=== PATIENT | male | born 1950 | race Caucasian/White ===

== ENCOUNTER 2020-06-07 13:13 | Outpatient (REF) | payer MEDICARE, MEDICAID, SELFPAY ==
[2020-06-07 14:00] LABS: MANUAL DIFF FLAG NO
[2020-06-07 14:03] LABS: Basophils Percent Auto 0.6 % (0-2); Eosinophils Absolute Auto 0.3 X10*3/uL (0.0-0.4); Hematocrit 39.7 % (42-52); Hemoglobin 12.9 g/dl (14.0-18.0); Imm Gran Abs Auto 0.03 X10*3/uL (0.00-0.03); Imm Gran Pct Auto 0.4 % (0.0-0.4); Lymphocytes Absolute Auto 2.2 X10*3/uL (1.2-4.9); Lymphocytes Percent Auto 31.5 % (20-40); Mean Corpuscular HGB Conc 32.5 g/dl (31.0-36.0); Mean Corpuscular Hemoglobin 29.3 pg (27.0-33.0); Monocytes Absolute Auto 0.7 X10*3/uL (0.1-1.2); Monocytes Percent Auto 9.5 % (2-11); Neutrophils Absolute Auto 3.8 X10*3/uL (2.0-8.3); Platelet Count 221 X10*3/uL (160-400); Red Blood Count 4.41 X10*6/uL (4.60-5.80); Red Cell Distribution Width 13.7 % (11.0-16.0); White Blood Count 7.1 X10*3/uL (4.8-10.8)
== END 2020-06-07 13:14 | disposition home or self-care (01) ==
LOC: HO.HMGCLR 13:13
PROVIDERS: PCP Internal Medicine; Visit Provider Psychiatry & Neurology Psychiatry
DX: Z79.899 Other long term (current) drug therapy (principal)
CPT/HCPCS: 36415; 85025

== ENCOUNTER 2020-07-05 13:25 | Outpatient (REF) | payer MEDICARE, MEDICAID, SELFPAY ==
[2020-07-05 16:30] LABS: MANUAL DIFF FLAG NO
[2020-07-05 16:39] LABS: Basophils Percent Auto 0.4 % (0-2); Eosinophils Absolute Auto 0.3 X10*3/uL (0.0-0.4); Hematocrit 42.8 % (42-52); Imm Gran Abs Auto 0.03 X10*3/uL (0.00-0.03); Imm Gran Pct Auto 0.4 % (0.0-0.4); Lymphocytes Absolute Auto 2.3 X10*3/uL (1.2-4.9); Lymphocytes Percent Auto 33.1 % (20-40); Mean Corpuscular HGB Conc 30.4 g/dl (31.0-36.0); Mean Corpuscular Hemoglobin 28.3 pg (27.0-33.0); Monocytes Absolute Auto 0.6 X10*3/uL (0.1-1.2); Monocytes Percent Auto 8.9 % (2-11); Neutrophils Absolute Auto 3.6 X10*3/uL (2.0-8.3); Neutrophils Percent Auto 52.2 % (45-73); Platelet Count 272 X10*3/uL (160-400); Red Cell Distribution Width 13.5 % (11.0-16.0); White Blood Count 6.8 X10*3/uL (4.8-10.8)
== END 2020-07-05 13:26 | disposition home or self-care (01) ==
LOC: HO.HMGCLR 13:25
PROVIDERS: PCP Internal Medicine; Visit Provider Psychiatry & Neurology Psychiatry
DX: Z79.899 Other long term (current) drug therapy (principal)
CPT/HCPCS: 36415; 85025

== ENCOUNTER → 2020-07-08 10:14 | Outpatient (BNVA) | payer MEDICARE, MEDICAID, SELFPAY | PROVIDERS: PCP Internal Medicine; Referring Provider Internal Medicine; Visit Provider Nurse Practitioner | DX: K58.0 Irritable bowel syndrome with diarrhea (principal); Z79.899 Other long term (current) drug therapy | CPT/HCPCS: 99212 ==

== ENCOUNTER 2020-07-09 09:58 | Outpatient (REF) | payer MEDICARE, MEDICAID, SELFPAY | END 2020-07-09 09:59 | disposition home or self-care (01) | LOC: HO.LAB 09:58 | PROVIDERS: Visit Provider Internal Medicine | DX: Z20.828 Contact with and (suspected) exposure to other viral communicable diseases (principal) | CPT/HCPCS: C9803; U0003 ==

== ENCOUNTER 2020-08-03 13:32 | Outpatient (REF) | payer MEDICARE, MEDICAID, SELFPAY ==
[2020-08-03 16:39] LABS: MANUAL DIFF FLAG NO
[2020-08-03 16:49] LABS: Basophils Percent Auto 0.2 % (0-2); Eosinophils Absolute Auto 0.3 X10*3/uL (0.0-0.4); Eosinophils Percent Auto 3.6 % (0-4); Hematocrit 40.5 % (42-52); Hemoglobin 12.8 g/dl (14.0-18.0); Imm Gran Abs Auto 0.04 X10*3/uL (0.00-0.03); Imm Gran Pct Auto 0.5 % (0.0-0.4); Lymphocytes Absolute Auto 2.5 X10*3/uL (1.2-4.9); Lymphocytes Percent Auto 30.1 % (20-40); Mean Corpuscular HGB Conc 31.6 g/dl (31.0-36.0); Mean Corpuscular Hemoglobin 28.6 pg (27.0-33.0); Mean Corpuscular Volume 90.6 fL (80-98); Mean Platelet Volume 12.8 fL (9.4-12.4); Monocytes Absolute Auto 0.7 X10*3/uL (0.1-1.2); Monocytes Percent Auto 8.7 % (2-11); Neutrophils Absolute Auto 4.7 X10*3/uL (2.0-8.3); Neutrophils Percent Auto 56.9 % (45-73); Platelet Count 222 X10*3/uL (160-400); Red Blood Count 4.47 X10*6/uL (4.60-5.80); Red Cell Distribution Width 13.7 % (11.0-16.0); White Blood Count 8.3 X10*3/uL (4.8-10.8)
== END 2020-08-03 13:33 | disposition home or self-care (01) ==
LOC: HO.HMGCLDS 13:32
PROVIDERS: PCP Internal Medicine; Visit Provider Psychiatry & Neurology Psychiatry
DX: Z79.899 Other long term (current) drug therapy (principal)
CPT/HCPCS: 36415; 85025

== ENCOUNTER 2020-08-11 09:52 | Outpatient (REF) | payer MEDICARE, MEDICAID, SELFPAY ==
[2020-08-11 11:17] LABS: MANUAL DIFF FLAG NO
[2020-08-11 11:24] LABS: Basophils Percent Auto 0.5 % (0-2); Eosinophils Absolute Auto 0.3 X10*3/uL (0.0-0.4); Eosinophils Percent Auto 3.8 % (0-4); Hematocrit 41.7 % (42-52); Hemoglobin 12.7 g/dl (14.0-18.0); Imm Gran Abs Auto 0.05 X10*3/uL (0.00-0.03); Imm Gran Pct Auto 0.6 % (0.0-0.4); Lymphocytes Absolute Auto 2.5 X10*3/uL (1.2-4.9); Mean Corpuscular HGB Conc 30.5 g/dl (31.0-36.0); Mean Corpuscular Volume 92.1 fL (80-98); Mean Platelet Volume 11.3 fL (9.4-12.4); Monocytes Absolute Auto 0.7 X10*3/uL (0.1-1.2); Monocytes Percent Auto 9.1 % (2-11); Neutrophils Absolute Auto 4.4 X10*3/uL (2.0-8.3); Platelet Count 287 X10*3/uL (160-400); Red Blood Count 4.53 X10*6/uL (4.60-5.80); Red Cell Distribution Width 13.9 % (11.0-16.0); White Blood Count 7.9 X10*3/uL (4.8-10.8)
[2020-08-11 11:37] LABS: Estimated Average Glucose 131 mg/dL; Hemoglobin A1C 148.9042 umol/L; Hemoglobin A1c % 6.2 %
[2020-08-11 12:05] LABS: Alanine Aminotransferase 25 U/L (0-40); Albumin Level 4.5 g/dL (3.5-5.0); Alkaline Phosphatase 143 U/L (39-117); Anion Gap 15 (12-20); Aspartate Amino Transferase 23 U/L (5-37); Bilirubin Total 0.2 mg/dL (0.0-1.0); Blood Urea Nitrogen 25 mg/dL (9-16); Calcium 8.9 mg/dL (8.4-10.2); Carbon Dioxide 25 mmol/L (22-29); Chloride 105 mmol/L (96-108); Cholesterol 143 mg/dL; Estimated Glomerular Filt Rate > 60; Glucose Fasting 129 mg/dL (60-99); HDL Cholesterol 42 mg/dL; LDL Cholesterol Calculated 79 mg/dl; Sodium 140 mmol/L (135-145); Total Protein 7.2 g/dL (6.5-8.0); Triglycerides 112 mg/dL
[2020-08-11 12:07] LABS: Vitamin D 25-OH Total 39.1 ng/mL (>30)
[2020-08-11 13:16] LABS: Folate 10.2 ng/mL (> or = 4.0); Vitamin B12 316 pg/mL (200-900)
== END 2020-08-11 09:53 | disposition home or self-care (01) ==
LOC: HO.HMGCLDS 09:52
PROVIDERS: PCP Internal Medicine; Visit Provider Internal Medicine
DX: E78.5 Hyperlipidemia, unspecified (principal); E11.9 Type 2 diabetes mellitus without complications; I10 Essential (primary) hypertension; G30.9 Alzheimer's disease, unspecified; K58.0 Irritable bowel syndrome with diarrhea; F17.200 Nicotine dependence, unspecified, uncomplicated; E55.9 Vitamin D deficiency, unspecified; E66.3 Overweight
CPT/HCPCS: 36415; 80053; 80061; 82306; 82607; 82746; 83036; 84443; 85025

== ENCOUNTER 2020-09-07 12:42 | Outpatient (REF) | payer MEDICARE, MEDICAID, SELFPAY ==
[2020-09-07 14:03] LABS: Basophils Percent Auto 0.4 % (0-2); Eosinophils Absolute Auto 0.2 X10*3/uL (0.0-0.4); Eosinophils Percent Auto 3.2 % (0-4); Hematocrit 44.5 % (42-52); Hemoglobin 13.4 g/dl (14.0-18.0); Imm Gran Abs Auto 0.03 X10*3/uL (0.00-0.03); Imm Gran Pct Auto 0.4 % (0.0-0.4); Lymphocytes Absolute Auto 2.7 X10*3/uL (1.2-4.9); Lymphocytes Percent Auto 37.2 % (20-40); MANUAL DIFF FLAG NO; Mean Corpuscular HGB Conc 30.1 g/dl (31.0-36.0); Mean Corpuscular Hemoglobin 28.2 pg (27.0-33.0); Mean Corpuscular Volume 93.5 fL (80-98); Mean Platelet Volume 11.8 fL (9.4-12.4); Monocytes Absolute Auto 0.7 X10*3/uL (0.1-1.2); Monocytes Percent Auto 9.3 % (2-11); Neutrophils Absolute Auto 3.6 X10*3/uL (2.0-8.3); Neutrophils Percent Auto 49.5 % (45-73); Platelet Count 200 X10*3/uL (160-400); Red Blood Count 4.76 X10*6/uL (4.60-5.80); Red Cell Distribution Width 13.9 % (11.0-16.0); White Blood Count 7.2 X10*3/uL (4.8-10.8)
== END 2020-09-07 12:43 | disposition home or self-care (01) ==
LOC: HO.HMGCLDS 12:42
PROVIDERS: PCP Internal Medicine; Visit Provider Psychiatry & Neurology Psychiatry
DX: Z79.899 Other long term (current) drug therapy (principal)
CPT/HCPCS: 36415; 85025

== ENCOUNTER 2020-10-06 11:55 | Outpatient (REF) | payer MEDICARE, MEDICAID, SELFPAY ==
[2020-10-06 13:56] LABS: MANUAL DIFF FLAG NO
[2020-10-06 14:13] LABS: Basophils Percent Auto 0.2 % (0-2); Eosinophils Absolute Auto 0.2 X10*3/uL (0.0-0.4); Hematocrit 43.1 % (42-52); Imm Gran Abs Auto 0.02 X10*3/uL (0.00-0.03); Imm Gran Pct Auto 0.2 % (0.0-0.4); Lymphocytes Absolute Auto 2.6 X10*3/uL (1.2-4.9); Lymphocytes Percent Auto 32.8 % (20-40); Mean Corpuscular HGB Conc 30.2 g/dl (31.0-36.0); Mean Corpuscular Hemoglobin 28.3 pg (27.0-33.0); Mean Corpuscular Volume 93.9 fL (80-98); Mean Platelet Volume 12.6 fL (9.4-12.4); Monocytes Absolute Auto 0.9 X10*3/uL (0.1-1.2); Monocytes Percent Auto 10.6 % (2-11); Neutrophils Absolute Auto 4.3 X10*3/uL (2.0-8.3); Neutrophils Percent Auto 53.2 % (45-73); Platelet Count 218 X10*3/uL (160-400); Red Blood Count 4.59 X10*6/uL (4.60-5.80); Red Cell Distribution Width 14.2 % (11.0-16.0); White Blood Count 8.1 X10*3/uL (4.8-10.8)
== END 2020-10-06 11:56 | disposition home or self-care (01) ==
LOC: HO.HMGCLDS 11:55
PROVIDERS: PCP Internal Medicine; Visit Provider Psychiatry & Neurology Psychiatry
DX: Z79.899 Other long term (current) drug therapy (principal)
CPT/HCPCS: 36415; 85025

== ENCOUNTER 2020-11-02 12:56 | Outpatient (REF) | payer MEDICARE, MEDICAID, SELFPAY ==
[2020-11-02 13:55] LABS: MANUAL DIFF FLAG NO
[2020-11-02 13:58] LABS: Glucose Urine UA NEG (NEG); Leukocyte Esterase Urine NEG (NEG); Nitrite Urine NEG (NEG); Specific Gravity - Urine 1.015 (1.005-1.025); Urine Blood NEG (NEG); Urine Ketones NEG (NEG); Urine Protein 1+ MG/DL (NEG-TRACE)
[2020-11-02 13:59] LABS: Appearance Urine CLEAR; Color Urine YELLOW
[2020-11-02 14:00] LABS: Basophils Percent Auto 0.4 % (0-2); Eosinophils Absolute Auto 0.2 X10*3/uL (0.0-0.4); Eosinophils Percent Auto 2.7 % (0-4); Hematocrit 42.9 % (42-52); Hemoglobin 13.1 g/dl (14.0-18.0); Imm Gran Abs Auto 0.02 X10*3/uL (0.00-0.03); Imm Gran Pct Auto 0.3 % (0.0-0.4); Lymphocytes Absolute Auto 2.3 X10*3/uL (1.2-4.9); Lymphocytes Percent Auto 31.9 % (20-40); Mean Corpuscular HGB Conc 30.5 g/dl (31.0-36.0); Mean Corpuscular Hemoglobin 28.1 pg (27.0-33.0); Mean Corpuscular Volume 92.1 fL (80-98); Mean Platelet Volume 11.9 fL (9.4-12.4); Monocytes Absolute Auto 0.7 X10*3/uL (0.1-1.2); Monocytes Percent Auto 9.4 % (2-11); Neutrophils Percent Auto 55.3 % (45-73); Platelet Count 217 X10*3/uL (160-400); Red Blood Count 4.66 X10*6/uL (4.60-5.80); Red Cell Distribution Width 14.2 % (11.0-16.0); White Blood Count 7.1 X10*3/uL (4.8-10.8)
[2020-11-02 14:10] LABS: RBC Urine 0 /HPF (0); Squamous Epithelial Cell Urine TRACE /LPF
[2020-11-02 14:31] LABS: Alanine Aminotransferase 42 U/L (0-40); Albumin Level 4.7 g/dL (3.5-5.0); Alkaline Phosphatase 108 U/L (39-117); Anion Gap 15 (12-20); Aspartate Amino Transferase 35 U/L (5-37); Bilirubin Total 0.5 mg/dL (0.0-1.0); Blood Urea Nitrogen 24 mg/dL (9-16); Calcium 9.2 mg/dL (8.4-10.2); Carbon Dioxide 22 mmol/L (22-29); Chloride 107 mmol/L (96-108); Cholesterol 180 mg/dL; Estimated Glomerular Filt Rate > 60; Glucose Fasting 99 mg/dL (60-99); HDL Cholesterol 47 mg/dL; LDL Cholesterol Calculated 102 mg/dl; Potassium 5.1 mmol/L (3.3-5.1); Sodium 139 mmol/L (135-145); Total Protein 7.5 g/dL (6.5-8.0); Triglycerides 155 mg/dL
[2020-11-02 14:52] LABS: TSH reflex Free T4 2.01 uIU/mL (0.32-4.0); Vitamin D 25-OH Total 33.8 ng/mL (>30)
[2020-11-02 14:58] LABS: Creatinine Urine 56.95 mg/dL; Microalbum/Creatinine Ratio Ur 440.7 ug/mg cr
[2020-11-02 15:13] LABS: Folate 13.8 ng/mL (> or = 4.0); Vitamin B12 356 pg/mL (200-900)
== END 2020-11-02 12:57 | disposition home or self-care (01) ==
LOC: HO.HMGCLDS 12:56
PROVIDERS: PCP Internal Medicine; Visit Provider Psychiatry & Neurology Psychiatry
DX: E55.9 Vitamin D deficiency, unspecified (principal); I10 Essential (primary) hypertension; F17.200 Nicotine dependence, unspecified, uncomplicated; E66.3 Overweight; K58.0 Irritable bowel syndrome with diarrhea; G30.9 Alzheimer's disease, unspecified; F02.80 Dementia in other diseases classified elsewhere, unspecified severity, without behavioral disturbance, psychotic disturbance, mood disturbance, and anxiety; E78.00 Pure hypercholesterolemia, unspecified; E11.9 Type 2 diabetes mellitus without complications; Z79.899 Other long term (current) drug therapy
CPT/HCPCS: 36415; 80053; 80061; 81001; 82043; 82306; 82607; 82746; 84443; 85025

== ENCOUNTER 2020-11-08 09:09 | Outpatient (REF) | payer MEDICARE, MEDICAID, SELFPAY | END 2020-11-08 09:10 | disposition home or self-care (01) | LOC: HO.HMGCLDS 09:09 | PROVIDERS: PCP Internal Medicine; Visit Provider Internal Medicine | DX: Z13.89 Encounter for screening for other disorder (principal) ==

== ENCOUNTER 2020-12-06 12:30 | Outpatient (REF) | payer MEDICARE, MEDICAID, SELFPAY ==
[2020-12-06 13:55] LABS: MANUAL DIFF FLAG NO
[2020-12-06 14:02] LABS: Basophils Percent Auto 0.4 % (0-2); Eosinophils Absolute Auto 0.3 X10*3/uL (0.0-0.4); Eosinophils Percent Auto 3.6 % (0-4); Hematocrit 42.8 % (42-52); Hemoglobin 12.9 g/dl (14.0-18.0); Imm Gran Abs Auto 0.04 X10*3/uL (0.00-0.03); Imm Gran Pct Auto 0.5 % (0.0-0.4); Lymphocytes Absolute Auto 2.4 X10*3/uL (1.2-4.9); Lymphocytes Percent Auto 29.9 % (20-40); Mean Corpuscular HGB Conc 30.1 g/dl (31.0-36.0); Mean Corpuscular Hemoglobin 27.7 pg (27.0-33.0); Mean Platelet Volume 11.7 fL (9.4-12.4); Monocytes Absolute Auto 0.8 X10*3/uL (0.1-1.2); Monocytes Percent Auto 10.2 % (2-11); Neut%MD 55.4 %; Neutrophils Absolute Auto 4.5 X10*3/uL (2.0-8.3); Neutrophils Percent Auto 55.4 % (45-73); Platelet Count 243 X10*3/uL (160-400); Red Blood Count 4.65 X10*6/uL (4.60-5.80); WBCANC 8.1 X10*3/uL; White Blood Count 8.1 X10*3/uL (4.8-10.8)
== END 2020-12-06 12:31 | disposition home or self-care (01) ==
LOC: HO.HMGCLR 12:30
PROVIDERS: PCP Internal Medicine; Visit Provider Psychiatry & Neurology Psychiatry
DX: Z79.899 Other long term (current) drug therapy (principal)
CPT/HCPCS: 36415; 85025; 85048

== ENCOUNTER 2021-01-04 13:16 | Outpatient (REF) | payer MEDICARE, MEDICAID, SELFPAY ==
[2021-01-04 14:14] LABS: MANUAL DIFF FLAG NO
[2021-01-04 14:24] LABS: Basophils Percent Auto 0.4 % (0-2); Eosinophils Absolute Auto 0.5 X10*3/uL (0.0-0.4); Eosinophils Percent Auto 6.3 % (0-4); Hematocrit 43.6 % (42-52); Hemoglobin 13.3 g/dl (14.0-18.0); Imm Gran Abs Auto 0.03 X10*3/uL (0.00-0.03); Imm Gran Pct Auto 0.4 % (0.0-0.4); Lymphocytes Absolute Auto 2.1 X10*3/uL (1.2-4.9); Lymphocytes Percent Auto 28.8 % (20-40); Mean Corpuscular HGB Conc 30.5 g/dl (31.0-36.0); Mean Corpuscular Hemoglobin 28.2 pg (27.0-33.0); Mean Corpuscular Volume 92.4 fL (80-98); Mean Platelet Volume 11.8 fL (9.4-12.4); Monocytes Absolute Auto 0.7 X10*3/uL (0.1-1.2); Monocytes Percent Auto 10.1 % (2-11); Neutrophils Absolute Auto 3.9 X10*3/uL (2.0-8.3); Platelet Count 236 X10*3/uL (160-400); Red Blood Count 4.72 X10*6/uL (4.60-5.80); Red Cell Distribution Width 13.7 % (11.0-16.0); White Blood Count 7.2 X10*3/uL (4.8-10.8)
[2021-01-04 14:32] LABS: Alanine Aminotransferase 34 U/L (0-40); Albumin Level 4.5 g/dL (3.5-5.0); Alkaline Phosphatase 114 U/L (39-117); Anion Gap 15 (12-20); Aspartate Amino Transferase 36 U/L (5-37); Bilirubin Total 0.4 mg/dL (0.0-1.0); Blood Urea Nitrogen 26 mg/dL (9-16); Calcium 9.3 mg/dL (8.4-10.2); Carbon Dioxide 26 mmol/L (22-29); Chloride 106 mmol/L (96-108); Cholesterol 155 mg/dL; Estimated Glomerular Filt Rate > 60; Glucose Fasting 93 mg/dL (60-99); HDL Cholesterol 39 mg/dL; LDL Cholesterol Calculated 89 mg/dl; Sodium 142 mmol/L (135-145); Total Protein 7.3 g/dL (6.5-8.0); Triglycerides 135 mg/dL
[2021-01-04 14:44] LABS: Estimated Average Glucose 131 mg/dL; Hemoglobin A1c % 6.2 %
[2021-01-04 14:54] LABS: TSH reflex Free T4 1.42 uIU/mL (0.32-4.0); Vitamin D 25-OH Total 33.3 ng/mL (>30)
[2021-01-04 15:05] LABS: Folate 12.2 ng/mL (> or = 4.0); Vitamin B12 382 pg/mL (200-900)
[2021-01-04 16:29] LABS: Glucose Urine UA NEG (NEG); Leukocyte Esterase Urine NEG (NEG); Nitrite Urine NEG (NEG); Specific Gravity - Urine 1.025 (1.005-1.025); Urine Blood NEG (NEG); Urine Ketones NEG (NEG); Urine Protein 1+ MG/DL (NEG-TRACE)
[2021-01-04 16:30] LABS: Appearance Urine CLEAR; Color Urine YELLOW
[2021-01-04 16:54] LABS: RBC Urine 0 /HPF (0); Squamous Epithelial Cell Urine 1+ /LPF; WBC Urine 0 /HPF (0-4)
== END 2021-01-04 13:17 | disposition home or self-care (01) ==
LOC: HO.HMGCLR 13:16
PROVIDERS: PCP Internal Medicine; Visit Provider Psychiatry & Neurology Psychiatry
DX: E11.9 Type 2 diabetes mellitus without complications (principal); G30.9 Alzheimer's disease, unspecified; F02.80 Dementia in other diseases classified elsewhere, unspecified severity, without behavioral disturbance, psychotic disturbance, mood disturbance, and anxiety; E55.9 Vitamin D deficiency, unspecified; E66.3 Overweight; E78.00 Pure hypercholesterolemia, unspecified; K58.0 Irritable bowel syndrome with diarrhea; F17.200 Nicotine dependence, unspecified, uncomplicated; Z79.899 Other long term (current) drug therapy
CPT/HCPCS: 36415; 80053; 80061; 81001; 82306; 82607; 82746; 83036; 84443; 85025

== ENCOUNTER → 2021-01-10 10:13 | Outpatient (BNVA) | payer MEDICARE, MEDICAID, SELFPAY | PROVIDERS: PCP Internal Medicine; Visit Provider Nurse Practitioner | DX: K58.0 Irritable bowel syndrome with diarrhea (principal); G30.9 Alzheimer's disease, unspecified; F02.80 Dementia in other diseases classified elsewhere, unspecified severity, without behavioral disturbance, psychotic disturbance, mood disturbance, and anxiety | CPT/HCPCS: Q3014 ==

== ENCOUNTER 2021-02-01 12:45 | Outpatient (REF) | payer MEDICARE, MEDICAID, SELFPAY ==
[2021-02-01 14:10] LABS: MANUAL DIFF FLAG NO
[2021-02-01 14:15] LABS: Basophils Percent Auto 0.4 % (0-2); Eosinophils Absolute Auto 0.7 X10*3/uL (0.0-0.4); Eosinophils Percent Auto 8.1 % (0-4); Hematocrit 40.6 % (42-52); Hemoglobin 12.3 g/dl (14.0-18.0); Imm Gran Abs Auto 0.05 X10*3/uL (0.00-0.03); Imm Gran Pct Auto 0.6 % (0.0-0.4); Lymphocytes Absolute Auto 2.3 X10*3/uL (1.2-4.9); Lymphocytes Percent Auto 27.1 % (20-40); Mean Corpuscular HGB Conc 30.3 g/dl (31.0-36.0); Mean Corpuscular Hemoglobin 28.2 pg (27.0-33.0); Mean Corpuscular Volume 93.1 fL (80-98); Mean Platelet Volume 11.5 fL (9.4-12.4); Monocytes Absolute Auto 0.7 X10*3/uL (0.1-1.2); Monocytes Percent Auto 8.7 % (2-11); Neutrophils Absolute Auto 4.6 X10*3/uL (2.0-8.3); Neutrophils Percent Auto 55.1 % (45-73); Platelet Count 263 X10*3/uL (160-400); Red Blood Count 4.36 X10*6/uL (4.60-5.80); Red Cell Distribution Width 13.8 % (11.0-16.0); White Blood Count 8.4 X10*3/uL (4.8-10.8)
== END 2021-02-01 12:46 | disposition home or self-care (01) ==
LOC: HO.HMGCLDS 12:45
PROVIDERS: PCP Internal Medicine; Visit Provider Psychiatry & Neurology Psychiatry
DX: Z79.899 Other long term (current) drug therapy (principal)
CPT/HCPCS: 36415; 85025

== ENCOUNTER 2021-03-08 12:36 | Outpatient (REF) | payer MEDICARE, MEDICAID, SELFPAY ==
[2021-03-08 14:00] LABS: MANUAL DIFF FLAG NO
[2021-03-08 14:22] LABS: Basophils Percent Auto 0.3 % (0-2); Eosinophils Absolute Auto 0.4 X10*3/uL (0.0-0.4); Eosinophils Percent Auto 3.7 % (0-4); Hematocrit 45.5 % (42-52); Hemoglobin 13.8 g/dl (14.0-18.0); Imm Gran Abs Auto 0.05 X10*3/uL (0.00-0.03); Imm Gran Pct Auto 0.5 % (0.0-0.4); Lymphocytes Absolute Auto 2.1 X10*3/uL (1.2-4.9); Lymphocytes Percent Auto 20.9 % (20-40); Mean Corpuscular HGB Conc 30.3 g/dl (31.0-36.0); Mean Corpuscular Hemoglobin 27.8 pg (27.0-33.0); Mean Corpuscular Volume 91.5 fL (80-98); Mean Platelet Volume 12.1 fL (9.4-12.4); Monocytes Absolute Auto 0.8 X10*3/uL (0.1-1.2); Monocytes Percent Auto 8.5 % (2-11); Neutrophils Absolute Auto 6.5 X10*3/uL (2.0-8.3); Neutrophils Percent Auto 66.1 % (45-73); Platelet Count 241 X10*3/uL (160-400); Red Blood Count 4.97 X10*6/uL (4.60-5.80); Red Cell Distribution Width 14.2 % (11.0-16.0); White Blood Count 9.8 X10*3/uL (4.8-10.8)
== END 2021-03-08 12:37 | disposition home or self-care (01) ==
LOC: HO.HMGCLDS 12:36
PROVIDERS: Visit Provider Psychiatry & Neurology Psychiatry
DX: Z79.899 Other long term (current) drug therapy (principal)
CPT/HCPCS: 36415; 85025

== ENCOUNTER 2021-03-09 11:17 | Outpatient (REF) | payer MEDICARE, MEDICAID, SELFPAY ==
--- NOTE | 2021-03-09 13:38 | MHC.AU.HFU ---
Hearing Instrument Follow-Up- Binaural Date of Visit: 03/09/21 Follow-Up Summary: Patient accompanied by cupola worker Jacqui, and was scheduled for audiologic R/V today. Not able to test due to occluding cerumen in both ears and Diabetic. Jacqui will schedule appointment with Dr. Johansen for removal and when appointment is known, she will reschedule the hearing test and impressions at this office for right after cerumen removal. [facility] is unable to find Patricio's hearing aids. He rarely wears them, but reports he really does hear better with the aids. He says they are too difficult to keep in ears, especially with his glasses and facemask. Jacqui says the Dementia makes everything more difficult. Recommendations: Recommendations (Other): Discussed Pocket Talker or possible custom hearing aids. Patient is very interested in binaural Phonak Virto M 61-210 ITE in Black. Will need to obtain Prior Authorization for new aids due to Dementia after hearing test and clearance received from Dr. Johansen Diagnosis Code(s): Primary Diagnosis: H90.3 Bilateral Sensorineural Hearing Loss Services Performed: [facility] Non-Quantity Charges: HANC: NonBillable Event Signature: Provider: Shania Triana, CCC-A
== END 2021-03-09 11:18 | disposition home or self-care (01) ==
LOC: HO.SH 11:17
PROVIDERS: Visit Provider Internal Medicine
DX: Z13.89 Encounter for screening for other disorder (principal)

== ENCOUNTER 2021-04-06 14:59 | Outpatient (REF) | payer MEDICARE, MEDICAID, SELFPAY ==
[2021-04-06 16:19] LABS: MANUAL DIFF FLAG NO
[2021-04-06 16:23] LABS: Basophils Percent Auto 0.5 % (0-2); Eosinophils Absolute Auto 0.4 X10*3/uL (0.0-0.4); Eosinophils Percent Auto 5.7 % (0-4); Hematocrit 47.1 % (42-52); Hemoglobin 14.3 g/dl (14.0-18.0); Imm Gran Abs Auto 0.03 X10*3/uL (0.00-0.03); Imm Gran Pct Auto 0.5 % (0.0-0.4); Lymphocytes Absolute Auto 2.2 X10*3/uL (1.2-4.9); Lymphocytes Percent Auto 33.7 % (20-40); Mean Corpuscular HGB Conc 30.4 g/dl (31.0-36.0); Mean Corpuscular Hemoglobin 27.9 pg (27.0-33.0); Mean Platelet Volume 11.8 fL (9.4-12.4); Monocytes Absolute Auto 0.7 X10*3/uL (0.1-1.2); Monocytes Percent Auto 10.7 % (2-11); Neutrophils Absolute Auto 3.2 X10*3/uL (2.0-8.3); Neutrophils Percent Auto 48.9 % (45-73); Platelet Count 265 X10*3/uL (160-400); Red Blood Count 5.12 X10*6/uL (4.60-5.80); Red Cell Distribution Width 14.6 % (11.0-16.0); White Blood Count 6.6 X10*3/uL (4.8-10.8)
== END 2021-04-06 15:00 | disposition home or self-care (01) ==
LOC: HO.HMGCLR 14:59
PROVIDERS: PCP Internal Medicine; Visit Provider Psychiatry & Neurology Psychiatry
DX: Z79.899 Other long term (current) drug therapy (principal)
CPT/HCPCS: 36415; 85025

== ENCOUNTER 2021-04-11 08:57 | Outpatient (REF) | payer MEDICARE, MEDICAID, SELFPAY ==
--- NOTE | ~2021-04-11 | XR_ITS ---
EXAMINATION: XR CHEST CLINICAL INFORMATION: Hypoxemia COMPARISON: None TECHNIQUE: 2 views of the chest were obtained. FINDINGS: The lungs are well-expanded with linear atelectatic changes or scarring in the lingula and left lower lobe. The heart size and pulmonary vascularity is normal. There is moderate spondylosis dorsal spine. No lytic process seen.. XR/XR chest 2V IMPRESSION: Left lower lobe and lingular bandlike atelectasis. Rest of the lungs are clear. There is moderate spondylosis dorsal spine.
[2021-04-11 11:30] LABS: Imm Gran Abs Auto 0.04 X10*3/uL (0.00-0.03); Imm Gran Pct Auto 0.6 % (0.0-0.4); MANUAL DIFF FLAG SCAN; Mean Platelet Volume 13.2 fL (9.4-12.4); Neutrophils Absolute Auto 3.8 X10*3/uL (2.0-8.3); PLT CLUMP 1; Red Cell Distribution Width 14.6 % (11.0-16.0); SCAN SMEAR FLAG 1
[2021-04-11 11:33] LABS: Basophils Percent Auto 0.4 % (0-2); Eosinophils Absolute Auto 0.3 X10*3/uL (0.0-0.4); Eosinophils Percent Auto 4.9 % (0-4); Estimated Average Glucose 148 mg/dL; Hematocrit 47.8 % (42-52); Hemoglobin 14.3 g/dl (14.0-18.0); Hemoglobin A1c % 6.8 %; Lymphocytes Percent Auto 29.1 % (20-40); Mean Corpuscular HGB Conc 29.9 g/dl (31.0-36.0); Mean Corpuscular Hemoglobin 27.9 pg (27.0-33.0); Mean Corpuscular Volume 93.4 fL (80-98); Monocytes Absolute Auto 0.7 X10*3/uL (0.1-1.2); Monocytes Percent Auto 9.6 % (2-11); Neutrophils Percent Auto 55.4 % (45-73); Red Blood Count 5.12 X10*6/uL (4.60-5.80); White Blood Count 6.8 X10*3/uL (4.8-10.8)
[2021-04-11 11:35] LABS: PLT ABN DIST 1
[2021-04-11 11:58] LABS: TSH reflex Free T4 1.92 uIU/mL (0.32-4.0); Vitamin D 25-OH Total 30.4 ng/mL (>30)
[2021-04-11 12:00] LABS: Platelet Count 194 X10*3/uL (160-400)
[2021-04-11 12:01] LABS: SLIDE REVIEW VERIFIED
[2021-04-11 12:09] LABS: Alanine Aminotransferase 31 U/L (0-40); Albumin Level 4.4 g/dL (3.5-5.0); Alkaline Phosphatase 121 U/L (39-117); Anion Gap 15 (12-20); Aspartate Amino Transferase 23 U/L (5-37); Bilirubin Total < 0.2 mg/dL (0.0-1.0); Blood Urea Nitrogen 25 mg/dL (9-16); Calcium 9.5 mg/dL (8.4-10.2); Carbon Dioxide 25 mmol/L (22-29); Chloride 106 mmol/L (96-108); Cholesterol 165 mg/dL; Estimated Glomerular Filt Rate > 60; Glucose Fasting 185 mg/dL (60-99); HDL Cholesterol 43 mg/dL; LDL Cholesterol Calculated 93 mg/dl; Potassium 4.9 mmol/L (3.3-5.1); Sodium 141 mmol/L (135-145); Total Protein 7.2 g/dL (6.5-8.0); Triglycerides 145 mg/dL
[2021-04-11 12:54] LABS: Folate 10.6 ng/mL (> or = 4.0); Vitamin B12 325 pg/mL (200-900)
== END 2021-04-11 08:58 | disposition home or self-care (01) ==
LOC: HO.HMGCLDS 08:57
PROVIDERS: PCP Internal Medicine; Visit Provider Internal Medicine
DX: R09.02 Hypoxemia (principal); E11.9 Type 2 diabetes mellitus without complications; F02.80 Dementia in other diseases classified elsewhere, unspecified severity, without behavioral disturbance, psychotic disturbance, mood disturbance, and anxiety; G30.9 Alzheimer's disease, unspecified; E55.9 Vitamin D deficiency, unspecified; E78.00 Pure hypercholesterolemia, unspecified; E66.3 Overweight; I10 Essential (primary) hypertension; F17.200 Nicotine dependence, unspecified, uncomplicated; K58.0 Irritable bowel syndrome with diarrhea
CPT/HCPCS: 36415; 71046; 80053; 80061; 82306; 82607; 82746; 83036; 84443; 85025

== ENCOUNTER 2021-04-12 10:31 | Outpatient (REF) | payer MEDICARE, MEDICAID, SELFPAY ==
--- NOTE | 2021-04-12 12:25 | MHC.AU.AHA ---
Adult Audiological Evaluation Date of Visit: 04/12/21 Communications Field Technician Used: Not Applicable Reason for Appointment: Patricio is accompanied by textile pin worker Jacqui who reports Patricio was seen by Dr. Johansen last week for bilateral cerumen removal. Patricio lost the ujwqlg-vro-dty hearing aids received in August 2019 for the second time. He reports he tended to take the hearing aids out of his ears because of discomfort behind his ears caused by the aids. Due to the Dementia, he would forget where he placed the aids and then he and the staff could not find them. Patricio notes he wants to wear hearing aids because he does hear better when using them and he believes the in-the-ear style hearing aid may be more comfortable. Previous Hearing Test Results: 07/01/2019 [facility] Normal hearing thresholds 250-1000 Hz sloping to a severe high frequency sensorineural hearing loss bilaterally with 92% speech understanding for the right ear at 55 dB HL and 88% for the left ear at 50 dB HL. Ear History: History of Ear Wax Buildup: Both Ears Medical History: Developmental Disorder/Delay,Diabetes, High Blood Pressure, High Cholesterol, Dementia Medication List: Clozaril, Effexor XR, Klonopin, Vitamin D, Zocor, Lisinopril, Aspirin, Gemfibrozil, Metformin, Namenda, Aricept Hearing Instrument History- Right Ear: Retoucher Photoengraving: Phonak Model: Bolero B 50-M BTE REPORTED LOST 03/09/2021 L&D already used 09/08/2019 Serial Number: [id number] Dispensed By: [facility] Date of Fittin08/11/2019 Hearing Instrument History- Left Ear: Retoucher Photoengraving: Phonak Model: Bolero B 50-M BTE REPORTED LOST 03/09/2021 L&D already used 09/08/2019 Serial Number: [id number] Dispensed By: [facility] Date of Fittin08/11/2019 Otoscopy: Right Ear: Unremarkable Left Ear: Unremarkable Tympanometry: Tympanometry performed due to: To assess integrity of the middle ear system Right Ear: Normal Middle Ear System (Type A) Left Ear: Normal Middle Ear System (Type A) Hearing Evaluation: Transducer(s) Used: Insert Earphones Bone Conduction Method: Conventional Audiometry Stimuli Used: Pure Tones Right Ear: Description of Hearing: Normal hearing thresholds 250-1000 Hz, dropping to a severe high frequency sensorineural hearing loss Left Ear: Description of Hearing: Normal hearing thresholds 250-1000 Hz, dropping to a severe high frequency sensorineural hearing loss Speech Recognition Threshold (SRT): Method Used: Monitored Live Voice Stimuli Used: Spondee Words Right Ear: 20 dB HL Left Ear: 20 dB HL Word Discrimination: Method: Recorded Lists Word Lists Used: NU-6 Right Ear: 88% at 60 dB HL Left Ear: 88% at 60 dB HL Comparison: Compared to the most recent evaluation: Thresholds have decreased bilaterally by 5-10 dB. Speech discrimination ability is stable Interpretation of Results: With the bilateral severe high frequency sensorineural hearing loss Patricio is able to identify when someone is speaking, but have difficulty understanding speech, particularly when people speak from a distance of greater than 6 feet or background noise is present. Given Patricio lives in a Senior Living and needs to hear instruction frequently, new binaural in-the-ear hearing aids are recommended to facilitate communication and improve Patricio's ability to wear the hearing aids all day. Recommendations: Trial with new amplification is recommended. Medical clearance from a physician is required before fitting. Hearing Aid Fitting will be scheduled when all materials arrive. Will fax Prior Authorization request for [facility] hearing aids [facility] when medical clearance is received. Audiological re-evaluation in one year. Will send a reminder card Diagnosis: Primary Diagnosis: H90.3 Bilateral Sensorineural Hearing Loss Services Performed: Comprehensive Audiological Evaluation (CPT 02042) Tympanometry (CPT 09082) Signature: Provider: EDWARD TavaresA
--- NOTE | 2021-04-12 12:53 | MHC.AU.MED ---
Medical Clearance for Hearing Instrumentation Date: 04/12/21 Patient Name: Patricio Ochoa Date of : 1950 Primary Care Provider: Referring Provider: Alex Salazar MD We have seen your patient on 04/12/21 and have determined that they are a candidate for amplification (See accompanying report). Specifically, they would benefit from: Hearing aid use in both ears There is a statute that addresses Medical Evaluation Requirements prior to fitting a patient with a hearing aid. According to [place] statute 265 CMR:6.03(1), (a) General. Except as provided in 265 CMR 6.03(1)(b), a ground crew lines person shall not sell a hearing aid unless the prospective user has presented to the ground crew lines person a written statement signed by a licensed physician that states that the patient's hearing loss has been medically evaluated and the patient may be considered a candidate for a hearing aid. The medical evaluation must have taken place within the preceding six months. Please note: Due to the [place] Statute referenced above, we cannot accept a signature other than that of a licensed physician. PURCHASING EXPEDITOR and PA signatures cannot be accepted. I am in agreement with the above recommendation. There is no medical contraindication for hearing instrumentation. Physician Signature Date Physician Name (Printed)
--- NOTE | 2021-04-12 13:42 | MHC.AU.HAS ---
Hearing Aid Evaluation Date of Visit: 04/12/21 Historical Information: Description of Hearing: Normal hearing thresholds 250-1000 Hz dropping to severe sensorineural hearing loss bilaterally Current personal amplification information, if applicable: New Cox 50-M BTE. Aids lost and loss and damaged used Summary: Patient frequently took the lzvqpp-ajt-pio aids out due to discomfort behind the ears and then lost the aids. Due to degree of high frequency hearing loss and living in a Half-Way, new one piece he-aop-wkery aids are recommended to facilitate communication and comfort of aids. Hearing Aid Prescription: Based on the individual?s shared listening needs, communication environments, dexterity, desire for connectivity, and personal preferences, the following prescription for amplification has been made: Right ear: Youth Minister: Phonak Model: Virto M 70-312 Battery Size: 312 Color: Black Left ear: Youth Minister: Phonak Model: Virto M 70-312 Battery Size: 312 Color: Black Plan of Care: Patient wishes to purchase hearing aids as prescribed Action Taken/Action Needed: Earmold Impressions Taken, Prior authorization to be requested, Medical Clearance to be requested from PCP/ENT, Hearing Instrument Fitting to be scheduled when materials arrive Primary Diagnosis: H90.3 Bilateral Sensorineural Hearing Loss Signature: Provider: Rosalina Jauregui, RICHIE-A
== END 2021-04-12 10:32 | disposition home or self-care (01) ==
LOC: HO.SH 10:31
PROVIDERS: Visit Provider Internal Medicine
DX: H90.3 Sensorineural hearing loss, bilateral (principal)
CPT/HCPCS: 92557; 92567; 92591; V5275

== ENCOUNTER 2021-04-12 11:36 | Outpatient (REF) | payer MEDICARE, MEDICAID, SELFPAY ==
[2021-04-12 13:49] LABS: Glucose Urine UA NEG (NEG); Leukocyte Esterase Urine NEG (NEG); Nitrite Urine NEG (NEG); Specific Gravity - Urine 1.025 (1.005-1.025); UACC Culture Trigger NO; Urine Blood NEG (NEG); Urine Ketones NEG (NEG); Urine Protein 1+ MG/DL (NEG-TRACE)
[2021-04-12 13:50] LABS: Appearance Urine CLEAR; Color Urine YELLOW
[2021-04-12 14:06] LABS: RBC Urine 0-2 /HPF (0); WBC Urine 0-2 /HPF (0-4)
[2021-04-12 14:37] LABS: Creatinine Urine 55.67 mg/dL; Microalbum/Creatinine Ratio Ur 393.3 ug/mg cr
== END 2021-04-12 11:37 | disposition home or self-care (01) ==
LOC: HO.HMGCLDS 11:36
PROVIDERS: PCP Internal Medicine; Visit Provider Internal Medicine
DX: E11.9 Type 2 diabetes mellitus without complications (principal)
CPT/HCPCS: 81001; 82043; 92557; 92567; 92591; V5275

== ENCOUNTER 2021-04-13 13:00 | Outpatient (RCR) | payer MEDICARE, MEDICAID, SELFPAY ==
--- NOTE | 2021-03-14 12:54 | MHC.PT.EP ---
[facility] [place] Office [place] Office [place] Office [address] Annetta Al [address] [phone] F: [phone] F: [phone] F: [phone] F: [phone] Physical Therapy Plan of Care Date of Evaluation: Date of Surgery: Diagnosis: WEAKNESS; GAIT INSTABILITY Assessment: 71 YO MALE REF TO PT FOR GENERAL WEAKNESS, UNSTEADY GAIT- HE RESIDES IN A LONGTERM AND HIS DAY PROGRAM WAS CANC DUE TO THE PANDEMIC- HE BECAME VERY SEDENTARY- STAFF NOTES Pt IS STIFFER, HAS UNSTEADINESS ON THE STAIRS AND BENEFITS FROM USE OF A W/WALKER W INCR AMB FOR APPTS OR PROLONGED STANDING. Pt HAS DECR POSTURAL AWARENESS, DECR GROSS STRENGTH IN JILLIAN LEs, FLEXIBILITY DEFICITS IN JILLIAN LEs -ESPEC ANKLES,AND TRUNK, AND DEFICITS WITH DYNAMIC BALANCE. HE WOULD BENEFIT FROM PT TO ADDRESS THE ABOVE AND DEV A HEP. Frequency and Duration: The patient will be seen 2x WK x 5 WKS Short Term Goals: Pt DEMON IMPROVED FLEXIB IN JILLIAN LEs AND TRUNK- 50% FUNCTIONAL SQUAT IN 3 WKS Pt DEMON IMPROVED TECHN W STAIR MGMT, SIT <-> STAND TRANSFERS, BED MOB IN 3 WKS [facility] Goals: Pt MOD INDEP W HEP W STAFF ASSIST IN 5 WKS Pt DEMON IMPROVED LEFT BY 10 POINTS (38/80 AT EVAL) AND IMPROVED TUG TEST IN 5 WKS Treatment Plan: Modalities to reduce pain, spasms and effusion. Manual therapy to restore motion and function. Therapeutic exercise to improve strength and flexibility. Neuromuscular re-education for posture and balance. Therapeutic activities to return to functional activities of daily living. Electronically signed by: Beti JeanPT Please sign and return to therapist. Thank you for your referral.
--- NOTE | 2021-05-06 08:04 | MHC.PT.DC ---
[facility] [place] Office [place] Office [place] Office [address] Annetta Al [address] [phone] F: [phone] F: [phone] F: [phone] F: [phone] Physical Therapy Discharge Report Diagnosis: WEAKNESS; GAIT INSTABILITY Date of Surgery: Date of Evaluation: 03/14/21 Date of Discharge: 05/06/21 Treatments to Date: 10 Cancellations to Date: 0 No Shows to Date: 0 Discharge Status: Achieved Goals Improved Function Independent with HEP Discharge Summary: Pt needs demonstration with v/c to perform exs. Has HEP and full support from aide at home to continue on own. DC to HEP Electronically signed by: Bianca Rand PT Please sign and return to therapist. Thank you for your referral.
== END 2021-05-06 08:04 | disposition home or self-care (01) ==
LOC: HO.PTCHIC 13:00
PROVIDERS: PCP Internal Medicine; Visit Provider Internal Medicine
DX: R53.1 Weakness (principal); R26.81 Unsteadiness on feet
CPT/HCPCS: 97110; 97112; 97116; 97162

== ENCOUNTER 2021-04-19 11:01 | Outpatient (REF) | payer MEDICARE, MEDICAID, SELFPAY ==
--- NOTE | 2021-04-19 17:16 | PFT_ITS ---
INDICATION: Hypoxemia. SPIROMETRY: The FEV1 to FVC 100% with an FEV1 of 0.77 L which is 25% predicted, an FVC of 0.77 L which 18% predicted. Again, bronchodilators were not used. LUNG VOLUMES: Total lung capacity 87% predicted with residual volume of 183% predicted. Expiratory reserve volume of 19% predicted secondary to an elevated BMI. DIFFUSION CAPACITY: This could not be tested. The patient cannot get a good feel and therefore could not get adequate numbers that were acceptable for the ATS standards. COMPARISON: PFTs in 2014. INTERPRETATION: There is no obstructive ventilatory defect. Bronchodilators were not used. The patient does have significant air trapping noted and significant decrease in the expiratory reserve volume likely secondary to an elevated BMI. However, these numbers appear to be limited as the patient could not tolerate the procedure well. The patient did have PFTs back in 2013 and comparing to those numbers, there is a significant decrease in the FVC, significant decrease in the FEV1, and also unchanged total lung capacity. Therefore, I will proceed with caution, interpreting these PFTs as the numbers and data may indeed be limited. Clinical correlation warranted. MD RTESA Landry/AARON / [phone]
== END 2021-04-19 11:02 | disposition home or self-care (01) ==
LOC: HO.RESP 11:01
PROVIDERS: PCP Internal Medicine; Visit Provider Internal Medicine
DX: Z13.89 Encounter for screening for other disorder (principal)

== ENCOUNTER → 2021-04-20 11:20 | Outpatient (BNVA) | payer MEDICARE, MEDICAID, SELFPAY | PROVIDERS: PCP Internal Medicine; Visit Provider Internal Medicine | DX: R09.02 Hypoxemia (principal); J44.9 Chronic obstructive pulmonary disease, unspecified; F17.200 Nicotine dependence, unspecified, uncomplicated | CPT/HCPCS: 99202; J1100 ==

== ENCOUNTER 2021-05-10 13:10 | Outpatient (REF) | payer MEDICARE, MEDICAID, SELFPAY ==
[2021-05-10 14:00] LABS: MANUAL DIFF FLAG NO
[2021-05-10 14:02] LABS: Appearance Urine HAZY; Color Urine YELLOW; Glucose Urine UA NEG (NEG); Leukocyte Esterase Urine NEG (NEG); Nitrite Urine NEG (NEG); Specific Gravity - Urine >= 1.030 (1.005-1.025); UACC Culture Trigger NO; Urine Blood NEG (NEG); Urine Ketones NEG (NEG); Urine Protein 2+ MG/DL (NEG-TRACE)
[2021-05-10 14:06] LABS: Basophils Percent Auto 0.4 % (0-2); Eosinophils Absolute Auto 0.3 X10*3/uL (0.0-0.4); Eosinophils Percent Auto 4.5 % (0-4); Hemoglobin 13.3 g/dl (14.0-18.0); Imm Gran Abs Auto 0.04 X10*3/uL (0.00-0.03); Imm Gran Pct Auto 0.5 % (0.0-0.4); Lymphocytes Absolute Auto 2.1 X10*3/uL (1.2-4.9); Lymphocytes Percent Auto 27.8 % (20-40); Mean Corpuscular HGB Conc 30.2 g/dl (31.0-36.0); Mean Corpuscular Hemoglobin 27.7 pg (27.0-33.0); Mean Corpuscular Volume 91.5 fL (80-98); Mean Platelet Volume 11.7 fL (9.4-12.4); Monocytes Absolute Auto 0.8 X10*3/uL (0.1-1.2); Neutrophils Absolute Auto 4.1 X10*3/uL (2.0-8.3); Neutrophils Percent Auto 55.8 % (45-73); Platelet Count 242 X10*3/uL (160-400); Red Blood Count 4.81 X10*6/uL (4.60-5.80); Red Cell Distribution Width 14.1 % (11.0-16.0); White Blood Count 7.4 X10*3/uL (4.8-10.8)
[2021-05-10 14:09] LABS: Mucus Urine 1+ /LPF; RBC Urine 0-2 /HPF (0); Squamous Epithelial Cell Urine 1+ /LPF; WBC Urine 0 /HPF (0-4)
[2021-05-10 14:40] LABS: Prostate Specific Antigen 1.05 ng/mL (<0.05-4.0)
[2021-05-15 13:22] LABS: Clozapine (Clozaril) 426 mcg/L; Norclozapine 159 mcg/L (25-400)
== END 2021-05-10 13:11 | disposition home or self-care (01) ==
LOC: HO.HMGCLR 13:10
PROVIDERS: Nurse Practitioner Family; PCP Internal Medicine; Visit Provider Psychiatry & Neurology Psychiatry
DX: Z12.5 Encounter for screening for malignant neoplasm of prostate (principal); Z79.899 Other long term (current) drug therapy
CPT/HCPCS: 36415; 80159; 81001; 81003; 84153; 85025

== ENCOUNTER 2021-05-18 14:26 | Outpatient (REF) | payer MEDICARE, MEDICAID, SELFPAY ==
[2021-05-18 15:52] LABS: COVID-19 Test Negative (Negative)
== END 2021-05-18 14:27 | disposition home or self-care (01) ==
LOC: HO.LAB 14:26
PROVIDERS: PCP Internal Medicine; Visit Provider Internal Medicine
DX: Z20.822 Contact with and (suspected) exposure to COVID-19 (principal)
CPT/HCPCS: 36415; 87635; C9803; U0003; U0005

== ENCOUNTER 2021-05-24 12:44 | Outpatient (REF) | payer MEDICARE, MEDICAID, SELFPAY | END 2021-05-24 12:45 | disposition home or self-care (01) | LOC: HO.LAB 12:44 | PROVIDERS: PCP Internal Medicine; Visit Provider Internal Medicine | DX: Z20.822 Contact with and (suspected) exposure to COVID-19 (principal) | CPT/HCPCS: C9803; U0003; U0005 ==

== ENCOUNTER 2021-06-07 08:08 | Emergency (ER) | payer MEDICARE, MEDICAID, SELFPAY ==
--- NOTE | ~2021-06-07 | XR_ITS ---
EXAMINATION: XR CHEST CLINICAL INFORMATION: SOB. COMPARISON: Chest 04/11/2021 TECHNIQUE: Frontal view of the chest was obtained. FINDINGS: The lungs are well-expanded with patchy opacities in lingula and both lung bases likely atelectasis. Heart size and pulmonary vascularity is normal. There is mild spondylosis dorsal spine. No lytic process seen. XR/XR chest 1V IMPRESSION: Patchy opacities in the lingula and bilateral lower lobes likely atelectasis. No large consolidation or pleural effusion seen.
--- NOTE | ~2021-06-07 | CT_ITS ---
EXAMINATION: CT CHEST WITHOUT CONTRAST CLINICAL INFORMATION: Shortness of breath. Rule out pneumonia. COMPARISON: Chest x-ray performed earlier today. TECHNIQUE: Multidetector volumetric CT imaging of the chest was done. Axial MIP volume rendering provided. Sagittal and coronal reformatted images were obtained. This CT examination was performed using dose optimization techniques as appropriate, variously including the following: *Automated exposure control *Adjustment of mA and/or kV according to patient size (this includes techniques or standardized protocols for targeted exams where dose is matched to indication/reason for exam; i.e. extremities or head) *Use of iterative reconstruction technique DLP: 350 mGy-cm FINDINGS: DIE CUTTER APPRENTICE: Well-inflated lungs. LUNGS: The lungs are well-expanded with scattered patchy consolidations in both lung bases with bandlike atelectasis in both lower lobes. Similar linear stranding is seen in the lingula, right middle lobe and dependent groundglass attenuation in both upper lobes likely atelectasis. MEDIASTINUM: The thyroid lobes are symmetrical and normal. Central trachea and the bronchi are widely patent. No abnormal size mediastinal mass or hilar lymphadenopathy. There are coronary artery calcifications present. There is no pericardial effusion seen. PLEURA: There is no pleural effusion. No pleural mass or thickening. AXILLA: No lymphadenopathy. UPPER ABDOMEN: There is diffuse attenuation of liver from hepatic steatosis. No focal lesion seen. The gallbladder has been surgically removed. Visualized pancreas, adrenal glands and the spleen is unremarkable. OSSEOUS STRUCTURES: No lytic or sclerotic process seen. CT/CT chest wo con IMPRESSION: Focal small consolidation/atelectasis in both lower lobe dependent lung bases. Bandlike atelectatic changes in both lower lobes, lingula and groundglass attenuation changes in the dependent segments of both upper lobes.
--- NOTE | 2021-06-07 08:18 | ECG_ITS ---
Test Reason : DIFFICULTY BREATHING Blood Pressure : / mmHG Vent. Rate : 096 BPM Atrial Rate : 096 BPM P-R Int : 200 ms QRS Dur : 118 ms QT Int : 380 ms P-R-T Axes : 041 -68 088 degrees QTc Int : 480 ms Normal sinus rhythm Left anterior fascicular block Septal infarct , age undetermined Abnormal ECG When compared with ECG of 06-JAN-2014 21:36, Septal infarct is now Present Referred By: Katy Silva Electronically Signed By:DEBO ROSE
--- NOTE | 2021-06-07 08:19 | ED.GENADULT ---
HPI - General Adult General Chief complaint: Dyspnea Stated complaint: DIFF BREATHING 85% HOME 2LPM,WEAK Time Seen by Provider: 06/07/21 08:18 Source: patient and EMS Mode of arrival: EMS Limitations: no limitations History of Present Illness HPI narrative: Patient is coming from a alf complaining of shortness of breath. Patient is known to be a COPD patient, is chronically on 2 L of O2. According to his caretakers, patient's oxygen saturation was in the low 80s on his usual 2 L. Patient states that occasionally he feels short of breath, denies chest pain. At this time he is breathing much better. Per EMS, the patient was started on a non-rebreather, oxygen saturation improved to the high 90s. He was not giving a nebulization treatment. Related Data Home Medications Medication Instructions Recorded Confirmed clonazepam 0.5 mg tablet 0.5 mg PO BID PRN 08/18/20 04/08/21 memantine 10 mg tablet 10 mg PO BID 08/18/20 04/08/21 venlafaxine 150 mg 150 mg PO DAILY 08/18/20 04/08/21 capsule,extended release 24 hr betamethasone dipropionate 0.05 % TOPICAL 01/10/21 04/08/21 topical ointment clozapine 100 mg tablet 300 mg PO BEDTIME 01/10/21 04/08/21 ketoconazole 2 % shampoo 1 appl TOPICAL 2XW 01/10/21 04/08/21 Previous Rx's Medication Instructions Recorded aspirin 81 mg tablet,delayed 81 mg PO DAILY 90 Days #90 tab 11/16/20 release donepezil 10 mg tablet 10 mg PO BEDTIME 90 Days #90 tab 11/16/20 cholecalciferol (vitamin D3) 25 25 mcg PO DAILY #90 tab 12/26/20 mcg (1,000 unit) tablet methylcellulose (laxative) 500 mg 1,000 mg PO BID #120 tab 01/10/21 tablet (Citrucel) sucralfate 1 gram tablet 1 g PO DAILY 30 Days #30 tab 01/10/21 gemfibrozil 600 mg tablet 600 mg PO BID #60 tab 04/05/21 4-PRONGED CANE #1 ea 04/08/21 lisinopril 2.5 mg tablet 2.5 mg PO QAM 90 Days #90 tab 04/08/21 nicotine (polacrilex) 4 mg buccal 4 mg BUCCAL Q2H 30 Days #300 ea 04/08/21 mini lozenge fluticasone furoate 200 1 inh INHALATION DAILY 30 Days #60 04/25/21 mcg-vilanterol 25 mcg/dose ea inhalation powder (Breo Ellipta) metformin 500 mg tablet 500 mg PO BID #60 tab 04/29/21 simvastatin 40 mg tablet 40 mg PO BEDTIME #30 tab 05/05/21 azithromycin 250 mg tablet 250 mg PO DAILY 4 Days #4 tab 06/07/21 Allergies Allergy/AdvReac Type Severity Reaction Status Date / Time No Known Allergies Allergy Verified 04/20/21 11:33 [No Known Allergies*] Review of Systems Review of Systems: Constitutional : No Weight loss, No Fever, No Chills, No Night Sweats, No Fatigue, No Malaise ENT/Mouth : No Hearing loss, No Ear Pain, No Nasal Congestion, No Sinus Pain, No Hoarseness, No sore throat, No Rhinorrhea, No Swallowing Difficulty Eyes: No Eye Pain, No Swelling, No Redness, No Foreign Body, No Discharge, No Vision Changes Cardiovascular : No Chest Pain, acute on chronic Dyspnea on Exertion, No Orthopnea, No Edema, No Palpitations Respiratory : No Cough, No Sputum, No Wheezing, No Smoke Exposure Gastrointestinal : No Nausea, No Vomiting, No Diarrhea, No Constipation, No abdominal Pain, No Hematochezia, No Melena Genitourinary : no irregular bleeding, No Dysuria, No Urinary Frequency, No Hematuria, No Urinary Incontinence, No Urgency, No Flank Pain, No Urinary Flow Changes, No Hesitancy Musculoskeletal : No joint pain, No Myalgias, No Joint Swelling Skin : No Skin Lesions, No rash Neuro : No Weakness, No Numbness, No Paresthesias, No Loss of Consciousness, No Dizziness, No Headache Psych : No Anxiety/Panic, No Depression, No SI/HI/AH/VH, No Social Issues, Heme/Lymph: No Bruising, No Bleeding,No Lymphadenopathy Endocrine : No Polyuria, No Polydipsia, No Temperature Intolerance [facility] Past Medical History Medical History (Updated 06/07/21 @ 15:03 by Katy Silva MD) Alzheimer's dementia without behavioral disturbance Anxiety COPD (chronic obstructive pulmonary disease) Depression Gait instability Hearing impairment Hypoxia Overweight (BMI 25.0-29.9) Pure hypercholesterolemia Schizophrenia Seborrheic dermatitis of scalp Smoker Type 2 diabetes mellitus without complication Vitamin D deficiency Weakness Surgical History H/O colonoscopy History of appendectomy Family History Family History Father Cancer Mother No problems noted. Brother Substance abuse Other Alcohol abuse Social History Social History Housing: Other Housing Other:: [facility] Alcohol intake: never Patient Tobacco Use Status: Current everyday Tobacco user Cigarettes Per Day: 10 Advance Directives: No Advance Directives Information Provided: No service: No Current occupational status: disabled Physical Exam Vital Signs: Vital Signs: Last Vital Signs Temp 97.9 F 06/07/21 11:57 Pulse 88 06/07/21 11:57 Resp 25 H 06/07/21 11:57 BP 141/69 H 06/07/21 11:57 Pulse Ox 92 06/07/21 11:57 Oxygen Flow Rate 2 06/07/21 08:26 Body Mass Index 29.2 Const: Other: Appearance: Alert. Oriented X3. No acute distress. Eyes: Pupils equal, round and reactive to light. ENT: Pharynx normal. Neck: Normal inspection. Neck supple. No lymph nodes noted. No crepitus CVS: Normal heart rate and rhythm. Pulses normal. Normal S1 and S2 Respiratory: No respiratory distress. Breath sounds normal. No Wheezing. No rales Abdomen: Soft and nontender. No rigidity. No distention. Skin: Skin warm and dry. Normal skin color. Normal skin turgor. Extremities: No lower extremity edema. No lower extremity edema. No Lacerations. No Rash Neuro: Oriented X 3. No motor deficit. No sensory deficit. Moving all extermities. No slurred speech. Course Course Course Narrative: Patient's white blood cell count within normal limits, lactic acid normal. Sepsis is not suspected. Patient will be treated empirically for pneumonia. Patient has home oxygen at 3 L. Here in the hospital patient is a 3 L saturating 92%. Chest x-ray and CT scan shows possible atelectasis, low suspicion for pneumonia. Given the patient's medical history, will go ahead and treat empirically. Medical Decision Making Lab Data Result diagrams: 06/07/21 08:42 06/07/21 08:42 Labs: Lab Results 06/07/21 06/07/21 06/07/21 Range/Units 08:42 08:42 08:42 WBC 10.5 (4.8-10.8) X10*3/uL RBC 4.58 L (4.60-5.80) X10*6/uL Hgb 12.7 L (14.0-18.0) g/dl Hct 41.4 L (42-52) % MCV 90.4 (80-98) fL MCH 27.7 (27.0-33.0) pg MCHC 30.7 L (31.0-36.0) g/dl RDW 14.6 (11.0-16.0) % Plt Count 239 (160-400) X10*3/uL MPV 11.6 (9.4-12.4) fL Immature Gran % (Auto) 0.2 (0.0-0.4) % Neut % (Auto) 79.7 H (45-73) % Lymph % (Auto) 11.9 L (20-40) % [place] % (Auto) 6.2 (2-11) % Eos % (Auto) 1.8 (0-4) % Baso % (Auto) 0.2 (0-2) % Lymph # (Auto) 1.3 (1.2-4.9) X10*3/uL [place] # (Auto) 0.7 (0.1-1.2) X10*3/uL Eos # (Auto) 0.2 (0.0-0.4) X10*3/uL Baso # (Auto) 0.0 (0.0-0.2) X10*3/uL Abs Immat Gran (auto) 0.02 (0.00-0.03) X10*3/uL Absolute Neuts (auto) 8.4 H (2.0-8.3) X10*3/uL Absolute Nucleated RBC 0.000 (0.0-0.012) X10*3/uL Nucleated RBC % (auto) 0.0 (0.0-0.2) /100WBC Sodium 145 (135-145) mmol/L Potassium 4.4 (3.3-5.1) mmol/L Chloride 105 (96-108) mmol/L Carbon Dioxide 30 H (22-29) mmol/L Anion Gap 14 (12-20) BUN 25 H (9-16) mg/dL Creatinine 0.98 (0.5-1.4) mg/dL Estim Creat Clear Calc 82.6 Estimated GFR > 60 Random Glucose 161 H (60-115) mg/dL Lactic Acid 1.0 (0.5-2.0) mmol/L Calcium 9.7 (8.4-10.2) mg/dL Total Bilirubin 0.4 (0.0-1.0) mg/dL Direct Bilirubin 0.2 (0.0-0.5) mg/dL AST 31 (5-37) U/L ALT 43 H (0-40) U/L Alkaline Phosphatase 121 H (39-117) U/L Troponin I High Sens (<3.5-35.0) ng/L B-Natriuretic Peptide (<100) pg/mL Total Protein 7.2 (6.5-8.0) g/dL Albumin 4.5 (3.5-5.0) g/dL COVID-19 ([place]) (Negative) COVID-19 Clin Com 06/07/21 06/07/21 06/07/21 Range/Units 08:42 08:42 12:04 WBC (4.8-10.8) X10*3/uL RBC (4.60-5.80) X10*6/uL Hgb (14.0-18.0) g/dl Hct (42-52) % MCV (80-98) fL MCH (27.0-33.0) pg MCHC (31.0-36.0) g/dl RDW (11.0-16.0) % Plt Count (160-400) X10*3/uL MPV (9.4-12.4) fL Immature Gran % (Auto) (0.0-0.4) % Neut % (Auto) (45-73) % Lymph % (Auto) (20-40) % [place] % (Auto) (2-11) % Eos % (Auto) (0-4) % Baso % (Auto) (0-2) % Lymph # (Auto) (1.2-4.9) X10*3/uL [place] # (Auto) (0.1-1.2) X10*3/uL Eos # (Auto) (0.0-0.4) X10*3/uL Baso # (Auto) (0.0-0.2) X10*3/uL Abs Immat Gran (auto) (0.00-0.03) X10*3/uL Absolute Neuts (auto) (2.0-8.3) X10*3/uL Absolute Nucleated RBC (0.0-0.012) X10*3/uL Nucleated RBC % (auto) (0.0-0.2) /100WBC Sodium (135-145) mmol/L Potassium (3.3-5.1) mmol/L Chloride (96-108) mmol/L Carbon Dioxide (22-29) mmol/L Anion Gap (12-20) BUN (9-16) mg/dL Creatinine (0.5-1.4) mg/dL Estim Creat Clear Calc Estimated GFR Random Glucose (60-115) mg/dL Lactic Acid (0.5-2.0) mmol/L Calcium (8.4-10.2) mg/dL Total Bilirubin (0.0-1.0) mg/dL Direct Bilirubin (0.0-0.5) mg/dL AST (5-37) U/L ALT (0-40) U/L Alkaline Phosphatase (39-117) U/L Troponin I High Sens 8.0 7.2 (<3.5-35.0) ng/L B-Natriuretic Peptide 76 (<100) pg/mL Total Protein (6.5-8.0) g/dL Albumin (3.5-5.0) g/dL COVID-19 ([place]) Negative (Negative) COVID-19 Clin Com See Note Imaging Data CT scan - chest: Radiologist's impression: DLP: 350 mGy-cm FINDINGS: DIRECTOR OF RESIDENTIAL SERVICES: Well-inflated lungs. LUNGS: The lungs are well-expanded with scattered patchy consolidations in both lung bases with bandlike atelectasis in both lower lobes. Similar linear stranding is seen in the lingula, right middle lobe and dependent groundglass attenuation in both upper lobes likely atelectasis. MEDIASTINUM: The thyroid lobes are symmetrical and normal. Central trachea and the bronchi are widely patent. No abnormal size mediastinal mass or hilar lymphadenopathy. There are coronary artery calcifications present. There is no pericardial effusion seen.? PLEURA: There is no pleural effusion. No pleural mass or thickening.? AXILLA: No lymphadenopathy.? UPPER ABDOMEN: There is diffuse attenuation of liver from hepatic steatosis. No focal lesion seen. The gallbladder has been surgically removed. Visualized pancreas, adrenal glands and the spleen is unremarkable.? OSSEOUS STRUCTURES: No lytic or sclerotic process seen.? CT/CT chest wo con IMPRESSION: Focal small consolidation/atelectasis in both lower lobe dependent lung bases. ? Bandlike atelectatic changes in both lower lobes, lingula and groundglass attenuation changes in the dependent segments of both upper lobes.? ? ECG Data Attestation: I personally reviewed and interpreted this ECG as follows: (Normal sinus rhythm, heart rate 96, left anterior fascicular block, QTC 480, no significant changes from EKG of 2013. ) Discharge Plan Discharge Clinical Impression: COPD (chronic obstructive pulmonary disease) Patient Disposition: Xfer Other Transfer Details: [facility] Instructions: Chronic Bronchitis (ED) Prescriptions: New azithromycin 250 mg tablet 250 mg PO DAILY 4 Days Qty: 4 RF: 0 No Action cholecalciferol (vitamin D3) 25 mcg (1,000 unit) tablet 25 mcg PO DAILY Qty: 90 RF: 1 gemfibrozil 600 mg tablet 600 mg PO BID Qty: 60 RF: 3 metformin 500 mg tablet 500 mg PO BID Qty: 60 RF: 2 simvastatin 40 mg tablet 40 mg PO BEDTIME Qty: 30 RF: 0 clonazepam 0.5 mg tablet 0.5 mg PO BID PRNRF: 0 memantine 10 mg tablet 10 mg PO BID RF: 0 venlafaxine 150 mg capsule,extended release 24hr 150 mg PO DAILY RF: 0 (DME) 4-PRONGED CANE See Rx Instructions .Route .MEDSUPPLY Qty: 1 RF: 0 nicotine (polacrilex) 4 mg mini lozenge 4 mg buccal Q2H 30 Days Qty: 300 RF: 3 lisinopril 2.5 mg tablet 2.5 mg PO QAM 90 Days Qty: 90 RF: 1 aspirin 81 mg tablet,delayed release (DR/EC) 81 mg PO DAILY 90 Days Qty: 90 RF: 3 donepezil 10 mg tablet 10 mg PO BEDTIME 90 Days Qty: 90 RF: 3 ketoconazole 2 % shampoo 1 appl topical 2XW RF: 0 clozapine 100 mg tablet 300 mg PO BEDTIME RF: 0 betamethasone dipropionate 0.05 % ointment topical RF: 0 Citrucel 500 mg tablet 1,000 mg PO BID Qty: 120 RF: 6 sucralfate 1 gram tablet 1 g PO DAILY 30 Days Qty: 30 RF: 6 Breo Ellipta 200-25 mcg/dose blister with device 1 inh inhalation DAILY 30 Days Qty: 60 RF: 3
[2021-06-07 08:26] VITALS: BP 141/77; PULSE 103; RESP 20; TEMP 37.1; O2SAT 96; BMI 29.2
--- NOTE | 2021-06-07 08:37 | PC.NURSE ---
pt alert and oriented, pt on continuous O2 2L N/C at home, he states this morning he woke up with sob and weakness, per ems pt satting 58% on his 2L N/C therefore he was put on a non-rebreather. which brought his O2 sat to 95-96%. Pt placed on 2L n/c in ed and sating 96-97%. He denies sob/dizziness/chest pain. No difficulty breathing/respiratory distress noted. An iv is established and labs drawn. Pt resting quietly, no apparent distress. Will continue to monitor.
[2021-06-07 08:53] LABS: MANUAL DIFF FLAG NO
[2021-06-07 08:55] LABS: Basophils Percent Auto 0.2 % (0-2); Eosinophils Absolute Auto 0.2 X10*3/uL (0.0-0.4); Eosinophils Percent Auto 1.8 % (0-4); Hematocrit 41.4 % (42-52); Hemoglobin 12.7 g/dl (14.0-18.0); Imm Gran Abs Auto 0.02 X10*3/uL (0.00-0.03); Imm Gran Pct Auto 0.2 % (0.0-0.4); Lymphocytes Absolute Auto 1.3 X10*3/uL (1.2-4.9); Lymphocytes Percent Auto 11.9 % (20-40); Mean Corpuscular HGB Conc 30.7 g/dl (31.0-36.0); Mean Corpuscular Hemoglobin 27.7 pg (27.0-33.0); Mean Corpuscular Volume 90.4 fL (80-98); Mean Platelet Volume 11.6 fL (9.4-12.4); Monocytes Absolute Auto 0.7 X10*3/uL (0.1-1.2); Monocytes Percent Auto 6.2 % (2-11); Neutrophils Absolute Auto 8.4 X10*3/uL (2.0-8.3); Neutrophils Percent Auto 79.7 % (45-73); Platelet Count 239 X10*3/uL (160-400); Red Blood Count 4.58 X10*6/uL (4.60-5.80); Red Cell Distribution Width 14.6 % (11.0-16.0); White Blood Count 10.5 X10*3/uL (4.8-10.8)
[2021-06-07 09:12] LABS: COVID-19 Test Negative (Negative); IDNOW Serial# 9DD0AD1C
[2021-06-07 09:14] LABS: Alanine Aminotransferase 43 U/L (0-40); Albumin Level 4.5 g/dL (3.5-5.0); Alkaline Phosphatase 121 U/L (39-117); Anion Gap 14 (12-20); Aspartate Amino Transferase 31 U/L (5-37); Bilirubin Direct 0.2 mg/dL (0.0-0.5); Bilirubin Total 0.4 mg/dL (0.0-1.0); Blood Urea Nitrogen 25 mg/dL (9-16); Calcium 9.7 mg/dL (8.4-10.2); Carbon Dioxide 30 mmol/L (22-29); Chloride 105 mmol/L (96-108); Creatinine Clr Calc Pharmacy 82.6; Estimated Glomerular Filt Rate > 60; Glucose Random 161 mg/dL (60-115); Potassium 4.4 mmol/L (3.3-5.1); Sodium 145 mmol/L (135-145); Total Protein 7.2 g/dL (6.5-8.0)
[2021-06-07 09:16] LABS: B Type Natriuretic Peptide 76 pg/mL (<100)
--- NOTE | 2021-06-07 10:16 | PC.NURSE ---
SHAKER SCREEN OPERATOR UPDATED ON STATUS. PLEASE CALL WITH ANY CONCERNS/QUESTIONS- [phone]
[2021-06-07 11:57] VITALS: BP 141/69; PULSE 88; RESP 25; TEMP 36.6; O2SAT 92
[2021-06-07 12:28] LABS: Troponin-I High Sensitivity 7.2 ng/L (<3.5-35.0)
[2021-06-07] MEDS: Azithromycin 500 MG TABLET PO (15:34)
[2021-06-07 16:36] VITALS: BP 120/66; PULSE 93; RESP 18; TEMP 36.6; O2SAT 92
== END 2021-06-07 17:35 | disposition home or self-care (01) ==
PROVIDERS: Emergency Provider Emergency Medicine; PCP Internal Medicine
DX: R06.02 Shortness of breath (principal); J44.9 Chronic obstructive pulmonary disease, unspecified; F17.210 Nicotine dependence, cigarettes, uncomplicated; Z20.822 Contact with and (suspected) exposure to COVID-19; Z99.81 Dependence on supplemental oxygen; Z71.6 Tobacco abuse counseling; Z79.899 Other long term (current) drug therapy
CPT/HCPCS: 36415; 71045; 71250; 80048; 80076; 83605; 83880; 84484; 85025; 87040; 87147; 87205; 87635; 93005; 99284

== ENCOUNTER 2021-06-09 14:54 | Outpatient (REF) | payer MEDICARE, MEDICAID, SELFPAY ==
[2021-06-09 16:18] LABS: MANUAL DIFF FLAG NO
[2021-06-09 16:23] LABS: Basophils Percent Auto 0.4 % (0-2); Eosinophils Absolute Auto 0.3 X10*3/uL (0.0-0.4); Eosinophils Percent Auto 4.1 % (0-4); Hematocrit 40.3 % (42-52); Hemoglobin 12.1 g/dl (14.0-18.0); Imm Gran Abs Auto 0.07 X10*3/uL (0.00-0.03); Lymphocytes Absolute Auto 2.1 X10*3/uL (1.2-4.9); Lymphocytes Percent Auto 29.9 % (20-40); Mean Corpuscular Hemoglobin 27.8 pg (27.0-33.0); Mean Corpuscular Volume 92.4 fL (80-98); Mean Platelet Volume 11.8 fL (9.4-12.4); Monocytes Absolute Auto 0.8 X10*3/uL (0.1-1.2); Monocytes Percent Auto 11.2 % (2-11); Neutrophils Absolute Auto 3.7 X10*3/uL (2.0-8.3); Neutrophils Percent Auto 53.4 % (45-73); Platelet Count 249 X10*3/uL (160-400); Red Blood Count 4.36 X10*6/uL (4.60-5.80); Red Cell Distribution Width 14.6 % (11.0-16.0)
== END 2021-06-09 14:55 | disposition home or self-care (01) ==
LOC: HO.HMGCLDS 14:54
PROVIDERS: PCP Internal Medicine; Visit Provider Psychiatry & Neurology Psychiatry
DX: Z79.899 Other long term (current) drug therapy (principal)
CPT/HCPCS: 36415; 85025

== ENCOUNTER → 2021-06-21 11:19 | Outpatient (BNVA) | payer MEDICARE, MEDICAID, SELFPAY | PROVIDERS: PCP Internal Medicine; Visit Provider Internal Medicine | DX: J44.9 Chronic obstructive pulmonary disease, unspecified (principal); R09.02 Hypoxemia; F17.200 Nicotine dependence, unspecified, uncomplicated | CPT/HCPCS: 99212 ==

== ENCOUNTER 2021-06-22 14:39 | Outpatient (REF) | payer MEDICARE, MEDICAID, SELFPAY | END 2021-06-22 14:40 | disposition home or self-care (01) | LOC: HO.HAP 14:39 | PROVIDERS: Visit Provider Internal Medicine | DX: Z46.1 Encounter for fitting and adjustment of hearing aid (principal); H90.3 Sensorineural hearing loss, bilateral | CPT/HCPCS: V5011; V5020; V5160; V5260; V5266 ==

== ENCOUNTER 2021-07-06 13:57 | Outpatient (REF) | payer MEDICARE, MEDICAID, SELFPAY | END 2021-07-06 13:58 | disposition home or self-care (01) | LOC: HO.HAP 13:57 | PROVIDERS: Visit Provider Internal Medicine | DX: Z13.89 Encounter for screening for other disorder (principal) ==

== ENCOUNTER 2021-07-11 13:59 | Outpatient (REF) | payer MEDICARE, MEDICAID, SELFPAY ==
[2021-07-11 16:39] LABS: MANUAL DIFF FLAG NO
[2021-07-11 16:42] LABS: Basophils Percent Auto 0.5 % (0-2); Eosinophils Absolute Auto 0.2 X10*3/uL (0.0-0.4); Eosinophils Percent Auto 2.8 % (0-4); Hematocrit 41.5 % (42.0-52.0); Hemoglobin 12.5 g/dl (14.0-18.0); Imm Gran Abs Auto 0.03 X10*3/uL (0.00-0.03); Imm Gran Pct Auto 0.4 % (0.0-0.4); Lymphocytes Percent Auto 24.3 % (20-40); Mean Corpuscular HGB Conc 30.1 g/dl (31.0-36.0); Mean Corpuscular Hemoglobin 28.3 pg (27.0-33.0); Mean Corpuscular Volume 93.9 fL (80.0-98.0); Monocytes Absolute Auto 0.7 X10*3/uL (0.1-1.2); Monocytes Percent Auto 8.3 % (2-11); Neutrophils Absolute Auto 5.3 x10*3/uL (2.0-8.3); Neutrophils Percent Auto 63.7 % (45-73); Platelet Count 212 X10*3/uL (160-400); Red Blood Count 4.42 X10*6/uL (4.60-5.80); Red Cell Distribution Width 15.1 % (11.0-16.0); White Blood Count 8.3 X10*3/uL (4.8-10.8)
== END 2021-07-11 14:00 | disposition home or self-care (01) ==
LOC: HO.HMGCLDS 13:59
PROVIDERS: PCP Internal Medicine; Visit Provider Psychiatry & Neurology Psychiatry
DX: Z79.899 Other long term (current) drug therapy (principal)
CPT/HCPCS: 36415; 85025

== ENCOUNTER 2021-07-19 11:03 | Outpatient (REF) | payer SELFPAY | END 2021-07-19 11:04 | disposition home or self-care (01) | LOC: HO.HAP 11:03 | PROVIDERS: Visit Provider Internal Medicine | DX: Z13.89 Encounter for screening for other disorder (principal) ==

== ENCOUNTER 2021-08-08 13:42 | Outpatient (REF) | payer MEDICARE, MEDICAID, SELFPAY ==
[2021-08-08 16:19] LABS: MANUAL DIFF FLAG NO
[2021-08-08 16:24] LABS: Basophils Percent Auto 0.5 % (0-2); Eosinophils Absolute Auto 0.3 X10*3/uL (0.0-0.4); Eosinophils Percent Auto 3.3 % (0-4); Hematocrit 41.7 % (42.0-52.0); Hemoglobin 12.8 g/dl (14.0-18.0); Imm Gran Abs Auto 0.06 X10*3/uL (0.00-0.03); Imm Gran Pct Auto 0.8 % (0.0-0.4); Lymphocytes Absolute Auto 2.4 X10*3/uL (1.2-4.9); Mean Corpuscular HGB Conc 30.7 g/dl (31.0-36.0); Mean Corpuscular Hemoglobin 28.6 pg (27.0-33.0); Mean Corpuscular Volume 93.3 fL (80.0-98.0); Mean Platelet Volume 12.4 fL (9.4-12.4); Monocytes Absolute Auto 0.6 X10*3/uL (0.1-1.2); Monocytes Percent Auto 7.4 % (2-11); Neutrophils Absolute Auto 4.2 x10*3/uL (2.0-8.3); Platelet Count 210 X10*3/uL (160-400); Red Blood Count 4.47 X10*6/uL (4.60-5.80); Red Cell Distribution Width 14.4 % (11.0-16.0); White Blood Count 7.5 X10*3/uL (4.8-10.8)
== END 2021-08-08 13:43 | disposition home or self-care (01) ==
LOC: HO.HMGCLR 13:42
PROVIDERS: PCP Internal Medicine; Visit Provider Psychiatry & Neurology Psychiatry
DX: Z79.899 Other long term (current) drug therapy (principal)
CPT/HCPCS: 36415; 85025

== ENCOUNTER 2021-08-15 13:36 | Outpatient (REF) | payer MEDICARE, MEDICAID, SELFPAY | END 2021-08-15 13:37 | disposition home or self-care (01) | LOC: HO.HAP 13:36 | PROVIDERS: Visit Provider Internal Medicine | DX: Z13.89 Encounter for screening for other disorder (principal) ==

== ENCOUNTER 2021-09-05 13:38 | Outpatient (REF) | payer MEDICARE, MEDICAID, SELFPAY ==
[2021-09-05 16:41] LABS: MANUAL DIFF FLAG NO
[2021-09-05 16:47] LABS: Basophils Percent Auto 0.3 % (0-2); Eosinophils Absolute Auto 0.2 X10*3/uL (0.0-0.4); Hematocrit 40.5 % (42.0-52.0); Hemoglobin 12.3 g/dl (14.0-18.0); Imm Gran Abs Auto 0.03 X10*3/uL (0.00-0.03); Imm Gran Pct Auto 0.5 % (0.0-0.4); Lymphocytes Absolute Auto 1.9 X10*3/uL (1.2-4.9); Lymphocytes Percent Auto 28.2 % (20-40); Mean Corpuscular HGB Conc 30.4 g/dl (31.0-36.0); Mean Corpuscular Hemoglobin 28.6 pg (27.0-33.0); Mean Corpuscular Volume 94.2 fL (80.0-98.0); Mean Platelet Volume 12.8 fL (9.4-12.4); Monocytes Absolute Auto 0.6 X10*3/uL (0.1-1.2); Monocytes Percent Auto 8.5 % (2-11); Neutrophils Absolute Auto 3.9 x10*3/uL (2.0-8.3); Neutrophils Percent Auto 59.5 % (45-73); Platelet Count 207 X10*3/uL (160-400); Red Cell Distribution Width 13.7 % (11.0-16.0); White Blood Count 6.6 X10*3/uL (4.8-10.8)
== END 2021-09-05 13:39 | disposition home or self-care (01) ==
LOC: HO.HMGCLR 13:38
PROVIDERS: PCP Internal Medicine; Visit Provider Psychiatry & Neurology Psychiatry
DX: I10 Essential (primary) hypertension (principal); E78.00 Pure hypercholesterolemia, unspecified; E11.9 Type 2 diabetes mellitus without complications; E55.9 Vitamin D deficiency, unspecified; Z79.899 Other long term (current) drug therapy
CPT/HCPCS: 36415; 85025

== ENCOUNTER → 2021-09-21 11:05 | Outpatient (BNVA) | payer MEDICARE, MEDICAID, SELFPAY | PROVIDERS: PCP Internal Medicine; Visit Provider Internal Medicine | DX: J44.9 Chronic obstructive pulmonary disease, unspecified (principal); R09.02 Hypoxemia; F17.210 Nicotine dependence, cigarettes, uncomplicated | CPT/HCPCS: 99212 ==

== ENCOUNTER → 2021-09-26 12:21 | Outpatient (BNVA) | payer MEDICARE, MEDICAID, SELFPAY | PROVIDERS: PCP Internal Medicine; Referring Provider Internal Medicine; Visit Provider Nurse Practitioner | DX: K58.0 Irritable bowel syndrome with diarrhea (principal) | CPT/HCPCS: 99212 ==

== ENCOUNTER 2021-10-04 13:00 | Outpatient (REF) | payer MEDICARE, MEDICAID, SELFPAY ==
[2021-10-04 14:38] LABS: MANUAL DIFF FLAG NO
[2021-10-04 14:42] LABS: Basophils Percent Auto 0.3 % (0-2); Eosinophils Absolute Auto 0.2 X10*3/uL (0.0-0.4); Eosinophils Percent Auto 2.5 % (0-4); Hematocrit 43.6 % (42.0-52.0); Hemoglobin 13.2 g/dl (14.0-18.0); Imm Gran Abs Auto 0.04 X10*3/uL (0.00-0.03); Imm Gran Pct Auto 0.6 % (0.0-0.4); Lymphocytes Percent Auto 27.8 % (20-40); Mean Corpuscular HGB Conc 30.3 g/dl (31.0-36.0); Mean Corpuscular Hemoglobin 28.3 pg (27.0-33.0); Mean Corpuscular Volume 93.4 fL (80.0-98.0); Mean Platelet Volume 12.4 fL (9.4-12.4); Monocytes Absolute Auto 0.7 X10*3/uL (0.1-1.2); Monocytes Percent Auto 9.9 % (2-11); Neutrophils Absolute Auto 4.2 x10*3/uL (2.0-8.3); Neutrophils Percent Auto 58.9 % (45-73); Platelet Count 245 X10*3/uL (160-400); Red Blood Count 4.67 X10*6/uL (4.60-5.80); Red Cell Distribution Width 14.2 % (11.0-16.0); White Blood Count 7.2 X10*3/uL (4.8-10.8)
[2021-10-04 14:56] LABS: Estimated Average Glucose 143 mg/dL; Hemoglobin A1c % 6.6 %
[2021-10-04 15:01] LABS: Alanine Aminotransferase 44 U/L (0-40); Albumin Level 4.5 g/dL (3.5-5.0); Alkaline Phosphatase 106 U/L (39-117); Anion Gap 15 (12-20); Aspartate Amino Transferase 40 U/L (5-37); Bilirubin Total 0.3 mg/dL (0.0-1.0); Blood Urea Nitrogen 36 mg/dL (9-16); Calcium 9.9 mg/dL (8.4-10.2); Carbon Dioxide 27 mmol/L (22-29); Chloride 106 mmol/L (96-108); Cholesterol 176 mg/dL; Estimated Glomerular Filt Rate > 60; Glucose Fasting 110 mg/dL (60-99); HDL Cholesterol 36 mg/dL; LDL Cholesterol Calculated 103 mg/dl; Potassium 4.5 mmol/L (3.3-5.1); Sodium 143 mmol/L (135-145); Total Protein 7.3 g/dL (6.5-8.0); Triglycerides 189 mg/dL
[2021-10-04 15:24] LABS: Vitamin D 25-OH Total 30.1 ng/mL (>30)
== END 2021-10-04 13:01 | disposition home or self-care (01) ==
LOC: HO.HMGCLR 13:00
PROVIDERS: Internal Medicine; Visit Provider Psychiatry & Neurology Psychiatry
DX: E78.00 Pure hypercholesterolemia, unspecified (principal); E11.9 Type 2 diabetes mellitus without complications; E55.9 Vitamin D deficiency, unspecified; I10 Essential (primary) hypertension; Z79.899 Other long term (current) drug therapy
CPT/HCPCS: 36415; 80053; 80061; 82306; 83036; 84443; 85025

== ENCOUNTER 2021-11-15 08:14 | Outpatient (REF) | payer MEDICARE, MEDICAID, SELFPAY ==
[2021-11-15 11:42] LABS: MANUAL DIFF FLAG NO
[2021-11-15 11:54] LABS: Basophils Percent Auto 0.3 % (0-2); Eosinophils Absolute Auto 0.3 X10*3/uL (0.0-0.4); Eosinophils Percent Auto 3.6 % (0-4); Hematocrit 44.7 % (42.0-52.0); Hemoglobin 13.3 g/dl (14.0-18.0); Imm Gran Abs Auto 0.04 X10*3/uL (0.00-0.03); Imm Gran Pct Auto 0.5 % (0.0-0.4); Lymphocytes Absolute Auto 2.2 X10*3/uL (1.2-4.9); Lymphocytes Percent Auto 30.8 % (20-40); Mean Corpuscular HGB Conc 29.8 g/dl (31.0-36.0); Mean Corpuscular Volume 94.1 fL (80.0-98.0); Mean Platelet Volume 12.4 fL (9.4-12.4); Monocytes Absolute Auto 0.6 X10*3/uL (0.1-1.2); Neutrophils Absolute Auto 4.1 x10*3/uL (2.0-8.3); Neutrophils Percent Auto 56.8 % (45-73); Platelet Count 236 X10*3/uL (160-400); Red Blood Count 4.75 X10*6/uL (4.60-5.80); Red Cell Distribution Width 14.4 % (11.0-16.0); White Blood Count 7.3 X10*3/uL (4.8-10.8)
== END 2021-11-15 08:15 | disposition home or self-care (01) ==
LOC: HO.HMGCLR 08:14
PROVIDERS: Visit Provider Psychiatry & Neurology Psychiatry
DX: Z79.899 Other long term (current) drug therapy (principal)
CPT/HCPCS: 36415; 85025

== ENCOUNTER 2021-12-12 12:50 | Outpatient (REF) | payer MEDICARE, MEDICAID, SELFPAY ==
[2021-12-12 13:53] LABS: MANUAL DIFF FLAG NO
[2021-12-12 13:59] LABS: Basophils Percent Auto 0.6 % (0-2); Eosinophils Absolute Auto 0.2 X10*3/uL (0.0-0.4); Eosinophils Percent Auto 3.4 % (0-4); Hemoglobin 12.7 g/dl (14.0-18.0); Imm Gran Abs Auto 0.04 X10*3/uL (0.00-0.03); Imm Gran Pct Auto 0.6 % (0.0-0.4); Lymphocytes Percent Auto 31.4 % (20-40); Mean Corpuscular HGB Conc 30.2 g/dl (31.0-36.0); Mean Corpuscular Volume 92.7 fL (80.0-98.0); Mean Platelet Volume 12.5 fL (9.4-12.4); Monocytes Absolute Auto 0.5 X10*3/uL (0.1-1.2); Monocytes Percent Auto 8.3 % (2-11); Neutrophils Absolute Auto 3.6 x10*3/uL (2.0-8.3); Neutrophils Percent Auto 55.7 % (45-73); Platelet Count 218 X10*3/uL (160-400); Red Blood Count 4.53 X10*6/uL (4.60-5.80); Red Cell Distribution Width 14.4 % (11.0-16.0); White Blood Count 6.5 X10*3/uL (4.8-10.8)
== END 2021-12-12 12:51 | disposition home or self-care (01) ==
LOC: HO.HMGCLDS 12:50
PROVIDERS: PCP Internal Medicine; Visit Provider Psychiatry & Neurology Psychiatry
DX: I10 Essential (primary) hypertension (principal); Z79.899 Other long term (current) drug therapy
CPT/HCPCS: 36415; 85025

== ENCOUNTER 2021-12-21 19:20 | Emergency (ER) | payer MEDICARE, MEDICAID, SELFPAY ==
--- NOTE | ~2021-12-21 | XR_ITS ---
EXAMINATION: XR CHEST CLINICAL INFORMATION: Aspiration COMPARISON: Chest x-ray 06/07/2021 TECHNIQUE: Frontal view of the chest was obtained. 2010 hours FINDINGS: Lungs are clear. No pulmonary vascular congestion. There is no pleural effusion. The heart size is normal. The cardiac and mediastinal contours are normal. There are calcifications of the thoracic aorta. There are multilevel degenerative changes of dorsal spine. XR/XR chest 1V IMPRESSION: Unremarkable examination.
[2021-12-21 19:27] VITALS: BP 164/70; PULSE 79; RESP 20; TEMP 36.8; O2SAT 93; O2SAT 97; BMI 31.5
--- NOTE | 2021-12-21 19:48 | ED.GENADULT ---
HPI - General Adult General Chief complaint: General Medical Stated complaint: ?Aspiration Time Seen by Provider: 12/21/21 19:25 Source: patient and EMS Mode of arrival: EMS Limitations: altered mental status History of Present Illness HPI narrative: Patient comes to the emergency room from a senior care. Since that earlier today, patient choked on his food, unclear if he aspirated. The staff reports that the patient coughed and vomited afterwards. Patient has no complaints. Patient has history of dementia, patient is not a good historian Related Data Home Medications Medication Instructions Recorded Confirmed memantine 10 mg tablet 10 mg PO BID 08/18/20 10/10/21 venlafaxine 150 mg 150 mg PO DAILY 08/18/20 10/10/21 capsule,extended release 24 hr betamethasone dipropionate 0.05 % TOPICAL 01/10/21 10/10/21 topical ointment clozapine 100 mg tablet 300 mg PO BEDTIME 01/10/21 10/10/21 ketoconazole 2 % shampoo 1 appl TOPICAL 2XW 01/10/21 10/10/21 Previous Rx's Medication Instructions Recorded donepezil 10 mg tablet 10 mg PO BEDTIME 90 Days #90 tab 11/16/20 4-PRONGED CANE #1 ea 04/08/21 nicotine (polacrilex) 4 mg buccal 4 mg BUCCAL Q2H 30 Days #300 ea 04/08/21 mini lozenge lisinopril 2.5 mg tablet 2.5 mg PO QAM 90 Days #90 tab 07/09/21 methylcellulose (laxative) 500 mg 1,000 mg PO BID #120 tab 08/23/21 tablet (Citrucel) sucralfate 1 gram tablet 2 g PO DAILY 30 Days #60 tab 08/30/21 gemfibrozil 600 mg tablet 600 mg PO BID #60 tab 09/10/21 aspirin 81 mg tablet,delayed 81 mg PO DAILY 90 Days #90 tab 11/11/21 release cholecalciferol (vitamin D3) 25 25 mcg PO DAILY #30 tab 11/23/21 mcg (1,000 unit) tablet metformin 500 mg tablet 500 mg PO BID #60 tab 11/23/21 simvastatin 40 mg tablet 40 mg PO BEDTIME #30 tab 11/23/21 FreeStyle Lite Strips (blood sugar #100 ea NS 12/02/21 diagnostic) lancets 28 gauge (FreeStyle #100 ea 12/02/21 Lancets) Breo Ellipta 200 mcg-25 mcg/dose 1 ea PO DAILY #60 ea NS 12/20/21 powder for inhalation (fluticasone furoate-vilanterol) Allergies Allergy/AdvReac Type Severity Reaction Status Date / Time No Known Allergies Allergy Verified 10/10/21 15:16 [No Known Allergies*] Review of Systems Review of Systems: Constitutional : No Weight loss, No Fever, No Chills, No Night Sweats, No Fatigue, No Malaise ENT/Mouth : No Hearing loss, No Ear Pain, No Nasal Congestion, No Sinus Pain, No Hoarseness, No sore throat, No Rhinorrhea, No Swallowing Difficulty Eyes: No Eye Pain, No Swelling, No Redness, No Foreign Body, No Discharge, No Vision Changes Cardiovascular : No Chest Pain, No SOB, No Dyspnea on Exertion, No Orthopnea, No Edema, No Palpitations Respiratory : Reports coughing, No Sputum, No Wheezing, No Smoke Exposure, No Dyspnea Gastrointestinal : No Nausea, No Vomiting, No Diarrhea, No Constipation, No abdominal Pain, No Hematochezia, No Melena Genitourinary : no irregular bleeding, No Dysuria, No Urinary Frequency, No Hematuria, No Urinary Incontinence, No Urgency, No Flank Pain, No Urinary Flow Changes, No Hesitancy Musculoskeletal : No joint pain, No Myalgias, No Joint Swelling Skin : No Skin Lesions, No rash Neuro : No Weakness, No Numbness, No Paresthesias, No Loss of Consciousness, No Dizziness, No Headache Psych : No Anxiety/Panic, No Depression, No SI/HI/AH/VH, No Social Issues, Heme/Lymph: No Bruising, No Bleeding,No Lymphadenopathy Endocrine : No Polyuria, No Polydipsia, No Temperature Intolerance [facility] Past Medical History Medical History Alzheimer's dementia without behavioral disturbance Anxiety COPD (chronic obstructive pulmonary disease) Depression Gait instability Hearing impairment Hypoxia Obesity (BMI 30-39.9) Overweight (BMI 25.0-29.9) Pure hypercholesterolemia Schizophrenia Seborrheic dermatitis of scalp Smoker Type 2 diabetes mellitus without complication Vitamin D deficiency Weakness Surgical History H/O colonoscopy History of appendectomy Family History Family History Father Cancer Mother No problems noted. Brother Substance abuse Other Alcohol abuse Social History Social History Housing: Other Housing Other:: [facility] Alcohol intake: never Patient Tobacco Use Status: Current everyday Tobacco user Cigarettes Per Day: 3 Second Hand Smoke Exposure: Yes Advance Directives: No Advance Directives Information Provided: No service: No Current occupational status: disabled Physical Exam ED Vital Signs: Vital Signs - 24 hr 12/21/21 19:27 12/21/21 20:22 Temperature 98.3 F 98.7 F Pulse Rate 79 80 Respiratory Rate 20 18 Blood Pressure 164/70 H 159/78 H Pulse Oximetry 97 96 BMI result Body Mass Index 31.5 Const Other: Appearance: Alert. Oriented X2. No acute distress. Eyes: Pupils equal, round and reactive to light. ENT: Pharynx normal. Neck: Normal inspection. Neck supple. No lymph nodes noted. No crepitus CVS: Normal heart rate and rhythm. Pulses normal. Normal S1 and S2 Respiratory: No respiratory distress. Breath sounds normal. No Wheezing. No rales Abdomen: Soft and nontender. No rigidity. No distention. Skin: Skin warm and dry. Normal skin color. Normal skin turgor. Extremities: No lower extremity edema. No Lacerations. No Rash Neuro: Oriented X 2. No motor deficit. No sensory deficit. Moving all extremities. No slurred speech. CN 2 through 12 grossly intact Psych: calm, cooperative, normal affect Course Course Course Narrative: This time, patient has no complaints. Labs and x-ray pending Patient states he feels well, has no complaints. White blood cell count and x-ray within normal limits, patient on 2 L of oxygen which is his home dose. At this time, antibiotic not recommended. She has not had any further episodes of choking/coughing/vomiting Medical Decision Making Lab Data Result diagrams: 12/21/21 20:06 12/21/21 20:06 Labs: Lab Results 12/21/21 12/21/21 Range/Units 20:06 20:06 WBC 7.7 (4.8-10.8) X10*3/uL RBC 4.08 L (4.60-5.80) X10*6/uL Hgb 11.7 L (14.0-18.0) g/dl Hct 37.6 L (42.0-52.0) % MCV 92.2 (80.0-98.0) fL MCH 28.7 (27.0-33.0) pg MCHC 31.1 (31.0-36.0) g/dl RDW 14.0 (11.0-16.0) % Plt Count 229 (160-400) X10*3/uL MPV 11.5 (9.4-12.4) fL Immature Gran % (Auto) 0.8 H (0.0-0.4) % Neut % (Auto) 64.8 (45-73) % Lymph % (Auto) 22.5 (20-40) % [place] % (Auto) 8.7 (2-11) % Eos % (Auto) 2.9 (0-4) % Baso % (Auto) 0.3 (0-2) % Lymph # (Auto) 1.7 (1.2-4.9) X10*3/uL [place] # (Auto) 0.7 (0.1-1.2) X10*3/uL Eos # (Auto) 0.2 (0.0-0.4) X10*3/uL Baso # (Auto) 0.0 (0.0-0.2) X10*3/uL Abs Immat Gran (auto) 0.06 H (0.00-0.03) X10*3/uL Absolute Neuts (auto) 5.0 (2.0-8.3) x10*3/uL Absolute Nucleated RBC 0.000 (0.0-0.012) X10*3/uL Nucleated RBC % (auto) 0.0 (0.0-0.2) /100WBC Sodium 140 (135-145) mmol/L Potassium 3.7 (3.3-5.1) mmol/L Chloride 102 (96-108) mmol/L Carbon Dioxide 30 H (22-29) mmol/L Anion Gap 12 (12-20) BUN 16 D (9-16) mg/dL Creatinine 0.80 (0.5-1.4) mg/dL Estim Creat Clear Calc 92.5 Estimated GFR > 60 Random Glucose 148 H (60-115) mg/dL Calcium 9.2 D (8.4-10.2) mg/dL Total Bilirubin 0.3 (0.0-1.0) mg/dL Direct Bilirubin < 0.2 (0.0-0.5) mg/dL AST 37 (5-37) U/L ALT 31 (0-40) U/L Alkaline Phosphatase 97 (39-117) U/L Total Protein 6.5 (6.5-8.0) g/dL Albumin 4.0 (3.5-5.0) g/dL Discharge Plan Discharge Clinical Impression: Vomiting Patient Disposition: Home, Self-Care Instructions: Acute Nausea and Vomiting (ED), Performing the Heimlich Maneuver (ED) Additional Instructions: Please follow-up with your primary care physician tomorrow. If you have any worsening or new symptoms, please return to the emergency room or call 911 Prescriptions: No Action lisinopril 2.5 mg tablet 2.5 mg PO QAM 90 Days Qty: 90 1RF Citrucel 500 mg tablet 1,000 mg PO BID Qty: 120 6RF Rx Instructions: Take 2 tablets by mouth twice a day sucralfate 1 gram tablet 2 g PO DAILY 30 Days Qty: 60 6RF Rx Instructions: Take 2 tablets by mouth daily at 12:00, before lunch gemfibrozil 600 mg tablet 600 mg PO BID Qty: 60 3RF aspirin 81 mg tablet,delayed release (DR/EC) 81 mg PO DAILY 90 Days Qty: 90 3RF metformin 500 mg tablet 500 mg PO BID Qty: 60 0RF cholecalciferol (vitamin D3) 25 mcg (1,000 unit) tablet 25 mcg PO DAILY Qty: 30 0RF simvastatin 40 mg tablet 40 mg PO BEDTIME Qty: 30 3RF (DME) FreeStyle Lite Strips Strip See Rx Instructions .Route Qty: 100 5RF Rx Instructions: As directed- to test blood sugar once a day (DME) lancets [FreeStyle Lancets] 28 gauge misc See Rx Instructions .Route Qty: 100 0RF Rx Instructions: As directed- to test once daily Breo Ellipta 200-25 mcg/dose blister with device 1 ea PO DAILY Qty: 60 2RF memantine 10 mg tablet 10 mg PO BID 0RF venlafaxine 150 mg capsule,extended release 24hr 150 mg PO DAILY 0RF (DME) 4-PRONGED CANE See Rx Instructions .Route .MEDSUPPLY Qty: 1 0RF Rx Instructions: As directed nicotine (polacrilex) 4 mg mini lozenge 4 mg buccal Q2H 30 Days Qty: 300 3RF donepezil 10 mg tablet 10 mg PO BEDTIME 90 Days Qty: 90 3RF ketoconazole 2 % shampoo 1 appl topical 2XW 0RF clozapine 100 mg tablet 300 mg PO BEDTIME 0RF betamethasone dipropionate 0.05 % ointment topical 0RF
--- NOTE | 2021-12-21 19:52 | ECG_ITS ---
Test Reason : SOB Blood Pressure : / mmHG Vent. Rate : 077 BPM Atrial Rate : 077 BPM P-R Int : 212 ms QRS Dur : 126 ms QT Int : 414 ms P-R-T Axes : 016 -63 093 degrees QTc Int : 468 ms Sinus rhythm with 1st degree A-V block with Premature supraventricular complexes Left axis deviation Left ventricular hypertrophy with QRS widening and repolarization abnormality ( R in aVL , Galva product ) Cannot rule out Septal infarct (cited on or before 07-JUN-2021) Abnormal ECG When compared with ECG of 07-JUN-2021 09:46, Premature supraventricular complexes are now Present Referred By: Katy Silva Electronically Signed By:JUAN GUTIERREZ MD
[2021-12-21 20:11] LABS: MANUAL DIFF FLAG NO
[2021-12-21 20:13] LABS: Basophils Percent Auto 0.3 % (0-2); Eosinophils Absolute Auto 0.2 X10*3/uL (0.0-0.4); Eosinophils Percent Auto 2.9 % (0-4); Hematocrit 37.6 % (42.0-52.0); Hemoglobin 11.7 g/dl (14.0-18.0); Imm Gran Abs Auto 0.06 X10*3/uL (0.00-0.03); Imm Gran Pct Auto 0.8 % (0.0-0.4); Lymphocytes Absolute Auto 1.7 X10*3/uL (1.2-4.9); Lymphocytes Percent Auto 22.5 % (20-40); Mean Corpuscular HGB Conc 31.1 g/dl (31.0-36.0); Mean Corpuscular Hemoglobin 28.7 pg (27.0-33.0); Mean Corpuscular Volume 92.2 fL (80.0-98.0); Mean Platelet Volume 11.5 fL (9.4-12.4); Monocytes Absolute Auto 0.7 X10*3/uL (0.1-1.2); Monocytes Percent Auto 8.7 % (2-11); Neutrophils Percent Auto 64.8 % (45-73); Platelet Count 229 X10*3/uL (160-400); Red Blood Count 4.08 X10*6/uL (4.60-5.80); White Blood Count 7.7 X10*3/uL (4.8-10.8)
[2021-12-21 20:22] VITALS: BP 159/78; PULSE 80; RESP 18; TEMP 37.1; O2SAT 96
[2021-12-21 20:34] LABS: Alanine Aminotransferase 31 U/L (0-40); Alkaline Phosphatase 97 U/L (39-117); Anion Gap 12 (12-20); Aspartate Amino Transferase 37 U/L (5-37); Bilirubin Direct < 0.2 mg/dL (0.0-0.5); Bilirubin Total 0.3 mg/dL (0.0-1.0); Blood Urea Nitrogen 16 mg/dL (9-16); Calcium 9.2 mg/dL (8.4-10.2); Carbon Dioxide 30 mmol/L (22-29); Chloride 102 mmol/L (96-108); Creatinine Clr Calc Pharmacy 92.5; Estimated Glomerular Filt Rate > 60; Glucose Random 148 mg/dL (60-115); Potassium 3.7 mmol/L (3.3-5.1); Sodium 140 mmol/L (135-145); Total Protein 6.5 g/dL (6.5-8.0)
== END 2021-12-21 21:47 | disposition home or self-care (01) ==
PROVIDERS: Emergency Provider Emergency Medicine; PCP Internal Medicine
DX: R11.10 Vomiting, unspecified (principal); G30.9 Alzheimer's disease, unspecified; F02.80 Dementia in other diseases classified elsewhere, unspecified severity, without behavioral disturbance, psychotic disturbance, mood disturbance, and anxiety; E11.9 Type 2 diabetes mellitus without complications; J44.9 Chronic obstructive pulmonary disease, unspecified; R09.02 Hypoxemia; F17.210 Nicotine dependence, cigarettes, uncomplicated; Z99.81 Dependence on supplemental oxygen
CPT/HCPCS: 36415; 71045; 80048; 80076; 85025; 93005; 99283; 99284

== ENCOUNTER 2022-01-03 13:27 | Outpatient (REF) | payer MEDICARE, MEDICAID, SELFPAY ==
[2022-01-03 16:28] LABS: MANUAL DIFF FLAG NO
[2022-01-03 16:32] LABS: Basophils Percent Auto 0.4 % (0-2); Eosinophils Absolute Auto 0.2 X10*3/uL (0.0-0.4); Eosinophils Percent Auto 3.2 % (0-4); Hematocrit 41.6 % (42.0-52.0); Hemoglobin 12.5 g/dl (14.0-18.0); Imm Gran Abs Auto 0.03 X10*3/uL (0.00-0.03); Imm Gran Pct Auto 0.4 % (0.0-0.4); Lymphocytes Absolute Auto 1.7 X10*3/uL (1.2-4.9); Lymphocytes Percent Auto 23.4 % (20-40); Mean Corpuscular Volume 93.1 fL (80.0-98.0); Mean Platelet Volume 12.6 fL (9.4-12.4); Monocytes Absolute Auto 0.7 X10*3/uL (0.1-1.2); Monocytes Percent Auto 9.3 % (2-11); Neutrophils Absolute Auto 4.5 x10*3/uL (2.0-8.3); Neutrophils Percent Auto 63.3 % (45-73); Platelet Count 243 X10*3/uL (160-400); Red Blood Count 4.47 X10*6/uL (4.60-5.80); Red Cell Distribution Width 14.2 % (11.0-16.0); White Blood Count 7.2 X10*3/uL (4.8-10.8)
[2022-01-03 16:40] LABS: Estimated Average Glucose 131 mg/dL; Hemoglobin A1c % 6.2 %
[2022-01-03 17:06] LABS: TSH reflex Free T4 2.32 uIU/mL (0.32-4.0); Vitamin D 25-OH Total 31.4 ng/mL (>30)
[2022-01-03 17:16] LABS: Folate 10.9 ng/mL (> or = 4.0); Vitamin B12 253 pg/mL (200-900)
== END 2022-01-03 13:28 | disposition home or self-care (01) ==
LOC: HO.HMGCLR 13:27
PROVIDERS: Internal Medicine; Visit Provider Psychiatry & Neurology Psychiatry
DX: Z51.81 Encounter for therapeutic drug level monitoring (principal); Z79.899 Other long term (current) drug therapy
CPT/HCPCS: 36415; 82306; 82607; 82746; 83036; 84443; 85025

== ENCOUNTER 2022-01-04 15:04 | Outpatient (REF) | payer MEDICARE, MEDICAID, SELFPAY | END 2022-01-04 15:05 | disposition home or self-care (01) | LOC: HO.HAP 15:04 | PROVIDERS: Visit Provider Internal Medicine | DX: Z13.89 Encounter for screening for other disorder (principal) ==

== ENCOUNTER 2022-01-05 08:47 | Outpatient (REF) | payer MEDICARE, MEDICAID, SELFPAY ==
[2022-01-05 11:34] LABS: Cholesterol 169 mg/dL; HDL Cholesterol 37 mg/dL; LDL Cholesterol Calculated 94 mg/dl; Triglycerides 192 mg/dL
== END 2022-01-05 08:48 | disposition home or self-care (01) ==
LOC: HO.HMGCLDS 08:47
PROVIDERS: Visit Provider Internal Medicine
DX: E78.00 Pure hypercholesterolemia, unspecified (principal)
CPT/HCPCS: 36415; 80061

== ENCOUNTER → 2022-01-16 11:10 | Outpatient (BNVA) | payer MEDICARE, MEDICAID, SELFPAY | PROVIDERS: PCP Internal Medicine; Visit Provider Internal Medicine | DX: J44.9 Chronic obstructive pulmonary disease, unspecified (principal); R09.02 Hypoxemia; F17.210 Nicotine dependence, cigarettes, uncomplicated | CPT/HCPCS: 99212 ==

== ENCOUNTER 2022-02-08 12:25 | Outpatient (REF) | payer MEDICARE, MEDICAID, SELFPAY ==
[2022-02-08 14:00] LABS: MANUAL DIFF FLAG NO
[2022-02-08 14:25] LABS: Basophils Percent Auto 0.5 % (0-2); Eosinophils Absolute Auto 0.2 X10*3/uL (0.0-0.4); Eosinophils Percent Auto 2.9 % (0-4); Hematocrit 39.7 % (42.0-52.0); Hemoglobin 12.1 g/dl (14.0-18.0); Imm Gran Abs Auto 0.03 X10*3/uL (0.00-0.03); Imm Gran Pct Auto 0.4 % (0.0-0.4); Lymphocytes Absolute Auto 2.3 X10*3/uL (1.2-4.9); Lymphocytes Percent Auto 30.9 % (20-40); Mean Corpuscular HGB Conc 30.5 g/dl (31.0-36.0); Mean Corpuscular Hemoglobin 27.9 pg (27.0-33.0); Mean Corpuscular Volume 91.7 fL (80.0-98.0); Monocytes Absolute Auto 0.8 X10*3/uL (0.1-1.2); Monocytes Percent Auto 10.1 % (2-11); Neutrophils Absolute Auto 4.2 x10*3/uL (2.0-8.3); Neutrophils Percent Auto 55.2 % (45-73); Platelet Count 203 X10*3/uL (160-400); Red Blood Count 4.33 X10*6/uL (4.60-5.80); Red Cell Distribution Width 13.9 % (11.0-16.0); White Blood Count 7.5 X10*3/uL (4.8-10.8)
== END 2022-02-08 12:26 | disposition home or self-care (01) ==
LOC: HO.HMGCLR 12:25
PROVIDERS: PCP Internal Medicine; Visit Provider Psychiatry & Neurology Psychiatry
DX: Z79.899 Other long term (current) drug therapy (principal)
CPT/HCPCS: 36415; 85025

== ENCOUNTER 2022-02-27 08:28 | Outpatient (REF) | payer MEDICARE, MEDICAID, SELFPAY | END 2022-02-27 08:29 | disposition home or self-care (01) | LOC: HO.XRAY 08:28 | PROVIDERS: Visit Provider Internal Medicine | DX: Z13.89 Encounter for screening for other disorder (principal) ==

== ENCOUNTER 2022-03-13 13:14 | Outpatient (REF) | payer MEDICARE, MEDICAID, SELFPAY ==
[2022-03-13 16:35] LABS: MANUAL DIFF FLAG NO
[2022-03-13 16:43] LABS: Basophils Percent Auto 0.4 % (0-2); Eosinophils Absolute Auto 0.1 X10*3/uL (0.0-0.4); Eosinophils Percent Auto 1.5 % (0-4); Hematocrit 37.8 % (42.0-52.0); Hemoglobin 11.6 g/dl (14.0-18.0); Imm Gran Abs Auto 0.04 X10*3/uL (0.00-0.03); Imm Gran Pct Auto 0.5 % (0.0-0.4); Lymphocytes Absolute Auto 1.8 X10*3/uL (1.2-4.9); Lymphocytes Percent Auto 24.2 % (20-40); Mean Corpuscular HGB Conc 30.7 g/dl (31.0-36.0); Mean Corpuscular Hemoglobin 28.2 pg (27.0-33.0); Mean Corpuscular Volume 91.7 fL (80.0-98.0); Monocytes Absolute Auto 0.6 X10*3/uL (0.1-1.2); Monocytes Percent Auto 7.5 % (2-11); Neutrophils Absolute Auto 4.9 x10*3/uL (2.0-8.3); Neutrophils Percent Auto 65.9 % (45-73); Platelet Count 213 X10*3/uL (160-400); Red Blood Count 4.12 X10*6/uL (4.60-5.80); Red Cell Distribution Width 14.5 % (11.0-16.0); White Blood Count 7.4 X10*3/uL (4.8-10.8)
[2022-03-13 17:12] LABS: Prostate Specific Antigen 1.75 ng/mL (<0.05-4.0)
== END 2022-03-13 13:15 | disposition home or self-care (01) ==
LOC: HO.HMGCLR 13:14
PROVIDERS: Nurse Practitioner Family; PCP Internal Medicine; Visit Provider Psychiatry & Neurology Psychiatry
DX: Z12.5 Encounter for screening for malignant neoplasm of prostate (principal); Z79.899 Other long term (current) drug therapy
CPT/HCPCS: 36415; 84153; 85025

== ENCOUNTER → 2022-03-28 13:43 | Outpatient (BNVA) | payer MEDICARE, MEDICAID, SELFPAY | PROVIDERS: PCP Internal Medicine; Referring Provider Internal Medicine; Visit Provider Nurse Practitioner | DX: K58.0 Irritable bowel syndrome with diarrhea (principal) | CPT/HCPCS: 99212 ==

== ENCOUNTER 2022-04-10 13:16 | Outpatient (REF) | payer MEDICARE, MEDICAID, SELFPAY ==
[2022-04-10 16:32] LABS: MANUAL DIFF FLAG NO
[2022-04-10 16:36] LABS: Basophils Percent Auto 0.4 % (0-2); Eosinophils Absolute Auto 0.2 X10*3/uL (0.0-0.4); Eosinophils Percent Auto 2.3 % (0-4); Hematocrit 39.6 % (42.0-52.0); Hemoglobin 12.4 g/dl (14.0-18.0); Imm Gran Abs Auto 0.05 X10*3/uL (0.00-0.03); Imm Gran Pct Auto 0.7 % (0.0-0.4); Lymphocytes Percent Auto 27.5 % (20-40); Mean Corpuscular HGB Conc 31.3 g/dl (31.0-36.0); Mean Corpuscular Hemoglobin 28.3 pg (27.0-33.0); Mean Corpuscular Volume 90.4 fL (80.0-98.0); Mean Platelet Volume 12.7 fL (9.4-12.4); Monocytes Absolute Auto 0.7 X10*3/uL (0.1-1.2); Monocytes Percent Auto 9.3 % (2-11); Neutrophils Absolute Auto 4.4 x10*3/uL (2.0-8.3); Neutrophils Percent Auto 59.8 % (45-73); Platelet Count 228 X10*3/uL (160-400); Red Blood Count 4.38 X10*6/uL (4.60-5.80); Red Cell Distribution Width 14.6 % (11.0-16.0); White Blood Count 7.4 X10*3/uL (4.8-10.8)
== END 2022-04-10 13:17 | disposition home or self-care (01) ==
LOC: HO.LABR 13:16
PROVIDERS: PCP Internal Medicine; Visit Provider Psychiatry & Neurology Psychiatry
DX: Z79.899 Other long term (current) drug therapy (principal)
CPT/HCPCS: 36415; 85025

== ENCOUNTER 2022-04-12 14:13 | Outpatient (REF) | payer MEDICARE, MEDICAID, SELFPAY ==
--- NOTE | ~2022-04-12 | FL_ITS ---
EXAMINATION: XR BARIUM SWALLOW CLINICAL INFORMATION: Dysphagia. COMPARISON: None TECHNIQUE: Routine modified barium swallow was performed with patient in lateral sitting position in the presence of speech therapist. FINDINGS: Following oral administration of thin barium and honey consistency barium, there is normal propagation of bolus from the oral cavity through the pharynx into the esophagus with laryngeal penetration but no aspiration seen. No retention in the valleculae or piriform sinuses. On oral administration of thick barium, barium with nectar, barium pudding, and cracker-coated with barium, there is normal oral mastication and propagation of bolus through the pharynx into the esophagus without laryngeal penetration or aspiration. No retention of barium food seen in the valleculae or piriform sinuses. FLUOROSCOPY TIME: 2.8 minutes DOSE AREA PRODUCT: 1.655 uGy-m2 (microgray-meter squared) FL/FL barium swallow modified IMPRESSION: Laryngeal penetration with thin barium and barium-coated honey consistency food. This is not seen with other consistencies of food with barium. No laryngeal aspiration seen at all. No retention of food in the valleculae or piriform sinuses. Correlate with speech therapy results .
--- NOTE | 2022-04-14 14:20 | MHC.SL.IMP ---
Date of Plan of Treatment: 04/12/22 Onset of Symptoms/Illness: 01/10/22 Date Treatment Started: 04/12/22 Admitting Diagnosis: Alzheimer's dementia without behavioral disturbance Anxiety COPD Depression Gait instability Hearing impairment Hypoxia Obesity Pure hypercholesterolemia Schizophrenia Seborrheic dermatitis of scalp Smoker Type 2 diabetes mellitus without complication Vitamin D deficiency Weakness SURGICAL: H/o colonoscopy History of appendectomy Primary Speech & Language Diagnosis: R13.12 Oropharyngeal Phase Dysphagia Secondary Speech & Language Diagnosis: R41.841 Cognitive communication disorder Reason for Today's Visit: 35892 Modified Barium Swallow Study Pre-evaluation Dietary Consistencies: Regular Pre-evaluation Liquid Consistency: Thin Pre-evaluation Medication Administration: Whole with Liquid Medical History: Modified Barium Swallow Study Fluoroscopic Evaluation of Swallowing Function CPT Code 22140 Evaluation Year: 2021 Reason for Study: Pt had choking episode eating rice. Referring Physician: Alex Salazar MD Evaluating Clinician: Lissette Garcia MA, CCC-MANAGER ACTIVITIES Study Number: 1 Patient Name: Patricio Ochoa Status: Outpatient, Ambulatory/Assisted Age: 72 Gender: Male MEDICAL HISTORY: Year of Onset or Diagnosis: 2021 Comorbidities: Alzheimer's dementia without behavioral disturbance Anxiety COPD Depression Gait instability Hearing impairment Hypoxia Obesity Pure hypercholesterolemia Schizophrenia Seborrheic dermatitis of scalp Smoker Type 2 diabetes mellitus without complication Vitamin D deficiency Weakness SURGICAL: H/o colonoscopy History of appendectomy Current (pre-evaluation) Intake/Diet: Route: PO Diet Grade: Regular- Food is ?shredded? by [facility] staff. Liquid Consistencies: Thin Pre-Study Functional Oral Intake Scale (FOIS): 5- Total oral intake of multiple consistencies requiring special preparation Pain: None reported at time of study SUBJECTIVE: Patient is a 72 year old male referred for a modified barium swallow study by his primary care physician, Alex Salazar MD. Patient has underlying Alzheimer?s dementia and resides in a [facility]. Patient was accompanied to this exam by a staff member from his [facility], who assisted in providing background information included in this report. Staff member from [facility] reports onset of dysphagia approximately 3 months ago, when patient had choked on some rice. The staff member also reported that patient has dentures, but chooses not to wear them. MD previously documented that patient reportedly finds it ?too crowded in his mouth to eat with his dentures on.? Additionally, staff reports that patient is impulsive when eating, shoveling food in his mouth before swallowing and swallowing some food whole without chewing. Per staff report, at the [facility], patient eats softer foods such as yogurt and pudding. The staff cuts patient?s sandwiches into fours, cooks meals in a crock pot, and shreds up meat for patient. The staff member reports that patient drinks mostly water. Oral Motor Exam Facial Symmetry: Symmetrical Mouth Occlusion: Normal Oral-Facial Teeth Characteristics: Edentulous Oral-Facial Smile (Lips) Description: Normal Oral-Facial Puff Cheeks Description: Normal Tongue Size: Normal Tongue Excursion Description: Normal Tongue Range of Movement Description: Normal Tongue Speed of Movement Description: Normal Tongue Strength of Movement (against opposing pressure): Normal Tongue Movement Characteristics: Normal/Absent Is patient able to manage secretions?: Yes Food and Liquid Trials: Oral Impairment: Lip Closure: Did not test Oral Impairment: Tongue Control During Bolus Hold: 2=Posterior escape of less than half of bolus Oral Impairment: Bolus Preparation/Mastication: 2=Disorganized chewing/mashing with solid pieces of bolus Oral Impairment: Bolus Transport/Lingual Motion: 3=Repetitive/disorganized tongue motion Oral Impairment: Oral Residue: 2=Residue collection on oral structures Oral Impairment:Initiation of Pharyngeal Swallow: 3=Bolus head in pyriforms Pharyngeal Impairment: Soft Palate Elevation: 0=No bolus between soft palate (SP)/pharyngeal wall (PW) Pharyngeal Impairment: Laryngeal Elevation: 0=Complete superior movement of thyroid cartilage (see description) Pharyngeal Impairment: Anterior Hyoid Excursion: 1=Partial anterior movement Pharyngeal Impairment: Epiglottic Movement: 1=Partial inversion Pharyngeal Impairment: Laryngeal Vestibular Closure:: 1=Incomplete: narrow column air/contrast in laryngeal vestibule Pharyngeal Impairment: Pharyngeal Stripping Wave: 1=Present: diminished Pharyngeal Impairment: Pharyngeal Contraction: Did not test Pharyngeal Impairment: Pharyngoesophageal Segment Openin=Complete distension and complete duration: no obstruction of flow Pharyngeal Impairment: Tongue Base (TB) Retraction: 2=Narrow column of contrast/air between TB and posterior PW Pharyngeal Impairment: Pharyngeal Residue: 1=Trace residue within or on pharyngeal structures Pharyngeal Impairment: Esophageal Clearance Upright Position: Did not test Impressions and Recommendations Clinical Observations: OBJECTIVE: Time-out: performed at 03:15 Evaluation Start: 03:00; Stop: 03:05 Oxygen: 2 Litres/min, nasal cannula Patient Positioning: Seated 70-90 degrees Viewing Planes: LATERAL ONLY Contrast: MBSImP? Standardized Protocol using commercially prepared, standardized Barium viscosities, including: Varibar? THIN LIQUID (40% w/v, <15 cps) , Varibar? NECTAR (40% w/v, <150-450 cps) , 1/2 Shortbread Cookie (1 x1 x.25 ) MBSImP ID: [id number] MBSImP Results: Lip closure for intraoral bolus containment could not be assessed due to logistical reasons not related to physiologic impairment. Tongue control during bolus hold resulted in posterior escape of less than half of the bolus. Bolus preparation and mastication demonstrated disorganized chewing/mashing with solid pieces of the bolus unchewed. Bolus transport/lingual motion was with repetitive/disorganized motion of the tongue. Oral residue was a collection on oral structures. Initiation of the pharyngeal swallow occurred when the bolus head was in the pyriform sinuses. Soft palate elevation resulted in no bolus between the soft palate and the pharyngeal wall. Laryngeal elevation demonstrated complete superior movement of the thyroid cartilage with complete approximation of the arytenoids to the epiglottic petiole. Anterior hyoid excursion demonstrated partial anterior movement. Epiglottic movement resulted in partial inversion. Laryngeal vestibular closure was incomplete, with a narrow column of air/contrast noted within the laryngeal vestibule at the height of the swallow. Pharyngeal stripping wave was present, but diminished. Pharyngeal contraction could not be determined due to logistical reasons not related to physiologic impairment. Pharyngoesophageal segment opening was completely distended for complete duration with no obstruction of bolus flow. Tongue base retraction allowed a narrow column of contrast or air between the retracted tongue base and the posterior pharyngeal wall. Pharyngeal residue was a trace within or on pharyngeal structures. Esophageal clearance in the upright position could not be assessed due to logistical reasons not related to physiologic impairment. Oral Impairment Score: 12 (absence of score, component 1) Pharyngeal Impairment Score: 6 (absence of score, component 13) Esophageal Impairment Score: --- (absence of score, component 17) Laryngeal Penetration and Aspiration: Penetration was observed in today's study. Redbird Smith-thick, Thin Contrast entered the airway, remained above the vocal folds, and were ejected from the airway. Thin Contrast entered the airway, contacted the vocal folds, and was ejected from the airway. ASSESSMENT: Clinician Assessment: This exam was conducted by a multidisciplinary team, which included a speech pathologist, radiologist, and technician's helper. The patient was seated upright at 90 degrees in a chair for lateral view only. Patient trialed the following liquid and solid consistencies: thin liquid barium by cup, nectar thick liquid barium by cup, pureed solid (mixture applesauce with barium paste), ground solid (mixture chicken salad with barium paste), and regular solid (Lenka Doone cookie coated with barium paste). Patient demonstrated repetitive and disorganized posterior lingual motion for transport of bolus, resulting in premature posterior escape of trace liquid prior to initiation of the pharyngeal swallow trigger. Liquid leaked posteriorly, pooling in the valleculae and pyriform sinuses, and then cleared when the patient swallowed. Mastication was slow and disorganized, moderately prolonged with intake of the shortbread cookie. There was mild lingual residue which had subsequently cleared. Pharyngeal swallow trigger was delayed, initiated as bolus head reached pyriform sinuses. There was no nasopharyngeal reflux. Patient displayed complete superior movement of thyroid cartilage with complete approximation of arytenoids to epiglottic petiole. Anterior hyoid excursion was partial, with partial epiglottic inversion. Laryngeal vestibular closure was incomplete resulting in narrow column of contrast in the laryngeal vestibule. There were episodes of flash penetration intermittently with consumption of thin liquid and nectar thick liquid. During the swallow, contrast entered the airway above the vocal folds, and then immediately and spontaneously ejected from airway. When taking a notably large sip, contrast reached the vocal folds, but again immediately and spontaneously ejected from the airway. Patient was then instructed to hold his head in a chin tuck while swallowing liquid. This change in position resulted in decreasing and eliminating penetration of liquids. There was no evidence of aspiration with liquids. There was no penetration or aspiration of solid consistencies. There was trace residue on posterior pharyngeal wall, but complete clearing of vallecular space and pyriform sinsues. No obstruction of flow through pharyngoesophageal segment opening. The following compensatory strategies have not been used until today's study, but when employed, improved swallowing function: Bolus Volume Change decreased Penetration Chin Tuck eliminated Penetration Additional Swallow(s) per Bolus eliminated Oral Residue Liquid Intake Recommendation: Thin Liquid Intake Strategies: Small Sips, No Straws Dietary Recommendations: Grnd/Mech Altered (NDD2) Medication Administration: Whole with Puree Please contact the pharmacy regarding appropriate crushable or liquid drug formulations that are available whenever modified delivery is recommended. Compensatory Strategies Recommended: Sitting Upright (90 deg) Chin Tuck Double Swallow No Straw Liquids from Cup Liquids from Spoon Small Bites and Sips Rate of Ingestion Change Avoid Specific Foods Supervision during eating and or drinking: Total Supervision (1:1) Recommended Treatments: Compens. Strategy Educat. Recommendation for Speech Therapy: Outpatient Speech Therapy Text Comment: PLAN: Intake Recommendations: Route: PO Diet Grade: Mechanical Soft Liquid Consistencies: Thin Post-Study Functional Oral Intake Scale (FOIS): 5- Total oral intake of multiple consistencies requiring special preparation Oral phase was moderately prolonged with disorganized lingual motion and chewing. There was no evidence of aspiration with solids and liquids during this exam. Transient flash penetration with thin and nectar thick liquids. Chin tuck strategy was employed when swallowing individual sips of liquid and resulted in reduction or elimination of penetration. Recommend GROUND/MECH ALTERED (NDD2) solids with sauces/gravies and THIN liquids, pills WHOLE or CRUSHED in PUREE per pt?s tolerance. Given underlying dementia, patient would benefit from the supervision or assistance of a caregiver during all PO intake to monitor tolerance and ensure aspiration precautions. Patient requires cues and reminders to use strategies throughout meals. Recommended strategies and precautions include: -Take small sips of liquid, one sip at a time -Avoid ?chugging? consecutive sips of liquid -Avoid the use of straws -Chin tuck with intake of liquids -One bite at a time and chew food well -Clear oral cavity before taking more bites -Moisten food with sauce/gravy as needed -Avoid foods which cause you more difficulty swallowing (i.e. rice, foods that crumble, mixed consistencies) -Upright 90 degree position when eating/drinking Recommend 1-2 follow-up visits with speech pathologist to provide patient and caregivers with education regarding the results of this MBSS and recommended strategies for eating safety. Recommend patient and caregivers to continue monitoring patient?s dysphagia. Contact PCP if there is any worsening of dysphagia, in which case patient may need re-evaluation. Therapy Recommendations: Therapy will be initiated Prognosis for Improvement: The prognosis for the patient to meet nutritional needs by mouth is fair based on degree of impairment. Assistant [employer] Public [employer] Goals: ? The patient will tolerate the least restrictive diet with a safe/efficient swallow to maintain adequate nutrition and hydration. ? The patient and/or family will participate in further education for swallowing goals. Short Term Goals: ? Guidelines - The patient will comply with/recall the following guidelines/strategies 80% of the time with moderate cuing: Bolus Volume Change, Rate of Ingestion Change, Chin Tuck, Additional Swallow(s) per Bolus. ? Education - The patient, caregiver will verbalize/demonstrate understanding of the results of this evaluation, the above recommendations, and the swallowing guidelines. Clinician - Supplemental, Miscellaneous Communication: It is important to note MBSS objective studies are snapshots in time and Patient function might vary with factors such as time of day or concomitant medical conditions. For this reason, the final treatment plan for this patient should rest with their medical care team. Additional recommendations should be considered with the totality of the Patient in mind. Thank for the opportunity to participate in the care of this patient. If you have any questions about the content of this report, please contact the [facility] at [facility]. Education: Education regarding findings from today's study and plans for therapy were provided to Patient and family/caregiver through Verbal Instruction, Written Instruction. Understanding was expressed by the Patient and family/caregiver. [employer] Technician Clinician/Clinical Fellow: Yes: Althea Miner MA CF-MANAGER ACTIVITIES Supervisory Statement: N/A Speech Language Pathologist: Lissette Garcia M.A., [facility]-MANAGER ACTIVITIES
--- NOTE | 2022-04-14 14:25 | MHC.SL.IMP ---
Date of Plan of Treatment: 04/12/22 Onset of Symptoms/Illness: 01/10/22 Date Treatment Started: 04/12/22 Admitting Diagnosis: Alzheimer's dementia without behavioral disturbance Anxiety COPD Depression Gait instability Hearing impairment Hypoxia Obesity Pure hypercholesterolemia Schizophrenia Seborrheic dermatitis of scalp Smoker Type 2 diabetes mellitus without complication Vitamin D deficiency Weakness SURGICAL: H/o colonoscopy History of appendectomy Primary Speech & Language Diagnosis: R13.12 Oropharyngeal Phase Dysphagia Secondary Speech & Language Diagnosis: R41.841 Cognitive communication disorder Reason for Today's Visit: 57464 Modified Barium Swallow Study Pre-evaluation Dietary Consistencies: Regular Pre-evaluation Liquid Consistency: Thin Pre-evaluation Medication Administration: Whole with Liquid Medical History: Modified Barium Swallow Study Fluoroscopic Evaluation of Swallowing Function CPT Code 26498 Evaluation Year: 2021 Reason for Study: Pt had choking episode eating rice. Referring Physician: Alex Salazar MD Evaluating Clinician: Lissette Garcia MA, CCC-INSPECTOR [facility] Study Number: 1 Patient Name: Patricio Ochoa Status: Outpatient, Ambulatory/Assisted Age: 72 Gender: Male MEDICAL HISTORY: Year of Onset or Diagnosis: 2021 Comorbidities: Alzheimer's dementia without behavioral disturbance Anxiety COPD Depression Gait instability Hearing impairment Hypoxia Obesity Pure hypercholesterolemia Schizophrenia Seborrheic dermatitis of scalp Smoker Type 2 diabetes mellitus without complication Vitamin D deficiency Weakness SURGICAL: H/o colonoscopy History of appendectomy Current (pre-evaluation) Intake/Diet: Route: PO Diet Grade: Regular- Food is ?shredded? by longterm staff. Liquid Consistencies: Thin Pre-Study Functional Oral Intake Scale (FOIS): 5- Total oral intake of multiple consistencies requiring special preparation Pain: None reported at time of study SUBJECTIVE: Patient is a 72 year old male referred for a modified barium swallow study by his primary care physician, Alex Salazar MD. Patient has underlying Alzheimer?s dementia and resides in a longterm. Patient was accompanied to this exam by a staff member from his longterm, who assisted in providing background information included in this report. Staff member from longterm reports onset of dysphagia approximately 3 months ago, when patient had choked on some rice. The staff member also reported that patient has dentures, but chooses not to wear them. MD previously documented that patient reportedly finds it ?too crowded in his mouth to eat with his dentures on.? Additionally, staff reports that patient is impulsive when eating, shoveling food in his mouth before swallowing and swallowing some food whole without chewing. Per staff report, at the longterm, patient eats softer foods such as yogurt and pudding. The staff cuts patient?s sandwiches into fours, cooks meals in a crock pot, and shreds up meat for patient. The staff member reports that patient drinks mostly water. Oral Motor Exam Facial Symmetry: Symmetrical Mouth Occlusion: Normal Oral-Facial Teeth Characteristics: Edentulous Oral-Facial Smile (Lips) Description: Normal Oral-Facial Puff Cheeks Description: Normal Tongue Size: Normal Tongue Excursion Description: Normal Tongue Range of Movement Description: Normal Tongue Speed of Movement Description: Normal Tongue Strength of Movement (against opposing pressure): Normal Tongue Movement Characteristics: Normal/Absent Is patient able to manage secretions?: Yes Food and Liquid Trials: Oral Impairment: Lip Closure: Did not test Oral Impairment: Tongue Control During Bolus Hold: 2=Posterior escape of less than half of bolus Oral Impairment: Bolus Preparation/Mastication: 2=Disorganized chewing/mashing with solid pieces of bolus Oral Impairment: Bolus Transport/Lingual Motion: 3=Repetitive/disorganized tongue motion Oral Impairment: Oral Residue: 2=Residue collection on oral structures Oral Impairment:Initiation of Pharyngeal Swallow: 3=Bolus head in pyriforms Pharyngeal Impairment: Soft Palate Elevation: 0=No bolus between soft palate (SP)/pharyngeal wall (PW) Pharyngeal Impairment: Laryngeal Elevation: 0=Complete superior movement of thyroid cartilage (see description) Pharyngeal Impairment: Anterior Hyoid Excursion: 1=Partial anterior movement Pharyngeal Impairment: Epiglottic Movement: 1=Partial inversion Pharyngeal Impairment: Laryngeal Vestibular Closure:: 1=Incomplete: narrow column air/contrast in laryngeal vestibule Pharyngeal Impairment: Pharyngeal Stripping Wave: 1=Present: diminished Pharyngeal Impairment: Pharyngeal Contraction: Did not test Pharyngeal Impairment: Pharyngoesophageal Segment Openin=Complete distension and complete duration: no obstruction of flow Pharyngeal Impairment: Tongue Base (TB) Retraction: 2=Narrow column of contrast/air between TB and posterior PW Pharyngeal Impairment: Pharyngeal Residue: 1=Trace residue within or on pharyngeal structures Pharyngeal Impairment: Esophageal Clearance Upright Position: Did not test Impressions and Recommendations Clinical Observations: OBJECTIVE: Time-out: performed at 03:15 Evaluation Start: 03:00; Stop: 03:05 Oxygen: 2 Litres/min, nasal cannula Patient Positioning: Seated 70-90 degrees Viewing Planes: LATERAL ONLY Contrast: MBSImP? Standardized Protocol using commercially prepared, standardized Barium viscosities, including: Varibar? THIN LIQUID (40% w/v, <15 cps) , Varibar? NECTAR (40% w/v, <150-450 cps) , 1/2 Shortbread Cookie (1 x1 x.25 ) MBSImP ID: [id number] MBSImP Results: Lip closure for intraoral bolus containment could not be assessed due to logistical reasons not related to physiologic impairment. Tongue control during bolus hold resulted in posterior escape of less than half of the bolus. Bolus preparation and mastication demonstrated disorganized chewing/mashing with solid pieces of the bolus unchewed. Bolus transport/lingual motion was with repetitive/disorganized motion of the tongue. Oral residue was a collection on oral structures. Initiation of the pharyngeal swallow occurred when the bolus head was in the pyriform sinuses. Soft palate elevation resulted in no bolus between the soft palate and the pharyngeal wall. Laryngeal elevation demonstrated complete superior movement of the thyroid cartilage with complete approximation of the arytenoids to the epiglottic petiole. Anterior hyoid excursion demonstrated partial anterior movement. Epiglottic movement resulted in partial inversion. Laryngeal vestibular closure was incomplete, with a narrow column of air/contrast noted within the laryngeal vestibule at the height of the swallow. Pharyngeal stripping wave was present, but diminished. Pharyngeal contraction could not be determined due to logistical reasons not related to physiologic impairment. Pharyngoesophageal segment opening was completely distended for complete duration with no obstruction of bolus flow. Tongue base retraction allowed a narrow column of contrast or air between the retracted tongue base and the posterior pharyngeal wall. Pharyngeal residue was a trace within or on pharyngeal structures. Esophageal clearance in the upright position could not be assessed due to logistical reasons not related to physiologic impairment. Oral Impairment Score: 12 (absence of score, component 1) Pharyngeal Impairment Score: 6 (absence of score, component 13) Esophageal Impairment Score: --- (absence of score, component 17) Laryngeal Penetration and Aspiration: Penetration was observed in today's study. [place]-thick, Thin Contrast entered the airway, remained above the vocal folds, and were ejected from the airway. Thin Contrast entered the airway, contacted the vocal folds, and was ejected from the airway. ASSESSMENT: Clinician Assessment: This exam was conducted by a multidisciplinary team, which included a speech pathologist, radiologist, and pool technician. Speech pathologist clinical fellow was present for observation, with speech pathologist, this television script writer, conducting the evaluation with the team. The patient was seated upright at 90 degrees in a chair for lateral view only. Patient trialed the following liquid and solid consistencies: thin liquid barium by cup, nectar thick liquid barium by cup, pureed solid (mixture applesauce with barium paste), ground solid (mixture chicken salad with barium paste), and regular solid (Lenka Doone cookie coated with barium paste). Patient demonstrated repetitive and disorganized posterior lingual motion for transport of bolus, resulting in premature posterior escape of trace liquid prior to initiation of the pharyngeal swallow trigger. Liquid leaked posteriorly, pooling in the valleculae and pyriform sinuses, and then cleared when the patient swallowed. Mastication was slow and disorganized, moderately prolonged with intake of the shortbread cookie. There was mild lingual residue which had subsequently cleared. Pharyngeal swallow trigger was delayed, initiated as bolus head reached pyriform sinuses. There was no nasopharyngeal reflux. Patient displayed complete superior movement of thyroid cartilage with complete approximation of arytenoids to epiglottic petiole. Anterior hyoid excursion was partial, with partial epiglottic inversion. Laryngeal vestibular closure was incomplete resulting in narrow column of contrast in the laryngeal vestibule. There were episodes of flash penetration intermittently with consumption of thin liquid and nectar thick liquid. During the swallow, contrast entered the airway above the vocal folds, and then immediately and spontaneously ejected from airway. When taking a notably large sip, contrast reached the vocal folds, but again immediately and spontaneously ejected from the airway. Patient was then instructed to hold his head in a chin tuck while swallowing liquid. This change in position resulted in decreasing and eliminating penetration of liquids. There was no evidence of aspiration with liquids. There was no penetration or aspiration of solid consistencies. There was trace residue on posterior pharyngeal wall, but complete clearing of vallecular space and pyriform sinsues. No obstruction of flow through pharyngoesophageal segment opening. The following compensatory strategies have not been used until today's study, but when employed, improved swallowing function: Bolus Volume Change decreased Penetration Chin Tuck eliminated Penetration Additional Swallow(s) per Bolus eliminated Oral Residue Liquid Intake Recommendation: Thin Liquid Intake Strategies: Small Sips, No Straws Dietary Recommendations: Grnd/Mech Altered (NDD2) Medication Administration: Whole with Puree Please contact the pharmacy regarding appropriate crushable or liquid drug formulations that are available whenever modified delivery is recommended. Compensatory Strategies Recommended: Sitting Upright (90 deg) Chin Tuck Double Swallow No Straw Liquids from Cup Liquids from Spoon Small Bites and Sips Rate of Ingestion Change Avoid Specific Foods Supervision during eating and or drinking: Total Supervision (1:1) Recommended Treatments: Compens. Strategy Educat. Recommendation for Speech Therapy: Outpatient Speech Therapy Text Comment: PLAN: Intake Recommendations: Route: PO Diet Grade: Mechanical Soft Liquid Consistencies: Thin Post-Study Functional Oral Intake Scale (FOIS): 5- Total oral intake of multiple consistencies requiring special preparation Oral phase was moderately prolonged with disorganized lingual motion and chewing. There was no evidence of aspiration with solids and liquids during this exam. Transient flash penetration with thin and nectar thick liquids. Chin tuck strategy was employed when swallowing individual sips of liquid and resulted in reduction or elimination of penetration. Recommend GROUND/MECH ALTERED (NDD2) solids with sauces/gravies and THIN liquids, pills WHOLE or CRUSHED in PUREE per pt?s tolerance. Given underlying dementia, patient would benefit from the supervision or assistance of a caregiver during all PO intake to monitor tolerance and ensure aspiration precautions. Patient requires cues and reminders to use strategies throughout meals. Recommended strategies and precautions include: -Take small sips of liquid, one sip at a time -Avoid ?chugging? consecutive sips of liquid -Avoid the use of straws -Chin tuck with intake of liquids -One bite at a time and chew food well -Clear oral cavity before taking more bites -Moisten food with sauce/gravy as needed -Avoid foods which cause you more difficulty swallowing (i.e. rice, foods that crumble, mixed consistencies) -Upright 90 degree position when eating/drinking Recommend 1-2 follow-up visits with speech pathologist to provide patient and caregivers with education regarding the results of this MBSS and recommended strategies for eating safety. Recommend patient and caregivers to continue monitoring patient?s dysphagia. Contact PCP if there is any worsening of dysphagia, in which case patient may need re-evaluation. Therapy Recommendations: Therapy will be initiated Prognosis for Improvement: The prognosis for the patient to meet nutritional needs by mouth is fair based on degree of impairment. Shelter Goals: ? The patient will tolerate the least restrictive diet with a safe/efficient swallow to maintain adequate nutrition and hydration. ? The patient and/or family will participate in further education for swallowing goals. Short Term Goals: ? Guidelines - The patient will comply with/recall the following guidelines/strategies 80% of the time with moderate cuing: Bolus Volume Change, Rate of Ingestion Change, Chin Tuck, Additional Swallow(s) per Bolus. ? Education - The patient, caregiver will verbalize/demonstrate understanding of the results of this evaluation, the above recommendations, and the swallowing guidelines. Clinician - Supplemental, Miscellaneous Communication: It is important to note MBSS objective studies are snapshots in time and Patient function might vary with factors such as time of day or concomitant medical conditions. For this reason, the final treatment plan for this patient should rest with their medical care team. Additional recommendations should be considered with the totality of the Patient in mind. Thank for the opportunity to participate in the care of this patient. If you have any questions about the content of this report, please contact the [facility] at [facility]. Education: Education regarding findings from today's study and plans for therapy were provided to Patient and family/caregiver through Verbal Instruction, Written Instruction. Understanding was expressed by the Patient and family/caregiver. Telephone Service Representative Clinician/Clinical Fellow: Yes (Observation): Althea Miner MA CF-INS[employer] [facility] Supervisory Statement: N/A Speech Language Pathologist: Lissette Garcia M.A., CCC-INSPECTOR [employer]
== END 2022-04-12 14:14 | disposition home or self-care (01) ==
LOC: HO.XRAY 14:13
PROVIDERS: Visit Provider Internal Medicine
DX: R13.10 Dysphagia, unspecified (principal); R09.89 Other specified symptoms and signs involving the circulatory and respiratory systems
CPT/HCPCS: 74230; 92611

== ENCOUNTER → 2022-05-09 12:29 | Outpatient (BNVA) | payer MEDICARE, MEDICAID, SELFPAY | PROVIDERS: PCP Internal Medicine; Referring Provider Internal Medicine; Visit Provider Nurse Practitioner | DX: K58.0 Irritable bowel syndrome with diarrhea (principal); R13.10 Dysphagia, unspecified | CPT/HCPCS: 99212 ==

== ENCOUNTER 2022-05-16 07:52 | Outpatient (REF) | payer MEDICARE, MEDICAID, SELFPAY ==
[2022-05-16 11:27] LABS: MANUAL DIFF FLAG NO
[2022-05-16 11:50] LABS: Basophils Percent Auto 0.3 % (0-2); Eosinophils Absolute Auto 0.1 X10*3/uL (0.0-0.4); Eosinophils Percent Auto 1.9 % (0-4); Hematocrit 38.6 % (42.0-52.0); Hemoglobin 12.1 g/dl (14.0-18.0); Imm Gran Abs Auto 0.04 X10*3/uL (0.00-0.03); Imm Gran Pct Auto 0.6 % (0.0-0.4); Lymphocytes Absolute Auto 2.3 X10*3/uL (1.2-4.9); Lymphocytes Percent Auto 35.8 % (20-40); Mean Corpuscular HGB Conc 31.3 g/dl (31.0-36.0); Mean Corpuscular Volume 92.6 fL (80.0-98.0); Mean Platelet Volume 12.7 fL (9.4-12.4); Monocytes Absolute Auto 0.6 X10*3/uL (0.1-1.2); Monocytes Percent Auto 8.7 % (2-11); Neutrophils Absolute Auto 3.4 x10*3/uL (2.0-8.3); Neutrophils Percent Auto 52.7 % (45-73); Platelet Count 225 X10*3/uL (160-400); Red Blood Count 4.17 X10*6/uL (4.60-5.80); Red Cell Distribution Width 14.5 % (11.0-16.0); White Blood Count 6.4 X10*3/uL (4.8-10.8)
== END 2022-05-16 07:53 | disposition home or self-care (01) ==
LOC: HO.HMGCLR 07:52
PROVIDERS: Absent Provider Psychiatry & Neurology Psychiatry; PCP Internal Medicine; Visit Provider Internal Medicine
DX: Z79.899 Other long term (current) drug therapy (principal)
CPT/HCPCS: 36415; 85025

== ENCOUNTER → 2022-05-23 11:25 | Outpatient (BNVA) | payer MEDICARE, MEDICAID, SELFPAY | PROVIDERS: PCP Internal Medicine; Visit Provider Internal Medicine | DX: J44.9 Chronic obstructive pulmonary disease, unspecified (principal); R09.02 Hypoxemia; F17.210 Nicotine dependence, cigarettes, uncomplicated | CPT/HCPCS: 99212 ==

== ENCOUNTER 2022-06-14 13:13 | Outpatient (REF) | payer MEDICARE, MEDICAID, SELFPAY ==
[2022-06-14 14:15] LABS: MANUAL DIFF FLAG NO
[2022-06-14 14:19] LABS: Basophils Percent Auto 0.4 % (0-2); Eosinophils Absolute Auto 0.1 X10*3/uL (0.0-0.4); Eosinophils Percent Auto 1.7 % (0-4); Hematocrit 38.5 % (42.0-52.0); Imm Gran Abs Auto 0.03 X10*3/uL (0.00-0.03); Imm Gran Pct Auto 0.4 % (0.0-0.4); Lymphocytes Absolute Auto 2.1 X10*3/uL (1.2-4.9); Lymphocytes Percent Auto 30.1 % (20-40); Mean Corpuscular HGB Conc 31.2 g/dl (31.0-36.0); Mean Platelet Volume 12.5 fL (9.4-12.4); Monocytes Absolute Auto 0.7 X10*3/uL (0.1-1.2); Monocytes Percent Auto 9.3 % (2-11); Neutrophils Absolute Auto 4.1 x10*3/uL (2.0-8.3); Neutrophils Percent Auto 58.1 % (45-73); Platelet Count 213 X10*3/uL (160-400); Red Blood Count 4.14 X10*6/uL (4.60-5.80); Red Cell Distribution Width 13.6 % (11.0-16.0); White Blood Count 7.1 X10*3/uL (4.8-10.8)
== END 2022-06-14 13:14 | disposition home or self-care (01) ==
LOC: HO.HMGCLR 13:13
PROVIDERS: PCP Internal Medicine; Visit Provider Psychiatry & Neurology Psychiatry
DX: Z79.899 Other long term (current) drug therapy (principal)
CPT/HCPCS: 36415; 85025

== ENCOUNTER 2022-07-12 12:48 | Outpatient (REF) | payer MEDICARE, MEDICAID, SELFPAY ==
[2022-07-12 13:51] LABS: MANUAL DIFF FLAG NO
[2022-07-12 13:59] LABS: Basophils Percent Auto 0.3 % (0-2); Eosinophils Absolute Auto 0.1 X10*3/uL (0.0-0.4); Hematocrit 39.5 % (42.0-52.0); Hemoglobin 12.3 g/dl (14.0-18.0); Imm Gran Abs Auto 0.03 X10*3/uL (0.00-0.03); Imm Gran Pct Auto 0.4 % (0.0-0.4); Lymphocytes Absolute Auto 2.1 X10*3/uL (1.2-4.9); Lymphocytes Percent Auto 29.8 % (20-40); Mean Corpuscular HGB Conc 31.1 g/dl (31.0-36.0); Mean Corpuscular Hemoglobin 28.6 pg (27.0-33.0); Mean Corpuscular Volume 91.9 fL (80.0-98.0); Mean Platelet Volume 12.7 fL (9.4-12.4); Monocytes Absolute Auto 0.7 X10*3/uL (0.1-1.2); Monocytes Percent Auto 9.4 % (2-11); Neutrophils Absolute Auto 4.1 x10*3/uL (2.0-8.3); Neutrophils Percent Auto 58.1 % (45-73); Platelet Count 201 X10*3/uL (160-400); Red Cell Distribution Width 13.2 % (11.0-16.0)
== END 2022-07-12 12:49 | disposition home or self-care (01) ==
LOC: HO.HMGCLR 12:48
PROVIDERS: PCP Internal Medicine; Visit Provider Psychiatry & Neurology Psychiatry
DX: Z79.899 Other long term (current) drug therapy (principal)
CPT/HCPCS: 36415; 85025

== ENCOUNTER 2022-08-14 12:15 | Outpatient (REF) | payer MEDICARE, MEDICAID, SELFPAY ==
--- NOTE | 2022-08-15 08:28 | MHC.AU.MED ---
Medical Clearance for Hearing Instrumentation Date: 08/14/22 Patient Name: Patricio Ochoa Date of : 1950 Primary Care Provider: Alex Salazar MD We have seen your patient on 08/14/22 and have determined that they are a candidate for amplification (See accompanying report). Specifically, they would benefit from: Hearing aid use in both ears There is a statute that addresses Medical Evaluation Requirements prior to fitting a patient with a hearing aid. According to [place] statute 265 CMR:6.03(1), (a) General. Except as provided in 265 CMR 6.03(1)(b), a solidworks mechanical designer shall not sell a hearing aid unless the prospective user has presented to the solidworks mechanical designer a written statement signed by a licensed physician that states that the patient's hearing loss has been medically evaluated and the patient may be considered a candidate for a hearing aid. The medical evaluation must have taken place within the preceding six months. Please note: Due to the [place] Statute referenced above, we cannot accept a signature other than that of a licensed physician. [employer] and PA signatures cannot be accepted. I am in agreement with the above recommendation. There is no medical contraindication for hearing instrumentation. Physician Signature Date Physician Name (Printed)
== END 2022-08-14 12:16 | disposition home or self-care (01) ==
LOC: HO.SH 12:15
PROVIDERS: Visit Provider Internal Medicine
DX: Z01.118 Encounter for examination of ears and hearing with other abnormal findings (principal); H90.3 Sensorineural hearing loss, bilateral
CPT/HCPCS: 92557

== ENCOUNTER 2022-08-15 10:37 | Outpatient (REF) | payer MEDICARE, MEDICAID, SELFPAY ==
[2022-08-15 14:07] LABS: MANUAL DIFF FLAG NO
[2022-08-15 14:26] LABS: Estimated Average Glucose 117 mg/dL; Hemoglobin A1c % 5.7 %
[2022-08-15 14:28] LABS: Basophils Percent Auto 0.3 % (0-2); Eosinophils Absolute Auto 0.1 X10*3/uL (0.0-0.4); Eosinophils Percent Auto 1.7 % (0-4); Hematocrit 39.3 % (42.0-52.0); Hemoglobin 12.3 g/dl (14.0-18.0); Imm Gran Abs Auto 0.03 X10*3/uL (0.00-0.03); Imm Gran Pct Auto 0.5 % (0.0-0.4); Lymphocytes Absolute Auto 1.9 X10*3/uL (1.2-4.9); Lymphocytes Percent Auto 28.8 % (20-40); Mean Corpuscular HGB Conc 31.3 g/dl (31.0-36.0); Mean Corpuscular Hemoglobin 28.4 pg (27.0-33.0); Mean Corpuscular Volume 90.8 fL (80.0-98.0); Mean Platelet Volume 12.9 fL (9.4-12.4); Monocytes Absolute Auto 0.6 X10*3/uL (0.1-1.2); Neutrophils Absolute Auto 3.9 x10*3/uL (2.0-8.3); Neutrophils Percent Auto 59.7 % (45-73); Platelet Count 188 X10*3/uL (160-400); Red Blood Count 4.33 X10*6/uL (4.60-5.80); Red Cell Distribution Width 13.9 % (11.0-16.0); White Blood Count 6.5 X10*3/uL (4.8-10.8)
[2022-08-15 15:00] LABS: Folate 9.6 ng/mL (> or = 4.0); Vitamin B12 267 pg/mL (200-900)
[2022-08-15 15:01] LABS: Alanine Aminotransferase 48 U/L (0-40); Albumin Level 4.5 g/dL (3.5-5.0); Alkaline Phosphatase 109 U/L (39-117); Anion Gap 15 (12-20); Aspartate Amino Transferase 48 U/L (5-37); Bilirubin Total 0.3 mg/dL (0.0-1.0); Blood Urea Nitrogen 28 mg/dL (9-16); Calcium 9.8 mg/dL (8.4-10.2); Carbon Dioxide 24 mmol/L (22-29); Chloride 109 mmol/L (96-108); Cholesterol 155 mg/dL; Estimated Glomerular Filt Rate > 60; Glucose Fasting 135 mg/dL (60-99); HDL Cholesterol 36 mg/dL; LDL Cholesterol Calculated 84 mg/dl; Potassium 4.2 mmol/L (3.3-5.1); Sodium 144 mmol/L (135-145); Total Protein 6.9 g/dL (6.5-8.0); Triglycerides 177 mg/dL; Vitamin D 25-OH Total 39.1 ng/mL (>30)
== END 2022-08-15 10:38 | disposition home or self-care (01) ==
LOC: HO.LABR 10:37
PROVIDERS: PCP Internal Medicine; Visit Provider Psychiatry & Neurology Psychiatry
DX: G30.9 Alzheimer's disease, unspecified (principal); F02.80 Dementia in other diseases classified elsewhere, unspecified severity, without behavioral disturbance, psychotic disturbance, mood disturbance, and anxiety; E55.9 Vitamin D deficiency, unspecified; E11.9 Type 2 diabetes mellitus without complications; E78.00 Pure hypercholesterolemia, unspecified; I10 Essential (primary) hypertension; Z79.899 Other long term (current) drug therapy
CPT/HCPCS: 36415; 80053; 80061; 82306; 82607; 82746; 83036; 84443; 85025

== ENCOUNTER 2022-08-25 17:57 | Inpatient (IN) | payer MEDICARE, MEDICAID, SELFPAY ==
--- NOTE | ~2022-08-25 | XR_ITS ---
EXAMINATION: XR CHEST CLINICAL INFORMATION: Hypoxia COMPARISON: None TECHNIQUE: 2 views of the chest were obtained. FINDINGS: Some reticulonodular markings are present at the lung bases. There is some relative lucency at the left apex. Findings might represent underlying emphysema with some fibrotic changes at the lung bases. No acute consolidations or pleural effusions. Heart size normal, no evidence of CHF. XR/XR chest 2V IMPRESSION: No acute intrathoracic disease. Question of underlying emphysema and possible mild fibrotic change.
--- NOTE | ~2022-08-25 | CT_ITS ---
EXAMINATION: CT ANGIOGRAM OF THE CHEST WITH AND WITHOUT CONTRAST (CT PULMONARY ANGIOGRAM FOR PE) CLINICAL INFORMATION: Reason for Exam Hypoxia with near syncope COMPARISON: 06/07/2021 TECHNIQUE: Prior to contrast administration, noncontrast localization images were obtained. Subsequently, multidetector volumetric imaging was performed from the thoracic inlet to below the diaphragms following the administration of 100 mL Omnipaque 350 intravenous contrast. No contrast reaction reported Sagittal, coronal, and MIP oblique sagittal reformatted images were obtained on the CT workstation, uploaded to PACS, and reviewed. This CT examination was performed using dose optimization techniques as appropriate, variously including the following: *Automated exposure control *Adjustment of mA and/or kV according to patient size (this includes techniques or standardized protocols for targeted exams where dose is matched to indication/reason for exam; i.e. extremities or head) *Use of iterative reconstruction technique Total exam dose-length product 431 mGy-cm FINDINGS: QUALITY OF STUDY/CONTRAST BOLUS: Satisfactory. PULMONARY ARTERIES: No central or segmental pulmonary emboli. Limited evaluation of the distal vasculature in some regions due to motion artifact. THORACIC AORTA: No aneurysm or dissection. There is scattered atherosclerotic plaque and calcification along the aorta. LUNG: There is a 1.6 cm groundglass focus in the right upper lobe on image 173/471. There is patchy consolidation in the right lower lobe. Dependent atelectasis is noted towards the basilar lower lobes. PLEURA: No pleural effusion or pneumothorax. MEDIASTINUM: Visualized thyroid gland is unremarkable. There are subcentimeter mediastinal lymph nodes within the range of normal variation. Cardiac size is within normal limits; no pericardial effusion. Coronary artery calcifications are present. CHEST WALL/AXILLA: No axillary or internal mammary lymphadenopathy. OSSEOUS STRUCTURES: Degenerative changes are noted in the spine. UPPER ABDOMEN: There is hypoattenuation of the liver suggesting steatosis. Status post cholecystectomy. No reflux of contrast into the hepatic veins to suggest elevated right heart pressures. CT/CT angio chest PE protocol IMPRESSION: 1. No pulmonary embolus identified. 2. Patchy consolidation in the right lower lobe, suspicious for pneumonia. 3. Groundglass focus in the right upper lobe measuring 1.6 cm, which may be inflammatory. Recommend CT at 6-12 months to assess persistence, then CT every 2 years until 5 years if it persists. 4. Coronary artery calcifications. Correlation with cardiac risk factors is recommended VTE: negative
[2022-08-25 18:20] VITALS: BP 146/63; PULSE 91; RESP 18; TEMP 37.4; O2SAT 88; BMI 34.4
--- NOTE | 2022-08-25 18:21 | ED_ITS ---
HPI - General Adult General Chief complaint: Weakness Stated complaint: syncope episodes Time Seen by Provider: 08/25/22 20:44 Related Data Home Medications Medication Instructions Recorded Confirmed memantine 10 mg tablet 10 mg PO BID 08/18/20 05/29/22 betamethasone dipropionate 0.05 % topical 01/10/21 05/29/22 topical ointment clozapine 100 mg tablet 300 mg PO BEDTIME 01/10/21 05/29/22 ketoconazole 2 % shampoo 1 appl topical 2XW 01/10/21 05/29/22 clonazepam 0.5 mg tablet 0.5 mg PO BID PRN 03/28/22 05/29/22 venlafaxine 150 mg 150 mg PO DAILY 05/09/22 05/29/22 capsule,extended release 24 hr aspirin 81 mg tablet,delayed 1 tab PO DAILY 08/26/22 08/26/22 release cholecalciferol (vitamin D3) 25 1 tab PO DAILY 08/26/22 08/26/22 mcg (1,000 unit) tablet clonazepam 0.5 mg tablet 1 tab PO BID PRN Anxiety 08/26/22 08/26/22 clozapine 100 mg tablet 3 tab PO BEDTIME 08/26/22 08/26/22 donepezil 10 mg tablet 1 tab PO DAILY 08/26/22 08/26/22 fluticasone furoate 200 1 puff inhalation DAILY 08/26/22 08/26/22 mcg-vilanterol 25 mcg/dose inhalation powder (Breo Ellipta) gemfibrozil 600 mg tablet 1 tab PO BID 08/26/22 08/26/22 ketoconazole 2 % shampoo 1 appl topical DAILY 08/26/22 08/26/22 lisinopril 2.5 mg tablet 1 tab PO DAILY 08/26/22 08/26/22 memantine 10 mg tablet 1 tab PO BID 08/26/22 08/26/22 metformin 500 mg tablet 1 tab PO BID 08/26/22 08/26/22 methylcellulose 1,000 mg PO BID 08/26/22 08/26/22 simvastatin 40 mg tablet 1 tab PO BEDTIME 08/26/22 08/26/22 sucralfate 1 gram tablet 1 tab PO TID 08/26/22 08/26/22 venlafaxine 150 mg tablet,extended 1 tab PO DAILY 08/26/22 08/26/22 release 24 hr Previous Rx's Medication Instructions Recorded donepezil 10 mg tablet 10 mg PO BEDTIME 90 days #90 tabs 11/16/20 4-PRONGED CANE #1 ea 04/08/21 nicotine (polacrilex) 4 mg buccal 4 mg buccal Q2H nicotine cravings 04/08/21 mini lozenge 30 days #300 ea aspirin 81 mg tablet,delayed 81 mg PO DAILY 90 days #90 tabs 11/11/21 release FreeStyle Lite Strips (blood sugar #100 ea 12/28/21 diagnostic) blood sugar diagnostic #100 ea 12/29/21 blood-glucose meter #1 ea 12/29/21 lancets 28 gauge (Prodigy Lancets) #100 ea 12/29/21 gemfibrozil 600 mg tablet 600 mg PO BID 90 days #180 tabs 01/10/22 sucralfate 1 gram tablet 3 g PO DAILY 30 days #90 tabs 04/17/22 methylcellulose (laxative) 500 mg 1,000 mg PO BID #120 tabs 05/18/22 tablet (Fiber Therapy (methylcellulose)) cholecalciferol (vitamin D3) 25 25 mcg PO DAILY 90 days #90 tabs 05/29/22 mcg (1,000 unit) tablet metformin 500 mg tablet 500 mg PO BID #60 tabs 06/14/22 lisinopril 2.5 mg tablet 2.5 mg PO QAM 90 days #90 tabs 08/16/22 Breo Ellipta 200 mcg-25 mcg/dose 1 ea PO DAILY #60 ea 08/18/22 powder for inhalation (fluticasone furoate-vilanterol) simvastatin 40 mg tablet 40 mg PO BEDTIME #30 tabs 08/23/22 azithromycin 500 mg tablet 500 mg PO DAILY 4 days #4 tabs 08/28/22 cefuroxime axetil 500 mg tablet 500 mg PO BID #8 tabs 08/28/22 prednisone 10 mg tablet 40 mg PO DAILY #16 tabs 08/28/22 Allergies Allergy/AdvReac Type Severity Reaction Status Date / Time No Known Allergies Allergy Verified 08/29/22 07:14 [No Known Allergies*] PMFSH Past Medical History Medical History Alzheimer's dementia without behavioral disturbance Anxiety COPD (chronic obstructive pulmonary disease) Depression Gait instability Hearing impairment Hypoxia Obesity (BMI 30-39.9) Overweight (BMI 25.0-29.9) Pure hypercholesterolemia Schizophrenia Screening for diabetes mellitus Seborrheic dermatitis of scalp Smoker Type 2 diabetes mellitus without complication Vitamin D deficiency Weakness Surgical History H/O colonoscopy History of appendectomy Family History Family History Father Cancer Mother No problems noted. Brother Substance abuse Other Alcohol abuse Social History Social History (System 08/29/22 @ 07:14 by Eli Frank) Household Members: None Housing: Assisted Living Facility Housing Other:: [facility] Do you presently have visiting nurse or other home services: No Alcohol intake: never Patient Tobacco Use Status: Former Tobacco user Tobacco use type: Cigarette Cigarettes Per Day: 3 e-Cigarette/Vaping Use: Never Used Second Hand Smoke Exposure: Yes service: No Current occupational status: other Cognitive needs: Yes (walker) Hearing needs: Yes Vision needs: Yes Physical Exam ED Vital Signs: BMI result Body Mass Index 34.4 Course Course Course Narrative: RME - 72 yo male with history of schizophrenia, dementia, DM, obesity, HTN, HLD, on noctural O2 who presents to the ER from his longterm for evaluation of generalized weakness, tremors and 2 episodes of almost passing out. 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 He never lost consciousness and was oriented when questions. Decreased PO intake today. His PCP encouraged him to come to the ER for further. History of similar episodes in the past with syncope with standing up a few years ago. \ AAO on arrival. Will check labs, EKG, CXR. Medications Administered Discontinued Medications Generic Name Dose Route Start Last Admin Trade Name Freq PRN Reason Stop Dose Admin Albuterol Sulfate 2.5 mg 08/25/22 21:00 08/25/22 21:22 Albuterol Sulfate (0.083%) 2.5 Mg/3 Ml Vial.Neb INHALE 08/25/22 21:01 2.5 m g ONCE ONE Administration Albuterol/Ipratropium 3 ml 08/25/22 20:57 08/25/22 21:22 Albuterol/Iprat 2.5/0.5mg 3 Ml Ampul.Neb INHALE 08/25/22 20:58 3 ml ONCE ONE Administration Albuterol/Ipratropium 3 ml 08/26/22 08:00 08/28/22 11:52 Albuterol/Iprat 2.5/0.5mg 3 Ml Ampul.Neb INHALE Not Given RQ4H WHILE AWAKE [place] Aspirin 81 mg 08/27/22 09:00 08/28/22 07:58 Aspirin Enteric Coated 81 Mg Tablet.Dr PO 81 mg DAILY [place] Administration Atorvastatin Calcium 20 mg 08/26/22 21:00 08/27/22 20:05 Atorvastatin Calcium 20 Mg Tablet PO 20 mg BEDTIME [place] Administration Azithromycin 500 mg 08/26/22 01:29 08/26/22 02:50 Azithromycin 500 Mg Tablet PO 08/26/22 01:30 500 mg ONCE ONE Administration Azithromycin 500 mg 08/26/22 20:00 08/27/22 20:05 Azithromycin 500 Mg Tablet PO 500 mg Q24H [place] Administration Clozapine 300 mg 08/26/22 21:00 08/27/22 20:04 Clozapine 100 Mg Tablet PO 300 mg BEDTIME [place] Administration Donepezil HCl 10 mg 08/27/22 09:00 08/28/22 07:58 Donepezil Hcl 10 Mg Tablet PO 10 mg DAILY [place] Administration Enoxaparin Sodium 40 mg 08/26/22 03:15 08/28/22 03:05 Enoxaparin Sodium 40 Mg/0.4 Ml Syringe SUBCUT 40 mg Q24H [place] Administration Fluticasone/Vilanterol 1 puff 08/27/22 08:00 08/28/22 08:08 Fluticasone/Vilanterol 200/25 Blst.W.Dev INHALE 1 puff RDAILY [place] Administration Gemfibrozil 600 mg 08/25/22 20:57 08/25/22 21:54 Gemfibrozil 600 Mg Tablet PO 08/25/22 20:58 600 mg ONCE ONE Administration Gemfibrozil 600 mg 08/26/22 21:00 08/28/22 07:58 Gemfibrozil 600 Mg Tablet PO 600 mg BID [place] Administration Sodium Chloride 500 mls @ 500 mls/hr 08/25/22 23:45 08/26/22 01:44 Ns IV 08/26/22 00:44 Infused .Q1H [place] Infusion Ceftriaxone Sodium 1 gm/ 50 mls @ 100 mls/hr 08/26/22 01:29 08/26/22 04:00 Sodium Chloride IV 08/26/22 01:58 Infused ONCE ONE Infusion Ceftriaxone Sodium 1 gm/ 50 mls @ 100 mls/hr 08/26/22 20:00 08/27/22 21:06 Sodium Chloride IV Infused Q24H [place] Infusion Lactated Ringer's 1,000 mls @ 100 mls/hr 08/26/22 03:15 08/27/22 12:24 Lr IVCONT Infused .Q10H [place] Infusion Insulin Human Lispro 0 unit 08/26/22 21:00 08/28/22 11:27 Insulin Lispro 100 Unit/Ml 3 Ml Vial SUBCUT 4 unit QIDACHS [facility] Administration Protocol Iohexol 100 ml 08/26/22 00:49 08/26/22 00:49 Iohexol 350 Mg/Ml 100 Ml Infus..Btl IV 08/26/22 00:50 100 ml ONCE ONE Administration Lisinopril 2.5 mg 08/27/22 09:00 08/28/22 07:58 Lisinopril 2.5 Mg Tablet PO 2.5 mg DAILY [place] Administration Protocol Memantine 10 mg 08/25/22 20:57 08/25/22 21:55 Memantine Hcl 10 Mg Tablet PO 08/25/22 20:58 10 mg ONCE ONE Administration Memantine 10 mg 08/26/22 21:00 08/28/22 07:58 Memantine Hcl 10 Mg Tablet PO 10 mg BID [place] Administration Metformin HCl 500 mg 08/25/22 20:57 08/25/22 21:53 Metformin Hcl 500 Mg Tablet PO 08/25/22 20:58 500 mg ONCE ONE Administration Methylprednisolone Sodium Succinate 40 mg 08/26/22 03:15 08/28/22 03:05 Methylprednisolone Sod Succ 40 Mg/Ml Vial IVPUSH 40 mg Q12H [place] Administration Prednisone 60 mg 08/25/22 20:57 08/25/22 21:53 Prednisone 20 Mg Tablet PO 08/25/22 20:58 60 mg ONCE ONE Administration Sodium Chloride 3 ml 08/26/22 08:00 08/28/22 07:57 0.9 % Sodium Chloride Flush 3 Ml Syringe IVFLUSH 3 ml QSHIFT [place] Administration Sucralfate 1 gm 08/26/22 21:00 08/28/22 07:58 Sucralfate 1 Gm Tablet PO 1 gm TID [place] Administration Venlafaxine HCl 150 mg 08/27/22 09:00 08/28/22 07:58 Venlafaxine Hcl Er 150 Mg Cap.Er.24h PO 150 mg DAILY [place] Administration Vitamin D 25 mcg 08/27/22 09:00 08/28/22 07:58 Cholecalciferol (Vitamin D3) 25 Mcg Tablet PO 25 mcg DAILY [place] Administration Medical Decision Making Lab Data Result Diagrams: 08/26/22 05:22 08/26/22 05:22 Labs: Lab Results 08/25/22 08/25/22 08/25/22 Range/Units 20:25 20:25 20:25 WBC 4.8 (4.8-10.8) X10*3/uL RBC 4.11 L (4.60-5.80) X10*6/uL Hgb 11.7 L (14.0-18.0) g/dl Hct 37.5 L (42.0-52.0) % MCV 91.2 (80.0-98.0) fL MCH 28.5 (27.0-33.0) pg MCHC 31.2 (31.0-36.0) g/dl RDW 14.2 (11.0-16.0) % Plt Count 186 (160-400) X10*3/uL MPV 11.7 (9.4-12.4) fL Immature Gran % (Auto) 0.4 (0.0-0.4) % Neut % (Auto) 52.0 (45-73) % Lymph % (Auto) 33.3 (20-40) % Price % (Auto) 13.3 H (2-11) % Eos % (Auto) 0.8 (0-4) % Baso % (Auto) 0.2 (0-2) % Lymph # (Auto) 1.6 (1.2-4.9) X10*3/uL Price # (Auto) 0.6 (0.1-1.2) X10*3/uL Eos # (Auto) 0.0 (0.0-0.4) X10*3/uL Baso # (Auto) 0.0 (0.0-0.2) X10*3/uL Abs Immat Gran (auto) 0.02 (0.00-0.03) X10*3/uL Absolute Neuts (auto) 2.5 (2.0-8.3) x10*3/uL Absolute Nucleated RBC 0.000 (0.0-0.012) X10*3/uL Nucleated RBC % (auto) 0.0 (0.0-0.2) /100WBC Sodium 143 (135-145) mmol/L Potassium 3.9 (3.3-5.1) mmol/L Chloride 106 (96-108) mmol/L Carbon Dioxide 26 (22-29) mmol/L Anion Gap 15 (12-20) BUN 19 H (9-16) mg/dL Creatinine 0.87 (0.5-1.4) mg/dL Estim Creat Clear Calc 96.2 Estimated GFR > 60 POC Glucose (60-115) mg/dL Random Glucose 108 (60-115) mg/dL Lactic Acid (0.5-2.0) mmol/L Calcium 9.2 (8.4-10.2) mg/dL Magnesium 1.9 (1.6-2.6) mg/dL Total Bilirubin 0.4 (0.0-1.0) mg/dL Direct Bilirubin 0.2 (0.0-0.5) mg/dL AST 123 H (5-37) U/L ALT 87 H (0-40) U/L Alkaline Phosphatase 118 H (39-117) U/L Troponin I High Sens 16.5 (<3.5-35.0) ng/L Total Protein 6.9 (6.5-8.0) g/dL Albumin 4.4 (3.5-5.0) g/dL Influenza Type A (PCR) (Negative) Influenza Type B (PCR) (Negative) RSV RNA Qual (PCR) (Negative) SARS-CoV-2 RNA (RT-PCR) (Negative) 08/25/22 08/25/22 08/26/22 Range/Units 20:43 20:48 02:51 WBC (4.8-10.8) X10*3/uL RBC (4.60-5.80) X10*6/uL Hgb (14.0-18.0) g/dl Hct (42.0-52.0) % MCV (80.0-98.0) fL MCH (27.0-33.0) pg MCHC (31.0-36.0) g/dl RDW (11.0-16.0) % Plt Count (160-400) X10*3/uL MPV (9.4-12.4) fL Immature Gran % (Auto) (0.0-0.4) % Neut % (Auto) (45-73) % Lymph % (Auto) (20-40) % Price % (Auto) (2-11) % Eos % (Auto) (0-4) % Baso % (Auto) (0-2) % Lymph # (Auto) (1.2-4.9) X10*3/uL Price # (Auto) (0.1-1.2) X10*3/uL Eos # (Auto) (0.0-0.4) X10*3/uL Baso # (Auto) (0.0-0.2) X10*3/uL Abs Immat Gran (auto) (0.00-0.03) X10*3/uL Absolute Neuts (auto) (2.0-8.3) x10*3/uL Absolute Nucleated RBC (0.0-0.012) X10*3/uL Nucleated RBC % (auto) (0.0-0.2) /100WBC Sodium (135-145) mmol/L Potassium (3.3-5.1) mmol/L Chloride (96-108) mmol/L Carbon Dioxide (22-29) mmol/L Anion Gap (12-20) BUN (9-16) mg/dL Creatinine (0.5-1.4) mg/dL Estim Creat Clear Calc Estimated GFR POC Glucose 111 (60-115) mg/dL Random Glucose (60-115) mg/dL Lactic Acid 2.4 H* (0.5-2.0) mmol/L Calcium (8.4-10.2) mg/dL Magnesium (1.6-2.6) mg/dL Total Bilirubin (0.0-1.0) mg/dL Direct Bilirubin (0.0-0.5) mg/dL AST (5-37) U/L ALT (0-40) U/L Alkaline Phosphatase (39-117) U/L Troponin I High Sens (<3.5-35.0) ng/L Total Protein (6.5-8.0) g/dL Albumin (3.5-5.0) g/dL Influenza Type A (PCR) NEGATIVE (Negative) Influenza Type B (PCR) NEGATIVE (Negative) RSV RNA Qual (PCR) NEGATIVE (Negative) SARS-CoV-2 RNA (RT-PCR) NEGATIVE (Negative) Discharge Plan Discharge Clinical Impression: Pneumonia, COPD (chronic obstructive pulmonary disease) Patient Disposition: Admitted As Inpatient Interventions: Admission Worksheet (ED) Last Done: 08/26/22 07:32 Discharge Date/Time: 08/26/22 07:33
--- NOTE | 2022-08-25 18:28 | ECG_ITS ---
Test Reason : SYNCOPE Blood Pressure : / mmHG Vent. Rate : 088 BPM Atrial Rate : 088 BPM P-R Int : 214 ms QRS Dur : 140 ms QT Int : 404 ms P-R-T Axes : 033 -58 097 degrees QTc Int : 488 ms Sinus rhythm with 1st degree A-V block Left axis deviation Left bundle branch block Abnormal ECG No previous ECGs available Referred By: Di Giron Electronically Signed By:Claus Arias
[2022-08-25 20:32] LABS: MANUAL DIFF FLAG NO
[2022-08-25 20:35] LABS: Basophils Percent Auto 0.2 % (0-2); Eosinophils Percent Auto 0.8 % (0-4); Hematocrit 37.5 % (42.0-52.0); Hemoglobin 11.7 g/dl (14.0-18.0); Imm Gran Abs Auto 0.02 X10*3/uL (0.00-0.03); Imm Gran Pct Auto 0.4 % (0.0-0.4); Lymphocytes Absolute Auto 1.6 X10*3/uL (1.2-4.9); Lymphocytes Percent Auto 33.3 % (20-40); Mean Corpuscular HGB Conc 31.2 g/dl (31.0-36.0); Mean Corpuscular Hemoglobin 28.5 pg (27.0-33.0); Mean Corpuscular Volume 91.2 fL (80.0-98.0); Mean Platelet Volume 11.7 fL (9.4-12.4); Monocytes Absolute Auto 0.6 X10*3/uL (0.1-1.2); Monocytes Percent Auto 13.3 % (2-11); Neutrophils Absolute Auto 2.5 x10*3/uL (2.0-8.3); Platelet Count 186 X10*3/uL (160-400); Red Blood Count 4.11 X10*6/uL (4.60-5.80); Red Cell Distribution Width 14.2 % (11.0-16.0); White Blood Count 4.8 X10*3/uL (4.8-10.8)
[2022-08-25 20:53] LABS: Alanine Aminotransferase 87 U/L (0-40); Albumin Level 4.4 g/dL (3.5-5.0); Alkaline Phosphatase 118 U/L (39-117); Anion Gap 15 (12-20); Aspartate Amino Transferase 123 U/L (5-37); Bilirubin Direct 0.2 mg/dL (0.0-0.5); Bilirubin Total 0.4 mg/dL (0.0-1.0); Blood Urea Nitrogen 19 mg/dL (9-16); Calcium 9.2 mg/dL (8.4-10.2); Carbon Dioxide 26 mmol/L (22-29); Chloride 106 mmol/L (96-108); Creatinine Clr Calc Pharmacy 96.2; Estimated Glomerular Filt Rate > 60; Glucose Random 108 mg/dL (60-115); Magnesium 1.9 mg/dL (1.6-2.6); Potassium 3.9 mmol/L (3.3-5.1); Sodium 143 mmol/L (135-145); Total Protein 6.9 g/dL (6.5-8.0)
[2022-08-25 21:00] LABS: Troponin-I High Sensitivity 16.5 ng/L (<3.5-35.0)
--- NOTE | 2022-08-25 21:01 | ED_ITS ---
HPI - General Adult General Chief complaint: Weakness Stated complaint: syncope episodes Time Seen by Provider: 08/25/22 20:44 Source: patient and other ([facility] care worker.) History of Present Illness HPI narrative: Patient with 2 days of feeling generally weak. Patient has a history of COPD and [facility] secondary to multiple issues. Presenting with near syncope and feeling weak for 2 days. Positive cough. On numbness he has had a fever. No nausea vomiting or diarrhea. He denies pain. No chest pain or palpitations. He denies dyspnea but typically is on oxygen at night secondary to COPD. Related Data Allergies Allergy/AdvReac Type Severity Reaction Status Date / Time No Known Allergies Allergy Verified 08/25/22 18:28 Review of Systems Constitutional: Comments: General weakness. Positive malaise. No fevers or chills noted Cardiovascular: Comments: No chest pain or palpitations Respiratory: Comments: Dyspnea at baseline. Question increased cough Gastrointestinal: Comments: No abdominal pain or nausea vomiting diarrhea Musculoskeletal: Comments: No extremity pain Integumentary/Breasts: Comments: No rash Neurologic: Comments: No focal weakness PMFSH Social History Social History Advance Directives: No Physical Exam ED Vital Signs: Vital Signs - 24 hr 08/25/22 18:20 08/25/22 21:05 08/25/22 21:06 Temperature 99.3 F Pulse Rate 91 86 89 Respiratory Rate 18 Blood Pressure 146/63 H 156/79 H 169/77 H Pulse Oximetry 88 L Oxygen Delivery Method Room Air Oxygen Flow Rate 08/25/22 21:08 08/25/22 21:23 08/26/22 00:46 Temperature 98.6 F Pulse Rate 91 83 90 Respiratory Rate 22 H 18 Blood Pressure 152/77 H 162/63 H Pulse Oximetry 95 Oxygen Delivery Method Nasal Cannula Oxygen Flow Rate 3 BMI result Body Mass Index 34.4 Const Other: Awake and alert. No acute distress but oxygen saturation 88% on room air. Resp Other: Bilateral rhonchi with expiratory wheezes. Fair air entry overall Cardio Other: Regular rate and rhythm without murmurs rubs or gallops GI Other: Soft nontender nondistended Skin Other: Warm pink and dry without rash Neuro Other: Nonfocal neuro exam Course Course Course Narrative: 21:09. Workup shows chest x-ray with emphysematous changes but no acute infiltrates or pulmonary edema. CBC is significant for mild anemia with a hemoglobin of 11.7. White count is normal. Platelets are normal. Chemistries unremarkable with the exception of mildly elevated AST, ALT, alk- phos. Normal bilirubin. Normal troponin. Serology is pending at this time 22:00. Patient continues to have oxygen saturations in the high 80s. He has required increased oxygen up to 3% even after nebulizer. Given 2 episodes of near syncope in the setting of continued hypoxia, will do CT angiography 01:28. CT scan shows patchy consolidation but no evidence of pulmonary embolism. Suspect bacterial pneumonia at this time and will order lactic acid, blood cultures, and start antibiotics. No evidence of sepsis however, given stable to high blood pressure, lack of tachycardia. Continue current plan Medications Administered Discontinued Medications Generic Name Dose Route Start Last Admin Trade Name Freq PRN Reason Stop Dose Admin Albuterol Sulfate 2.5 mg 08/25/22 21:00 08/25/22 21:22 Albuterol Sulfate (0.083%) 2.5 Mg/3 Ml Vial.Neb INHALE 08/25/22 21:01 2.5 mg ONCE ONE Administration Albuterol/Ipratropium 3 ml 08/25/22 20:57 08/25/22 21:22 Albuterol/Iprat 2.5/0.5mg 3 Ml Ampul.Neb INHALE 08/25/22 20:58 3 ml ONCE ONE Administration Gemfibrozil 600 mg 08/25/22 20:57 08/25/22 21:54 Gemfibrozil 600 Mg Tablet PO 08/25/22 20:58 600 mg ONCE ONE Administration Sodium Chloride 500 mls @ 500 mls/hr 08/25/22 23:45 08/26/22 01:44 Ns IV 08/26/22 00:44 Infused .Q1H [place] Infusion Iohexol 100 ml 08/26/22 00:49 08/26/22 00:49 Iohexol 350 Mg/Ml 100 Ml Infus..Btl IV 08/26/22 00:50 100 ml ONCE ONE Administration Memantine 10 mg 08/25/22 20:57 08/25/22 21:55 Memantine Hcl 10 Mg Tablet PO 08/25/22 20:58 10 mg ONCE ONE Administration Metformin HCl 500 mg 08/25/22 20:57 08/25/22 21:53 Metformin Hcl 500 Mg Tablet PO 08/25/22 20:58 500 mg ONCE ONE Administration Prednisone 60 mg 08/25/22 20:57 08/25/22 21:53 Prednisone 20 Mg Tablet PO 08/25/22 20:58 60 mg ONCE ONE Administration Medical Decision Making Medical Decision Making [facility] Narrative: General malaise. Dehydration Viral syndrome Electrolyte imbalance Renal failure Patient with underlying COPD with hypoxia on room air. Suspect viral syndrome. Lab Data Result Diagrams: 08/25/22 20:25 08/25/22 20:25 Labs: Lab Results 08/25/22 08/25/22 08/25/22 Range/Units 20:25 20:25 20:25 WBC 4.8 (4.8-10.8) X10*3/uL RBC 4.11 L (4.60-5.80) X10*6/uL Hgb 11.7 L (14.0-18.0) g/dl Hct 37.5 L (42.0-52.0) % MCV 91.2 (80.0-98.0) fL MCH 28.5 (27.0-33.0) pg MCHC 31.2 (31.0-36.0) g/dl RDW 14.2 (11.0-16.0) % Plt Count 186 (160-400) X10*3/uL MPV 11.7 (9.4-12.4) fL Immature Gran % (Auto) 0.4 (0.0-0.4) % Neut % (Auto) 52.0 (45-73) % Lymph % (Auto) 33.3 (20-40) % [place] % (Auto) 13.3 H (2-11) % Eos % (Auto) 0.8 (0-4) % Baso % (Auto) 0.2 (0-2) % Lymph # (Auto) 1.6 (1.2-4.9) X10*3/uL [place] # (Auto) 0.6 (0.1-1.2) X10*3/uL Eos # (Auto) 0.0 (0.0-0.4) X10*3/uL Baso # (Auto) 0.0 (0.0-0.2) X10*3/uL Abs Immat Gran (auto) 0.02 (0.00-0.03) X10*3/uL Absolute Neuts (auto) 2.5 (2.0-8.3) x10*3/uL Absolute Nucleated RBC 0.000 (0.0-0.012) X10*3/uL Nucleated RBC % (auto) 0.0 (0.0-0.2) /100WBC Sodium 143 (135-145) mmol/L Potassium 3.9 (3.3-5.1) mmol/L Chloride 106 (96-108) mmol/L Carbon Dioxide 26 (22-29) mmol/L Anion Gap 15 (12-20) BUN 19 H (9-16) mg/dL Creatinine 0.87 (0.5-1.4) mg/dL Estim Creat Clear Calc 96.2 Estimated GFR > 60 POC Glucose (60-115) mg/dL Random Glucose 108 (60-115) mg/dL Calcium 9.2 (8.4-10.2) mg/dL Magnesium 1.9 (1.6-2.6) mg/dL Total Bilirubin 0.4 (0.0-1.0) mg/dL Direct Bilirubin 0.2 (0.0-0.5) mg/dL AST 123 H (5-37) U/L ALT 87 H (0-40) U/L Alkaline Phosphatase 118 H (39-117) U/L Troponin I High Sens 16.5 (<3.5-35.0) ng/L Total Protein 6.9 (6.5-8.0) g/dL Albumin 4.4 (3.5-5.0) g/dL Influenza Type A (PCR) (Negative) Influenza Type B (PCR) (Negative) RSV RNA Qual (PCR) (Negative) SARS-CoV-2 RNA (RT-PCR) (Negative) 08/25/22 08/25/22 Range/Units 20:43 20:48 WBC (4.8-10.8) X10*3/uL RBC (4.60-5.80) X10*6/uL Hgb (14.0-18.0) g/dl Hct (42.0-52.0) % MCV (80.0-98.0) fL MCH (27.0-33.0) pg MCHC (31.0-36.0) g/dl RDW (11.0-16.0) % Plt Count (160-400) X10*3/uL MPV (9.4-12.4) fL Immature Gran % (Auto) (0.0-0.4) % Neut % (Auto) (45-73) % Lymph % (Auto) (20-40) % [place] % (Auto) (2-11) % Eos % (Auto) (0-4) % Baso % (Auto) (0-2) % Lymph # (Auto) (1.2-4.9) X10*3/uL [place] # (Auto) (0.1-1.2) X10*3/uL Eos # (Auto) (0.0-0.4) X10*3/uL Baso # (Auto) (0.0-0.2) X10*3/uL Abs Immat Gran (auto) (0.00-0.03) X10*3/uL Absolute Neuts (auto) (2.0-8.3) x10*3/uL Absolute Nucleated RBC (0.0-0.012) X10*3/uL Nucleated RBC % (auto) (0.0-0.2) /100WBC Sodium (135-145) mmol/L Potassium (3.3-5.1) mmol/L Chloride (96-108) mmol/L Carbon Dioxide (22-29) mmol/L Anion Gap (12-20) BUN (9-16) mg/dL Creatinine (0.5-1.4) mg/dL Estim Creat Clear Calc Estimated GFR POC Glucose 111 (60-115) mg/dL Random Glucose (60-115) mg/dL Calcium (8.4-10.2) mg/dL Magnesium (1.6-2.6) mg/dL Total Bilirubin (0.0-1.0) mg/dL Direct Bilirubin (0.0-0.5) mg/dL AST (5-37) U/L ALT (0-40) U/L Alkaline Phosphatase (39-117) U/L Troponin I High Sens (<3.5-35.0) ng/L Total Protein (6.5-8.0) g/dL Albumin (3.5-5.0) g/dL Influenza Type A (PCR) NEGATIVE (Negative) Influenza Type B (PCR) NEGATIVE (Negative) RSV RNA Qual (PCR) NEGATIVE (Negative) SARS-CoV-2 RNA (RT-PCR) NEGATIVE (Negative) Discharge Plan Discharge Clinical Impression: Pneumonia, COPD (chronic obstructive pulmonary disease) Patient Disposition: Admitted As Inpatient
[2022-08-25 21:05] VITALS: BP 156/79; PULSE 86
[2022-08-25 21:06] VITALS: BP 169/77; PULSE 89
[2022-08-25 21:08] VITALS: BP 152/77; PULSE 91
[2022-08-25 21:23] VITALS: PULSE 83; RESP 22; O2SAT 96
[2022-08-25 21:25] LABS: Influenza A PCR NEGATIVE (Negative); Influenza B PCR NEGATIVE (Negative); Resp Syncy Virus RNA Qual PCR NEGATIVE (Negative); SARS COV2 PCR INHOUSE NEGATIVE (Negative)
--- NOTE | 2022-08-25 23:43 | PC.NURSE ---
20 in RAC blew while in CT scan prior to contrast injection. This rn removed IV. ALAYNA Sosa attempted to placed ultrasound guided IV and was unsuccessful, will refer to Dr. Shannon, for US IV
[2022-08-26] VITALS (10 sets, daily range): BP systolic 142–170; BP diastolic 58–80; PULSE 78–93; RESP 16–20; TEMP 36.1–37; O2SAT 90–95; BMI 28.5
--- NOTE | 2022-08-26 02:26 | PC.NURSE ---
Addendum entered by Amy Preston 08/26/22 02:27: Pt is hard stick, unable to obtain blood cultures at this time, will hold off on antibiotics until cultures and lactic are drawn. aware Original Note: Pt pulled ultrasound guided IV out. Approximately 400 ml of Normal saline went into the pt before it was removed. Pt has new IV 22 in left hand that flushes and is patent
--- NOTE | 2022-08-26 03:16 | PC.NURSE ---
Reported critical lab of lactic 2.4, notified Dr. Salazar and Rn Navi
[2022-08-26 03:18] LABS: Lactic Acid 2.4 mmol/L (0.5-2.0)
--- NOTE | 2022-08-26 03:47 | PC.NURSE ---
Pt sleeping respirations regular.
[2022-08-26 04:33] LABS: Appearance Urine Clear; Color Urine Yellow; Glucose Urine UA Negative (Negative); Leukocyte Esterase Urine Negative (Negative); Nitrite Urine Negative (Negative); Specific Gravity - Urine 1.015 (1.005-1.025); UMIC TRIGGER UACC YES; Urine Blood Negative (Negative); Urine Ketones Negative (Negative); Urine Protein 30 (1+) mg/dL (Neg-Trace)
[2022-08-26 04:38] LABS: Bacteria Urine None Seen (None Seen); Hyaline Casts Urine 0-2 /LPF (0-2); RBC Urine 0-2 /HPF (0-2); Squamous Epithelial Cell Urine 0-2 /HPF (0-2); WBC Urine 0-5 /HPF (0-5)
[2022-08-26 05:26] LABS: MANUAL DIFF FLAG NO
[2022-08-26 05:27] LABS: Basophils Percent Auto 0.3 % (0-2); Hematocrit 39.3 % (42.0-52.0); Hemoglobin 11.9 g/dl (14.0-18.0); Imm Gran Abs Auto 0.01 X10*3/uL (0.00-0.03); Imm Gran Pct Auto 0.3 % (0.0-0.4); Lymphocytes Absolute Auto 0.6 X10*3/uL (1.2-4.9); Lymphocytes Percent Auto 21.7 % (20-40); Mean Corpuscular HGB Conc 30.3 g/dl (31.0-36.0); Mean Corpuscular Hemoglobin 27.8 pg (27.0-33.0); Mean Corpuscular Volume 91.8 fL (80.0-98.0); Mean Platelet Volume 11.4 fL (9.4-12.4); Monocytes Absolute Auto 0.1 X10*3/uL (0.1-1.2); Monocytes Percent Auto 2.7 % (2-11); Neutrophils Absolute Auto 2.2 x10*3/uL (2.0-8.3); Platelet Count 178 X10*3/uL (160-400); Red Blood Count 4.28 X10*6/uL (4.60-5.80); Red Cell Distribution Width 14.3 % (11.0-16.0)
[2022-08-26 05:35] LABS: ~Lactic Acid-LAB USE ONLY 1.6 mmol/L (0.5-2.0)
[2022-08-26 05:51] LABS: Anion Gap 16 (12-20); Blood Urea Nitrogen 16 mg/dL (9-16); Calcium 8.7 mg/dL (8.4-10.2); Carbon Dioxide 25 mmol/L (22-29); Chloride 109 mmol/L (96-108); Creatinine Clr Calc Pharmacy 97.3; Estimated Glomerular Filt Rate > 60; Glucose Random 181 mg/dL (60-115); Potassium 4.5 mmol/L (3.3-5.1); Sodium 145 mmol/L (135-145)
--- NOTE | 2022-08-26 06:22 | PC.NURSE ---
Pt sleeping, respirations regular.
--- NOTE | 2022-08-26 06:26 | P.HPHOSP_ITS ---
History of Present Illness Date of Service: 08/26/22 Chief Complaint: near syncope 72-year-old male with past medical history of hypertension, COPD, hyperlipidemia, [facility] with 2 episodes of nurse on- call P, and generalized weakness for 2 days. Patient is sleeping, arousable, gives minimal history. Reports that he has been feeling weak, has had shortness of breath, as well as increased cough for the past few days. Reports no chest pain, no abdominal pain, no nausea or vomiting, no diarrhea constipation. Reports low oral intake. Denies any fever or chills. No numbness tingling or localized weakness. On arrival to the ED patient hemodynamically stable with no significant abnormal vitals except slightly elevated blood pressure Labs are significant for WBC count of for benign 8, hemoglobin 11.7, hematocrit 375, lactic acid of 2.4 improved after IV fluids, AST of 123, ALT of 87, alk- phos of 118, UA negative, COVID-19 RSV and influenza negative Chest CTA shows negative PE but patchy consolidation in the right lower lobe concerning for pneumonia. Patient also has ground-glass focus of the right upper lobe measuring 1.[address] a recommended CT in 6-12 months. Patient will be admitted for further management Review of Systems Review of Systems: Yes all other systems are reviewed and are negative [facility] Medical History (Updated 08/26/22 @ 06:46 by Lizbet Cates MD) Dementia History of COPD Hyperlipidemia Hypertension Nocturnal hypoxia Schizophrenia Pertinent family history: On known Surgical History (Updated 08/26/22 @ 06:45 by Lizbet Cates MD) No pertinent past surgical history Social History Advance Directives: No Meds Allergies Allergy/AdvReac Type Severity Reaction Status Date / Time No Known Allergies Allergy Verified 08/25/22 18:28 Active Medications: Current Medications Acetaminophen (Acetaminophen 325 Mg Tablet) 650 mg PO Q6H PRN PRN Reason: Pain, Mild (Pain Scale 1-3) Albuterol/Ipratropium (Albuterol/Iprat 2.5/0.5mg 3 Ml Ampul.Neb) 3 ml INHALE RQ4H PRN PRN Reason: Shortness of Breath/Wheezing Albuterol/Ipratropium (Albuterol/Iprat 2.5/0.5mg 3 Ml Ampul.Neb) 3 ml INHALE RQ4H WHILE AWAKE [facility] Azithromycin (Azithromycin 500 Mg Tablet) 500 mg PO Q24H [facility] Enoxaparin Sodium (Enoxaparin Sodium 40 Mg/0.4 Ml Syringe) 40 mg SUBCUT Q24H [facility] Last Admin: 08/26/22 04:12 Dose: 40 mg Ceftriaxone Sodium 1 gm/ (Sodium Chloride) 50 mls @ 100 mls/hr IV Q24H [facility] Lactated Ringer's (Lr) 1,000 mls @ 100 mls/hr IVCONT .Q10H [facility] Last Admin: 08/26/22 04:03 Dose: 100 mls/hr Methylprednisolone Sodium Succinate (Methylprednisolone Sod Succ 40 Mg/Ml Vial) 40 mg IVPUSH Q12H [facility] Last Admin: 08/26/22 04:00 Dose: 40 mg Ondansetron HCl (Ondansetron Hcl 4 Mg/2 Ml Vial) 4 mg IVPUSH Q8H PRN PRN Reason: Nausea and Vomiting Sodium Chloride (0.9 % Sodium Chloride Flush 3 Ml Syringe) 3 ml IVFLUSH QSHIFT [facility] Home Medications Medication Instructions Recorded Confirmed Last Taken Type aspirin 81 mg tablet,delayed 1 tab PO DAILY 08/26/22 08/26/22 Unknown History release carbamide peroxide PRN Ear Pain 08/26/22 Unknown History cholecalciferol (vitamin D3) 25 1 tab PO DAILY 08/26/22 08/26/22 Unknown History mcg (1,000 unit) tablet clonazepam 0.5 mg tablet 1 tab PO BID PRN Anxiety 08/26/22 08/26/22 Unknown History clozapine 100 mg tablet 3 tab PO BEDTIME 08/26/22 08/26/22 Unknown History donepezil PO QID PRN Sleep 08/26/22 Unknown History fluticasone furoate 200 1 puff inhalation DAILY 08/26/22 08/26/22 Unknown History mcg-vilanterol 25 mcg/dose inhalation powder (Breo Ellipta) gemfibrozil 600 mg tablet 1 tab PO BID 08/26/22 08/26/22 Unknown History ketoconazole 2 % shampoo topical 08/26/22 Unknown History lisinopril PO QID 08/26/22 Unknown History lisinopril 2.5 mg tablet 1 tab PO DAILY 08/26/22 08/26/22 Unknown History memantine 10 mg tablet 1 tab PO BID 08/26/22 08/26/22 Unknown History methylcellulose PO 2XD 08/26/22 Unknown History simvastatin 40 mg tablet 1 tab PO BEDTIME 08/26/22 08/26/22 Unknown History sucralfate 1 gram tablet 1 tab PO TID 08/26/22 08/26/22 Unknown History venlafaxine 150 mg tablet,extended 1 tab PO DAILY 08/26/22 08/26/22 Unknown History release 24 hr Physical Exam Vital Signs and Narrative: Vital Signs: Last Vital Signs Temp 97.8 F 08/26/22 05:58 Pulse 89 08/26/22 05:58 Resp 18 08/26/22 05:58 BP 149/73 H 08/26/22 05:58 Pulse Ox 93 08/26/22 05:58 O2 Del Method 08/26/22 05:58 O2 Flow Rate 3 08/26/22 05:58 BMI result Body Mass Index 34.4 Const: Other: Sleeping but arousable Oriented to self and place General: cooperative and no acute distress Eyes: General: appearance normal, both eyes and all related structures Resp: Other: Diminished breath sounds Effort & Inspection: normal respiratory effort Cardio: Rate: regular rate Rhythm: regular rhythm GI: Palpation (GI): Soft to palpation Auscultation: normal bowel sounds Skin: General skin exam: no rashes or lesions noted Neuro: Cognition (Neuro): normal cognition Extrem: General: Yes normal to inspection and Yes no pedal edema Results Labs CBC and Chem 7: 08/26/22 05:22 08/26/22 05:22 Labs: Laboratory Results - last 24 hr 08/25/22 08/25/22 08/25/22 20:25 20:25 20:25 MCV 91.2 MCH 28.5 MCHC 31.2 RDW 14.2 Plt Count 186 MPV 11.7 Immature Gran % (Auto) 0.4 Neut % (Auto) 52.0 Lymph % (Auto) 33.3 [place] % (Auto) 13.3 H Eos % (Auto) 0.8 Baso % (Auto) 0.2 Lymph # (Auto) 1.6 [place] # (Auto) 0.6 Eos # (Auto) 0.0 Baso # (Auto) 0.0 Abs Immat Gran (auto) 0.02 Absolute Neuts (auto) 2.5 Absolute Nucleated RBC 0.000 Nucleated RBC % (auto) 0.0 Anion Gap 15 Estim Creat Clear Calc 96.2 Estimated GFR > 60 POC Glucose Random Glucose 108 Lactic Acid Lactic Acid F/U @ 2Hr Calcium 9.2 Magnesium 1.9 Total Bilirubin 0.4 Direct Bilirubin 0.2 AST 123 H ALT 87 H Alkaline Phosphatase 118 H Troponin I High Sens 16.5 Total Protein 6.9 Albumin 4.4 Urine Color Urine Appearance Urine pH Ur Specific [place] Urine Protein Urine Glucose (UA) Urine Ketones Urine Blood Urine Nitrite Ur Leukocyte Esterase Urine RBC Urine WBC Ur Squamous Epith Cells Urine Bacteria Hyaline Casts Influenza Type A (PCR) Influenza Type B (PCR) RSV RNA Qual (PCR) SARS-CoV-2 RNA (RT-PCR) 08/25/22 08/25/22 08/26/22 20:43 20:48 02:51 MCV MCH MCHC RDW Plt Count MPV Immature Gran % (Auto) Neut % (Auto) Lymph % (Auto) [place] % (Auto) Eos % (Auto) Baso % (Auto) Lymph # (Auto) [place] # (Auto) Eos # (Auto) Baso # (Auto) Abs Immat Gran (auto) Absolute Neuts (auto) Absolute Nucleated RBC Nucleated RBC % (auto) Anion Gap Estim Creat Clear Calc Estimated GFR POC Glucose 111 Random Glucose Lactic Acid 2.4 H* Lactic Acid F/U @ 2Hr Calcium Magnesium Total Bilirubin Direct Bilirubin AST ALT Alkaline Phosphatase Troponin I High Sens Total Protein Albumin Urine Color Urine Appearance Urine pH Ur Specific [place] Urine Protein Urine Glucose (UA) Urine Ketones Urine Blood Urine Nitrite Ur Leukocyte Esterase Urine RBC Urine WBC Ur Squamous Epith Cells Urine Bacteria Hyaline Casts Influenza Type A (PCR) NEGATIVE Influenza Type B (PCR) NEGATIVE RSV RNA Qual (PCR) NEGATIVE SARS-CoV-2 RNA (RT-PCR) NEGATIVE 08/26/22 08/26/22 08/26/22 04:26 05:22 05:22 MCV 91.8 MCH 27.8 MCHC 30.3 L RDW 14.3 Plt Count 178 MPV 11.4 Immature Gran % (Auto) 0.3 Neut % (Auto) 75.0 H Lymph % (Auto) 21.7 [place] % (Auto) 2.7 Eos % (Auto) 0.0 Baso % (Auto) 0.3 Lymph # (Auto) 0.6 L [place] # (Auto) 0.1 Eos # (Auto) 0.0 Baso # (Auto) 0.0 Abs Immat Gran (auto) 0.01 Absolute Neuts (auto) 2.2 Absolute Nucleated RBC 0.000 Nucleated RBC % (auto) 0.0 Anion Gap 16 Estim Creat Clear Calc 97.3 Estimated GFR > 60 POC Glucose Random Glucose 181 H Lactic Acid Lactic Acid F/U @ 2Hr Calcium 8.7 Magnesium Total Bilirubin Direct Bilirubin AST ALT Alkaline Phosphatase Troponin I High Sens Total Protein Albumin Urine Color Yellow Urine Appearance Clear Urine pH 6.0 Ur Specific [place] 1.015 Urine Protein 30 (1+) H Urine Glucose (UA) Negative Urine Ketones Negative Urine Blood Negative Urine Nitrite Negative Ur Leukocyte Esterase Negative Urine RBC 0-2 Urine WBC 0-5 Ur Squamous Epith Cells 0-2 Urine Bacteria None Seen Hyaline Casts 0-2 Influenza Type A (PCR) Influenza Type B (PCR) RSV RNA Qual (PCR) SARS-CoV-2 RNA (RT-PCR) 08/26/22 05:22 MCV MCH MCHC RDW Plt Count MPV Immature Gran % (Auto) Neut % (Auto) Lymph % (Auto) Ball[place] % (Auto) Eos % (Auto) Baso % (Auto) Lymph # (Auto) [place] # (Auto) Eos # (Auto) Baso # (Auto) Abs Immat Gran (auto) Absolute Neuts (auto) Absolute Nucleated RBC Nucleated RBC % (auto) Anion Gap Estim Creat Clear Calc Estimated GFR POC Glucose Random Glucose Lactic Acid Lactic Acid F/U @ 2Hr 1.6 Calcium Magnesium Total Bilirubin Direct Bilirubin AST ALT Alkaline Phosphatase Troponin I High Sens Total Protein Albumin Urine Color Urine Appearance Urine pH Ur Specific [place] Urine Protein Urine Glucose (UA) Urine Ketones Urine Blood Urine Nitrite Ur Leukocyte Esterase Urine RBC Urine WBC Ur Squamous Epith Cells Urine Bacteria Hyaline Casts Influenza Type A (PCR) Influenza Type B (PCR) RSV RNA Qual (PCR) SARS-CoV-2 RNA (RT-PCR) Imaging Radiologist's Impressions: Impressions Chest X-Ray 08/25/22 19:38 IMPRESSION: No acute intrathoracic disease. Question of underlying emphysema and possible mild fibrotic change. Chest CTA 08/26/22 00:50 IMPRESSION: 1. No pulmonary embolus identified. 2. Patchy consolidation in the right lower lobe, suspicious for pneumonia. 3. Groundglass focus in the right upper lobe measuring 1.6 cm, which may be inflammatory. Recommend CT at 6-12 months to assess persistence, then CT every 2 years until 5 years if it persists. 4. Coronary artery calcifications. Correlation with cardiac risk factors is recommended VTE: negative Assessment and Plan (1) Community acquired pneumonia: Qualifiers: Laterality: right Lung location: lower lobe of lung Qualified Code(s): J18.9 - Pneumonia, unspecified organism Status: Acute (2) COPD with acute exacerbation: Status: Acute (3) Lung nodule: Status: Acute Plan 72-year-old male with past medical history of COPD as well as nocturnal hypoxia on oxygen at bedtime presents to the hospital with complaints of weakness and near-syncope found to have pneumonia # community-acquired pneumonia - has cough, dyspnea, sputum production, afebrile, no leukocytosis - will treat with IV antibiotics - follow cultures # acute COPD exacerbation - Solu-Medrol, DuoNeb p.r.n. as well as scheduled - monitor respiratory status # lung nodule - has a 1.6 cm nodule seen on CT as above - recommended follow-up in 6-12 months # hypertension - elevated - will continue home medications # hyperlipidemia - Continue statin # schizophrenia - continue home med DVT prophylaxis: Lovenox Given patient's pneumonia patient require minimum 2 night inpatient hospital stay for further management monitoring Time Spent With Patient Time: Total time managing care of this patient today ____ minutes. Quality Stroke Does the patient have a stroke diagnosis?: No VTE Prior VTE?: No VTE Risk Level:: Medical - moderate - high VTE Device Contraindication: Treatment Not Indicated VTE Drug Contraindication: N/A - Med Ordered
--- NOTE | 2022-08-26 08:43 | PHA.MEDREC ---
Pharmacy Consult ? Medication Reconciliation Pharmacy has completed the medication reconciliation.
--- NOTE | 2022-08-26 10:40 | PM.EVENT ---
Event Note Date of Service: 08/26/22 Event Note: 72-year-old male with past medical history of COPD as well as nocturnal hypoxia on oxygen at bedtime presents to the hospital with complaints of weakness and near-syncope found to have pneumonia Community-acquired pneumonia has cough, dyspnea, sputum production, afebrile, no leukocytosis Continue IV antibiotics follow cultures Acute COPD exacerbation Continue Solu-Medrol, DuoNebs Supplemental oxygen Lung nodule 1.6 cm nodule seen on CT scan Recommend follow-up in 6-12 months Hypertension Continue home medications Hyperlipidemia Continue statin Schizophrenia Continue home medications DVT prophylaxis Lovenox Attending Dr. Treadwell Full code Time Spent With Patient Time: Total time managing care of this patient today ____ minutes.
[2022-08-26] MEDS: Insulin Lispro 100 UNIT/ML 3 ML VIAL SUBCUT (20:00)
[2022-08-27] VITALS (9 sets, daily range): BP systolic 139–180; BP diastolic 70–86; PULSE 74–88; RESP 16–18; TEMP 36.1–36.6; O2SAT 90–93
--- NOTE | 2022-08-27 06:41 | PC.NURSE ---
pt has not voided all shift bladder scanned for >999ml. notified ordered to st cath now.St. cathed for 1100 ml clear yellow urine.
[2022-08-27] MEDS: Insulin Lispro 100 UNIT/ML 3 ML VIAL SUBCUT ×4 (08:20→20:05)
--- NOTE | 2022-08-27 10:25 | HO.PM.IMPN ---
Subjective Subjective Date of Service: 08/27/22 Interval History: seen and examined this morning follow up for pneumonia awake and alert, reporting ongoing cough. no sob at this time Review of Systems Review of Systems: Yes all other systems are reviewed and are negative Constitutional Constitutional: Denies chills and Denies fever(s) Cardiovascular Cardiovascular: Denies chest pain, Denies palpitations and Denies dyspnea Respiratory Respiratory: Reports cough and Denies dyspnea Gastrointestinal Gastrointestinal: Denies abdominal pain, Denies nausea and Denies vomiting Endocrine Endocrine: Denies palpitations Physical Exam Vital Signs: Vital Signs: Last Vital Signs Temp 97.6 F 08/27/22 08:00 Pulse 86 08/27/22 08:14 Resp 16 08/27/22 08:14 BP 178/78 H 08/27/22 08:00 Pulse Ox 90 L 08/27/22 08:00 O2 Del Method 08/27/22 08:00 O2 Flow Rate 3.0 08/27/22 08:00 BMI result Body Mass Index 28.5 Const: General: no acute distress, alert and awake Nutritional Appearance: average body habitus Orientation/consciousness: patient oriented x3 Resp: Effort & Inspection: normal respiratory effort, able to speak in complete sentences, no respiratory distress and no use of accessory muscles Cardio: Rate: regular rate Heart sounds: S1 normal heart sound present and S2 normal heart sound present GI: Inspection: No distended Palpation (GI): Soft to palpation Neuro: General: patient oriented x3 Extrem: Other: able to move all extremities spontaneously Objective Data Active Medications Acetaminophen (Acetaminophen 325 Mg Tablet) 650 mg PO Q6H PRN PRN Reason: Pain, Mild (Pain Scale 1-3) Albuterol/Ipratropium (Albuterol/Iprat 2.5/0.5mg 3 Ml Ampul.Neb) 3 ml INHALE RQ4H PRN PRN Reason: Shortness of Breath/Wheezing Albuterol/Ipratropium (Albuterol/Iprat 2.5/0.5mg 3 Ml Ampul.Neb) 3 ml INHALE RQ4H WHILE AWAKE [facility] Last Admin: 08/27/22 06:36 Dose: 3 ml Documented By: LISA Aspirin (Aspirin Enteric Coated 81 Mg Tablet.) 81 mg PO DAILY [facility] Last Admin: 08/27/22 08:20 Dose: 81 mg Documented By: BRANDON Atorvastatin Calcium (Atorvastatin Calcium 20 Mg Tablet) 20 mg PO BEDTIME [facility] Last Admin: 08/26/22 19:51 Dose: 20 mg Documented By: MARIZOL Azithromycin (Azithromycin 500 Mg Tablet) 500 mg PO Q24H [facility] Last Admin: 08/26/22 19:50 Dose: 500 mg Documented By: MARIZOL Clonazepam (Clonazepam 0.5 Mg Tablet) 0.5 mg PO BID PRN PRN Reason: Anxiety Clozapine (Clozapine 100 Mg Tablet) 300 mg PO BEDTIME [facility] Last Admin: 08/26/22 19:50 Dose: 300 mg Documented By: MARIZOL Donepezil HCl (Donepezil Hcl 10 Mg Tablet) 10 mg PO DAILY [facility] Last Admin: 08/27/22 08:20 Dose: 10 mg Documented By: BRANDON Enoxaparin Sodium (Enoxaparin Sodium 40 Mg/0.4 Ml Syringe) 40 mg SUBCUT Q24H [facility] Last Admin: 08/27/22 03:13 Dose: 40 mg Documented By: MARIZOL Fluticasone/Vilanterol (Fluticasone/Vilanterol 200/25 Blst.W.Dev) 1 puff INHALE RDAILY [facility] Last Admin: 08/27/22 08:12 Dose: 1 puff Documented By: YRIS Gemfibrozil (Gemfibrozil 600 Mg Tablet) 600 mg PO BID [facility] Last Admin: 08/27/22 08:20 Dose: 600 mg Documented By: BRANDON Ceftriaxone Sodium 1 gm/ (Sodium Chloride) 50 mls @ 100 mls/hr IV Q24H [facility] Last Infusion: 08/26/22 20:25 Dose: 0 mls/hr Documented By: MARIZOL Lactated Ringer's (Lr) 1,000 mls @ 100 mls/hr IVCONT .Q10H [facility] Last Admin: 08/27/22 00:57 Dose: 100 mls/hr Documented By: MARIZOL Insulin Human Lispro (Insulin Lispro 100 Unit/Ml 3 Ml Vial) 0 unit SUBCUT QIDACHS [facility]; Protocol Last Admin: 08/27/22 08:20 Dose: 2 unit Documented By: BRANDON Lisinopril (Lisinopril 2.5 Mg Tablet) 2.5 mg PO DAILY [facility]; Protocol Last Admin: 08/27/22 08:20 Dose: 2.5 mg Documented By: BRANDON Memantine (Memantine Hcl 10 Mg Tablet) 10 mg PO BID [facility] Last Admin: 08/27/22 08:20 Dose: 10 mg Documented By: BRANDON Methylprednisolone Sodium Succinate (Methylprednisolone Sod Succ 40 Mg/Ml Vial) 40 mg IVPUSH Q12H [facility] Last Admin: 08/27/22 03:13 Dose: 40 mg Documented By: MARIZOL Ondansetron HCl (Ondansetron Hcl 4 Mg/2 Ml Vial) 4 mg IVPUSH Q8H PRN PRN Reason: Nausea and Vomiting Sodium Chloride (0.9 % Sodium Chloride Flush 3 Ml Syringe) 3 ml IVFLUSH QSHIFT [facility] Last Admin: 08/27/22 08:20 Dose: Not Given Documented By: BRANDON Non-Admin Reason: IV Running Sucralfate (Sucralfate 1 Gm Tablet) 1 gm PO TID [facility] Last Admin: 08/27/22 08:20 Dose: 1 gm Documented By: BRANDON Venlafaxine HCl (Venlafaxine Hcl Er 150 Mg Cap.Er.24h) 150 mg PO DAILY [facility] Last Admin: 08/27/22 08:20 Dose: 150 mg Documented By: BRANDON Vitamin D (Cholecalciferol (Vitamin D3) 25 Mcg Tablet) 25 mcg PO DAILY [facility] Last Admin: 08/27/22 08:20 Dose: 25 mcg Documented By: BRANDON Labs CBC & Chem 7: 08/26/22 05:22 08/26/22 05:22 Labs: Laboratory Results - last 24 hr 08/26/22 08/26/22 08/26/22 11:46 15:17 19:01 POC Glucose 191 H 138 H 231 H 08/27/22 07:35 POC Glucose 181 H Microbiology Microbiology Results: Microbiology 08/26/22 02:51 Blood Culture - Preliminary Blood - Venous No growth after 24 hours. 08/26/22 02:51 Blood Culture - Preliminary Blood - Venous No growth after 24 hours. Assessment and Plan (1) Community acquired pneumonia: Status: Acute Plan 72-year-old male with past medical history of COPD as well as nocturnal hypoxia on oxygen at bedtime presents to the hospital with complaints of weakness and near-syncope found to have pneumonia Community-acquired pneumonia no evidence of sepsis still requiring supplemental oxygen Continue IV ceftriaxone, azithromycin blood cultures negative to date Acute COPD exacerbation Continue Solu-Medrol, DuoNebs Supplemental oxygen, wean as tolerated Lung nodule 1.6 cm nodule seen on CT scan Recommend follow-up in 6-12 months Hypertension Continue home medications Hyperlipidemia Continue statin Schizophrenia Continue home medications DVT prophylaxis Lovenox Attending Dr. Kate Full code patient requires ongoing inpatient hospitalization for management pneumonia Time Spent With Patient Time: Total time managing care of this patient today ____ minutes. Quality Stroke Does the patient have a stroke diagnosis?: No VTE Prior VTE?: No VTE Risk Level:: Medical - moderate - high VTE Device Contraindication: Treatment Not Indicated VTE Drug Contraindication: N/A - Med Ordered
--- NOTE | 2022-08-27 11:10 | MHC.CM.PN ---
IMM EXPLAINED TO [facility] REP ASAF SARABIA. WHITE COPY TO BE MAILED, YELLOW COPY TO CHART. LIVES IN [facility]. DISORIENTED AT BASELINE. USES WALKER, USES 02 AT BASELINE 2L WHEN COMPLIANT. 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 COPY OF [employer] REQUESTED WELL ANY DC FORM NEEDED TO BE FILLED OUT TO [facility]. + COVID VAX X3. PCP DR. TESFAYE AT [facility]. [facility] WILL TRANSPORT ON DC. DP: RETURN TO PRISON, NO SERVICES ANTICIPATED. PRISON WILL TRANSPORT.
[2022-08-28 03:12] VITALS: BP 148/76; PULSE 78; RESP 16; TEMP 36.6; O2SAT 92
[2022-08-28 07:47] VITALS: BP 188/96; PULSE 86; RESP 18; TEMP 36.8; O2SAT 93
[2022-08-28] MEDS: Insulin Lispro 100 UNIT/ML 3 ML VIAL SUBCUT ×2 (07:57→11:27)
[2022-08-28 08:08] VITALS: PULSE 82; RESP 17; O2SAT 92
[2022-08-28 09:09] VITALS: O2SAT 91
--- NOTE | 2022-08-28 09:13 | MHC.CM.PN ---
GROUP HO0ME STAFF TO ARRIVE FOR 133--1400 TODAY TO TRANSPORT PATIENT HOME. RN, PATIENT,AND UNIT AWARE OF PLAN
--- NOTE | 2022-08-28 09:26 | MHC.CLN ---
NUTRITION DIET CHANGED TO DIABETIC 2000 KCALS. PATIENT WITH ELEVATED POC GLUCOSE AND TAKES INSULIN.
--- NOTE | 2022-08-28 11:28 | P.DS_ITS ---
DS: Providers Provider Date of Service: 08/28/22 Date of admission: 08/26/22 03:16 Primary care physician: Alex Salazar MD Attending physician on discharge: Zeb Kate Discharging clinician: America Franco DS: Diagnosis Discharge Diagnosis (1) Community acquired pneumonia: Status: Acute DS: Summary Hospital Course Hospital Course: 72-year-old male with past medical history of hypertension, COPD, hyperlipi demia, presents hospital from halfway with 2 episodes of nurse on-call P, and generalized weakness for 2 days.? Patient is sleeping, arousable, gives minimal history.? Reports that he has been feeling weak, has had shortness of breath, as well as increased cough for the past few days.? Reports no chest pain, no abdominal pain, no nausea or vomiting, no diarrhea constipation.? Reports low oral intake.? Denies any fever or chills.?No numbness tingling or localized weakness.?On arrival to the ED patient hemodynamically stable with no significant abnormal vitals except slightly elevated blood pressure. Labs are significant for WBC count of for benign 8, hemoglobin 11.7, hematocrit 375, lactic acid of 2.4 improved after IV fluids, AST of 123, ALT of 87, alk-phos of 118, UA negative, COVID-19 RSV and influenza negative . Chest CTA shows negative PE but patchy consolidation in the right lower lobe concerning for pneumonia.? Patient also has ground-glass focus of the right upper lobe measuring 1.6 [address] with a recommended CT in 6-12 months. Patient will be admitted for further management . Community-acquired pneumonia no evidence of sepsis Continue home oxygen Treated with IV ceftriaxone, azithromycin, home with 4 more days of antibiotics blood cultures negative to date Acute COPD exacerbation Treated with Solu-Medrol, DuoNebs, home with 4 more days of prednisone Lung nodule 1.6 cm nodule seen on CT scan Recommend follow-up in 6-12 months Hypertension Continue home medications Hyperlipidemia Continue statin Schizophrenia Continue home medications Time Spent with Patient Time attestation: Total time managing care of this patient today ____ minutes. Discharge coordination time: Greater than 30 minutes Quality: Safe Use of Opioids Does Pt have an Active Cancer Diagnosis on the Problem List?: No Quality: Stroke Does the patient have a stroke diagnosis?: No Physical Exam Vital Signs: Vital Signs: Last Vital Signs Temp 98.3 F 08/28/22 07:47 Pulse 82 08/28/22 08:08 Resp 17 08/28/22 08:08 BP 188/96 H 08/28/22 07:47 Pulse Ox 91 L 08/28/22 09:09 O2 Del Method 08/28/22 07:47 O2 Flow Rate 2.0 08/28/22 07:47 BMI result Body Mass Index 28.5 Appearing in no acute distress head is normocephalic atraumatic eyes pupils are PERRLA sclera is anicteric mouth throat mucous membranes are intact and moist neck is supple no lymphadenopathy, no JVD noted lung sounds are clear to auscultation heart regular rate rhythm, clear S1, S2 positive bowel sounds, abdomen is soft, nontender neuro patient is alert x3, no focal deficits DS: Data Data Completed and Pending Labs on day of discharge: Laboratory Results - last 24 hr 08/27/22 08/27/22 08/28/22 15:51 19:32 07:23 POC Glucose 194 H 191 H 184 H 08/28/22 11:12 POC Glucose 219 H Preliminary micro results at discharge 08/26/22 02:51 Blood Culture - Preliminary Blood - Venous No growth after 48 hours. 08/26/22 02:51 Blood Culture - Preliminary Blood - Venous No growth after 48 hours. Discharge Plan Discharge Anticipated Discharge Date/Time: 08/28/22 11:20 Patient Disposition: Xfer Other Discharge Diagnosis: Community-acquired pneumonia COPD exacerbation Referrals: Alex Salazar MD [Primary Care Provider] - 1 Week Discharge Medications: New cefuroxime axetil 500 mg tablet 500 mg PO BID Qty: 8 0RF azithromycin 500 mg tablet 500 mg PO DAILY 4 Days Qty: 4 0RF prednisone 10 mg tablet 40 mg PO DAILY Qty: 16 0RF Continued ketoconazole 2 % shampoo 1 appl topical DAILY clozapine 100 mg tablet 3 tab PO BEDTIME sucralfate 1 gram tablet 1 tab PO TID clonazepam 0.5 mg tablet 1 tab PO BID PRN (Reason: Anxiety) aspirin 81 mg tablet,delayed release (DR/EC) 1 tab PO DAILY simvastatin 40 mg tablet 1 tab PO BEDTIME gemfibrozil 600 mg tablet 1 tab PO BID lisinopril 2.5 mg tablet 1 tab PO DAILY memantine 10 mg tablet 1 tab PO BID cholecalciferol (vitamin D3) 25 mcg (1,000 unit) tablet 1 tab PO DAILY venlafaxine 150 mg tablet extended release 24hr 1 tab PO DAILY fluticasone furoate-vilanterol [Breo Ellipta] 200-25 mcg/dose blister with device 1 puff inhalation DAILY methylcellulose 1,000 mg 1,000 mg PO BID donepezil 10 mg tablet 1 tab PO DAILY metformin 500 mg tablet 1 tab PO BID Discharge Orders: Discharge Order (Routine); Ordered 08/28/22 Ordered By: America Franco Diet: Advance to usual diet Activity on Discharge: As tolerated Stand Alone Forms: Patient Portal Discharge page Care Plan Goals: Complete reolution of symptoms Health Concerns: Community-acquired pneumonia COPD exacerbation Plan of Treatment: Follow up with primary cre provider as needed Take all medications as prescribed Assessment: See discharge summary
== END 2022-08-28 14:00 | disposition other institution (70) | DRG 190 ==
LOC: HO.ED 08-26 01:52 → HO.EDOVER 08-26 03:21 → HO.S3 08-26 06:58
PROVIDERS: Physician Assistant; Admitting Provider Internal Medicine; Emergency Provider Emergency Medicine; PCP Internal Medicine; Visit Provider Nurse Practitioner Acute Care
DX: J44.0 Chronic obstructive pulmonary disease with (acute) lower respiratory infection (principal); J18.9 Pneumonia, unspecified organism; G30.9 Alzheimer's disease, unspecified; F02.80 Dementia in other diseases classified elsewhere, unspecified severity, without behavioral disturbance, psychotic disturbance, mood disturbance, and anxiety; R91.1 Solitary pulmonary nodule; J44.1 Chronic obstructive pulmonary disease with (acute) exacerbation; I10 Essential (primary) hypertension; F41.9 Anxiety disorder, unspecified; E78.5 Hyperlipidemia, unspecified; F20.9 Schizophrenia, unspecified; Z20.822 Contact with and (suspected) exposure to COVID-19; Z87.891 Personal history of nicotine dependence; Z79.82 Long term (current) use of aspirin; Z79.51 Long term (current) use of inhaled steroids; Z79.899 Other long term (current) drug therapy
CPT/HCPCS: 0241U; 36415; 71046; 71275; 80048; 80076; 81001; 82947; 83605; 83735; 84484; 85025; 87040; 93005; 94640; 99285; J0696; J1650; J2920; Q9967

== ENCOUNTER 2022-09-07 20:31 | Emergency (ER) | payer MEDICARE, MEDICAID, SELFPAY ==
--- NOTE | ~2022-09-07 | CT_ITS ---
EXAMINATION: CT CHEST WITHOUT CONTRAST CLINICAL INFORMATION: Evaluate for possible left pleural effusion COMPARISON: 08/26/2022 TECHNIQUE: Multidetector volumetric CT imaging of the chest was done. Axial MIP volume rendering provided. Sagittal and coronal reformatted images were obtained. This CT examination was performed using dose optimization techniques as appropriate, variously including the following: *Automated exposure control *Adjustment of mA and/or kV according to patient size (this includes techniques or standardized protocols for targeted exams where dose is matched to indication/reason for exam; i.e. extremities or head) *Use of iterative reconstruction technique DLP: 286 FINDINGS: LUNGS: Left lung base linear opacities, unchanged from prior study likely reflect chronic atelectasis versus scarring. Interval decrease in previously seen right upper lobe groundglass opacity which appears less conspicuous on today's study measuring approximately 1.0 cm (5:172). MEDIASTINUM: Coronary artery atherosclerotic calcifications. No mediastinal adenopathy. PLEURA: There is no pleural effusion. No pleural mass or thickening. AXILLA: No lymphadenopathy. UPPER ABDOMEN: Status post cholecystectomy. OSSEOUS STRUCTURES/SOFT TISSUES: Degenerative changes of the thoracic spine. CT/CT chest wo IV con IMPRESSION: 1. Interval decrease in previously seen right upper lobe groundglass opacity which appears less conspicuous on today's study measuring approximately 1.0 cm. 2. Left lung base linear opacities, unchanged from prior study likely reflect chronic atelectasis versus scarring. Fleischner guidelines were followed.
--- NOTE | ~2022-09-07 | XR_ITS ---
EXAMINATION: XR CHEST CLINICAL INFORMATION: Shortness of breath COMPARISON: 08/25/2022 TECHNIQUE: Frontal view of the chest was obtained. FINDINGS: Increasing left sided opacity consistent with infiltrate and/or effusion. The right lung is grossly comparable to previous. The cardiac silhouette is comparable. XR/XR chest 1V IMPRESSION: Left basilar opacity consistent with atelectasis/infiltrate and/or fluid.
[2022-09-07 20:39] VITALS: BP 152/84; BP 162/73; PULSE 80; PULSE 86; RESP 19; TEMP 37.3; O2SAT 94; BMI 27.3
--- NOTE | 2022-09-07 20:45 | ECG_ITS ---
Test Reason : Weakness Blood Pressure : / mmHG Vent. Rate : 079 BPM Atrial Rate : 079 BPM P-R Int : 208 ms QRS Dur : 144 ms QT Int : 418 ms P-R-T Axes : 010 -63 104 degrees QTc Int : 479 ms Normal sinus rhythm Left axis deviation Left bundle branch block Abnormal ECG When compared with ECG of 21-DEC-2021 19:50, Premature supraventricular complexes are no longer Present Referred By: Generic ED Physician Electronically Signed By:ARCHANA VERDUGO
[2022-09-07 21:07] LABS: Basophils Percent Auto 0.2 % (0-2); Eosinophils Absolute Auto 0.1 X10*3/uL (0.0-0.4); Eosinophils Percent Auto 1.2 % (0-4); Hematocrit 35.6 % (42.0-52.0); Hemoglobin 10.9 g/dl (14.0-18.0); Imm Gran Abs Auto 0.08 X10*3/uL (0.00-0.03); Imm Gran Pct Auto 0.7 % (0.0-0.4); Lymphocytes Absolute Auto 2.4 X10*3/uL (1.2-4.9); Lymphocytes Percent Auto 20.1 % (20-40); MANUAL DIFF FLAG NO; Mean Corpuscular HGB Conc 30.6 g/dl (31.0-36.0); Mean Corpuscular Hemoglobin 28.1 pg (27.0-33.0); Mean Corpuscular Volume 91.8 fL (80.0-98.0); Mean Platelet Volume 11.7 fL (9.4-12.4); Monocytes Absolute Auto 1.2 X10*3/uL (0.1-1.2); Monocytes Percent Auto 10.1 % (2-11); Neutrophils Percent Auto 67.7 % (45-73); Platelet Count 238 X10*3/uL (160-400); Red Blood Count 3.88 X10*6/uL (4.60-5.80); White Blood Count 11.7 X10*3/uL (4.8-10.8)
--- NOTE | 2022-09-07 21:20 | ED.WEAKNESS ---
HPI - Weakness General Chief complaint: Weakness Stated complaint: weakness Time Seen by Provider: 09/07/22 21:16 Mode of arrival: EMS Limitations: no limitations History of Present Illness HPI Narrative: Patient is 72 years old with history of COPD on 2 L of oxygen, schizophrenia, hyperlipidemia comes here for increased weakness poor oral intake patient was diagnosed with patchy pneumonia 1 week ago discharged on Ceftin and Zithromax and prednisone on 08/28. on arrival patient is saturating 94% on 2 L temperature of 99.2 Related Data Home Medications Medication Instructions Recorded Confirmed betamethasone dipropionate 0.05 % topical 01/10/21 09/05/22 topical ointment aspirin 81 mg tablet,delayed 1 tab PO DAILY 08/26/22 09/05/22 release cholecalciferol (vitamin D3) 25 1 tab PO DAILY 08/26/22 09/05/22 mcg (1,000 unit) tablet clonazepam 0.5 mg tablet 1 tab PO BID PRN Anxiety 08/26/22 09/05/22 clozapine 100 mg tablet 3 tab PO BEDTIME 08/26/22 09/05/22 donepezil 10 mg tablet 1 tab PO DAILY 08/26/22 09/05/22 fluticasone furoate 200 1 puff inhalation DAILY 08/26/22 09/05/22 mcg-vilanterol 25 mcg/dose inhalation powder (Breo Ellipta) gemfibrozil 600 mg tablet 1 tab PO BID 08/26/22 09/05/22 ketoconazole 2 % shampoo 1 appl topical DAILY 08/26/22 09/05/22 lisinopril 2.5 mg tablet 1 tab PO DAILY 08/26/22 09/05/22 memantine 10 mg tablet 1 tab PO BID 08/26/22 09/05/22 metformin 500 mg tablet 1 tab PO BID 08/26/22 09/05/22 methylcellulose 1,000 mg PO BID 08/26/22 09/05/22 simvastatin 40 mg tablet 1 tab PO BEDTIME 08/26/22 09/05/22 sucralfate 1 gram tablet 1 tab PO TID 08/26/22 09/05/22 venlafaxine 150 mg tablet,extended 1 tab PO DAILY 08/26/22 09/05/22 release 24 hr Previous Rx's Medication Instructions Recorded 4-PRONGED CANE #1 ea 04/08/21 nicotine (polacrilex) 4 mg buccal 4 mg buccal Q2H nicotine cravings 04/08/21 mini lozenge 30 days #300 ea FreeStyle Lite Strips (blood sugar #100 ea 12/28/21 diagnostic) blood sugar diagnostic #100 ea 12/29/21 blood-glucose meter #1 ea 12/29/21 lancets 28 gauge (Prodigy Lancets) #100 ea 12/29/21 Breo Ellipta 200 mcg-25 mcg/dose 1 ea PO DAILY #60 ea 08/18/22 powder for inhalation (fluticasone furoate-vilanterol) Allergies Allergy/AdvReac Type Severity Reaction Status Date / Time No Known Allergies Allergy Verified 09/05/22 14:02 [No Known Allergies*] Review of Systems Review of Systems: Yes all other systems are reviewed and are negative COUNT INCLUDES THE [facility] Past Medical History Medical History Alzheimer's dementia without behavioral disturbance Anxiety COPD (chronic obstructive pulmonary disease) Dementia Depression Gait instability Hearing impairment History of COPD Hyperlipidemia Hypertension Hypoxia Nocturnal hypoxia Obesity (BMI 30-39.9) Overweight (BMI 25.0-29.9) Pure hypercholesterolemia Schizophrenia Schizophrenia Screening for diabetes mellitus Seborrheic dermatitis of scalp Smoker Type 2 diabetes mellitus without complication Vitamin D deficiency Weakness Surgical History H/O colonoscopy History of appendectomy No pertinent past surgical history Family History Family History Father Cancer Mother No problems noted. Brother Substance abuse Other Alcohol abuse Social History Social History Household Members: None Housing: Assisted Living Facility Housing Other:: Care Home Do you presently have visiting nurse or other home services: No Alcohol intake: never Patient Tobacco Use Status: Former Tobacco user Tobacco use type: Cigarette Cigarettes Per Day: 3 e-Cigarette/Vaping Use: Never Used Second Hand Smoke Exposure: Yes Advance Directives: No Advance Directives Information Provided: No service: No Current occupational status: disabled and other Cognitive needs: Yes (walker) Hearing needs: Yes Vision needs: Yes Physical Exam Vital Signs: Vital Signs: Last Vital Signs Temp 98.7 F 01/05/23 23:40 Pulse 79 09/07/22 23:40 Resp 18 09/07/22 23:40 BP 156/73 H 09/07/22 23:40 Pulse Ox 95 09/07/22 23:40 O2 Del Method 09/07/22 23:40 O2 Flow Rate 2 09/07/22 23:40 Oxygen Flow Rate 2 09/07/22 20:39 BMI result Body Mass Index 27.3 Appearance: Alert. Oriented X3. No acute distress. Eyes: PERRLA, No Nystagmus ENT: Pharynx normal. Oral Mucosa moist Neck: Normal inspection. Neck supple. CVS: Normal heart rate and rhythm. Pulses normal. Respiratory: No respiratory distress. Equal air entry bilateral, no wheezing/rales/rhonchi Abdomen: Soft and nontender. Bowel sounds are present, no mass palpable, no CVA tenderness Skin: Skin warm and dry. Normal skin color. Normal skin turgor. Extremities: No lower extremity edema. No calf tenderness Neuro: Oriented X 3. No motor deficit. No sensory deficit.No cerebellar signs , cranial nerves II-XII intact Medications Administered Discontinued Medications Generic Name Dose Route Start Last Admin Trade Name Freq PRN Reason Stop Dose Admin Sodium Chloride 1,000 mls @ 999 mls/hr 09/07/22 21:34 09/07/22 22:30 Ns IV 09/07/22 22:34 999 mls/hr .Q1H1M ONE Administration Piperacillin Sod/Tazobactam 50 mls @ 100 mls/hr 09/07/22 22:26 09/07/22 22:34 Sod 3.375 gm/ Sodium Chloride IV 09/07/22 22:55 100 mls/hr ONCE ONE Administration Medical Decision Making Medical Decision Making [facility] Narrative: Patient has stable labs CT chest negative for pneumonia vital stable discharge patient back to senior care continue his medication as prescribed Lab Data [facility] Lab Attestation statement: I reviewed the patient's lab results. 09/07/22 21:01 09/07/22 21:01 Labs: Lab Results 09/07/22 09/07/22 09/07/22 Range/Units 21:01 21:01 21:01 WBC 11.7 H (4.8-10.8) X10*3/uL RBC 3.88 L (4.60-5.80) X10*6/uL Hgb 10.9 L (14.0-18.0) g/dl Hct 35.6 L (42.0-52.0) % MCV 91.8 (80.0-98.0) fL MCH 28.1 (27.0-33.0) pg MCHC 30.6 L (31.0-36.0) g/dl RDW 14.0 (11.0-16.0) % Plt Count 238 D (160-400) X10*3/uL MPV 11.7 (9.4-12.4) fL Immature Gran % (Auto) 0.7 H (0.0-0.4) % Neut % (Auto) 67.7 (45-73) % Lymph % (Auto) 20.1 (20-40) % [place] % (Auto) 10.1 (2-11) % Eos % (Auto) 1.2 (0-4) % Baso % (Auto) 0.2 (0-2) % Lymph # (Auto) 2.4 (1.2-4.9) X10*3/uL [place] # (Auto) 1.2 (0.1-1.2) X10*3/uL Eos # (Auto) 0.1 (0.0-0.4) X10*3/uL Baso # (Auto) 0.0 (0.0-0.2) X10*3/uL Abs Immat Gran (auto) 0.08 H (0.00-0.03) X10*3/uL Absolute Neuts (auto) 8.0 (2.0-8.3) x10*3/uL Absolute Nucleated RBC 0.000 (0.0-0.012) X10*3/uL Nucleated RBC % (auto) 0.0 (0.0-0.2) /100WBC Sodium 144 (135-145) mmol/L Potassium 4.8 (3.3-5.1) mmol/L Chloride 106 (96-108) mmol/L Carbon Dioxide 28 (22-29) mmol/L Anion Gap 15 (12-20) BUN 14 (9-16) mg/dL Creatinine 0.83 (0.5-1.4) mg/dL Estim Creat Clear Calc 78.9 Estimated GFR > 60 Random Glucose 127 H (60-115) mg/dL Lactic Acid (0.5-2.0) mmol/L Calcium 8.5 (8.4-10.2) mg/dL Total Bilirubin 0.5 (0.0-1.0) mg/dL AST 24 (5-37) U/L ALT 19 (0-40) U/L Alkaline Phosphatase 83 (39-117) U/L Troponin I High Sens (<3.5-35.0) ng/L Total Protein 6.4 L (6.5-8.0) g/dL Albumin 3.6 (3.5-5.0) g/dL Influenza Type A (PCR) NEGATIVE (Negative) Influenza Type B (PCR) NEGATIVE (Negative) RSV RNA Qual (PCR) NEGATIVE (Negative) SARS-CoV-2 RNA (RT-PCR) NEGATIVE (Negative) 09/07/22 09/07/22 Range/Units 21:01 21:01 WBC (4.8-10.8) X10*3/uL RBC (4.60-5.80) X10*6/uL Hgb (14.0-18.0) g/dl Hct (42.0-52.0) % MCV (80.0-98.0) fL MCH (27.0-33.0) pg MCHC (31.0-36.0) g/dl RDW (11.0-16.0) % Plt Count (160-400) X10*3/uL MPV (9.4-12.4) fL Immature Gran % (Auto) (0.0-0.4) % Neut % (Auto) (45-73) % Lymph % (Auto) (20-40) % [place] % (Auto) (2-11) % Eos % (Auto) (0-4) % Baso % (Auto) (0-2) % Lymph # (Auto) (1.2-4.9) X10*3/uL [place] # (Auto) (0.1-1.2) X10*3/uL Eos # (Auto) (0.0-0.4) X10*3/uL Baso # (Auto) (0.0-0.2) X10*3/uL Abs Immat Gran (auto) (0.00-0.03) X10*3/uL Absolute Neuts (auto) (2.0-8.3) x10*3/uL Absolute Nucleated RBC (0.0-0.012) X10*3/uL Nucleated RBC % (auto) (0.0-0.2) /100WBC Sodium (135-145) mmol/L Potassium (3.3-5.1) mmol/L Chloride (96-108) mmol/L Carbon Dioxide (22-29) mmol/L Anion Gap (12-20) BUN (9-16) mg/dL Creatinine (0.5-1.4) mg/dL Estim Creat Clear Calc Estimated GFR Random Glucose (60-115) mg/dL Lactic Acid 0.8 (0.5-2.0) mmol/L Calcium (8.4-10.2) mg/dL Total Bilirubin (0.0-1.0) mg/dL AST (5-37) U/L ALT (0-40) U/L Alkaline Phosphatase (39-117) U/L Troponin I High Sens 21.3 (<3.5-35.0) ng/L Total Protein (6.5-8.0) g/dL Albumin (3.5-5.0) g/dL Influenza Type A (PCR) (Negative) Influenza Type B (PCR) (Negative) RSV RNA Qual (PCR) (Negative) SARS-CoV-2 RNA (RT-PCR) (Negative) Discharge Plan Discharge Clinical Impression: Weakness Patient Disposition: Home, Self-Care Instructions: Weakness (ED) Additional Instructions: CT scan of the chest negative for acute pneumonia Continue medication as prescribed COVID/influenza/RSV negative Prescriptions: No Action (DME) FreeStyle Lite Strips Strip See Rx Instructions .Route Qty: 100 5RF Rx Instructions: As directed- to test blood sugar once a day (DME) lancets [Prodigy Lancets] 28 gauge misc See Rx Instructions .Route Qty: 100 3RF Rx Instructions: To test once a day (DME) blood sugar diagnostic Strip See Rx Instructions .Route Qty: 100 3RF Rx Instructions: To test once a day (DME) blood-glucose meter Misc See Rx Instructions .Route Qty: 1 0RF Rx Instructions: To test blood sugar daily fluticasone furoate-vilanterol [Breo Ellipta] 200-25 mcg/dose blister with device 1 ea PO DAILY Qty: 60 0RF ketoconazole 2 % shampoo 1 appl topical DAILY clozapine 100 mg tablet 3 tab PO BEDTIME sucralfate 1 gram tablet 1 tab PO TID clonazepam 0.5 mg tablet 1 tab PO BID PRN (Reason: Anxiety) aspirin 81 mg tablet,delayed release (DR/EC) 1 tab PO DAILY simvastatin 40 mg tablet 1 tab PO BEDTIME gemfibrozil 600 mg tablet 1 tab PO BID lisinopril 2.5 mg tablet 1 tab PO DAILY memantine 10 mg tablet 1 tab PO BID cholecalciferol (vitamin D3) 25 mcg (1,000 unit) tablet 1 tab PO DAILY venlafaxine 150 mg tablet extended release 24hr 1 tab PO DAILY fluticasone furoate-vilanterol [Breo Ellipta] 200-25 mcg/dose blister with device 1 puff inhalation DAILY methylcellulose 1,000 mg 1,000 mg PO BID donepezil 10 mg tablet 1 tab PO DAILY metformin 500 mg tablet 1 tab PO BID (DME) 4-PRONGED CANE See Rx Instructions .Route .MEDSUPPLY Qty: 1 0RF Rx Instructions: As directed nicotine (polacrilex) 4 mg mini lozenge 4 mg buccal Q2H 30 Days Qty: 300 3RF betamethasone dipropionate 0.05 % ointment topical
[2022-09-07 21:51] LABS: Influenza A PCR NEGATIVE (Negative); Influenza B PCR NEGATIVE (Negative); Resp Syncy Virus RNA Qual PCR NEGATIVE (Negative); SARS COV2 PCR INHOUSE NEGATIVE (Negative)
[2022-09-07 21:58] LABS: Lactic Acid 0.8 mmol/L (0.5-2.0)
[2022-09-07 22:02] LABS: Alanine Aminotransferase 19 U/L (0-40); Albumin Level 3.6 g/dL (3.5-5.0); Alkaline Phosphatase 83 U/L (39-117); Anion Gap 15 (12-20); Aspartate Amino Transferase 24 U/L (5-37); Bilirubin Total 0.5 mg/dL (0.0-1.0); Blood Urea Nitrogen 14 mg/dL (9-16); Calcium 8.5 mg/dL (8.4-10.2); Carbon Dioxide 28 mmol/L (22-29); Chloride 106 mmol/L (96-108); Creatinine Clr Calc Pharmacy 78.9; Estimated Glomerular Filt Rate > 60; Glucose Random 127 mg/dL (60-115); Potassium 4.8 mmol/L (3.3-5.1); Sodium 144 mmol/L (135-145); Total Protein 6.4 g/dL (6.5-8.0)
[2022-09-07 22:05] LABS: Troponin-I High Sensitivity 21.3 ng/L (<3.5-35.0)
[2022-09-07] MEDS: 0.9 % Sodium Chloride 1,000 ML 999 ML IV (22:30)
[2022-09-07] MEDS: Piperacillin Sodium/Tazobactam 3.375 GM in 0.9 % Sodium Chloride 50 ML IV (22:34)
[2022-09-07 22:35] VITALS: BP 150/81; PULSE 81; RESP 23; TEMP 37.1; O2SAT 97
[2022-09-07 23:14] VITALS: BP 148/66; PULSE 82; RESP 18; TEMP 37.1; O2SAT 96
[2022-09-07 23:40] VITALS: BP 156/73; PULSE 79; RESP 18; TEMP 37.1; O2SAT 95
--- NOTE | 2022-09-08 03:14 | PC.NURSE ---
Pt picked up by [facility] for transport to [facility]. RN gave hand off report to Vinh who verbalized understanding of discharge instructions.
== END 2022-09-08 03:16 | disposition home or self-care (01) ==
PROVIDERS: Emergency Provider Internal Medicine; PCP Internal Medicine
DX: R53.1 Weakness (principal); J44.9 Chronic obstructive pulmonary disease, unspecified; M54.6 Pain in thoracic spine; R06.02 Shortness of breath; Z20.822 Contact with and (suspected) exposure to COVID-19; Z99.81 Dependence on supplemental oxygen; Z79.899 Other long term (current) drug therapy; Z87.891 Personal history of nicotine dependence
CPT/HCPCS: 0241U; 36415; 71045; 71250; 80053; 83605; 84484; 85025; 87040; 93005; 96374; 99284; J2543

== ENCOUNTER 2022-09-13 12:53 | Outpatient (REF) | payer MEDICARE, MEDICAID, SELFPAY ==
[2022-09-13 13:57] LABS: MANUAL DIFF FLAG NO
[2022-09-13 14:09] LABS: Basophils Percent Auto 0.4 % (0-2); Eosinophils Absolute Auto 0.1 X10*3/uL (0.0-0.4); Eosinophils Percent Auto 1.4 % (0-4); Hematocrit 37.3 % (42.0-52.0); Hemoglobin 11.3 g/dl (14.0-18.0); Imm Gran Abs Auto 0.02 X10*3/uL (0.00-0.03); Imm Gran Pct Auto 0.3 % (0.0-0.4); Lymphocytes Percent Auto 28.8 % (20-40); Mean Corpuscular HGB Conc 30.3 g/dl (31.0-36.0); Mean Corpuscular Hemoglobin 27.5 pg (27.0-33.0); Mean Corpuscular Volume 90.8 fL (80.0-98.0); Mean Platelet Volume 10.7 fL (9.4-12.4); Monocytes Absolute Auto 0.6 X10*3/uL (0.1-1.2); Monocytes Percent Auto 8.9 % (2-11); Neutrophils Absolute Auto 4.2 x10*3/uL (2.0-8.3); Neutrophils Percent Auto 60.2 % (45-73); Platelet Count 364 X10*3/uL (160-400); Red Blood Count 4.11 X10*6/uL (4.60-5.80); Red Cell Distribution Width 13.4 % (11.0-16.0)
== END 2022-09-13 12:54 | disposition home or self-care (01) ==
LOC: HO.HMGCLDS 12:53
PROVIDERS: PCP Internal Medicine; Visit Provider Psychiatry & Neurology Psychiatry
DX: Z79.899 Other long term (current) drug therapy (principal)
CPT/HCPCS: 36415; 85025

== ENCOUNTER 2022-10-17 13:08 | Outpatient (REF) | payer MEDICARE, MEDICAID, SELFPAY ==
[2022-10-17 14:15] LABS: MANUAL DIFF FLAG NO
[2022-10-17 14:21] LABS: Basophils Percent Auto 0.4 % (0-2); Eosinophils Absolute Auto 0.2 X10*3/uL (0.0-0.4); Eosinophils Percent Auto 2.7 % (0-4); Hematocrit 38.2 % (42.0-52.0); Hemoglobin 11.9 g/dl (14.0-18.0); Imm Gran Abs Auto 0.04 X10*3/uL (0.00-0.03); Imm Gran Pct Auto 0.5 % (0.0-0.4); Lymphocytes Absolute Auto 2.4 X10*3/uL (1.2-4.9); Mean Corpuscular HGB Conc 31.2 g/dl (31.0-36.0); Mean Corpuscular Volume 89.9 fL (80.0-98.0); Mean Platelet Volume 12.4 fL (9.4-12.4); Monocytes Absolute Auto 0.7 X10*3/uL (0.1-1.2); Monocytes Percent Auto 9.2 % (2-11); Neutrophils Percent Auto 54.2 % (45-73); Platelet Count 219 X10*3/uL (160-400); Red Blood Count 4.25 X10*6/uL (4.60-5.80); Red Cell Distribution Width 14.6 % (11.0-16.0); White Blood Count 7.4 X10*3/uL (4.8-10.8)
[2022-10-20 17:53] LABS: Clozapine (Clozaril) 465 mcg/L; Norclozapine 198 mcg/L (25-400)
== END 2022-10-17 13:09 | disposition home or self-care (01) ==
LOC: HO.HMGCLR 13:08
PROVIDERS: PCP Internal Medicine; Visit Provider Psychiatry & Neurology Psychiatry
DX: Z79.899 Other long term (current) drug therapy (principal)
CPT/HCPCS: 36415; 80159; 85025

== ENCOUNTER → 2022-11-15 13:58 | Outpatient (BNVA) | payer MEDICARE, MEDICAID, SELFPAY | PROVIDERS: PCP Internal Medicine; Visit Provider Internal Medicine | DX: J44.9 Chronic obstructive pulmonary disease, unspecified (principal); R91.1 Solitary pulmonary nodule; R09.02 Hypoxemia; F20.9 Schizophrenia, unspecified; F03.90 Unspecified dementia, unspecified severity, without behavioral disturbance, psychotic disturbance, mood disturbance, and anxiety; F17.210 Nicotine dependence, cigarettes, uncomplicated | CPT/HCPCS: 99212 ==

== ENCOUNTER 2022-11-16 14:07 | Outpatient (REF) | payer MEDICARE, MEDICAID, SELFPAY ==
--- NOTE | ~2022-11-16 | XR_ITS ---
EXAMINATION: XR CHEST CLINICAL INFORMATION: Pneumonia follow-up COMPARISON: 09/07/2022 TECHNIQUE: 2 views of the chest were obtained. FINDINGS: The lungs are well expanded. There is no focal consolidation, edema, or effusion. Resolution of the prior left lower lung opacity. No pneumothorax. The cardiomediastinal silhouette is within normal limits of size with a calcified aorta. No acute osseous abnormality. Degenerative changes of the spine. XR/XR chest 2V IMPRESSION: Clear lungs. Resolution of the prior left lower lung opacity.
[2022-11-16 16:38] LABS: MANUAL DIFF FLAG NO
[2022-11-16 16:41] LABS: Basophils Percent Auto 0.3 % (0-2); Eosinophils Absolute Auto 0.2 X10*3/uL (0.0-0.4); Eosinophils Percent Auto 2.9 % (0-4); Hemoglobin 11.8 g/dl (14.0-18.0); Imm Gran Abs Auto 0.03 X10*3/uL (0.00-0.03); Imm Gran Pct Auto 0.4 % (0.0-0.4); Lymphocytes Absolute Auto 2.2 X10*3/uL (1.2-4.9); Lymphocytes Percent Auto 32.4 % (20-40); Mean Corpuscular HGB Conc 31.1 g/dl (31.0-36.0); Mean Corpuscular Hemoglobin 27.8 pg (27.0-33.0); Mean Corpuscular Volume 89.4 fL (80.0-98.0); Mean Platelet Volume 12.4 fL (9.4-12.4); Monocytes Absolute Auto 0.6 X10*3/uL (0.1-1.2); Monocytes Percent Auto 8.2 % (2-11); Neutrophils Absolute Auto 3.9 x10*3/uL (2.0-8.3); Neutrophils Percent Auto 55.8 % (45-73); Platelet Count 208 X10*3/uL (160-400); Red Blood Count 4.25 X10*6/uL (4.60-5.80); Red Cell Distribution Width 14.6 % (11.0-16.0); White Blood Count 6.9 X10*3/uL (4.8-10.8)
== END 2022-11-16 14:08 | disposition home or self-care (01) ==
LOC: HO.HMGCX 14:07
PROVIDERS: Absent Provider Internal Medicine; PCP Internal Medicine; Visit Provider Psychiatry & Neurology Psychiatry
DX: J18.9 Pneumonia, unspecified organism (principal); Z79.899 Other long term (current) drug therapy
CPT/HCPCS: 36415; 71046; 85025

== ENCOUNTER 2022-11-28 09:34 | Outpatient (REF) | payer MEDICARE, MEDICAID, SELFPAY ==
[2022-11-28 11:44] LABS: MANUAL DIFF FLAG NO
[2022-11-28 12:00] LABS: Basophils Percent Auto 0.5 % (0-2); Eosinophils Absolute Auto 0.2 X10*3/uL (0.0-0.4); Eosinophils Percent Auto 2.3 % (0-4); Hematocrit 40.6 % (42.0-52.0); Hemoglobin 12.4 g/dl (14.0-18.0); Imm Gran Abs Auto 0.04 X10*3/uL (0.00-0.03); Imm Gran Pct Auto 0.6 % (0.0-0.4); Lymphocytes Absolute Auto 2.6 X10*3/uL (1.2-4.9); Lymphocytes Percent Auto 39.5 % (20-40); Mean Corpuscular HGB Conc 30.5 g/dl (31.0-36.0); Mean Corpuscular Hemoglobin 27.7 pg (27.0-33.0); Mean Corpuscular Volume 90.6 fL (80.0-98.0); Mean Platelet Volume 12.7 fL (9.4-12.4); Monocytes Absolute Auto 0.6 X10*3/uL (0.1-1.2); Monocytes Percent Auto 9.4 % (2-11); Neutrophils Absolute Auto 3.1 x10*3/uL (2.0-8.3); Neutrophils Percent Auto 47.7 % (45-73); Platelet Count 203 X10*3/uL (160-400); Red Blood Count 4.48 X10*6/uL (4.60-5.80); Red Cell Distribution Width 14.8 % (11.0-16.0); White Blood Count 6.5 X10*3/uL (4.8-10.8)
[2022-11-28 12:14] LABS: Estimated Average Glucose 114 mg/dL; Hemoglobin A1c % 5.6 %
[2022-11-28 13:23] LABS: Alanine Aminotransferase 32 U/L (0-40); Albumin Level 4.5 g/dL (3.5-5.0); Alkaline Phosphatase 113 U/L (39-117); Anion Gap 16 (12-20); Aspartate Amino Transferase 31 U/L (5-37); Bilirubin Total 0.4 mg/dL (0.0-1.0); Blood Urea Nitrogen 21 mg/dL (9-16); Calcium 9.7 mg/dL (8.4-10.2); Carbon Dioxide 24 mmol/L (22-29); Chloride 109 mmol/L (96-108); Cholesterol 160 mg/dL; Estimated Glomerular Filt Rate > 60; Glucose Fasting 128 mg/dL (60-99); HDL Cholesterol 41 mg/dL; LDL Cholesterol Calculated 93 mg/dl; Potassium 4.8 mmol/L (3.3-5.1); Sodium 144 mmol/L (135-145); Total Protein 7.1 g/dL (6.5-8.0); Triglycerides 131 mg/dL
[2022-11-28 13:51] LABS: Folate 13.6 ng/mL (> or = 4.0); TSH reflex Free T4 2.06 uIU/mL (0.32-4.0); Vitamin B12 258 pg/mL (200-900); Vitamin D 25-OH Total 42.5 ng/mL (>30)
== END 2022-11-28 09:35 | disposition home or self-care (01) ==
LOC: HO.HMGCLDS 09:34
PROVIDERS: PCP Internal Medicine; Visit Provider Internal Medicine
DX: E78.00 Pure hypercholesterolemia, unspecified (principal); E11.9 Type 2 diabetes mellitus without complications; E53.8 Deficiency of other specified B group vitamins; E55.9 Vitamin D deficiency, unspecified; I10 Essential (primary) hypertension
CPT/HCPCS: 36415; 80053; 80061; 82306; 82607; 82746; 83036; 84443; 85025

== ENCOUNTER → 2022-11-29 10:58 | Outpatient (BNVA) | payer MEDICARE, MEDICAID, SELFPAY | PROVIDERS: PCP Internal Medicine; Referring Provider Internal Medicine; Visit Provider Nurse Practitioner | DX: K58.0 Irritable bowel syndrome with diarrhea (principal); R13.10 Dysphagia, unspecified | CPT/HCPCS: 99212 ==

== ENCOUNTER 2022-12-26 13:00 | Outpatient (REF) | payer MEDICARE, MEDICAID, SELFPAY ==
[2022-12-26 13:56] LABS: MANUAL DIFF FLAG NO
[2022-12-26 14:08] LABS: Basophils Percent Auto 0.3 % (0-2); Eosinophils Absolute Auto 0.1 X10*3/uL (0.0-0.4); Eosinophils Percent Auto 1.3 % (0-4); Hematocrit 38.6 % (42.0-52.0); Imm Gran Abs Auto 0.03 X10*3/uL (0.00-0.03); Imm Gran Pct Auto 0.5 % (0.0-0.4); Lymphocytes Absolute Auto 2.1 X10*3/uL (1.2-4.9); Lymphocytes Percent Auto 33.2 % (20-40); Mean Corpuscular HGB Conc 31.1 g/dl (31.0-36.0); Mean Corpuscular Hemoglobin 27.6 pg (27.0-33.0); Mean Corpuscular Volume 88.9 fL (80.0-98.0); Mean Platelet Volume 12.2 fL (9.4-12.4); Monocytes Absolute Auto 0.7 X10*3/uL (0.1-1.2); Monocytes Percent Auto 10.5 % (2-11); Neut%MD 54.2 %; Neutrophils Absolute Auto 3.4 x10*3/uL (2.0-8.3); Neutrophils Percent Auto 54.2 % (45-73); Platelet Count 219 X10*3/uL (160-400); Red Blood Count 4.34 X10*6/uL (4.60-5.80); Red Cell Distribution Width 14.7 % (11.0-16.0); WBCANC 6.2 X10*3/uL; White Blood Count 6.2 X10*3/uL (4.8-10.8)
== END 2022-12-26 13:01 | disposition home or self-care (01) ==
LOC: HO.HMGCLDS 13:00
PROVIDERS: Visit Provider Psychiatry & Neurology Psychiatry
DX: Z79.899 Other long term (current) drug therapy (principal)
CPT/HCPCS: 36415; 85025

== ENCOUNTER → 2022-12-27 11:16 | Outpatient (BNVA) | payer MEDICARE, MEDICAID, SELFPAY | PROVIDERS: PCP Internal Medicine; Visit Provider Nurse Practitioner | DX: K58.0 Irritable bowel syndrome with diarrhea (principal); R15.9 Full incontinence of feces; R13.10 Dysphagia, unspecified | CPT/HCPCS: 99212 ==

== ENCOUNTER 2023-01-17 13:33 | Outpatient (REF) | payer MEDICARE, MEDICAID, SELFPAY ==
[2023-01-17 16:54] LABS: MANUAL DIFF FLAG NO
[2023-01-17 17:28] LABS: Basophils Percent Auto 0.3 % (0-2); Eosinophils Absolute Auto 0.1 X10*3/uL (0.0-0.4); Eosinophils Percent Auto 1.4 % (0-4); Hematocrit 37.9 % (42.0-52.0); Hemoglobin 11.8 g/dl (14.0-18.0); Imm Gran Abs Auto 0.04 X10*3/uL (0.00-0.03); Imm Gran Pct Auto 0.6 % (0.0-0.4); Lymphocytes Absolute Auto 2.6 X10*3/uL (1.2-4.9); Lymphocytes Percent Auto 35.2 % (20-40); Mean Corpuscular HGB Conc 31.1 g/dl (31.0-36.0); Mean Corpuscular Hemoglobin 27.6 pg (27.0-33.0); Mean Corpuscular Volume 88.6 fL (80.0-98.0); Mean Platelet Volume 12.2 fL (9.4-12.4); Monocytes Absolute Auto 0.7 X10*3/uL (0.1-1.2); Monocytes Percent Auto 9.9 % (2-11); Neutrophils Absolute Auto 3.8 x10*3/uL (2.0-8.3); Neutrophils Percent Auto 52.6 % (45-73); Platelet Count 222 X10*3/uL (160-400); Red Blood Count 4.28 X10*6/uL (4.60-5.80); Red Cell Distribution Width 14.6 % (11.0-16.0); White Blood Count 7.3 X10*3/uL (4.8-10.8)
[2023-01-23 07:43] LABS: Clozapine (Clozaril) 169 mcg/L; Norclozapine 92 mcg/L (25-400)
== END 2023-01-17 13:34 | disposition home or self-care (01) ==
LOC: HO.HMGCLR 13:33
PROVIDERS: PCP Internal Medicine; Visit Provider Psychiatry & Neurology Psychiatry
DX: Z79.899 Other long term (current) drug therapy (principal)
CPT/HCPCS: 36415; 80159; 85025

== ENCOUNTER 2023-01-30 13:02 | Outpatient (REF) | payer MEDICARE, MEDICAID, SELFPAY | END 2023-01-30 13:03 | disposition home or self-care (01) | LOC: HO.HAP 13:02 | PROVIDERS: Visit Provider Internal Medicine | DX: Z46.1 Encounter for fitting and adjustment of hearing aid (principal); H90.3 Sensorineural hearing loss, bilateral | CPT/HCPCS: V5011; V5020; V5241; V5256; V5266 ==

== ENCOUNTER 2023-02-13 12:50 | Outpatient (REF) | payer MEDICARE, MEDICAID, SELFPAY ==
[2023-02-13 14:23] LABS: MANUAL DIFF FLAG NO
[2023-02-13 14:37] LABS: Basophils Percent Auto 0.3 % (0-2); Eosinophils Absolute Auto 0.1 X10*3/uL (0.0-0.4); Eosinophils Percent Auto 1.8 % (0-4); Hematocrit 36.5 % (42.0-52.0); Hemoglobin 11.3 g/dl (14.0-18.0); Imm Gran Abs Auto 0.03 X10*3/uL (0.00-0.03); Imm Gran Pct Auto 0.5 % (0.0-0.4); Lymphocytes Absolute Auto 2.4 X10*3/uL (1.2-4.9); Lymphocytes Percent Auto 37.8 % (20-40); Mean Corpuscular Hemoglobin 28.4 pg (27.0-33.0); Mean Corpuscular Volume 91.7 fL (80.0-98.0); Mean Platelet Volume 12.9 fL (9.4-12.4); Monocytes Absolute Auto 0.8 X10*3/uL (0.1-1.2); Monocytes Percent Auto 12.5 % (2-11); Neutrophils Absolute Auto 2.9 x10*3/uL (2.0-8.3); Neutrophils Percent Auto 47.1 % (45-73); Platelet Count 196 X10*3/uL (160-400); Red Blood Count 3.98 X10*6/uL (4.60-5.80); Red Cell Distribution Width 14.3 % (11.0-16.0); White Blood Count 6.2 X10*3/uL (4.8-10.8)
== END 2023-02-13 12:51 | disposition home or self-care (01) ==
LOC: HO.HMGCLR 12:50
PROVIDERS: PCP Internal Medicine; Visit Provider Psychiatry & Neurology Psychiatry
DX: Z79.899 Other long term (current) drug therapy (principal)
CPT/HCPCS: 36415; 85025

== ENCOUNTER → 2023-02-28 12:51 | Outpatient (BNVA) | payer MEDICARE, MEDICAID, SELFPAY | PROVIDERS: PCP Internal Medicine; Visit Provider Nurse Practitioner | DX: K58.0 Irritable bowel syndrome with diarrhea (principal); R15.9 Full incontinence of feces; R13.10 Dysphagia, unspecified | CPT/HCPCS: 99212 ==

== ENCOUNTER 2023-03-07 15:07 | Outpatient (AMB) | payer MEDICARE, MEDICAID, SELFPAY ==
[2023-03-07 15:18] VITALS: BP 118/82; PULSE 90; O2SAT 95
--- NOTE | 2023-03-07 15:18 | MHC.PC.OV ---
Vital Signs 03/07/23 15:18 Height 5 ft 8 in Weight 197 lb BMI 30.0 BP 118/82 Blood Pressure Location Lt brachial Position Sitting Pulse 90 Pulse Source Pulse Oximeter Pulse Oximetry (%) 95 Oxygen Delivery Method Room Air Intake Visit Reasons: COPD, hyperlipidemia, DM Sales Analytics Manager Required: No Accompanied by: Self / Same As Patient Allergies No Known Allergies [No Known Allergies*] Allergy (Verified 09/05/23 13:32) Medication List - Last Reconciled 03/07/23 by Alex Salazar MD [4-PRONGED CANE As directed] [adult pull ups As directed] aspirin 81 mg PO DAILY 90 days betamethasone dipropionate 0.05% topical blood sugar diagnostic To test once a day blood-glucose meter To test blood sugar daily Breo Ellipta 200-25 mcg/dose (fluticasone furoate-vilanterol) 1 ea PO DAILY NS cholecalciferol (vitamin D3) 1 tab PO DAILY clonazepam 0.5 mg PO BID clozapine 300 mg PO BEDTIME donepezil 10 mg PO DAILY FreeStyle Lite Strips (blood sugar diagnostic) As directed- to test blood sugar once a day NS gemfibrozil 600 mg PO BID ketoconazole 2% 1 appl topical DAILY lancets (MD.Voicey Lancets) To test once a day lisinopril 2.5 mg PO DAILY memantine 10 mg PO BID metformin 500 mg PO BID methylcellulose (laxative) (Citrucel) 1,000 mg (2 x 500 mg) PO BID 30 days rifaximin (Xifaxan) 550 mg PO BID simvastatin 40 mg PO BEDTIME sucralfate 1 g PO TID venlafaxine ER 150 mg PO DAILY zinc oxide 40% (Diaper Rash) 1 appl topical BID-QID PRN Tobacco use date assessed: 03/07/23 Fall risk assessment: 2 + Falls in past year Last assessed Fall Risk: 03/07/23 Dental Screening Dental Screen Date: 03/07/23 Did you have a dental visit in the last 12 months?: No Did you have a dental problem in the last 6 months where you did not have access to dental care?: No Was dental information given to patient?: Patient has dentist HPI COPD, hyperlipidemia, DM HPI Details Patient comes in today for his follow up visit - is accompanied again by his ANALYST GEOCHEMICAL PROSPECTING ANALYST GEOCHEMICAL PROSPECTING states that patient has been doing well overall; his memory is still mostly the same and he still has periods of on and off confusion Patient states that he feels okay He denies any headaches or dizziness Denies any chest pains, no increased SOB No nausea/vomiting, no abdominal pain No change in bowel habits noted ANALYST GEOCHEMICAL PROSPECTING states that patient often ends up falling when he tries to go up the stairs at his residence Would like to get Rx for some Ibuprofen to take as needed for pain He was not able to get his follow up labs done recently but his ANALYST GEOCHEMICAL PROSPECTING recalls that his psychiatrist sent him for some CBC a few weeks ago [facility] Medical History Dementia Schizophrenia Nocturnal hypoxia Hyperlipidemia Hypertension History of COPD Screening for diabetes mellitus Obesity (BMI 30-39.9) COPD (chronic obstructive pulmonary disease) Hypoxia Weakness Gait instability Hearing impairment Overweight (BMI 25.0-29.9) Smoker Depression Anxiety Schizophrenia Vitamin D deficiency Seborrheic dermatitis of scalp Alzheimer's dementia without behavioral disturbance Pure hypercholesterolemia Type 2 diabetes mellitus without complication Surgical History No pertinent past surgical history H/O colonoscopy History of appendectomy Family History Father Cancer Mother No problems noted. Brother Substance abuse Other Alcohol abuse Social History Household Members: None Housing: Assisted Living Facility Housing Other:: Halfway Do you presently have visiting nurse or other home services: No Alcohol intake: never Patient Tobacco Use Status: Former Tobacco user Tobacco use type: Cigarette Cigarettes Per Day: 3 e-Cigarette/Vaping Use: Never Used Second Hand Smoke Exposure: Yes service: No Current occupational status: disabled and other Cognitive needs: Yes (walker) Hearing needs: Yes Vision needs: Yes Questionnaire PHQ-9 Over the last 2 weeks, how often have you been bothered by any of the following problems? 1. Little interest or pleasure in doing things: not at all 2. Feeling down, depressed, or hopeless: not at all 3. Trouble falling or staying asleep, or sleeping too much: not at all 4. Feeling tired or having little energy: not at all 5. Poor appetite or overeating: not at all 6. Feeling bad about yourself - or that you are a failure or have let yourself or your family down: not at all 7. Trouble concentrating on things, such as reading the newspaper or watching television: not at all 8. Moving or speaking so slowly that other people could have noticed. Or the opposite - being so fidgety or restless that you have been moving around a lot more than usual: not at all 9. Thoughts that you would be better off or of hurting yourself in some way: not at all Total score: 0 Depression Screening Interpretation: Negative 64764 - PHQ-9 Billing: Yes Source: Developed by Drs. Jose David Kumari, Ada Perez, Roman Winters and colleagues, with an educational claude from [employer]. Thrive Questionnaire Date Thrive assessed: 03/07/23 I am a: Parent/Caregiver What is your living situation today?: I have a steady place to live Within the past 12 months, did the food you bought not last and you didn't have the money to get more?: Never true Within the past 12 months, did you worry whether your food would run out before you got money to buy more?: Never true Do you have trouble paying for medicines?: No Do you have trouble getting transportation to medical appointments?: No Do you have trouble paying your heating and electricity bill?: No Do you have trouble taking care of your child, family member or friend?: No Do you have trouble with day-to-day activities such as bathing, preparing meals, shopping, managing finances, etc.?: No Are you currently unemployed and looking for a job?: No Are you interested in more education?: No Currently or been in a relationship where the following occur: no concerns reported AUDIT C Alcohol Use Questionnaire (AUDIT-C) 1. How often do you have a drink containing alcohol?: Never 3. How often do you have six or more drinks on one occasion?: Never Total Score: 0 Score Reviewed/Action Taken: Yes LYNN-7 AMB Questionnaire LYNN-7 Date LYNN - 7 assessed: 03/07/23 Feeling nervous, anxious, or on edge: 0 = Not at all Not being able to stop or control worryin = Not at all Worrying too much about different things: 0 = Not at all Trouble relaxin = Not at all Being so restless that it is hard to sit still: 0 = Not at all Becoming easily annoyed or irritable: 0 = Not at all Feeling afraid as if something awful might happen: 0 = Not at all Total LYNN-7 score (0-4 normal; 5-9 mild; 10-14 moderate; 15-21 severe): 0 Source: Developed by Drs. Jose David Kumari, Ada Perez, Roman Winters and colleagues, with an educational claude from [employer]. LYNN-7 Assessment Billing LYNN-7 Assessment Tool: LYNN-7 Assessment 78961 Review of Systems Const Details: ROS is obtained primarily from snf staff as patient is limited with his ability to provide information due to his advancing dementia Denies difficulty sleeping, Denies fatigue, Denies fever(s) and Denies headache(s) ENT Details: Reportedly has trouble eating/swallowing only when wearing his dentures Reports dysphagia (only when he is wearing dentures when swallowing ), Denies dizziness, Denies otalgia, Denies headache(s), Denies odynophagia and Denies sore throat Card Denies chest pain, Denies palpitations and Reports dyspnea on exertion (mild) Resp Denies cough, Reports dyspnea on exertion (mild) and Denies wheezing GI Denies abdominal pain, Denies constipation, Reports dysphagia (only when he is wearing dentures when swallowing ), Denies heartburn, Reports fecal incontinence (at times), Denies diarrhea, Denies nausea, Denies odynophagia and Denies vomiting Denies dysuria, Denies nocturia, Denies urinary frequency and Denies urinary incontinence Musc Reports abnormal gait (unstable gait - often trips and falls while going UP stairs, hiram in AM) Neuro Reports abnormal gait (unstable gait - often trips and falls while going UP stairs, hiram in AM), Denies dizziness, Denies headache(s) and Reports memory loss Psych Reports memory loss Endo Denies fatigue and Denies palpitations Aller/Immun Denies wheezing Physical exam (Primary Care) Vital Signs: Last Vital Signs Pulse 90 03/07/23 15:18 BP 118/82 03/07/23 15:18 Pulse Ox 95 03/07/23 15:18 Oxygen Delivery Method Room Air 03/07/23 15:18 BMI result Body Mass Index 30.0 Tobacco/Smoking Status: Tobacco use Status Tobacco use date assessed 03/07/23 03/07/23 15:23 Patient Tobacco Use Status Former Tobacco user 03/07/23 15:23 Tobacco use type Cigarette 03/07/23 15:23 e-Cigarette/Vaping Use Never Used 03/07/23 15:23 PHQ-9: PHQ-9 Score PHQ-9: Total score 0 03/08/23 12:30 Depression Screening Interpretation: Negative Thrive Assessment: Date of Thrive Assessment Date Thrive assessed 03/07/23 03/07/23 15:23 Currently or been in a relationship where the following occur: no concerns reported Const General: no acute distress and alert Orientation/consciousness: oriented to person HENMT Ears: TM's normal bilaterally and EAC's normal Throat: Yes posterior oropharynx normal and Yes tonsils normal (no TP congestion noted) Neck Neck: Yes no lymphadenopathy and Yes supple Resp Auscultation: no rales, rhonchi (occasional, bilaterally), no wheezes and diminished lung sounds (slightly) bilateral Cardio Rate: regular rate Rhythm: regular rhythm Heart sounds: no murmurs GI Palpation (GI): Soft to palpation and nontender Auscultation: normal bowel sounds Neuro General: oriented to person, moves all extremities and no focal motor deficits Extrem General: Yes no clubbing, cyanosis or edema Assessment and Plan Assessment & Plan (1) Pure hypercholesterolemia: Code(s): E78.00 - Pure hypercholesterolemia, unspecified Plan: Patient was not able to get his follow up labs done recently Reinforced low cholesterol diet Continue Simvastatin 40 mg QD and Gemfibrozil 600 mg BID Will recheck his labs and fasting lipids in 3 months for follow up (2) Type 2 diabetes mellitus without complication: Code(s): E11.9 - Type 2 diabetes mellitus without complications Qualifiers: Diabetes mellitus salvage determiner insulin use: without salvage determiner use Qualified Code(s): E11.9 - Type 2 diabetes mellitus without complications Plan: HgbA1c was at 5.6% on his labs done back in November 2022 - goal is <7.0% Reinforced diabetic diet Continue Metformin 500 mg BID; continue Lisinopril 2.5 mg QD for renoprotection Have advised snf staff that they can decrease the frequency of his BP monitoring to 3 times a week instead of daily as patient's diabetes has been well-controlled for a while now (3) COPD (chronic obstructive pulmonary disease): Comment: As per examination and spirometry results he does have severe obstructive airway disorder. Complete PFT was not performed because of his poor attempts. TX: Patient is doing well with the use of Breo-200/25 1 inhalation daily. And advised to continue the same. Use ProAir 2 puffs Q 4-6 hours only p.r.n. or wheezing are persistent cough. * patient is advised to do deep breathing exercises daily, He does have the Incentive Spirometry device at home . Should do deep breathing 10 times morning at noon and in the evening. Code(s): J44.9 - Chronic obstructive pulmonary disease, unspecified Qualifiers: COPD type: unspecified COPD Qualified Code(s): J44.9 - Chronic obstructive pulmonary disease, unspecified Plan: He has been currently doing well with no acute exacerbations Is still on oxygen inhalation at 2 LPM via nasal cannula for when he has recurrent hypoxemia on exertion but is able to take this off now and uses oxygen only as needed Continue Breo Ellipta 200-25 mcg 1 inhalation QD and Albuterol HFA 2 inhalations every 6 hours as needed Follow up with pulmonary as scheduled (4) Alzheimer's dementia without behavioral disturbance: Code(s): G30.9 - Alzheimer's disease, unspecified; F02.80 - Dementia in other diseases classified elsewhere, unspecified severity, without behavioral disturbance, psychotic disturbance, mood disturbance, and anxiety Plan: Continue Donepezil 10 mg QD and Memantine 10 mg BID Follow-up with Neurology as scheduled (5) Gait instability: Code(s): R26.81 - Unsteadiness on feet Plan: Patient did not complete physical therapy - stopped going as he did not want to continue with PT Advised again that his gait instability is most likely the main reason for his recurrent falls while going up stairs - have advised him to avoid stairs as much as he can and to make sure he has someone to help him if he has to use to stairs Fall precautions reinforced Is now using a walker when he is moving about, which has helped a lot (6) Choking episode: Code(s): R09.89 - Other specified symptoms and signs involving the circulatory and respiratory systems Plan: States that this is mostly because he finds it difficult to eat and swallow with his dentures on Barium swallow study done a few months ago revealed (+) laryngeal penetration with thin barium and barium-coated honey consistency food. This is not seen with other consistencies of food with barium. No laryngeal aspiration seen at all and there is no retention of food in the valleculae or piriform sinuses.. (7) Irritable bowel syndrome with diarrhea: Code(s): K58.0 - Irritable bowel syndrome with diarrhea Plan: Continue Sucralfate 1 gm once a day - symptoms have improved somewhat with Rx His recent stool incontinence may be related to this or may be due to his progressing dementia Follow up with GI as scheduled (8) Schizophrenia: Code(s): F20.9 - Schizophrenia, unspecified Qualifiers: Schizophrenia type: unspecified Qualified Code(s): F20.9 - Schizophrenia, unspecified Plan: Continue Clozaril 100 mg 3 & 1/2 tablets once a day at bedtime Follow-up with Psychiatry as scheduled (9) Anxiety: Code(s): F41.9 - Anxiety disorder, unspecified Plan: Continue Clonazepam 0.5 mg BID PRN (10) Depression: Code(s): F32.9 - Major depressive disorder, single episode, unspecified Qualifiers: Depression Type: unspecified Qualified Code(s): F32.9 - Major depressive disorder, single episode, unspecified Plan: Continue Effexor XR 150 mg once a day Follow-up with Psychiatry as scheduled (11) Smoker: Comment: Patient has been a heavy smoker throughout his adult life. Presence of severe psychotic problem, (Schizophrenia ) is an impediment to quit smoking completely. The snf staff is restricting his number of cigarettes to 4 per day. * Because of his long-time smoking, he should be in LDCT. Lung screening program. I discussed with him and he is fully agreeable. CT scan of the chest on 06/07/2021 , did not show any pulmonary nodules Code(s): F17.200 - Nicotine dependence, unspecified, uncomplicated Plan: Counseled again on the importance and urgency of smoking cessation, especially since he has frequent hypoxemia and is on oxygen (12) Obesity (BMI 30-39.9): Code(s): E66.9 - Obesity, unspecified Plan: Reinforced diet; exercise and losing weight are unrealistic now due to patient's gait instability and declining dementia Plan Follow up in 3 months Orders: Orders AMB Hemoglobin A1c 03/07/23 E11.9 - Type 2 diabetes mellitus without complications Complete Blood Count Auto Diff 3 Months I10 - Essential (primary) hypertension Hemoglobin A1c 3 Months E11.9 - Type 2 diabetes mellitus without complications Vitamin D 25-OH Total 3 Months E55.9 - Vitamin D deficiency, unspecified Comprehensive [place]. Panel Fast 3 Months E78.00 - Pure hypercholesterolemia, unspecified Lipid Panel 3 Months E78.00 - Pure hypercholesterolemia, unspecified TSH reflex Free T4 3 Months E78.00 - Pure hypercholesterolemia, unspecified Vitamin B12 and Folate 3 Months E53.8 - Deficiency of other specified B group vitamins Medications: New [CHUX sheets] As directed 60 ea 12RF use 2 a day as needed - 60 / month R15.9 - Full incontinence of feces, G30.9 - Alzheimer's disease, unspecified, F02.80 - Dementia in other diseases classified elsewhere, unspecified severity, without behavioral disturbance, psychotic disturbance, mood disturbance, and anxiety Coding Level of Care Code Est Pt Level 4 (70911) Diagnoses Pure hypercholesterolemia E78.00 Type 2 diabetes mellitus without complication, without long-term current use of insulin E11.9 Diabetes mellitus salvage determiner insulin use: without half-way use Chronic obstructive pulmonary disease, unspecified COPD type J44.9 COPD type: unspecified COPD Alzheimer's dementia without behavioral disturbance G30.9; F02.80 Gait instability R26.81 Choking episode R09.89 Irritable bowel syndrome with diarrhea K58.0 Schizophrenia, unspecified type F20.9 Schizophrenia type: unspecified Anxiety F41.9 Depression, unspecified depression type F32.9 Depression Type: unspecified Smoker F17.200 Obesity (BMI 30-39.9) E66.9 Additional Codes LYNN-7 Assessment Billing - LYNN-7 Assessment Tool: LYNN-7 Assessment [id number] ([id number])
== END 2023-03-07 16:00 | disposition home or self-care (01) ==
PROVIDERS: Visit Provider Internal Medicine
DX: E11.9 Type 2 diabetes mellitus without complications (principal); J44.9 Chronic obstructive pulmonary disease, unspecified; G30.9 Alzheimer's disease, unspecified; F02.80 Dementia in other diseases classified elsewhere, unspecified severity, without behavioral disturbance, psychotic disturbance, mood disturbance, and anxiety; F20.9 Schizophrenia, unspecified; E78.00 Pure hypercholesterolemia, unspecified; R26.81 Unsteadiness on feet; R09.89 Other specified symptoms and signs involving the circulatory and respiratory systems; K58.0 Irritable bowel syndrome with diarrhea; F41.9 Anxiety disorder, unspecified; F32.9 Major depressive disorder, single episode, unspecified; F17.200 Nicotine dependence, unspecified, uncomplicated
CPT/HCPCS: 99214

== ENCOUNTER 2023-03-12 13:22 | Outpatient (AMB) | payer MEDICARE, MEDICAID, SELFPAY ==
[2023-03-12 13:43] VITALS: BP 110/62; PULSE 91; O2SAT 96; BMI 29.0
--- NOTE | 2023-03-12 13:43 | MHC.OFFVIS ---
Intake Vital Signs 03/12/23 13:43 Height 5 ft 8 in Weight 190 lb 11.198 oz BMI 29.0 BP 110/62 Blood Pressure Location Lt brachial Position Sitting Pulse 91 Pulse Source Pulse Oximeter Pulse Oximetry (%) 96 Oxygen Delivery Method Nasal Cannula Oxygen Flow Rate 2 Intake Visit Reasons: COPD Intake Note: pt is here for follow up and states he is doing some coughing and wheezing. CAN YOU PLEASE PUT REFILLS ON INHALER Hospice Rn Required: No Allergies No Known Allergies [No Known Allergies*] Allergy (Verified 03/12/23 14:09) Medication List - Last Reconciled 03/12/23 by Susan Sadler MD [4-PRONGED CANE As directed] acetaminophen (Tylenol Extra Strength) 500 mg PO TID PRN 30 days [adult pull ups As directed] aspirin 81 mg PO DAILY 90 days betamethasone dipropionate 0.05% topical blood sugar diagnostic To test once a day blood-glucose meter To test blood sugar daily Breo Ellipta 200-25 mcg/dose (fluticasone furoate-vilanterol) 1 ea PO DAILY NS cholecalciferol (vitamin D3) 1 tab PO DAILY [CHUX sheets As directed] clonazepam 0.5 mg PO BID clozapine 300 mg PO BEDTIME donepezil 10 mg PO DAILY FreeStyle Lite Strips (blood sugar diagnostic) As directed- to test blood sugar once a day NS gemfibrozil 600 mg PO BID ketoconazole 2% 1 appl topical DAILY lancets (Prodigy Lancets) To test once a day lisinopril 2.5 mg PO DAILY memantine 10 mg PO BID metformin 500 mg PO BID methylcellulose (laxative) (Citrucel) 1,000 mg (2 x 500 mg) PO BID 30 days rifaximin (Xifaxan) 550 mg PO BID simvastatin 40 mg PO BEDTIME sucralfate 1 g PO TID venlafaxine ER 150 mg PO DAILY zinc oxide 40% (Diaper Rash) 1 appl topical BID-QID PRN Do you need a note to return to daycare/school/sports/work: No HPI COPD HPI Details 73 YEARS OLD GENTLEMAN WITH DIAGNOSIS OF CHRONIC SCHIZOPHRENIC DISORDER LIVES AT A [facility]. HE HAS HISTORY OF LIFELONG SMOKING, CURRENTLY CONTROLLED TO 3-4 CIGARETTES A DAY. HE IS BEING TREATED FOR CHRONIC OBSTRUCTIVE PULMONARY DISEASE, WITH SIMPLIFIED REGIMEN BREO 200-25 ONLY ONCE A DAY. HAS MILD INTERMITTENT COUGH USUAL, GETS SHORT OF BREATH IF HE WALKS UP HILL OF OR MORE THAN HALF A BLOCK. BUT HE STAYS WITHIN THE HOUSE, SO REMAINS FAIRLY STABLE AND COMFORTABLE. USES O2 CONTINUOUSLY 24. [facility] Medical History Alzheimer's dementia without behavioral disturbance Anxiety COPD (chronic obstructive pulmonary disease) Dementia Depression Gait instability Hearing impairment History of COPD Hyperlipidemia Hypertension Hypoxia Nocturnal hypoxia Obesity (BMI 30-39.9) Overweight (BMI 25.0-29.9) Pure hypercholesterolemia Schizophrenia Schizophrenia Screening for diabetes mellitus Seborrheic dermatitis of scalp Smoker Type 2 diabetes mellitus without complication Vitamin D deficiency Weakness Surgical History H/O colonoscopy History of appendectomy No pertinent past surgical history Family History Father Cancer Mother No problems noted. Brother Substance abuse Other Alcohol abuse Social History Household Members: None Housing: Assisted Living Facility Housing Other:: [facility] Do you presently have visiting nurse or other home services: No Alcohol intake: never Patient Tobacco Use Status: Former Tobacco user Tobacco use type: Cigarette Cigarettes Per Day: 3 e-Cigarette/Vaping Use: Never Used Second Hand Smoke Exposure: Yes service: No Current occupational status: disabled and other Cognitive needs: Yes (walker) Hearing needs: Yes Vision needs: Yes Review of Systems Const All systems reviewed & are unremarkable except as noted in HPI and below Eyes Reports no additional complaints ENT Reports no additional complaints Card Reports no additional complaints Resp Reports as per HPI GI Reports constipation, Reports heartburn and Reports other (One minor incidence of choking on rice ) Reports no additional complaints Musc Reports abnormal gait (Unstable and he needs to use the walker) and Reports back pain (mild) Skin/Breast Reports system reviewed and no additional complaints, except as documented Neuro Reports abnormal gait (Unstable and he needs to use the walker) and Reports behavioral changes Psych Reports anxiety, Reports behavioral changes and Reports mood swings Endo Reports no additional complaints Physical Exam Vital Signs: Last Vital Signs Pulse 91 03/12/23 13:43 BP 110/62 03/12/23 13:43 Pulse Ox 96 03/12/23 13:43 Oxygen Delivery Method Nasal Cannula 03/12/23 13:43 Oxygen Flow Rate 2 03/12/23 13:43 BMI result Body Mass Index 29.0 Const General: comfortable, no acute distress, alert and awake Orientation/consciousness: patient oriented x3 HEENT Head: Yes normal to inspection General nose exam: No nasal polyps present and No nasal discharge present Face and sinus: Yes sinuses nontender Mouth: oropharynx normal Throat: Yes posterior oropharynx normal Eyes General: appearance normal, both eyes and all related structures Neck Neck: Yes normal visual inspection, Yes no lymphadenopathy, Yes trachea midline and Yes no JVD Thyroid: Thyroid normal Chest Chest palpation & inspection: normal inspection of the chest, normal palpation of entire chest wall and no tenderness Resp Other: Percussion note resonant, breath sounds are very distant on both sides with prolonged expiratory phase. No wheezes rhonchi or crepitations are heard. Cardio Palpation: normal PMI Rate: regular rate Rhythm: regular rhythm Heart sounds: no gallops and no murmurs GI Palpation (GI): Soft to palpation, nontender, No hepatosplenomegaly present and no masses Auscultation: normal bowel sounds Back/Spine/Pelvis Thoracic/Lumbar Spine: thoracic and lumbar spine normal to inspection Skin General skin exam: no rashes or lesions noted Neuro General: patient oriented x3 and no focal motor deficits Cranial nerves: Yes CN's II-XII intact bilaterally Extrem General: Yes normal to inspection, Yes no clubbing, cyanosis or edema and Yes no calf tenderness Psych Appearance: grossly normal and well kempt Speech and movement: Normal speech and movement present Assessment & Plan Assessment & Plan (1) COPD (chronic obstructive pulmonary disease): Comment: PATIENT DOES HAVE LONGSTANDING HISTORY OF SMOKING, AND HAS CHRONIC OBSTRUCTIVE PULMONARY DISEASE WHICH IS WELL CONTROLLED. CURRENTLY SMOKES 3-4 CIGARETTES A DAY AND DOES NOT WANT TO QUIT COMPLETELY. TX : CONTINUE BREO 200-25 1 INHALATION DAILY , ( SCRIPT RENEWED ) DOES NOT NEED ANY RESCUE INHALER. Code(s): J44.9 - Chronic obstructive pulmonary disease, unspecified (2) Lung nodule: Comment: HE HAS A E SMALL GROUND-GLASS DENSITY, IN RIGHT UPPER LOBE, 1 CM IN SIZE, HAS NOT GROWN IN SIZE. HE WOULD NEED TO HAVE A CT SCAN REPEATED IN 1 YEAR. (IN 2023 ) Code(s): R91.1 - Solitary pulmonary nodule (3) Smoker: Comment: Patient has been a heavy smoker throughout his adult life. Presence of severe psychotic problem, (Schizophrenia ) is an impediment to quit smoking completely. The halfway staff is restricting his number of cigarettes to 4 per day. * Because of his long-time smoking, he should be in LDCT. Lung screening program. I discussed with him and he is fully agreeable. CT scan of the chest on 06/07/2021 , did not show any pulmonary nodules Code(s): F17.200 - Nicotine dependence, unspecified, uncomplicated Medications: Changed From Breo Ellipta 200-25 mcg/dose (fluticasone furoate-vilanterol) 1 ea PO DAILY 60 ea 0RF NS To Breo Ellipta 200-25 mcg/dose (fluticasone furoate-vilanterol) 1 ea PO DAILY 60 ea 5RF COPD 30 days MDD copd NS Coding Level of Care Code Est Pt Level 3 (67508) Diagnoses COPD (chronic obstructive pulmonary disease) J44.9 Lung nodule R91.1 Smoker F17.200
== END 2023-03-12 14:08 | disposition home or self-care (01) ==
PROVIDERS: PCP Internal Medicine; Visit Provider Internal Medicine
DX: J44.9 Chronic obstructive pulmonary disease, unspecified (principal); R91.1 Solitary pulmonary nodule; F17.200 Nicotine dependence, unspecified, uncomplicated
CPT/HCPCS: 99213

== ENCOUNTER → 2023-03-12 13:22 | Outpatient (BNVA) | payer MEDICARE, MEDICAID, SELFPAY | PROVIDERS: PCP Internal Medicine; Visit Provider Internal Medicine | DX: J44.9 Chronic obstructive pulmonary disease, unspecified (principal); R91.1 Solitary pulmonary nodule; F17.210 Nicotine dependence, cigarettes, uncomplicated | CPT/HCPCS: 99212 ==

== ENCOUNTER 2023-03-13 11:08 | Outpatient (AMB) | payer MEDICARE, MEDICAID, SELFPAY ==
[2023-03-13 11:11] VITALS: BP 116/78; PULSE 90; O2SAT 96; BMI 28.9
--- NOTE | 2023-03-13 11:11 | AM.OFFVISMDC ---
Intake Vital Signs 03/13/23 11:11 Height 5 ft 8 in Weight 190 lb BMI 28.9 BP 116/78 Blood Pressure Location Lt brachial Position Sitting Pulse 90 Pulse Source Pulse Oximeter Temp Source Skin Pulse Oximetry (%) 96 Oxygen Delivery Method Room Air Intake Visit Reasons: [facility] G0439 Intake Note: Patient is here for an Annual Wellness Visit. Hyperbaric Nurse Required: No Allergies No Known Allergies [No Known Allergies*] Allergy (Verified 03/13/23 11:31) Medication List - Last Reconciled 03/13/23 by CATALINA Hedrick [4-PRONGED CANE As directed] acetaminophen (Tylenol Extra Strength) 500 mg PO TID PRN 30 days [adult pull ups As directed] aspirin 81 mg PO DAILY 90 days betamethasone dipropionate 0.05% topical blood sugar diagnostic To test once a day blood-glucose meter To test blood sugar daily Breo Ellipta 200-25 mcg/dose (fluticasone furoate-vilanterol) 1 ea PO DAILY 30 days MDD copd NS cholecalciferol (vitamin D3) 1 tab PO DAILY [CHUX sheets As directed] clonazepam 0.5 mg PO BID clozapine 300 mg PO BEDTIME donepezil 10 mg PO DAILY FreeStyle Lite Strips (blood sugar diagnostic) As directed- to test blood sugar once a day NS gemfibrozil 600 mg PO BID ketoconazole 2% 1 appl topical DAILY lancets (Prodigy Lancets) To test once a day lisinopril 2.5 mg PO DAILY memantine 10 mg PO BID metformin 500 mg PO BID methylcellulose (laxative) (Citrucel) 1,000 mg (2 x 500 mg) PO BID 30 days rifaximin (Xifaxan) 550 mg PO BID simvastatin 40 mg PO BEDTIME sucralfate 1 g PO TID venlafaxine ER 150 mg PO DAILY zinc oxide 40% (Diaper Rash) 1 appl topical BID-QID PRN HPI [facility] G0439 HPI Details Patient is a 73-year-old male who presents today for subsequent wellness visit.? Patient of Dr. Salazar. Patient resides at a alf and he was accompanied by a alf personnel. Medical history significant for COPD, gait instability, hearing impairment, depression, anxiety, schizophrenia, Alzheimer's dementia, hypercholesterolemia, diabetes type 2, and IBS with diarrhea. Today we discussed patient's need for prostate cancer screening.? Patient is up-to-date with immunizations. [place] of care was reviewed with a alf personnel and they were provided with a screening schedule.? Patient does have a guardian, unsure if patient has healthcare proxy, alf personnel was provided with healthcare proxy and MOLST forms. ? [facility] Medical History Alzheimer's dementia without behavioral disturbance Anxiety COPD (chronic obstructive pulmonary disease) Dementia Depression Gait instability Hearing impairment History of COPD Hyperlipidemia Hypertension Hypoxia Nocturnal hypoxia Obesity (BMI 30-39.9) Overweight (BMI 25.0-29.9) Pure hypercholesterolemia Schizophrenia Schizophrenia Screening for diabetes mellitus Seborrheic dermatitis of scalp Smoker Type 2 diabetes mellitus without complication Vitamin D deficiency Weakness Surgical History H/O colonoscopy History of appendectomy No pertinent past surgical history Family History Father Cancer Mother No problems noted. Brother Substance abuse Other Alcohol abuse Social History Household Members: None Housing: Assisted Living Facility Housing Other:: [facility] Do you presently have visiting nurse or other home services: No Alcohol intake: never Patient Tobacco Use Status: Former Tobacco user Tobacco use type: Cigarette Cigarettes Per Day: 3 e-Cigarette/Vaping Use: Never Used Second Hand Smoke Exposure: Yes service: No Current occupational status: disabled and other Cognitive needs: Yes (walker) Hearing needs: Yes Vision needs: Yes Questionnaire Medicare Wellness Checkup [age] What gender do you identify with?: male During the past 4 weeks, how much have you been bothered by emotional problems such as feeling anxious, depressed, irritable, sad or downhearted, and blue?: slightly During the past 4 weeks, has your physical & emotional health limited your social activities with family, friends, neighbors, or groups?: slightly During the past 4 weeks, how much bodily pain have you generally had?: very mild pain During the past 4 weeks, was someone available to help you if you needed & wanted help?: yes, as much as I wanted During the past 4 weeks, what was the hardest physical activity you could do for at least 2 minutes?: light Can you get to places out of walking distance without help? (For eg., can you travel alone on buses, taxis or drive your car?): No Can you go shopping for groceries or clothes without someone's help?: No Can you prepare your own meals?: No Can you do your housework without help?: No Because of any health problems, do you need the help of another person with your personal care needs such as eating, bathing, dressing or getting around the house?: Yes Can you handle your own money without help?: No During the past 4 weeks, how would you rate your health in general?: fair During the past 4 weeks how have things been going for you?: pretty well Are you having difficulties driving your car?: not applicable, I don't use a car Do you always fasten your seat belt when you are in a car?: yes, usually During past 4 weeks, have you been bothered by the following: sometimes: Falling or dizzy when standing up, Trouble eating well?, Teeth or denture problems?, Problems using the telephone? and Tiredness or fatigue? Have you fallen 2 or more times in the past year?: Yes Are you afraid of falling?: No Are you a smoker?: yes, but I'm not ready to quit During the past 4 weeks, how many drinks of wine, beer, or other alcoholic beverages did you have?: no alcohol at all Do you exercise for about 20 minutes 3 or more times a week?: yes, most of the time Have you been given information to help with the following?: yes: Hazards in your house that might hurt you? and yes: Keeping track of your medications? How often do you have trouble taking medicines the way you have been told to take them?: I always take medicine as prescribed How confident are you that you can control & manage most of your health problems?: not very confident What is your race?: White Mini Mental State Exam (MMSE) Orientation What is the (year) (season) (date) (day) (month)?: month (a and o to self only ) Score Score: 1 Activity of Daily Living Bathing - sponge bath, tub bath or shower: receives help in bathing only one body part (such as back or leg) Dressing - getting clothes from closets & drawers, including inner/outer garments & fasteners.: gets clothes & gets dressed without help, except for help tying shoes Toileting - going to the 'toilet room' for urine/bowel elimination & cleaning self/arranging clothes: goes to toilet room, cleans self, arranges clothes without help Transfer: moves in & out of bed and chair without help (may use support object) Continence: has occasional 'accidents' Feeding: feeds self without help Total Score: 0 Information obtained from: informant Using telephone: needs assistance Traveling: dependent Shopping: dependent Preparing meals: dependent Housework: dependent Taking medicine: dependent Managing money: dependent PHQ-9 Over the last 2 weeks, how often have you been bothered by any of the following problems? 1. Little interest or pleasure in doing things: not at all 2. Feeling down, depressed, or hopeless: several days 3. Trouble falling or staying asleep, or sleeping too much: not at all 4. Feeling tired or having little energy: not at all 5. Poor appetite or overeating: not at all 6. Feeling bad about yourself - or that you are a failure or have let yourself or your family down: not at all 7. Trouble concentrating on things, such as reading the newspaper or watching television: several days 8. Moving or speaking so slowly that other people could have noticed. Or the opposite - being so fidgety or restless that you have been moving around a lot more than usual: more than half the days 9. Thoughts that you would be better off or of hurting yourself in some way: not at all Total score: 4 Depression Screening Interpretation: Negative 49394 - PHQ-9 Billing: Yes Source: Developed by Drs. Jose David Kumari, Ada Perez, Roman Winters and colleagues, with an educational claude from [facility]. Physical Exam Vital Signs: Last Vital Signs Pulse 90 03/13/23 11:11 BP 116/78 03/13/23 11:11 Pulse Ox 96 03/13/23 11:11 Oxygen Delivery Method Room Air 03/13/23 11:11 BMI result Body Mass Index 28.9 Const General: cooperative and no acute distress Orientation/consciousness: oriented to person HEENT Other: Whisper test: fail Neuro Other: Balance: Normal - patient ambulates with a rolling walker Get up and walk: unable to Romberg: negative Tandem gait: unable to General: oriented to person Assessment & Plan Assessment & Plan (1) COPD (chronic obstructive pulmonary disease): Comment: As per examination and spirometry results he does have severe obstructive airway disorder. Complete PFT was not performed because of his poor attempts. TX: Patient is doing well with the use of Breo-200/25 1 inhalation daily. And advised to continue the same. Use ProAir 2 puffs Q 4-6 hours only p.r.n. or wheezing are persistent cough. * patient is advised to do deep breathing exercises daily, He does have the Incentive Spirometry device at home . Should do deep breathing 10 times morning at noon and in the evening. Code(s): J44.9 - Chronic obstructive pulmonary disease, unspecified Qualifiers: COPD type: unspecified COPD Qualified Code(s): J44.9 - Chronic obstructive pulmonary disease, unspecified Plan: Continue inhalers as prescribed Continue to follow-up with pulmonology Dr. Sadler (2) Hypoxia: Comment: Resting O2 sat 91% but he quickly desaturates on walking, thus indicating that he has exertional hypoxemia. He is using O2 2 L/minute with any physical activity, and when he goes outdoors . He is doing well Code(s): R09.02 - Hypoxemia Plan: Continue to follow-up with pulmonology Dr. Sadler (3) Adult general medical exam: Code(s): Z00.00 - Encounter for general adult medical examination without abnormal findings (4) Screening for prostate cancer: Code(s): Z12.5 - Encounter for screening for malignant neoplasm of prostate (5) Hearing impairment: Code(s): H91.90 - Unspecified hearing loss, unspecified ear Plan: Continue to follow-up with ENT Dr. Johansen Patient has hearing aids that he wears sometimes (6) Depression: Code(s): F32.9 - Major depressive disorder, single episode, unspecified Qualifiers: Depression Type: unspecified Qualified Code(s): F32.9 - Major depressive disorder, single episode, unspecified Plan: Continue current treatment Continue to follow-up with Psychiatry (7) Anxiety: Code(s): F41.9 - Anxiety disorder, unspecified Plan: Continue current treatment Continue to follow-up with Psychiatry (8) Schizophrenia: Code(s): F20.9 - Schizophrenia, unspecified Qualifiers: Schizophrenia type: unspecified Qualified Code(s): F20.9 - Schizophrenia, unspecified Plan: Continue current treatment Continue to follow-up with Psychiatry (9) Alzheimer's dementia without behavioral disturbance: Code(s): G30.9 - Alzheimer's disease, unspecified; F02.80 - Dementia in other diseases classified elsewhere, unspecified severity, without behavioral disturbance, psychotic disturbance, mood disturbance, and anxiety Plan: Continue memantine 10 mg b.i.d. and donepezil 10 mg daily Continue to follow-up with neurology (10) Pure hypercholesterolemia: Code(s): E78.00 - Pure hypercholesterolemia, unspecified Plan: Simvastatin 40 mg at bedtime Low-cholesterol diet (11) Type 2 diabetes mellitus without complication: Code(s): E11.9 - Type 2 diabetes mellitus without complications Qualifiers: Diabetes mellitus jail insulin use: without middle or intermediate school principal use Qualified Code(s): E11.9 - Type 2 diabetes mellitus without complications Plan: A1c 5.6 11/2022 Continue current treatment Low-carbohydrate diet (12) Irritable bowel syndrome with diarrhea: Code(s): K58.0 - Irritable bowel syndrome with diarrhea Plan: Continue current treatment Continue to follow-up with gastroenterology as scheduled Plan Keep appointment with PCP as scheduled or follow-up sooner as needed Orders: Orders Prostate Specific Antigen Today Z12.5 - Encounter for screening for malignant neoplasm of prostate Quality Reporting (2020) Depression/Bipolar (159/160/161/177) PHQ-9: Total score: 4 Coding Level of Care Code Medicare Subsequent (G0439) Diagnoses COPD (chronic obstructive pulmonary disease) J44.9 COPD type: unspecified COPD Hypoxia R09.02 Adult general medical exam Z00.00 Screening for prostate cancer Z12.5 Hearing impairment H91.90 Depression F32.9 Depression Type: unspecified Anxiety F41.9 Schizophrenia F20.9 Schizophrenia type: unspecified Alzheimer's dementia without behavioral disturbance G30.9; F02.80 Pure hypercholesterolemia E78.00 Type 2 diabetes mellitus without complication E11.9 Diabetes mellitus jail insulin use: without jail use Irritable bowel syndrome with diarrhea K58.0 CPT Codes Advance Care Planning - Time spent: 1-15 minutes, not on file ([id number]) Advance Care Planning Date of discussion: 03/13/23 Who was present: pt, alf staff, dietary internship Forms completed: None Time spent: 1-15 minutes, not on file Actual minutes spent: 2 Did not discuss due to Cultural/Spiritual beliefs: No
== END 2023-03-13 11:45 | disposition home or self-care (01) ==
PROVIDERS: Visit Provider Nurse Practitioner Family
DX: Z00.00 Encounter for general adult medical examination without abnormal findings (principal)
CPT/HCPCS: 1124F; G0439

== ENCOUNTER 2023-03-20 12:38 | Outpatient (REF) | payer MEDICARE, MEDICAID, SELFPAY ==
[2023-03-20 16:07] LABS: MANUAL DIFF FLAG NO
[2023-03-20 16:41] LABS: Basophils Percent Auto 0.1 % (0-2); Eosinophils Absolute Auto 0.1 X10*3/uL (0.0-0.4); Eosinophils Percent Auto 1.9 % (0-4); Hematocrit 39.2 % (42.0-52.0); Hemoglobin 12.1 g/dl (14.0-18.0); Imm Gran Abs Auto 0.03 X10*3/uL (0.00-0.03); Imm Gran Pct Auto 0.4 % (0.0-0.4); Lymphocytes Absolute Auto 2.4 X10*3/uL (1.2-4.9); Lymphocytes Percent Auto 34.9 % (20-40); Mean Corpuscular HGB Conc 30.9 g/dl (31.0-36.0); Mean Corpuscular Hemoglobin 28.3 pg (27.0-33.0); Mean Corpuscular Volume 91.6 fL (80.0-98.0); Mean Platelet Volume 12.4 fL (9.4-12.4); Monocytes Absolute Auto 0.7 X10*3/uL (0.1-1.2); Monocytes Percent Auto 10.6 % (2-11); Neutrophils Absolute Auto 3.5 x10*3/uL (2.0-8.3); Neutrophils Percent Auto 52.1 % (45-73); Platelet Count 241 X10*3/uL (160-400); Red Blood Count 4.28 X10*6/uL (4.60-5.80); Red Cell Distribution Width 13.5 % (11.0-16.0); White Blood Count 6.8 X10*3/uL (4.8-10.8)
[2023-03-20 16:57] LABS: Prostate Specific Antigen 1.64 ng/mL (<0.05-4.0)
== END 2023-03-20 12:39 | disposition home or self-care (01) ==
LOC: HO.HMGCLR 12:38
PROVIDERS: Nurse Practitioner Family; PCP Internal Medicine; Visit Provider Psychiatry & Neurology Psychiatry
DX: Z12.5 Encounter for screening for malignant neoplasm of prostate (principal); Z79.899 Other long term (current) drug therapy
CPT/HCPCS: 36415; 84153; 85025

== ENCOUNTER 2023-04-18 12:26 | Outpatient (REF) | payer MEDICARE, MEDICAID, SELFPAY ==
[2023-04-18 15:59] LABS: MANUAL DIFF FLAG NO
[2023-04-18 16:13] LABS: Basophils Percent Auto 0.4 % (0-2); Eosinophils Absolute Auto 0.2 X10*3/uL (0.0-0.4); Eosinophils Percent Auto 2.5 % (0-4); Hematocrit 39.3 % (42.0-52.0); Hemoglobin 12.4 g/dl (14.0-18.0); Imm Gran Abs Auto 0.03 X10*3/uL (0.00-0.03); Imm Gran Pct Auto 0.4 % (0.0-0.4); Lymphocytes Absolute Auto 2.1 X10*3/uL (1.2-4.9); Lymphocytes Percent Auto 31.1 % (20-40); Mean Corpuscular HGB Conc 31.6 g/dl (31.0-36.0); Mean Corpuscular Hemoglobin 28.5 pg (27.0-33.0); Mean Corpuscular Volume 90.3 fL (80.0-98.0); Mean Platelet Volume 12.6 fL (9.4-12.4); Monocytes Absolute Auto 0.7 X10*3/uL (0.1-1.2); Monocytes Percent Auto 9.7 % (2-11); Neutrophils Absolute Auto 3.8 x10*3/uL (2.0-8.3); Neutrophils Percent Auto 55.9 % (45-73); Platelet Count 234 X10*3/uL (160-400); Red Blood Count 4.35 X10*6/uL (4.60-5.80); Red Cell Distribution Width 13.5 % (11.0-16.0); White Blood Count 6.7 X10*3/uL (4.8-10.8)
== END 2023-04-18 12:27 | disposition home or self-care (01) ==
LOC: HO.HMGCLR 12:26
PROVIDERS: PCP Internal Medicine; Visit Provider Psychiatry & Neurology Psychiatry
DX: Z79.899 Other long term (current) drug therapy (principal)
CPT/HCPCS: 36415; 85025

== ENCOUNTER 2023-05-22 12:42 | Outpatient (REF) | payer MEDICARE, MEDICAID, SELFPAY ==
[2023-05-22 16:10] LABS: MANUAL DIFF FLAG NO
[2023-05-22 19:39] LABS: Basophils Percent Auto 0.3 % (0-2); Eosinophils Absolute Auto 0.2 X10*3/uL (0.0-0.4); Eosinophils Percent Auto 1.9 % (0-4); Hematocrit 38.7 % (42.0-52.0); Hemoglobin 12.1 g/dl (14.0-18.0); Imm Gran Abs Auto 0.04 X10*3/uL (0.00-0.03); Imm Gran Pct Auto 0.5 % (0.0-0.4); Lymphocytes Absolute Auto 2.4 X10*3/uL (1.2-4.9); Lymphocytes Percent Auto 30.3 % (20-40); Mean Corpuscular HGB Conc 31.3 g/dl (31.0-36.0); Mean Corpuscular Hemoglobin 28.2 pg (27.0-33.0); Mean Corpuscular Volume 90.2 fL (80.0-98.0); Mean Platelet Volume 12.6 fL (9.4-12.4); Monocytes Absolute Auto 0.8 X10*3/uL (0.1-1.2); Neutrophils Absolute Auto 4.5 x10*3/uL (2.0-8.3); Platelet Count 227 X10*3/uL (160-400); Red Blood Count 4.29 X10*6/uL (4.60-5.80); Red Cell Distribution Width 13.8 % (11.0-16.0); White Blood Count 7.8 X10*3/uL (4.8-10.8)
== END 2023-05-22 12:43 | disposition home or self-care (01) ==
LOC: HO.HMGCLDS 12:42
PROVIDERS: PCP Internal Medicine; Visit Provider Psychiatry & Neurology Psychiatry
DX: Z79.899 Other long term (current) drug therapy (principal)
CPT/HCPCS: 36415; 85025

== ENCOUNTER 2023-05-29 08:42 | Outpatient (REF) | payer MEDICARE, MEDICAID, SELFPAY ==
[2023-05-29 11:31] LABS: MANUAL DIFF FLAG NO
[2023-05-29 11:41] LABS: Basophils Percent Auto 0.3 % (0-2); Eosinophils Absolute Auto 0.2 X10*3/uL (0.0-0.4); Eosinophils Percent Auto 2.3 % (0-4); Hematocrit 39.8 % (42.0-52.0); Hemoglobin 12.4 g/dl (14.0-18.0); Imm Gran Abs Auto 0.04 X10*3/uL (0.00-0.03); Imm Gran Pct Auto 0.6 % (0.0-0.4); Lymphocytes Absolute Auto 2.3 X10*3/uL (1.2-4.9); Lymphocytes Percent Auto 35.5 % (20-40); Mean Corpuscular HGB Conc 31.2 g/dl (31.0-36.0); Mean Corpuscular Hemoglobin 28.1 pg (27.0-33.0); Mean Corpuscular Volume 90.2 fL (80.0-98.0); Mean Platelet Volume 12.4 fL (9.4-12.4); Monocytes Absolute Auto 0.6 X10*3/uL (0.1-1.2); Monocytes Percent Auto 9.1 % (2-11); Neutrophils Absolute Auto 3.3 x10*3/uL (2.0-8.3); Neutrophils Percent Auto 52.2 % (45-73); Platelet Count 231 X10*3/uL (160-400); Red Blood Count 4.41 X10*6/uL (4.60-5.80); Red Cell Distribution Width 13.5 % (11.0-16.0); White Blood Count 6.4 X10*3/uL (4.8-10.8)
[2023-05-29 12:00] LABS: Alanine Aminotransferase 37 U/L (0-40); Albumin Level 4.4 g/dL (3.5-5.0); Alkaline Phosphatase 103 U/L (39-117); Anion Gap 16 (12-20); Aspartate Amino Transferase 30 U/L (5-37); Bilirubin Total 0.5 mg/dL (0.0-1.0); Blood Urea Nitrogen 18 mg/dL (9-16); Calcium 9.9 mg/dL (8.4-10.2); Carbon Dioxide 22 mmol/L (22-29); Chloride 109 mmol/L (96-108); Cholesterol 174 mg/dL (<200); Estimated Glomerular Filt Rate > 60; Glucose Fasting 146 mg/dL (60-99); HDL Cholesterol 42 mg/dL (>40); LDL Cholesterol Calculated 103 mg/dL (<100); Potassium 4.4 mmol/L (3.3-5.1); Sodium 143 mmol/L (135-145); Total Protein 7.4 g/dL (6.5-8.0); Triglycerides 145 mg/dL (<150)
[2023-05-29 12:10] LABS: Estimated Average Glucose 117 mg/dL; Hemoglobin A1c % 5.7 % (<6.0)
[2023-05-29 12:20] LABS: TSH reflex Free T4 2.52 uIU/mL (0.32-4.0); Vitamin D 25-OH Total 42.8 ng/mL (>30)
[2023-05-29 12:28] LABS: Folate 15.1 ng/mL (> or = 4.0); Vitamin B12 317 pg/mL (200-900)
== END 2023-05-29 08:43 | disposition home or self-care (01) ==
LOC: HO.HMGCLDS 08:42
PROVIDERS: PCP Internal Medicine; Visit Provider Internal Medicine
DX: I10 Essential (primary) hypertension (principal); E11.9 Type 2 diabetes mellitus without complications; E53.8 Deficiency of other specified B group vitamins; E55.9 Vitamin D deficiency, unspecified; E78.00 Pure hypercholesterolemia, unspecified
CPT/HCPCS: 36415; 80053; 80061; 82306; 82607; 82746; 83036; 84443; 85025

== ENCOUNTER 2023-06-20 15:08 | Outpatient (AMB) | payer MEDICARE, MEDICAID, SELFPAY ==
[2023-06-20 15:12] VITALS: BP 112/70; PULSE 64; O2SAT 93; BMI 29.4
--- NOTE | 2023-06-20 15:12 | A.OFFPC_ITS ---
Vital Signs 06/20/23 15:12 Height 5 ft 8 in Weight 193 lb 6 oz BMI 29.4 BP 112/70 Blood Pressure Location Lt brachial Position Sitting Pulse 64 Pulse Source Pulse Oximeter Pulse Oximetry (%) 93 Oxygen Delivery Method Room Air Intake Visit Reasons: 3 month f/u Pet Care Associate Required: No Accompanied by: Self / Same As Patient Allergies No Known Allergies [No Known Allergies*] Allergy (Verified 06/20/23 15:31) Medication List - Last Reconciled 06/20/23 by Alex Salazar MD [4-PRONGED CANE As directed] acetaminophen (Tylenol Extra Strength) 500 mg PO TID PRN 30 days [adult pull ups As directed] aspirin 81 mg PO DAILY 90 days betamethasone dipropionate 0.05% topical blood sugar diagnostic To test once a day blood-glucose meter To test blood sugar daily Breo Ellipta 200-25 mcg/dose (fluticasone furoate-vilanterol) 1 ea PO DAILY 30 days MDD copd NS cholecalciferol (vitamin D3) 25 mcg PO DAILY [CHUX sheets As directed] clonazepam 0.5 mg PO BID clozapine 300 mg PO BEDTIME donepezil 10 mg PO DAILY FreeStyle Lite Strips (blood sugar diagnostic) As directed- to test blood sugar once a day NS gemfibrozil 600 mg PO BID ketoconazole 2% 1 appl topical DAILY lancets (Prodigy Lancets) To test once a day lisinopril 2.5 mg PO DAILY memantine 10 mg PO BID metformin 500 mg PO BID methylcellulose (laxative) (Citrucel) 1,000 mg (2 x 500 mg) PO BID 30 days rifaximin (Xifaxan) 550 mg PO BID simvastatin 40 mg PO BEDTIME sucralfate 3 grams (3 x 1 gram) PO DAILY venlafaxine ER 150 mg PO DAILY zinc oxide 40% (Diaper Rash) 1 appl topical BID-QID PRN Tobacco use date assessed: 06/20/23 Fall risk assessment: 2 + Falls in past year Last assessed Fall Risk: 06/20/23 Dental Screening Dental Screen Date: 06/20/23 Did you have a dental visit in the last 12 months?: No Did you have a dental problem in the last 6 months where you did not have access to dental care?: No Was dental information given to patient?: No HPI 3 month f/u HPI Details Patient comes in today for his follow up visit States that he feels okay He denies any headaches or dizziness Denies any chest pains, no SOB No nausea/vomiting, no abdominal pain No change in bowel habits noted His penitentiary report indicated that his memory has been gradually declining recently although he seems to still be able to cope but does get frustrated at times when he has trouble with memory recall He reportedly has no trouble sleeping at night and eats well without any concerns about his dietary intake an nutrition Had his follow up labs done a few weeks ago - to discuss his results [facility] Medical History Dementia Schizophrenia Nocturnal hypoxia Hyperlipidemia Hypertension History of COPD Screening for diabetes mellitus Obesity (BMI 30-39.9) COPD (chronic obstructive pulmonary disease) Hypoxia Weakness Gait instability Hearing impairment Overweight (BMI 25.0-29.9) Smoker Depression Anxiety Schizophrenia Vitamin D deficiency Seborrheic dermatitis of scalp Alzheimer's dementia without behavioral disturbance Pure hypercholesterolemia Type 2 diabetes mellitus without complication Surgical History No pertinent past surgical history H/O colonoscopy History of appendectomy Family History Father Cancer Mother No problems noted. Brother Substance abuse Other Alcohol abuse Social History Household Members: None Housing: Assisted Living Facility Housing Other:: Half-Way Do you presently have visiting nurse or other home services: No Alcohol intake: never Patient Tobacco Use Status: Former Tobacco user Tobacco use type: Cigarette Cigarettes Per Day: 3 e-Cigarette/Vaping Use: Never Used Second Hand Smoke Exposure: Yes service: No Current occupational status: disabled and other Cognitive needs: Yes (walker) Hearing needs: Yes Vision needs: Yes Questionnaire PHQ-9 Over the last 2 weeks, how often have you been bothered by any of the following problems? 1. Little interest or pleasure in doing things: not at all 2. Feeling down, depressed, or hopeless: several days 3. Trouble falling or staying asleep, or sleeping too much: not at all 4. Feeling tired or having little energy: not at all 5. Poor appetite or overeating: not at all 6. Feeling bad about yourself - or that you are a failure or have let yourself or your family down: not at all 7. Trouble concentrating on things, such as reading the newspaper or watching television: several days 8. Moving or speaking so slowly that other people could have noticed. Or the opposite - being so fidgety or restless that you have been moving around a lot more than usual: more than half the days 9. Thoughts that you would be better off or of hurting yourself in some way: not at all Total score: 4 Depression Screening Interpretation: Negative Depression Screening Done: Yes 64139 - PHQ-9 Billing: Yes Source: Developed by Drs. Jose David Kumari, Ada Perez, Roman Winters and colleagues, with an educational claude from [employer]. Thrive Questionnaire Date Thrive assessed: 06/20/23 I am a: Parent/Caregiver What is your living situation today?: I have a steady place to live Within the past 12 months, did the food you bought not last and you didn't have the money to get more?: Never true Within the past 12 months, did you worry whether your food would run out before you got money to buy more?: Never true Do you have trouble paying for medicines?: No Do you have trouble getting transportation to medical appointments?: No Do you have trouble paying your heating and electricity bill?: No Do you have trouble taking care of your child, family member or friend?: No Do you have trouble with day-to-day activities such as bathing, preparing meals, shopping, managing finances, etc.?: No Are you currently unemployed and looking for a job?: No Are you interested in more education?: No Please select the resources that you would like help with: None Currently or been in a relationship where the following occur: no concerns reported AUDIT C Alcohol Use Questionnaire (AUDIT-C) 1. How often do you have a drink containing alcohol?: Never 3. How often do you have six or more drinks on one occasion?: Never Total Score: 0 Score Reviewed/Action Taken: Yes LYNN-7 AMB Questionnaire LYNN-7 Date LYNN - 7 assessed: 06/20/23 Feeling nervous, anxious, or on edge: 0 = Not at all Not being able to stop or control worryin = Not at all Worrying too much about different things: 0 = Not at all Trouble relaxin = Not at all Being so restless that it is hard to sit still: 0 = Not at all Becoming easily annoyed or irritable: 0 = Not at all Feeling afraid as if something awful might happen: 0 = Not at all Total LYNN-7 score (0-4 normal; 5-9 mild; 10-14 moderate; 15-21 severe): 0 Source: Developed by Drs. Jose David Kumari, Ada Perez, Roman Winters and colleagues, with an educational claude from [employer]. LYNN-7 Assessment Billing LYNN-7 Assessment Tool: LYNN-7 Assessment 73902 Review of Systems Const Details: ROS is obtained primarily from penitentiary staff as patient is limited with his ability to provide information due to his advancing dementia Denies difficulty sleeping, Denies fatigue, Denies fever(s) and Denies headache(s) ENT Details: Reportedly has trouble eating/swallowing only when wearing his dentures Reports dysphagia (only when he is wearing dentures when swallowing ), Denies dizziness, Denies otalgia, Denies headache(s), Denies odynophagia and Denies sore throat Card Denies chest pain, Denies palpitations and Reports dyspnea on exertion (mild) Resp Denies cough, Reports dyspnea on exertion (mild) and Denies wheezing GI Denies abdominal pain, Denies constipation, Reports dysphagia (only when he is wearing dentures when swallowing ), Denies heartburn, Reports fecal incontinence (at times), Denies diarrhea, Denies nausea, Denies odynophagia and Denies vomiting Denies dysuria, Denies nocturia, Denies urinary frequency and Denies urinary incontinence Musc Reports abnormal gait (unstable gait - often trips and falls while going UP stairs, hiram in AM) Neuro Reports abnormal gait (unstable gait - often trips and falls while going UP stairs, hiram in AM), Denies dizziness, Denies headache(s) and Reports memory loss Psych Reports memory loss Endo Denies fatigue and Denies palpitations Aller/Immun Denies wheezing Physical exam (Primary Care) Vital Signs: Last Vital Signs Pulse 64 06/20/23 15:12 BP 112/70 06/20/23 15:12 Pulse Ox 93 06/20/23 15:12 Oxygen Delivery Method Room Air 06/20/23 15:12 BMI result Body Mass Index 29.4 Tobacco/Smoking Status: Tobacco use Status Tobacco use date assessed 06/20/23 06/20/23 15:13 Patient Tobacco Use Status Former Tobacco user 06/20/23 15:13 Tobacco use type Cigarette 06/20/23 15:13 e-Cigarette/Vaping Use Never Used 06/20/23 15:13 PHQ-9: PHQ-9 Score PHQ-9: Total score 4 06/20/23 15:25 Depression Screening Interpretation: Negative Thrive Assessment: Date of Thrive Assessment Date Thrive assessed 06/20/23 06/20/23 15:18 Currently or been in a relationship where the following occur: no concerns reported Const General: no acute distress and alert Orientation/consciousness: oriented to person HENMT Ears: TM's normal bilaterally and EAC's normal Throat: Yes posterior oropharynx normal and Yes tonsils normal (no TP congestion noted) Neck Neck: Yes no lymphadenopathy and Yes supple Resp Auscultation: no rales, rhonchi (scattered bilaterally) throughout, no wheezes and diminished lung sounds (slightly) bilateral Cardio Rate: regular rate Rhythm: regular rhythm Heart sounds: no murmurs GI Palpation (GI): Soft to palpation and nontender Auscultation: normal bowel sounds Neuro General: oriented to person, moves all extremities and no focal motor deficits Extrem General: Yes no clubbing, cyanosis or edema Results Reviewed Results Reviewed: Laboratory Tests 02/13/23 05/29/23 05/29/23 12:57 08:07 08:57 WBC 6.2 6.4 Hgb 11.3 L 12.4 L Hct 36.5 L 39.8 L Plt Count 196 231 Sodium 143 Potassium 4.4 Creatinine 0.89 Estimated GFR > 60 Fasting Glucose 146 H Hemoglobin A1c % 5.7 Calcium 9.9 AST 30 ALT 37 Triglycerides 145 Cholesterol 174 LDL Cholesterol, Calc 103 H HDL Cholesterol 42 Vitamin B12 317 25-OH Vitamin D Total TSH 05/29/23 08:57 WBC Hgb Hct Plt Count Sodium Potassium Creatinine Estimated GFR Fasting Glucose Hemoglobin A1c % Calcium AST ALT Triglycerides Cholesterol LDL Cholesterol, Calc HDL Cholesterol Vitamin B12 25-OH Vitamin D Total 42.8 TSH 2.52 Assessment and Plan Assessment & Plan (1) Pure hypercholesterolemia: Code(s): E78.00 - Pure hypercholesterolemia, unspecified Plan: Results of his labs done a few weeks ago reviewed and discussed with patient and penitentiary staff - cautioned that his total and LDL cholesterol levels have increased slightly from previous Reinforced low cholesterol diet Continue Simvastatin 40 mg QD and Gemfibrozil 600 mg BID Will recheck his labs and fasting lipids in 3 months for follow up (2) Type 2 diabetes mellitus without complication: Code(s): E11.9 - Type 2 diabetes mellitus without complications Qualifiers: Diabetes mellitus [facility] insulin use: without [facility] use Qualified Code(s): E11.9 - Type 2 diabetes mellitus without complications Plan: HgbA1c was at 5.7% on his labs done a few weeks ago (was at 5.6% a few months ago) - goal is <7.0% Reinforced diabetic diet Continue Metformin 500 mg BID; continue Lisinopril 2.5 mg QD for renoprotection (3) COPD (chronic obstructive pulmonary disease): Comment: As per examination and spirometry results he does have severe obstructive airway disorder. Complete PFT was not performed because of his poor attempts. TX: Patient is doing well with the use of Breo-200/25 1 inhalation daily. And advised to continue the same. Use ProAir 2 puffs Q 4-6 hours only p.r.n. or wheezing are persistent cough. * patient is advised to do deep breathing exercises daily, He does have the Incentive Spirometry device at home . Should do deep breathing 10 times morning at noon and in the evening. Code(s): J44.9 - Chronic obstructive pulmonary disease, unspecified Qualifiers: COPD type: unspecified COPD Qualified Code(s): J44.9 - Chronic obstructive pulmonary disease, unspecified Plan: Is currently doing well with no acute exacerbation Is still on oxygen inhalation at 2 LPM via nasal cannula for when he has recurrent hypoxemia on exertion but is able to take this off now and uses oxygen only as needed Continue Breo Ellipta 200-25 mcg 1 inhalation QD and Albuterol HFA 2 inhalations every 6 hours as needed Follow up with pulmonary as scheduled (4) Alzheimer's dementia without behavioral disturbance: Code(s): G30.9 - Alzheimer's disease, unspecified; F02.80 - Dementia in other diseases classified elsewhere, unspecified severity, without behavioral disturbance, psychotic disturbance, mood disturbance, and anxiety Plan: Continue Donepezil 10 mg QD and Memantine 10 mg BID Follow-up with Neurology as scheduled (5) Gait instability: Code(s): R26.81 - Unsteadiness on feet Plan: Patient did not complete physical therapy - stopped going as he did not want to continue with PT Advised again that his gait instability is most likely the main reason for his recurrent falls while going up stairs although his gait seems much improved compared to when he was last here a few months ago Fall precautions reinforced Is still using a walker when he is moving about but only as needed now (6) Irritable bowel syndrome with diarrhea: Code(s): K58.0 - Irritable bowel syndrome with diarrhea Plan: Continue Sucralfate 1 gm once a day - symptoms have improved somewhat with Rx His recent stool incontinence may be related to this or may be due to his progressing dementia Follow up with GI as scheduled (7) Schizophrenia: Code(s): F20.9 - Schizophrenia, unspecified Qualifiers: Schizophrenia type: unspecified Qualified Code(s): F20.9 - Schizophrenia, unspecified Plan: Continue Clozaril 100 mg 3 & 1/2 tablets once a day at bedtime Follow-up with Psychiatry as scheduled (8) Anxiety: Code(s): F41.9 - Anxiety disorder, unspecified Plan: Continue Clonazepam 0.5 mg BID PRN (9) Depression: Code(s): F32.9 - Major depressive disorder, single episode, unspecified Qualifiers: Depression Type: unspecified Qualified Code(s): F32.9 - Major depressive disorder, single episode, unspecified Plan: Continue Effexor XR 150 mg once a day Follow-up with Psychiatry as scheduled (10) Smoker: Comment: Patient has been a heavy smoker throughout his adult life. Presence of severe psychotic problem, (Schizophrenia ) is an impediment to quit smoking completely. The penitentiary staff is restricting his number of cigarettes to 4 per day. * Because of his long-time smoking, he should be in LDCT. Lung screening program. I discussed with him and he is fully agreeable. CT scan of the chest on 06/07/2021 , did not show any pulmonary nodules Code(s): F17.200 - Nicotine dependence, unspecified, uncomplicated Plan: Counseled again on the importance and urgency of smoking cessation, especially since he has frequent hypoxemia and is on oxygen (11) Obesity (BMI 30-39.9): Code(s): E66.9 - Obesity, unspecified Plan: Reinforced diet; exercise and losing weight are unrealistic now due to patient's gait instability and declining dementia Plan Follow up in 3 months Orders: Orders Comprehensive [place]. Panel Fast 3 Months E78.00 - Pure hypercholesterolemia, unspecified Hemoglobin A1c 3 Months E11.9 - Type 2 diabetes mellitus without complications UA CC w/rflx Micro + Cult 3 Months R30.0 - Dysuria Complete Blood Count Auto Diff 3 Months I10 - Essential (primary) hypertension Lipid Panel 3 Months E78.00 - Pure hypercholesterolemia, unspecified TSH reflex Free T4 3 Months E78.00 - Pure hypercholesterolemia, unspecified Microalbumin, Random (w Creat) 3 Months E11.9 - Type 2 diabetes mellitus without complications Vitamin B12 and Folate 3 Months E53.8 - Deficiency of other specified B group vitamins Vitamin D 25-OH Total 3 Months E55.9 - Vitamin D deficiency, unspecified Coding Level of Care Code Est Pt Level 4 (16211) Diagnoses Pure hypercholesterolemia E78.00 Type 2 diabetes mellitus without complication, without long-term current use of insulin E11.9 Diabetes 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
== END 2023-06-20 15:42 | disposition home or self-care (01) ==
PROVIDERS: PCP Internal Medicine; Visit Provider Internal Medicine
DX: E78.00 Pure hypercholesterolemia, unspecified (principal); E11.9 Type 2 diabetes mellitus without complications; J44.9 Chronic obstructive pulmonary disease, unspecified; G30.9 Alzheimer's disease, unspecified; F02.80 Dementia in other diseases classified elsewhere, unspecified severity, without behavioral disturbance, psychotic disturbance, mood disturbance, and anxiety; F20.9 Schizophrenia, unspecified; R26.81 Unsteadiness on feet; K58.0 Irritable bowel syndrome with diarrhea; F41.9 Anxiety disorder, unspecified; F32.9 Major depressive disorder, single episode, unspecified; F17.200 Nicotine dependence, unspecified, uncomplicated; E66.9 Obesity, unspecified
CPT/HCPCS: 99214

== ENCOUNTER 2023-06-21 13:04 | Outpatient (REF) | payer MEDICARE, MEDICAID, SELFPAY ==
[2023-06-21 15:55] LABS: MANUAL DIFF FLAG NO
[2023-06-21 16:06] LABS: Basophils Percent Auto 0.3 % (0-2); Eosinophils Absolute Auto 0.2 X10*3/uL (0.0-0.4); Eosinophils Percent Auto 2.2 % (0-4); Hematocrit 38.3 % (42.0-52.0); Imm Gran Abs Auto 0.03 X10*3/uL (0.00-0.03); Imm Gran Pct Auto 0.4 % (0.0-0.4); Lymphocytes Absolute Auto 2.4 X10*3/uL (1.2-4.9); Lymphocytes Percent Auto 33.1 % (20-40); Mean Corpuscular HGB Conc 31.3 g/dl (31.0-36.0); Mean Corpuscular Hemoglobin 28.2 pg (27.0-33.0); Mean Corpuscular Volume 89.9 fL (80.0-98.0); Mean Platelet Volume 12.6 fL (9.4-12.4); Monocytes Absolute Auto 0.7 X10*3/uL (0.1-1.2); Neutrophils Absolute Auto 3.9 x10*3/uL (2.0-8.3); Platelet Count 224 X10*3/uL (160-400); Red Blood Count 4.26 X10*6/uL (4.60-5.80); Red Cell Distribution Width 13.5 % (11.0-16.0); White Blood Count 7.3 X10*3/uL (4.8-10.8)
[2023-06-25 05:09] LABS: Clozapine (Clozaril) 343 mcg/L; Norclozapine 164 mcg/L (25-400)
== END 2023-06-21 13:05 | disposition home or self-care (01) ==
LOC: HO.HMGCLDS 13:04
PROVIDERS: Visit Provider Psychiatry & Neurology Psychiatry
DX: Z79.899 Other long term (current) drug therapy (principal)
CPT/HCPCS: 36415; 80159; 85025

== ENCOUNTER 2023-07-24 12:06 | Outpatient (REF) | payer MEDICARE, MEDICAID, SELFPAY ==
[2023-07-24 13:19] LABS: MANUAL DIFF FLAG NO
[2023-07-24 13:31] LABS: Basophils Percent Auto 0.4 % (0-2); Eosinophils Absolute Auto 0.2 X10*3/uL (0.0-0.4); Eosinophils Percent Auto 2.4 % (0-4); Hemoglobin 12.4 g/dl (14.0-18.0); Imm Gran Abs Auto 0.04 X10*3/uL (0.00-0.03); Imm Gran Pct Auto 0.6 % (0.0-0.4); Lymphocytes Absolute Auto 2.6 X10*3/uL (1.2-4.9); Lymphocytes Percent Auto 36.3 % (20-40); Mean Corpuscular Hemoglobin 28.6 pg (27.0-33.0); Mean Corpuscular Volume 92.2 fL (80.0-98.0); Monocytes Absolute Auto 0.8 X10*3/uL (0.1-1.2); Monocytes Percent Auto 10.5 % (2-11); Neutrophils Absolute Auto 3.6 x10*3/uL (2.0-8.3); Neutrophils Percent Auto 49.8 % (45-73); Platelet Count 248 X10*3/uL (160-400); Red Blood Count 4.34 X10*6/uL (4.60-5.80); Red Cell Distribution Width 13.9 % (11.0-16.0); White Blood Count 7.1 X10*3/uL (4.8-10.8)
== END 2023-07-24 12:07 | disposition home or self-care (01) ==
LOC: HO.HMGCLR 12:06
PROVIDERS: PCP Internal Medicine; Visit Provider Psychiatry & Neurology Psychiatry
DX: Z79.899 Other long term (current) drug therapy (principal)
CPT/HCPCS: 36415; 85025

== ENCOUNTER 2023-07-31 17:51 | Emergency (ER) | payer MEDICARE, MEDICAID, SELFPAY ==
--- NOTE | ~2023-07-31 | XR_ITS ---
EXAMINATION: XR CHEST CLINICAL INFORMATION: Fever and cough COMPARISON: 11/16/2022 and 09/07/2022 TECHNIQUE: Frontal view of the chest was obtained. FINDINGS: New patchy changes are present in the left lower lobe. Heart size is normal. Right lung is clear. No pleural effusions. Mild degenerative changes present in both shoulders XR/XR chest 1V IMPRESSION: Left lower lobe pneumonia.
--- NOTE | 2023-07-31 18:05 | ED.GENADULT ---
HPI - General Adult General Chief complaint: Abdominal Pain Stated complaint: SOB,ABD PAIN,HAS DEMENTIA Time Seen by Provider: 07/31/23 17:55 History of Present Illness HPI narrative: The patient is a 73-year-old male with a history of dementia who lives at a senior living in [place]. He normally uses 2 L of oxygen at home 24 hours a day. Today the staff at the senior living thought that he seemed less alert than usual. They also felt that his oxygen level was slightly lower than usual and so put him up to 3 L. Ultimately the staff at the senior living called 911. They had not measured any fevers and there had been no vomiting. The patient apparently ate breakfast and took his morning medications. The patient has a protuberant abdomen but he says his abdomen is not any more distended than usual however. He denies abdominal pain. There is no report of diarrhea or vomiting. There was no reported fever from the senior living but on arrival here the patient was found to have a temperature of 101.4 degrees. The patient has a history of schizophrenia as well as dementia. He also has history of COPD and is on oxygen. The patient is on Clozaril Related Data Home Medications Medication Instructions Recorded Confirmed betamethasone dipropionate 0.05 % topical 01/10/21 06/20/23 topical ointment ketoconazole 2 % shampoo 1 appl topical DAILY 08/26/22 06/20/23 donepezil 10 mg tablet 10 mg PO DAILY 11/29/22 06/20/23 memantine 10 mg tablet 10 mg PO BID 12/04/22 06/20/23 clozapine 100 mg tablet 300 mg PO BEDTIME 12/27/22 06/20/23 clonazepam 0.5 mg tablet 0.5 mg PO BID Anxiety 02/28/23 06/20/23 venlafaxine 150 mg 150 mg PO DAILY 02/28/23 06/20/23 capsule,extended release 24 hr Previous Rx's Medication Instructions Recorded 4-PRONGED CANE #1 ea 04/08/21 FreeStyle Lite Strips (blood sugar #100 ea 12/28/21 diagnostic) blood sugar diagnostic #100 ea 12/29/21 blood-glucose meter #1 ea 12/29/21 lancets 28 gauge (Prodigy Lancets) #100 ea 12/29/21 aspirin 81 mg tablet,delayed 81 mg PO DAILY 90 days #90 tabs 11/06/22 release adult pull ups #100 ea 12/04/22 simvastatin 40 mg tablet 40 mg PO BEDTIME #90 tabs 01/03/23 zinc oxide 40 % topical ointment 1 appl topical BID-QID PRN skin 01/03/23 (Diaper Rash) irritation/diaper rash #397 grams methylcellulose (laxative) 500 mg 1,000 mg (2 x 500 mg) PO BID 30 02/13/23 tablet (Citrucel) days #120 tabs rifaximin 550 mg tablet (Xifaxan) 550 mg PO BID #60 tabs 02/28/23 CHUX sheets #60 ea 03/07/23 acetaminophen 500 mg tablet 500 mg PO TID PRN fever or pain 30 03/07/23 (Tylenol Extra Strength) days #90 tabs Breo Ellipta 200 mcg-25 mcg/dose 1 ea PO DAILY COPD 30 days #60 ea 03/12/23 powder for inhalation (fluticasone furoate-vilanterol) cholecalciferol (vitamin D3) 25 25 mcg PO DAILY #90 tabs 06/04/23 mcg (1,000 unit) tablet gemfibrozil 600 mg tablet 600 mg PO BID #60 tabs 06/04/23 lisinopril 2.5 mg tablet 2.5 mg PO DAILY #90 tabs 06/04/23 sucralfate 1 gram tablet 3 g (3 x 1 gram) PO DAILY #90 tabs 06/06/23 metformin 500 mg tablet 500 mg PO BID #60 tabs 06/13/23 molnupiravir 200 mg capsule (EUA) 800 mg (4 x 200 mg) PO Q12H 5 days 07/31/23 #40 caps Allergies Allergy/AdvReac Type Severity Reaction Status Date / Time No Known Allergies Allergy Verified 06/20/23 15:31 [No Known Allergies*] Review of Systems Review of Systems: Yes all other systems are reviewed and are negative PMFSH Past Medical History Medical History Dementia Schizophrenia Nocturnal hypoxia Hyperlipidemia Hypertension History of COPD Screening for diabetes mellitus Obesity (BMI 30-39.9) COPD (chronic obstructive pulmonary disease) Hypoxia Weakness Gait instability Hearing impairment Overweight (BMI 25.0-29.9) Smoker Depression Anxiety Schizophrenia Vitamin D deficiency Seborrheic dermatitis of scalp Alzheimer's dementia without behavioral disturbance Pure hypercholesterolemia Type 2 diabetes mellitus without complication Surgical History No pertinent past surgical history H/O colonoscopy History of appendectomy Family History Family History Father Cancer Mother No problems noted. Brother Substance abuse Other Alcohol abuse Social History Social History Household Members: None Housing: Assisted Living Facility Housing Other:: Skilled Nursing Do you presently have visiting nurse or other home services: No Alcohol intake: never Patient Tobacco Use Status: Former Tobacco user Tobacco use type: Cigarette Cigarettes Per Day: 3 e-Cigarette/Vaping Use: Never Used Second Hand Smoke Exposure: Yes Advance Directives: No Advance Directives Information Provided: No service: No Current occupational status: disabled and other Cognitive needs: Yes (walker) Hearing needs: Yes Vision needs: Yes Physical Exam ED Vital Signs: Vital Signs - 24 hr 07/31/23 18:24 07/31/23 20:40 Temperature 101.2 F H 99.9 F Pulse Rate 94 81 Respiratory Rate 20 20 Blood Pressure 147/64 H 168/78 H Pulse Oximetry 95 95 Oxygen Delivery Method Room Air Nasal Cannula Oxygen Flow Rate 2 BMI result Body Mass Index 29.2 Const Other: The patient was awake but seem mildly sleepy. He did not seem in overt distress. He did not seem in acute pain or respiratory difficulty. He looks quite chronically ill pain HENMT Other: Face symmetrical. Tongue is midline. Mucous membranes moist. The patient was wearing nasal cannula which he wears normally. Eyes Other: Pupils are round equal, conjunctivae are clear, extraocular movements are intact. Neck Other: Moving his neck easily. No cervical adenopathy. Resp Other: No increased work of breathing. Breath sounds were fairly clear except when he took very big breaths he seemed to have 3 wheezing. No crackles. Cardio Other: Regular rate rhythm without murmur GI Other: The patient is around, protuberant abdomen without significant tender Skin Other: Skin is dry and unremarkable. Neuro Other: Patient seen mildly sleepy but responded to verbal stimuli. Speech was fairly clear. He moves his extremities symmetrically. Extrem Other: No peripheral edema. No calf asymmetry or tenderness. Medications Administered Discontinued Medications Generic Name Dose Route Start Last Admin Trade Name Matilde PRN Reason Stop Dose Admin Acetaminophen 975 mg 07/31/23 21:19 07/31/23 21:40 Acetaminophen 325 Mg Tablet PO 07/31/23 21:20 975 mg ONCE ONE Administration Sodium Chloride 1,000 mls @ 999 mls/hr 07/31/23 18:15 07/31/23 20:48 Ns IV 07/31/23 19:15 Infused .Q1H1M [place] In[facility] Medical Decision Making Medical Decision Making MDM Narrative: The patient is a 73-year-old male with multiple medical problems including schizophrenia for which he is on clozapine. He also has history of dementia and is on donepezil. He also has a history of COPD and is on chronic home oxygen with 2 L nasal cannula. He seemed ill at his senior living today and was sent here. On arrival here he was found have a temperature of 101.4 degrees orally. The patient is tested positive for COVID. His portable chest x-ray was read as showing findings of a left lower lobe infiltrate but he does not have an elevated white count or a significantly elevated CRP and his vital signs are quite stable. My impression is that he has a COVID pneumonia but I doubt that he has an additional bacterial pneumonia. Clinically he seems stable. He was maintaining good oxygen saturation on his standard oxygen of 2 L. Heart rate and blood pressure were good. He did not seem uncomfortable. My overall impression is that the patient has acute COVID but I do not think he has any additional acute process. Given that his vital signs seemed stable I do not think he requires hospitalization. Since he is on clozapine he may not be prescribed Paxlovid. I will therefore prescribe molnupiravir for his COVID. This will have to be started tomorrow as we do not have this medication in our hospital formulary. Lab Data 07/31/23 18:39 07/31/23 18:39 Labs: Lab Results 07/31/23 07/31/23 07/31/23 Range/Units 18:39 18:42 19:23 WBC 5.4 (4.8-10.8) X10*3/uL RBC 3.88 L (4.60-5.80) X10*6/uL Hgb 11.1 L (14.0-18.0) g/dl Hct 35.2 L (42.0-52.0) % MCV 90.7 (80.0-98.0) fL MCH 28.6 (27.0-33.0) pg MCHC 31.5 (31.0-36.0) g/dl RDW 14.3 (11.0-16.0) % Plt Count 177 D (160-400) X10*3/uL MPV 11.7 (9.4-12.4) fL Immature Gran % (Auto) 0.4 (0.0-0.4) % Neut % (Auto) 52.8 (45-73) % Lymph % (Auto) 33.5 (20-40) % [place] % (Auto) 12.9 H (2-11) % Eos % (Auto) 0.2 (0-4) % Baso % (Auto) 0.2 (0-2) % Lymph # (Auto) 1.8 (1.2-4.9) X10*3/uL [place] # (Auto) 0.7 (0.1-1.2) X10*3/uL Eos # (Auto) 0.0 (0.0-0.4) X10*3/uL Baso # (Auto) 0.0 (0.0-0.2) X10*3/uL Abs Immat Gran (auto) 0.02 (0.00-0.03) X10*3/uL Absolute Neuts (auto) 2.9 (2.0-8.3) x10*3/uL Absolute Nucleated RBC 0.000 (0.0-0.012) X10*3/uL Nucleated RBC % (auto) 0.0 (0.0-0.2) /100WBC PT 12.6 (11.1-13.3) SEC INR 1.0 (0.9-1.1) VBG pH 7.33 (7.32-7.43) VBG pCO2 49 mmHg VBG pO2 80 mmHg VBG HCO3 26 (22-26) mmol/L VBG O2 Saturation 91.0 % VBG Base Excess 0.1 mmol/L Sodium 142 (135-145) mmol/L Potassium 4.0 (3.3-5.1) mmol/L Chloride 105 (96-108) mmol/L Carbon Dioxide 25 (22-29) mmol/L Anion Gap 16 (12-20) BUN 20 H (9-16) mg/dL Creatinine 1.00 (0.5-1.4) mg/dL Estim Creat Clear Calc 73.9 Estimated GFR > 60 Random Glucose 106 (60-115) mg/dL Lactic Acid 0.7 (0.5-2.0) mmol/L Calcium 9.3 D (8.4-10.2) mg/dL Magnesium 1.7 (1.6-2.6) mg/dL Total Bilirubin 0.2 (0.0-1.0) mg/dL Direct Bilirubin < 0.2 (0.0-0.5) mg/dL AST 203 H (5-37) U/L ALT 146 H (0-40) U/L Alkaline Phosphatase 85 (39-117) U/L C-Reactive Protein 2.35 H (< or = 0.50) mg/dL Total Protein 7.1 (6.5-8.0) g/dL Albumin 4.2 (3.5-5.0) g/dL Lipase 50 (8-78) U/L Urine Color Urine Appearance Urine pH (5.0-9.0) Ur Specific Danielson (1.005-1.025) Urine Protein (Neg-Trace) mg/dL Urine Glucose (UA) (Negative) mg/dL Urine Ketones (Negative) mg/dL Urine Blood (Negative) Urine Nitrite (Negative) Ur Leukocyte Esterase (Negative) Urine RBC (0-2) /HPF Urine WBC (0-5) /HPF Ur Squamous Epith Cells (0-2) /HPF Urine Bacteria (None Seen) Hyaline Casts (0-2) /LPF Influenza Type A (PCR) NEGATIVE (Negative) Influenza Type B (PCR) NEGATIVE (Negative) RSV RNA Qual (PCR) NEGATIVE (Negative) SARS-CoV-2 RNA (RT-PCR) POSITIVE A (Negative) 07/31/23 Range/Units 19:28 WBC (4.8-10.8) X10*3/uL RBC (4.60-5.80) X10*6/uL Hgb (14.0-18.0) g/dl Hct (42.0-52.0) % MCV (80.0-98.0) fL MCH (27.0-33.0) pg MCHC (31.0-36.0) g/dl RDW (11.0-16.0) % Plt Count (160-400) X10*3/uL MPV (9.4-12.4) fL Immature Gran % (Auto) (0.0-0.4) % Neut % (Auto) (45-73) % Lymph % (Auto) (20-40) % [place] % (Auto) (2-11) % Eos % (Auto) (0-4) % Baso % (Auto) (0-2) % Lymph # (Auto) (1.2-4.9) X10*3/uL [place] # (Auto) (0.1-1.2) X10*3/uL Eos # (Auto) (0.0-0.4) X10*3/uL Baso # (Auto) (0.0-0.2) X10*3/uL Abs Immat Gran (auto) (0.00-0.03) X10*3/uL Absolute Neuts (auto) (2.0-8.3) x10*3/uL Absolute Nucleated RBC (0.0-0.012) X10*3/uL Nucleated RBC % (auto) (0.0-0.2) /100WBC PT (11.1-13.3) SEC INR (0.9-1.1) VBG pH (7.32-7.43) VBG pCO2 mmHg VBG pO2 mmHg VBG HCO3 (22-26) mmol/L VBG O2 Saturation % VBG Base Excess mmol/L Sodium (135-145) mmol/L Potassium (3.3-5.1) mmol/L Chloride (96-108) mmol/L Carbon Dioxide (22-29) mmol/L Anion Gap (12-20) BUN (9-16) mg/dL Creatinine (0.5-1.4) mg/dL Estim Creat Clear Calc Estimated GFR Random Glucose (60-115) mg/dL Lactic Acid (0.5-2.0) mmol/L Calcium (8.4-10.2) mg/dL Magnesium (1.6-2.6) mg/dL Total Bilirubin (0.0-1.0) mg/dL Direct Bilirubin (0.0-0.5) mg/dL AST (5-37) U/L ALT (0-40) U/L Alkaline Phosphatase (39-117) U/L C-Reactive Protein (< or = 0.50) mg/dL Total Protein (6.5-8.0) g/dL Albumin (3.5-5.0) g/dL Lipase (8-78) U/L Urine Color Yellow Urine Appearance Clear Urine pH 5.5 (5.0-9.0) Ur Specific Danielson 1.025 (1.005-1.025) Urine Protein 100 (2+) H (Neg-Trace) mg/dL Urine Glucose (UA) Negative (Negative) mg/dL Urine Ketones Negative (Negative) mg/dL Urine Blood Trace H (Negative) Urine Nitrite Negative (Negative) Ur Leukocyte Esterase Negative (Negative) Urine RBC 0-2 (0-2) /HPF Urine WBC 0-5 (0-5) /HPF Ur Squamous Epith Cells 0-2 (0-2) /HPF Urine Bacteria None Seen (None Seen) Hyaline Casts 0-2 (0-2) /LPF Influenza Type A (PCR) (Negative) Influenza Type B (PCR) (Negative) RSV RNA Qual (PCR) (Negative) SARS-CoV-2 RNA (RT-PCR) (Negative) Discharge Plan Discharge Clinical Impression: COVID Patient Disposition: Home, Self-Care Instructions: COVID-19 (Coronavirus Disease 2019) (ED) Additional Instructions: He has tested positive for COVID today. He otherwise seems stable. I have sent a prescription to the [facility] pharmacy for a medication called molnupiravir which is an anti-COVID medication. Please start this medication tomorrow morning. You may use acetaminophen as needed for fever. Encourage fluids. Return to the emergency room a significantly worse. Prescriptions: New molnupiravir 200 mg capsule 800 mg PO Q12H 5 Days Qty: 40 0RF No Action (DME) FreeStyle Lite Strips Strip See Rx Instructions .Route Qty: 100 5RF Rx Instructions: As directed- to test blood sugar once a day (DME) lancets [Prodigy Lancets] 28 gauge misc See Rx Instructions .Route Qty: 100 3RF Rx Instructions: To test once a day (DME) blood sugar diagnostic Strip See Rx Instructions .Route Qty: 100 3RF Rx Instructions: To test once a day (DME) blood-glucose meter Misc See Rx Instructions .Route Qty: 1 0RF Rx Instructions: To test blood sugar daily aspirin 81 mg tablet,delayed release (DR/EC) 81 mg PO DAILY 90 Days Qty: 90 3RF zinc oxide [Diaper Rash] 40 % ointment 1 appl topical BID-QID PRN (Reason: skin irritation/diaper rash) Qty: 397 3RF simvastatin 40 mg tablet 40 mg PO BEDTIME Qty: 90 3RF Citrucel 500 mg tablet 1,000 mg PO BID 30 Days Qty: 120 6RF acetaminophen [Tylenol Extra Strength] 500 mg tablet 500 mg PO TID PRN (Reason: fever or pain) 30 Days Qty: 90 3RF Rx Instructions: Take only as needed for increased pain cholecalciferol (vitamin D3) 25 mcg (1,000 unit) tablet 25 mcg PO DAILY Qty: 90 1RF gemfibrozil 600 mg tablet 600 mg PO BID Qty: 60 1RF lisinopril 2.5 mg tablet 2.5 mg PO DAILY Qty: 90 1RF sucralfate 1 gram tablet 3 g PO DAILY Qty: 90 1RF metformin 500 mg tablet 500 mg PO BID Qty: 60 3RF ketoconazole 2 % shampoo 1 appl topical DAILY donepezil 10 mg tablet 10 mg PO DAILY memantine 10 mg tablet 10 mg PO BID clozapine 100 mg tablet 300 mg PO BEDTIME clonazepam 0.5 mg tablet 0.5 mg PO BID (DME) 4-PRONGED CANE See Rx Instructions .Route .MEDSUPPLY Qty: 1 0RF Rx Instructions: [place] CHUX sheets See Rx Instructions .Route .MEDSUPPLY Qty: 60 12RF Rx Instructions: As directed [place] adult pull ups XL See Rx Instructions .Route .MEDSUPPLY Qty: 100 12RF Rx Instructions: As directed betamethasone dipropionate 0.05 % ointment topical fluticasone furoate-vilanterol [Breo Ellipta] 200-25 mcg/dose blister with device 1 ea PO DAILY MDD copd 30 Days Qty: 60 5RF venlafaxine 150 mg capsule,extended release 24hr 150 mg PO DAILY Xifaxan 550 mg tablet 550 mg PO BID Qty: 60 6RF
[2023-07-31 18:24] VITALS: BP 147/64; BP 154/81; PULSE 85; PULSE 94; RESP 20; TEMP 38.4; O2SAT 95; BMI 29.2
[2023-07-31 18:45] LABS: MANUAL DIFF FLAG NO
[2023-07-31 18:46] LABS: Basophils Percent Auto 0.2 % (0-2); Eosinophils Percent Auto 0.2 % (0-4); Hematocrit 35.2 % (42.0-52.0); Hemoglobin 11.1 g/dl (14.0-18.0); Imm Gran Abs Auto 0.02 X10*3/uL (0.00-0.03); Imm Gran Pct Auto 0.4 % (0.0-0.4); Lymphocytes Absolute Auto 1.8 X10*3/uL (1.2-4.9); Lymphocytes Percent Auto 33.5 % (20-40); Mean Corpuscular HGB Conc 31.5 g/dl (31.0-36.0); Mean Corpuscular Hemoglobin 28.6 pg (27.0-33.0); Mean Corpuscular Volume 90.7 fL (80.0-98.0); Mean Platelet Volume 11.7 fL (9.4-12.4); Monocytes Absolute Auto 0.7 X10*3/uL (0.1-1.2); Monocytes Percent Auto 12.9 % (2-11); Neutrophils Absolute Auto 2.9 x10*3/uL (2.0-8.3); Neutrophils Percent Auto 52.8 % (45-73); Platelet Count 177 X10*3/uL (160-400); Red Blood Count 3.88 X10*6/uL (4.60-5.80); Red Cell Distribution Width 14.3 % (11.0-16.0); White Blood Count 5.4 X10*3/uL (4.8-10.8)
[2023-07-31 18:48] LABS: VBG Base Excess 0.1 mmol/L; VBG HCO3 26 mmol/L (22-26); VBG pCO2 49 mmHg; VBG pH 7.33 (7.32-7.43); VBG pO2 80 mmHg
[2023-07-31 18:52] LABS: Venous Blood Gas Refer to POC result
[2023-07-31 18:57] LABS: Prothrombin Time 12.6 SEC (11.1-13.3)
[2023-07-31 19:00] LABS: Lactic Acid 0.7 mmol/L (0.5-2.0)
[2023-07-31 19:07] LABS: Alanine Aminotransferase 146 U/L (0-40); Albumin Level 4.2 g/dL (3.5-5.0); Alkaline Phosphatase 85 U/L (39-117); Anion Gap 16 (12-20); Aspartate Amino Transferase 203 U/L (5-37); Bilirubin Direct < 0.2 mg/dL (0.0-0.5); Bilirubin Total 0.2 mg/dL (0.0-1.0); Blood Urea Nitrogen 20 mg/dL (9-16); C Reactive Protein 2.35 mg/dL (< or = 0.50); Calcium 9.3 mg/dL (8.4-10.2); Carbon Dioxide 25 mmol/L (22-29); Chloride 105 mmol/L (96-108); Creatinine Clr Calc Pharmacy 73.9; Estimated Glomerular Filt Rate > 60; Glucose Random 106 mg/dL (60-115); Lipase 50 U/L (8-78); Magnesium 1.7 mg/dL (1.6-2.6); Sodium 142 mmol/L (135-145); Total Protein 7.1 g/dL (6.5-8.0)
[2023-07-31] MEDS: 0.9 % Sodium Chloride 1,000 ML 999 ML IV (19:08)
--- NOTE | 2023-07-31 19:28 | MHC.EDTECH ---
Patient was biba from SNF ,2nd sets of blood culture drawn ,rsv /covid swab collected also urine sample all sent to lab ,Pt was assisted to change into hospital gown ,and was hooked up to cardiac rn ,Call verdin within Pt reach .
[2023-07-31 19:38] LABS: Appearance Urine Clear; Color Urine Yellow; Glucose Urine UA Negative (Negative); Leukocyte Esterase Urine Negative (Negative); Nitrite Urine Negative (Negative); PH 5.5 (5.0-9.0); Specific Gravity - Urine 1.025 (1.005-1.025); UMIC TRIGGER UACC YES; Urine Blood Trace (Negative); Urine Ketones Negative (Negative); Urine Protein 100 (2+) mg/dL (Neg-Trace)
[2023-07-31 19:56] LABS: Bacteria Urine None Seen (None Seen); Hyaline Casts Urine 0-2 /LPF (0-2); RBC Urine 0-2 /HPF (0-2); Squamous Epithelial Cell Urine 0-2 /HPF (0-2); WBC Urine 0-5 /HPF (0-5)
[2023-07-31 20:11] LABS: Influenza A PCR NEGATIVE (Negative); Influenza B PCR NEGATIVE (Negative); Resp Syncy Virus RNA Qual PCR NEGATIVE (Negative); SARS COV2 PCR INHOUSE POSITIVE (Negative)
[2023-07-31 20:40] VITALS: BP 168/78; PULSE 81; RESP 20; TEMP 37.7; O2SAT 95
[2023-07-31] MEDS: Acetaminophen 325 MG TABLET 975 MG PO (21:40)
[2023-07-31 22:50] VITALS: BP 153/71; PULSE 89; RESP 18; TEMP 36.9; O2SAT 94
== END 2023-07-31 22:50 | disposition home or self-care (01) ==
PROVIDERS: Emergency Provider Emergency Medicine; PCP Internal Medicine
DX: U07.1 COVID-19 (principal); R50.9 Fever, unspecified; R19.00 Intra-abdominal and pelvic swelling, mass and lump, unspecified site; R79.82 Elevated C-reactive protein (CRP); R06.2 Wheezing; R53.83 Other fatigue; E11.9 Type 2 diabetes mellitus without complications; I10 Essential (primary) hypertension; E78.00 Pure hypercholesterolemia, unspecified; G30.9 Alzheimer's disease, unspecified; E55.9 Vitamin D deficiency, unspecified; J44.9 Chronic obstructive pulmonary disease, unspecified; Z99.81 Dependence on supplemental oxygen; Z87.891 Personal history of nicotine dependence; Z79.82 Long term (current) use of aspirin; Z79.899 Other long term (current) drug therapy; Z79.84 Long term (current) use of oral hypoglycemic drugs; Z79.02 Long term (current) use of antithrombotics/antiplatelets
CPT/HCPCS: 0241U; 36415; 71045; 80048; 80076; 81001; 82803; 83605; 83690; 83735; 85025; 85610; 86140; 87040; 96360; 96361; 99284

== ENCOUNTER 2023-08-21 11:58 | Outpatient (REF) | payer MEDICARE, MEDICAID, SELFPAY ==
[2023-08-21 13:12] LABS: MANUAL DIFF FLAG NO
[2023-08-21 13:34] LABS: Basophils Percent Auto 0.4 % (0-2); Eosinophils Absolute Auto 0.1 X10*3/uL (0.0-0.4); Eosinophils Percent Auto 1.3 % (0-4); Hematocrit 36.7 % (42.0-52.0); Hemoglobin 11.3 g/dl (14.0-18.0); Imm Gran Abs Auto 0.02 X10*3/uL (0.00-0.03); Imm Gran Pct Auto 0.3 % (0.0-0.4); Lymphocytes Absolute Auto 2.3 X10*3/uL (1.2-4.9); Lymphocytes Percent Auto 31.3 % (20-40); Mean Corpuscular HGB Conc 30.8 g/dl (31.0-36.0); Mean Corpuscular Hemoglobin 27.8 pg (27.0-33.0); Mean Corpuscular Volume 90.2 fL (80.0-98.0); Mean Platelet Volume 12.1 fL (9.4-12.4); Monocytes Absolute Auto 0.8 X10*3/uL (0.1-1.2); Monocytes Percent Auto 11.3 % (2-11); Neutrophils Absolute Auto 4.1 x10*3/uL (2.0-8.3); Neutrophils Percent Auto 55.4 % (45-73); Platelet Count 322 X10*3/uL (160-400); Red Blood Count 4.07 X10*6/uL (4.60-5.80); Red Cell Distribution Width 13.7 % (11.0-16.0); White Blood Count 7.5 X10*3/uL (4.8-10.8)
== END 2023-08-21 11:59 | disposition home or self-care (01) ==
LOC: HO.HMGCLR 11:58
PROVIDERS: PCP Internal Medicine; Visit Provider Psychiatry & Neurology Psychiatry
DX: Z79.899 Other long term (current) drug therapy (principal)
CPT/HCPCS: 36415; 85025

== ENCOUNTER 2023-09-05 12:18 | Outpatient (AMB) | payer MEDICARE, MEDICAID, SELFPAY ==
--- NOTE | 2023-09-05 12:56 | MHC.OFFVIS ---
Intake Vital Signs 09/05/23 13:32 Height 5 ft 9 in Weight 189 lb 9.561 oz BMI 28.0 BP 137/63 Blood Pressure Location Lt brachial Position Sitting Pulse 88 Intake Visit Reasons: 6 month fu Intake Note: Patricio presents in the office as a 6 month follow up. CC: States that once in a while there will be inflammation in the tummy and mucus stools but since the Xifaxin he has been a lot better. It will happen when he eats things like chicken and red sauce. Child Care Nurse Required: No Allergies No Known Allergies [No Known Allergies*] Allergy (Verified 09/05/23 13:32) HPI 6 month fu HPI Details Assessment & Plan (1) Irritable bowel syndrome with diarrhea: Code(s): K58.0 - Irritable bowel syndrome with diarrhea Plan: He is doing better, he is no longer taking xifaxin, just the carafate and fiber.. He will still have explosive diarrhea at times, but they are also trying to watch what he eats finding that tomato, dairy and artificial sweeteners are triggers. However, he was doing much better when he was on the xifaxin w/o any problems. So, since his insurance preferred this we will try to get this as a terminal make up operator option. They mentioned that even if we can not get long-term intermittently every 2 weeks seems to also hold him well. ROV 6 mos. (2) Dysphagia: Comment: Neurologic/Alzheimer's related Code(s): R13.10 - Dysphagia, unspecified Medications: New rifaximin (Xifaxan ) 550 mg PO BID 60 tabs 6RF K58.0 - Irritable bowel syndrome wit h diarrhea CORRESPONDENCE On 12/07/22 @ 08:13 Ashley Franco Wrote To Devin,December I sent appeal x2 - patients insurance denied [employer], states not listed in drug formulary and there is a 'preferred' drug: Xifaxan. If patient cannot take Xifaxan, they need medical reason as to why the preferred drug would not work. TODAY'S VISIT He is accompanied by a staff member from his care home who is supportive. He continues to do extremely well his irritable bowel is maintained on Xifaxan along with Carafate and Citrucel. They would like refills on these and of course I will provided. He has no concerns remains satisfied with his GI regimen. The only new health concern was that he caught COVID, and they are not sure how that happened since he never leaves the house but it was, fortunately, a mild case and he has recovered. Return office visit in 6 months. [facility] Medical History Dementia Schizophrenia Nocturnal hypoxia Hyperlipidemia Hypertension History of COPD Screening for diabetes mellitus Obesity (BMI 30-39.9) COPD (chronic obstructive pulmonary disease) Hypoxia Weakness Gait instability Hearing impairment Overweight (BMI 25.0-29.9) Smoker Depression Anxiety Schizophrenia Vitamin D deficiency Seborrheic dermatitis of scalp Alzheimer's dementia without behavioral disturbance Pure hypercholesterolemia Type 2 diabetes mellitus without complication Surgical History No pertinent past surgical history H/O colonoscopy History of appendectomy Family History Father Cancer Mother No problems noted. Brother Substance abuse Other Alcohol abuse Social History Household Members: None Housing: Assisted Living Facility Housing Other:: Detention Do you presently have visiting nurse or other home services: No Alcohol intake: never Patient Tobacco Use Status: Former Tobacco user Tobacco use type: Cigarette Cigarettes Per Day: 3 e-Cigarette/Vaping Use: Never Used Second Hand Smoke Exposure: Yes service: No Current occupational status: disabled and other Cognitive needs: Yes (walker) Hearing needs: Yes Vision needs: Yes Review of Systems Const Denies fatigue, Denies fever(s), Denies night sweats, Denies poor appetite and Denies weight loss ENT Reports Normal hearing present, Denies dental pain, Denies dysphagia, Denies hearing loss, Denies mouth pain, Denies odynophagia, Denies throat swelling, Denies tongue swelling and Reports other (Dentition adequate) Card Reports no additional complaints Resp Reports no additional complaints GI Denies abdominal pain, Denies melena, Denies bloating, Denies hematochezia, Denies constipation, Denies GI cramping, Denies dysphagia, Denies excessive flatus, Denies early satiety, Reports heartburn, Reports diarrhea, Denies nausea, Denies odynophagia, Denies vomiting and Denies hematemesis Skin/Breast Denies pruritus, Denies lesions, Denies rash and Denies jaundice Neuro Reports Normal hearing present and Denies Abnormal speech present Endo Denies fatigue Aller/Immun Denies throat swelling and Denies tongue swelling Physical Exam Vital Signs: Last Vital Signs Pulse 88 09/05/23 13:32 BP 137/63 09/05/23 13:32 BMI result Body Mass Index 28.0 Const General: cooperative, no acute distress, well developed and well groomed Nutritional Appearance: average body habitus and well nourished Orientation/consciousness: oriented to person, oriented to place and oriented to time Limitations: No language barrier and other limitations (Psychiatric and hearing) HEENT Head: Yes normocephalic and Yes atraumatic Ears: hearing grossly impaired Eyes General: appearance normal, both eyes and all related structures Pupils: Equal, round and reactive pupils present Neck Neck: Yes normal visual inspection and Yes no lymphadenopathy Thyroid: Thyroid normal Resp Effort & Inspection: normal respiratory effort and able to speak in complete sentences Auscultation: clear to auscultation bilaterally Cardio Rate: regular rate Rhythm: regular rhythm Heart sounds: Normal, physiologic split S2 sound present Peripheral pulses: radial pulses present and posterior tibial pulses present GI Inspection: No distended and No Abdominal panniculus present Palpation (GI): Soft to palpation, nontender, no guarding, not rigid and No hepatosplenomegaly present Percussion: Yes normal to percussion Auscultation: normal bowel sounds Rectal Exam - Male: Yes deferred Skin General skin exam: no rashes or lesions noted, turgor normal, skin not dry, no jaundice, No spider nevi and no striae Rashes: no rashes Nails: normal Neuro General: oriented to person, oriented to place and oriented to time Cranial nerves: Yes Equal, round and reactive pupils present and Yes Normal hearing present Speech: No Abnormal speech present Extrem General: Yes normal to inspection, No clubbing, No cyanosis and No edema Psych Appearance: grossly normal and well kempt Mental Status: other Speech and movement: Slowed speech present (Psych) Affect: normal affect Attitude: cooperative Thought process: not confabulating and Other thought process findings present Thought content: other Insight: Poor insight present (Psych) Judgement: Poor judgement present (Psych) Assessment & Plan Assessment & Plan (1) Irritable bowel syndrome with diarrhea: Code(s): K58.0 - Irritable bowel syndrome with diarrhea Plan He is accompanied by a staff member from his care home who is supportive. He continues to do extremely well his irritable bowel is maintained on Xifaxan along with Carafate and Citrucel. They would like refills on these and of course I will provided. He has no concerns remains satisfied with his GI regimen. The only new health concern was that he caught COVID, and they are not sure how that happened since he never leaves the house but it was, fortunately, a mild case and he has recovered. Return office visit in 6 months. Medications: Changed From methylcellulose (laxative) 1,000 mg (2 x 500 mg) PO BID 30 days 120 tabs 6RF To methylcellulose (laxative) (Citrucel) 1,000 mg (2 x 500 mg) PO BID 120 tabs 6RF 30 days From sucralfate 3 grams (3 x 1 gram) PO DAILY 90 tabs 0RF To sucralfate 3 grams (3 x 1 gram) PO DAILY 90 tabs 2RF Refilled rifaximin (Xifaxan) 550 mg PO BID 60 tabs 6RF K58.0 - Irritable bowel syndrome with diarrhea Coding Level of Care Code Est Pt Level 3 (53498) Diagnoses Irritable bowel syndrome with diarrhea K58.0
[2023-09-05 13:32] VITALS: BP 137/63; PULSE 88; BMI 28.0
== END 2023-09-05 14:31 | disposition home or self-care (01) ==
PROVIDERS: PCP Internal Medicine; Visit Provider Nurse Practitioner
DX: K58.0 Irritable bowel syndrome with diarrhea (principal)
CPT/HCPCS: 99213

== ENCOUNTER → 2023-09-05 12:18 | Outpatient (BNVA) | payer MEDICARE, MEDICAID, SELFPAY | PROVIDERS: PCP Internal Medicine; Visit Provider Nurse Practitioner | DX: K58.0 Irritable bowel syndrome with diarrhea (principal) | CPT/HCPCS: 99212 ==

== ENCOUNTER 2023-09-11 12:00 | Outpatient (REF) | payer MEDICARE, MEDICAID, SELFPAY ==
[2023-09-11 12:59] LABS: MANUAL DIFF FLAG NO
[2023-09-11 13:10] LABS: Basophils Percent Auto 0.5 % (0-2); Eosinophils Absolute Auto 0.1 X10*3/uL (0.0-0.4); Eosinophils Percent Auto 1.6 % (0-4); Hematocrit 39.4 % (42.0-52.0); Imm Gran Abs Auto 0.06 X10*3/uL (0.00-0.03); Imm Gran Pct Auto 0.7 % (0.0-0.4); Lymphocytes Percent Auto 35.6 % (20-40); Mean Corpuscular HGB Conc 30.5 g/dl (31.0-36.0); Mean Corpuscular Hemoglobin 27.6 pg (27.0-33.0); Mean Corpuscular Volume 90.8 fL (80.0-98.0); Monocytes Absolute Auto 0.8 X10*3/uL (0.1-1.2); Monocytes Percent Auto 9.9 % (2-11); Neutrophils Absolute Auto 4.4 x10*3/uL (2.0-8.3); Neutrophils Percent Auto 51.7 % (45-73); Platelet Count 258 X10*3/uL (160-400); Red Blood Count 4.34 X10*6/uL (4.60-5.80); White Blood Count 8.5 X10*3/uL (4.8-10.8)
== END 2023-09-11 12:01 | disposition home or self-care (01) ==
LOC: HO.HMGCLR 12:00
PROVIDERS: Visit Provider Psychiatry & Neurology Psychiatry
DX: Z79.899 Other long term (current) drug therapy (principal)
CPT/HCPCS: 36415; 85025

== ENCOUNTER 2023-09-18 07:55 | Outpatient (REF) | payer MEDICARE, MEDICAID, SELFPAY ==
[2023-09-18 11:45] LABS: MANUAL DIFF FLAG NO
[2023-09-18 11:50] LABS: Basophils Percent Auto 0.4 % (0-2); Eosinophils Absolute Auto 0.2 X10*3/uL (0.0-0.4); Eosinophils Percent Auto 2.3 % (0-4); Hematocrit 40.5 % (42.0-52.0); Hemoglobin 12.5 g/dl (14.0-18.0); Imm Gran Abs Auto 0.04 X10*3/uL (0.00-0.03); Imm Gran Pct Auto 0.5 % (0.0-0.4); Lymphocytes Percent Auto 27.1 % (20-40); Mean Corpuscular HGB Conc 30.9 g/dl (31.0-36.0); Mean Corpuscular Hemoglobin 28.2 pg (27.0-33.0); Mean Corpuscular Volume 91.2 fL (80.0-98.0); Mean Platelet Volume 12.4 fL (9.4-12.4); Monocytes Absolute Auto 0.6 X10*3/uL (0.1-1.2); Monocytes Percent Auto 8.6 % (2-11); Neutrophils Absolute Auto 4.5 x10*3/uL (2.0-8.3); Neutrophils Percent Auto 61.1 % (45-73); Platelet Count 247 X10*3/uL (160-400); Red Blood Count 4.44 X10*6/uL (4.60-5.80); Red Cell Distribution Width 14.1 % (11.0-16.0); White Blood Count 7.3 X10*3/uL (4.8-10.8)
[2023-09-18 12:04] LABS: Estimated Average Glucose 117 mg/dL; Hemoglobin A1c % 5.7 % (<6.0)
[2023-09-18 12:08] LABS: Cholesterol 169 mg/dL (<200); HDL Cholesterol 42 mg/dL (>40); LDL Cholesterol Calculated 105 mg/dL (<100); Triglycerides 110 mg/dL (<150)
[2023-09-18 12:23] LABS: TSH reflex Free T4 4.22 uIU/mL (0.32-4.0); Vitamin D 25-OH Total 61.2 ng/mL (>30)
[2023-09-18 12:33] LABS: Vitamin B12 272 pg/mL (200-900)
[2023-09-18 12:59] LABS: Free T4 (Free Thyroxine) 0.71 ng/dL (0.71-1.85)
== END 2023-09-18 07:56 | disposition home or self-care (01) ==
LOC: HO.HMGCLDS 07:55
PROVIDERS: PCP Internal Medicine; Visit Provider Internal Medicine
DX: E78.00 Pure hypercholesterolemia, unspecified (principal); E55.9 Vitamin D deficiency, unspecified; I10 Essential (primary) hypertension; E53.8 Deficiency of other specified B group vitamins; E11.9 Type 2 diabetes mellitus without complications
CPT/HCPCS: 36415; 80061; 82306; 82607; 82746; 83036; 84439; 84443; 85025

== ENCOUNTER 2023-09-24 13:08 | Outpatient (AMB) | payer MEDICARE, MEDICAID, SELFPAY ==
--- NOTE | 2023-09-24 13:19 | A.OFFVIS_ITS ---
Intake Vital Signs 09/24/23 13:20 Height 5 ft 9 in Weight 202 lb 13.204 oz BMI 29.9 BP 110/70 Blood Pressure Location Lt brachial Position Sitting Pulse 97 Pulse Source Pulse Oximeter Pulse Oximetry (%) 96 Oxygen Delivery Method Nasal Cannula Oxygen Flow Rate 2 Intake Visit Reasons: COPD Intake Note: pt is here for follow up and states he is doing well, some wheezing, only 1 cigarette every 4 hours, house tries to deter. 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 Allergies No Known Allergies [No Known Allergies*] Allergy (Verified 09/24/23 14:46) Medication List - Last Reconciled 09/24/23 by Susan Sadler MD [4-PRONGED CANE As directed] acetaminophen (Tylenol Extra Strength) 500 mg PO TID PRN 30 days [adult pull ups As directed] aspirin 81 mg PO DAILY 90 days betamethasone dipropionate 0.05% topical blood sugar diagnostic To test once a day blood-glucose meter To test blood sugar daily Breo Ellipta 200-25 mcg/dose (fluticasone furoate-vilanterol) 1 ea PO DAILY NS cholecalciferol (vitamin D3) 25 mcg PO DAILY [CHUX sheets As directed] clonazepam 0.5 mg PO BID clozapine 300 mg PO BEDTIME donepezil 10 mg PO DAILY FreeStyle Lite Strips (blood sugar diagnostic) As directed- to test blood sugar once a day NS gemfibrozil 600 mg PO BID ketoconazole 2% 1 appl topical DAILY lancets (Prodigy Lancets) To test once a day lisinopril 2.5 mg PO DAILY memantine 10 mg PO BID metformin 500 mg PO BID methylcellulose (laxative) (Citrucel) 1,000 mg (2 x 500 mg) PO BID 30 days molnupiravir 800 mg (4 x 200 mg) PO Q12H 5 days rifaximin (Xifaxan) 550 mg PO BID simvastatin 40 mg PO BEDTIME sucralfate 3 grams (3 x 1 gram) PO DAILY venlafaxine ER 150 mg PO DAILY zinc oxide 40% (Diaper Rash) 1 appl topical BID-QID PRN Do you need a note to return to daycare/school/sports/work: No HPI COPD HPI Details Patricio is 73 years old gentleman a known case of Schizophrenic Disorder, resident of a [facility]way. He is here for 6 months follow-up for his history of smoking and COPD. He smokes about 2-3 cigarettes a day. Uses oxygen mostly when he goes outdoor, and once in a while when he is at home, . Does not use oxygen at night He had a mild case of COVID-19 infection around Thanksgiving but recovered right at home without any complication. His respiratory status has remained very stable, He has mild intermittent. Cough which is nonproductive He does get short of breath if he walks fast or climbs stairs which he does not have to do anyway. He sleeps fairly well without oxygen. ON LICENSE OF [facility] Medical History Dementia Schizophrenia Nocturnal hypoxia Hyperlipidemia Hypertension History of COPD Screening for diabetes mellitus Obesity (BMI 30-39.9) COPD (chronic obstructive pulmonary disease) Hypoxia Weakness Gait instability Hearing impairment Overweight (BMI 25.0-29.9) Smoker Depression Anxiety Schizophrenia Vitamin D deficiency Seborrheic dermatitis of scalp Alzheimer's dementia without behavioral disturbance Pure hypercholesterolemia Type 2 diabetes mellitus without complication Surgical History No pertinent past surgical history H/O colonoscopy History of appendectomy Family History Father Cancer Mother No problems noted. Brother Substance abuse Other Alcohol abuse Social History Household Members: None Housing: Assisted Living Facility Housing Other:: [facility] Do you presently have visiting nurse or other home services: No Alcohol intake: never Patient Tobacco Use Status: Former Tobacco user Tobacco use type: Cigarette Cigarettes Per Day: 3 e-Cigarette/Vaping Use: Never Used Second Hand Smoke Exposure: Yes service: No Current occupational status: disabled and other Cognitive needs: Yes (walker) Hearing needs: Yes Vision needs: Yes Review of Systems Const All systems reviewed & are unremarkable except as noted in HPI and below Eyes Reports no additional complaints ENT Reports no additional complaints Card Reports no additional complaints Resp Reports as per HPI GI Reports constipation, Reports heartburn and Reports other (One minor incidence of choking on rice ) Reports no additional complaints Musc Reports abnormal gait (Unstable and he needs to use the walker) and Reports back pain (mild) Skin/Breast Reports system reviewed and no additional complaints, except as documented Neuro Reports abnormal gait (Unstable and he needs to use the walker) and Reports behavioral changes Psych Reports anxiety, Reports behavioral changes and Reports mood swings Endo Reports no additional complaints Physical Exam Vital Signs: Last Vital Signs Pulse 97 09/24/23 13:20 BP 110/70 09/24/23 13:20 Pulse Ox 96 09/24/23 13:20 Oxygen Delivery Method Nasal Cannula 09/24/23 13:20 Oxygen Flow Rate 2 09/24/23 13:20 BMI result Body Mass Index 29.9 Const General: comfortable, no acute distress, alert and awake Orientation/consciousness: patient oriented x3 HEENT Head: Yes normal to inspection General nose exam: No nasal polyps present and No nasal discharge present Face and sinus: Yes sinuses nontender Mouth: oropharynx normal Throat: Yes posterior oropharynx normal Eyes General: appearance normal, both eyes and all related structures Neck Neck: Yes normal visual inspection, Yes no lymphadenopathy, Yes trachea midline and Yes no JVD Thyroid: Thyroid normal Chest Chest palpation & inspection: normal inspection of the chest, normal palpation of entire chest wall and no tenderness Resp Other: Percussion note resonant, breath sounds are very distant on both sides with prolonged expiratory phase. No wheezes rhonchi or crepitations are heard. Cardio Palpation: normal PMI Rate: regular rate Rhythm: regular rhythm Heart sounds: no gallops and no murmurs GI Palpation (GI): Soft to palpation, nontender, No hepatosplenomegaly present and no masses Auscultation: normal bowel sounds Back/Spine/Pelvis Thoracic/Lumbar Spine: thoracic and lumbar spine normal to inspection Skin General skin exam: no rashes or lesions noted Neuro General: patient oriented x3 and no focal motor deficits Cranial nerves: Yes CN's II-XII intact bilaterally Extrem General: Yes normal to inspection, Yes no clubbing, cyanosis or edema and Yes no calf tenderness Psych Appearance: grossly normal and well kempt Speech and movement: Normal speech and movement present Assessment & Plan Assessment & Plan (1) COPD (chronic obstructive pulmonary disease): Comment: As per examination and spirometry results he does have severe obstructive airway disorder. He is doing fairly well and remains stable. Code(s): J44.9 - Chronic obstructive pulmonary disease, unspecified Qualifiers: COPD type: unspecified COPD Qualified Code(s): J44.9 - Chronic obstructive pulmonary disease, unspecified Plan: Breo 200-251 inhalation daily. Albuterol HFA 2 puffs Q 6 hours only p.r.n.. Continue to do deep breathing exercises with the incentive spirometry device 3 times a day. (2) Hypoxia: Comment: Resting O2 sat 91% but he quickly desaturates on walking, thus indicating that he has exertional hypoxemia. He is using O2 2 L/minute with any physical activity, and when he goes outdoors . He is doing well Code(s): R09.02 - Hypoxemia Plan: Continue to use oxygen 2 L/minute any time with walking or going outdoors . (3) Lung nodule: Comment: HE HAS A E SMALL GROUND-GLASS DENSITY, IN RIGHT UPPER LOBE, 1 CM IN SIZE, HAS NOT GROWN IN SIZE. HE WOULD NEED TO HAVE A CT SCAN REPEATED IN 1 YEAR. (IN 2023 ) *Will arrange for a CT scan on his next visit. Code(s): R91.1 - Solitary pulmonary nodule Plan: as above (4) Smoker: Comment: Patient has been a heavy smoker throughout his adult life. Presence of severe psychotic problem, (Schizophrenia ) is an impediment to quit smoking completely. The [facility] staff is restricting his number of cigarettes to 4 per day. * Because of his long-time smoking, he should be in LDCT. Lung screening pro gram. I discussed with him and he is fully agreeable. Code(s): F17.200 - Nicotine dependence, unspecified, uncomplicated Plan: as above Coding Level of Care Code Est Pt Level 3 (72261) Diagnoses Chronic obstructive pulmonary disease, unspecified COPD type J44.9 COPD type: unspecified COPD Hypoxia R09.02 Lung nodule R91.1 Smoker F17.200
[2023-09-24 13:20] VITALS: BP 110/70; PULSE 97; O2SAT 96; BMI 29.9
== END 2023-09-24 13:35 | disposition home or self-care (01) ==
PROVIDERS: PCP Internal Medicine; Visit Provider Internal Medicine
DX: J44.9 Chronic obstructive pulmonary disease, unspecified (principal); R09.02 Hypoxemia; R91.1 Solitary pulmonary nodule; F17.200 Nicotine dependence, unspecified, uncomplicated
CPT/HCPCS: 99213

== ENCOUNTER → 2023-09-24 13:08 | Outpatient (BNVA) | payer MEDICARE, MEDICAID, SELFPAY | PROVIDERS: PCP Internal Medicine; Visit Provider Internal Medicine | DX: J44.9 Chronic obstructive pulmonary disease, unspecified (principal); R09.02 Hypoxemia; R91.1 Solitary pulmonary nodule; F17.210 Nicotine dependence, cigarettes, uncomplicated | CPT/HCPCS: 99212 ==

== ENCOUNTER 2023-09-24 14:00 | Outpatient (AMB) | payer MEDICARE, MEDICAID, SELFPAY ==
[2023-09-24 14:05] VITALS: BP 110/68; PULSE 102; O2SAT 95; BMI 29.7
--- NOTE | 2023-09-24 14:05 | MHC.PC.OV ---
Vital Signs 09/24/23 14:05 Height 5 ft 9 in Weight 201 lb BMI 29.7 BP 110/68 Blood Pressure Location Lt brachial Position Sitting Pulse 102 H Pulse Source Pulse Oximeter Pulse Oximetry (%) 95 Oxygen Delivery Method Room Air Intake Visit Reasons: 3mth f/u Application Software Developer Required: No Accompanied by: Self / Same As Patient Allergies No Known Allergies [No Known Allergies*] Allergy (Verified 12/06/23 22:01) Medication List - Last Reconciled 09/24/23 by Alex Salazar MD [4-PRONGED CANE As directed] acetaminophen (Tylenol Extra Strength) 500 mg PO TID PRN 30 days [adult pull ups As directed] aspirin 81 mg PO DAILY 90 days betamethasone dipropionate 0.05% topical blood sugar diagnostic To test once a day blood-glucose meter To test blood sugar daily Breo Ellipta 200-25 mcg/dose (fluticasone furoate-vilanterol) 1 ea PO DAILY NS cholecalciferol (vitamin D3) 25 mcg PO DAILY [CHUX sheets As directed] clonazepam 0.5 mg PO BID clozapine 300 mg PO BEDTIME donepezil 10 mg PO DAILY FreeStyle Lite Strips (blood sugar diagnostic) As directed- to test blood sugar once a day NS gemfibrozil 600 mg PO BID ketoconazole 2% 1 appl topical DAILY lancets (Prodigy Lancets) To test once a day lisinopril 2.5 mg PO DAILY memantine 10 mg PO BID metformin 500 mg PO BID methylcellulose (laxative) (Citrucel) 1,000 mg (2 x 500 mg) PO BID 30 days molnupiravir 800 mg (4 x 200 mg) PO Q12H 5 days rifaximin (Xifaxan) 550 mg PO BID simvastatin 40 mg PO BEDTIME sucralfate 3 grams (3 x 1 gram) PO DAILY venlafaxine ER 150 mg PO DAILY zinc oxide 40% (Diaper Rash) 1 appl topical BID-QID PRN Tobacco use date assessed: 09/24/23 Fall risk assessment: No Falls in past year Last assessed Fall Risk: 09/24/23 Dental Screening Dental Screen Date: 09/24/23 Did you have a dental visit in the last 12 months?: No Did you have a dental problem in the last 6 months where you did not have access to dental care?: No Was dental information given to patient?: No HPI 3mth f/u HPI Details Patient comes in today for his follow up visit States that he feels okay although per penitentiary staff, he continues to be very unsteady on his feet lately and they would like for him to get some physical therapy again for gait training and to help improve his stability as he stopped going previously Patient states that he feels okay He denies any headaches or dizziness Denies any chest pains, no increased SOB No nausea/vomiting, no abdominal pain No change in bowel habits noted half-way staff is also requesting for Rx for disposable gloves for when he has his bouts of stool incontinence Had his follow up labs done last week - to discuss his results [facility] Medical History Dementia Schizophrenia Nocturnal hypoxia Hyperlipidemia Hypertension History of COPD Screening for diabetes mellitus Obesity (BMI 30-39.9) COPD (chronic obstructive pulmonary disease) Hypoxia Weakness Gait instability Hearing impairment Overweight (BMI 25.0-29.9) Smoker Depression Anxiety Schizophrenia Vitamin D deficiency Seborrheic dermatitis of scalp Alzheimer's dementia without behavioral disturbance Pure hypercholesterolemia Type 2 diabetes mellitus without complication Surgical History No pertinent past surgical history H/O colonoscopy History of appendectomy Family History Father Cancer Mother No problems noted. Brother Substance abuse Other Alcohol abuse Social History Household Members: None Housing: Assisted Living Facility Housing Other:: Retirement Do you presently have visiting nurse or other home services: No Alcohol intake: never Patient Tobacco Use Status: Former Tobacco user Tobacco use type: Cigarette Cigarettes Per Day: 3 e-Cigarette/Vaping Use: Never Used Second Hand Smoke Exposure: Yes service: No Current occupational status: disabled and other Cognitive needs: Yes (walker) Hearing needs: Yes Vision needs: Yes Questionnaire PHQ-9 Over the last 2 weeks, how often have you been bothered by any of the following problems? 1. Little interest or pleasure in doing things: not at all 2. Feeling down, depressed, or hopeless: several days 3. Trouble falling or staying asleep, or sleeping too much: not at all 4. Feeling tired or having little energy: not at all 5. Poor appetite or overeating: not at all 6. Feeling bad about yourself - or that you are a failure or have let yourself or your family down: not at all 7. Trouble concentrating on things, such as reading the newspaper or watching television: several days 8. Moving or speaking so slowly that other people could have noticed. Or the opposite - being so fidgety or restless that you have been moving around a lot more than usual: more than half the days 9. Thoughts that you would be better off or of hurting yourself in some way: not at all Total score: 4 Depression Screening Interpretation: Positive Depression Screening Follow-up: Existing condition and In treatment Depression Screening Done: Yes 32578 - PHQ-9 Billing: Yes Source: Developed by Drs. Jose David Kumari, Ada Perez, Roman Winters and colleagues, with an educational claude from [employer]. Thrive Questionnaire Date Thrive assessed: 09/24/23 I am a: Parent/Caregiver What is your living situation today?: I have a steady place to live Within the past 12 months, did the food you bought not last and you didn't have the money to get more?: Never true Within the past 12 months, did you worry whether your food would run out before you got money to buy more?: Never true Do you have trouble paying for medicines?: No Do you have trouble getting transportation to medical appointments?: No Do you have trouble paying your heating and electricity bill?: No Do you have trouble taking care of your child, family member or friend?: No Do you have trouble with day-to-day activities such as bathing, preparing meals, shopping, managing finances, etc.?: No Are you currently unemployed and looking for a job?: No Are you interested in more education?: No Please select the resources that you would like help with: None Currently or been in a relationship where the following occur: no concerns reported THRIVE Score: 0 AUDIT C Alcohol Use Questionnaire (AUDIT-C) 1. How often do you have a drink containing alcohol?: Never 3. How often do you have six or more drinks on one occasion?: Never Total Score: 0 Score Reviewed/Action Taken: Yes LYNN-7 AMB Questionnaire LYNN-7 Date LYNN - 7 assessed: 09/24/23 Feeling nervous, anxious, or on edge: 0 = Not at all Not being able to stop or control worryin = Not at all Worrying too much about different things: 0 = Not at all Trouble relaxin = Not at all Being so restless that it is hard to sit still: 0 = Not at all Becoming easily annoyed or irritable: 0 = Not at all Feeling afraid as if something awful might happen: 0 = Not at all Total LYNN-7 score (0-4 normal; 5-9 mild; 10-14 moderate; 15-21 severe): 0 Source: Developed by Drs. Jose David Kumari, Ada Perez, Roman Winters and colleagues, with an educational claude from [employer]. LYNN-7 Assessment Billing LYNN-7 Assessment Tool: LYNN-7 Assessment 65244 Review of Systems Const Details: ROS is obtained primarily from penitentiary staff as patient is limited with his ability to provide information due to his advancing dementia Denies difficulty sleeping, Denies fatigue, Denies fever(s) and Denies headache(s) ENT Details: Reportedly has trouble eating/swallowing only when wearing his dentures Reports dysphagia (only when he is wearing dentures), Denies dizziness, Denies otalgia, Denies headache(s), Denies neck pain, Denies odynophagia and Denies sore throat Card Denies chest pain, Denies palpitations and Reports dyspnea on exertion (mild) Resp Denies cough, Reports dyspnea on exertion (mild) and Denies wheezing GI Denies abdominal pain, Denies constipation, Reports dysphagia (only when he is wearing dentures), Denies heartburn, Reports fecal incontinence (at times), Denies diarrhea, Denies nausea, Denies odynophagia and Denies vomiting Denies dysuria, Denies nocturia, Denies urinary frequency and Denies urinary incontinence Musc Reports abnormal gait (unstable gait - often trips and falls while going UP stairs, hiram in AM) and Denies neck pain Skin/Breast Denies rash Neuro Reports abnormal gait (unstable gait - often trips and falls while going UP stairs, hiram in AM), Denies dizziness, Denies headache(s) and Reports memory loss Psych Reports memory loss Endo Denies fatigue and Denies palpitations Aller/Immun Denies wheezing Physical exam (Primary Care) Vital Signs: Last Vital Signs Pulse 102 H 09/24/23 14:05 BP 110/68 09/24/23 14:05 Pulse Ox 95 09/24/23 14:05 Oxygen Delivery Method Room Air 09/24/23 14:05 BMI result Body Mass Index 29.7 Tobacco/Smoking Status: Tobacco use Status Tobacco use date assessed 09/24/23 09/24/23 14:12 Patient Tobacco Use Status Former Tobacco user 09/24/23 14:12 Tobacco use type Cigarette 09/24/23 14:12 e-Cigarette/Vaping Use Never Used 09/24/23 14:12 PHQ-9: PHQ-9 Score PHQ-9: Total score 4 09/24/23 14:57 Depression Screening Interpretation: Positive Depression Screening Follow-up: Existing condition and In treatment Thrive Assessment: Date of Thrive Assessment Date Thrive assessed 09/24/23 09/24/23 14:12 Currently or been in a relationship where the following occur: no concerns reported Const General: no acute distress and alert Orientation/consciousness: oriented to person HENMT Ears: TM's normal bilaterally and EAC's normal Throat: Yes posterior oropharynx normal and Yes tonsils normal (no TP congestion noted) Neck Neck: Yes no lymphadenopathy and Yes supple Thyroid: Thyroid normal Resp Auscultation: no rales, rhonchi (occasional) throughout, no wheezes and diminished lung sounds (slightly) bilateral Cardio Rate: regular rate Rhythm: regular rhythm Heart sounds: no murmurs GI Palpation (GI): Soft to palpation and nontender Auscultation: normal bowel sounds General: Yes no CVA tenderness Back/Spine/Pelvis Back: no CVA tenderness Skin Rashes: no rashes Neuro General: oriented to person, moves all extremities and no focal motor deficits Extrem General: Yes no clubbing, cyanosis or edema Results Reviewed Results Reviewed: Laboratory Tests 05/29/23 09/18/23 08:57 08:00 WBC 7.3 Hgb 12.5 L Hct 40.5 L Plt Count 247 Fasting Glucose 146 H Hemoglobin A1c % 5.7 Triglycerides 110 Cholesterol 169 LDL Cholesterol, Calc 105 H HDL Cholesterol 42 Vitamin B12 272 25-OH Vitamin D Total 61.2 TSH 4.22 H Free T4 0.71 Assessment and Plan Assessment & Plan (1) Gait instability: Code(s): R26.81 - Unsteadiness on feet Plan: Patient did not complete physical therapy - he stopped going as he did not want to continue with PT Advised again that his gait instability is most likely the main reason for his recurrent falls while going up stairs although his gait seems much improved compared to when he was last here a few months ago Fall precautions reinforced He is still using a walker when he is moving about but only as needed now Will refer him back to PT - patient agrees now to go after our discussion today (2) Pure hypercholesterolemia: Code(s): E78.00 - Pure hypercholesterolemia, unspecified Plan: Results of his labs done last week reviewed and discussed with patient and penitentiary staff Reinforced low cholesterol diet Continue Simvastatin 40 mg QD and Gemfibrozil 600 mg BID Will recheck his labs and fasting lipids in 3 months for follow up (3) Type 2 diabetes mellitus without complication: Code(s): E11.9 - Type 2 diabetes mellitus without complications Qualifiers: Diabetes mellitus buttermaker helper insulin use: without mcfp use Qualified Code(s): E11.9 - Type 2 diabetes mellitus without complications Plan: HgbA1c remains unchanged at 5.7% on his labs done last week (was also at 5.7% a few months ago) - goal is <7.0% Reinforced diabetic diet Continue Metformin 500 mg BID; continue Lisinopril 2.5 mg QD for renoprotection (4) COPD (chronic obstructive pulmonary disease): Comment: As per examination and spirometry results he does have severe obstructive airway disorder. He is doing fairly well and remains stable. Code(s): J44.9 - Chronic obstructive pulmonary disease, unspecified Qualifiers: COPD type: unspecified COPD Qualified Code(s): J44.9 - Chronic obstructive pulmonary disease, unspecified Plan: He is currently doing well with no acute exacerbation He still has his oxygen but he only uses it now when he has recurrent hypoxemia or has increased dyspnea on exertion Continue Breo Ellipta 200-25 mcg 1 inhalation QD and Albuterol HFA 2 inhalations every 6 hours as needed Follow up with pulmonary as scheduled (5) Alzheimer's dementia without behavioral disturbance: Code(s): G30.9 - Alzheimer's disease, unspecified; F02.80 - Dementia in other diseases classified elsewhere, unspecified severity, without behavioral disturbance, psychotic disturbance, mood disturbance, and anxiety Plan: Continue Donepezil 10 mg QD and Memantine 10 mg BID Follow-up with Neurology as scheduled (6) Irritable bowel syndrome with diarrhea: Code(s): K58.0 - Irritable bowel syndrome with diarrhea Plan: Continue Sucralfate 1 gm once a day - symptoms have improved somewhat with Rx His recent stool incontinence may be related to this or may be due to his progressing dementia Follow up with GI as scheduled (7) Schizophrenia: Code(s): F20.9 - Schizophrenia, unspecified Qualifiers: Schizophrenia type: unspecified Qualified Code(s): F20.9 - Schizophrenia, unspecified Plan: Continue Clozaril 100 mg 3 & 1/2 tablets once a day at bedtime Follow-up with Psychiatry as scheduled (8) Anxiety: Code(s): F41.9 - Anxiety disorder, unspecified Plan: Continue Clonazepam 0.5 mg BID PRN (9) Depression: Code(s): F32.9 - Major depressive disorder, single episode, unspecified Qualifiers: Depression Type: unspecified Qualified Code(s): F32.9 - Major depressive disorder, single episode, unspecified Plan: Continue Effexor XR 150 mg QD Follow-up with Psychiatry as scheduled (10) Smoker: Comment: Patient has been a heavy smoker throughout his adult life. Presence of severe psychotic problem, (Schizophrenia) is an impediment to quit smoking completely. The penitentiary staff is restricting his number of cigarettes to 4 per day. * Because of his long-time smoking, he should be in LDCT. Lung screening program. I discussed with him and he is fully agreeable. Code(s): F17.200 - Nicotine dependence, unspecified, uncomplicated Plan: Counseled again on the importance and urgency of smoking cessation, especially since he has frequent hypoxemia and is on oxygen (11) Obesity (BMI 30-39.9): Code(s): E66.9 - Obesity, unspecified Plan: Reinforced diet; exercise and losing weight are unrealistic now due to patient's gait instability and declining dementia Plan Follow up in 3 months Orders: Orders PT Evaluation and Treatment 09/24/23 R26.81 - Unsteadiness on feet Lipid Panel 3 Months E78.00 - Pure hypercholesterolemia, unspecified TSH reflex Free T4 3 Months E78.00 - Pure hypercholesterolemia, unspecified UA CC w/rflx Micro + Cult 3 Months R30.0 - Dysuria Microalbumin, Random (w Creat) 3 Months E11.9 - Type 2 diabetes mellitus without complications Vitamin B12 and Folate 3 Months E53.8 - Deficiency of other specified B group vitamins Complete Blood Count Auto Diff 3 Months D64.9 - Anemia, unspecified Comprehensive [place]. Panel Fast 3 Months E78.00 - Pure hypercholesterolemia, unspecified Hemoglobin A1c 3 Months E11.9 - Type 2 diabetes mellitus without complications Vitamin D 25-OH Total 3 Months E55.9 - Vitamin D deficiency, unspecified Medications: New [DISPOSABLE GLOVES (large)] Use as directed 100 ea 12RF R15.9 - Full incontinence of feces Coding Level of Care Code Est Pt Level 4 (31247) Diagnoses Gait instability R26.81 Pure hypercholesterolemia E78.00 Type 2 diabetes mellitus without complication, without long-term current use of insulin E11.9 Diabetes mellitus buttermaker helper insulin use: without mcfp use Chronic obstructive pulmonary disease, unspecified COPD type J44.9 COPD type: unspecified COPD Alzheimer's dementia without behavioral disturbance G30.9; F02.80 Irritable bowel syndrome with diarrhea K58.0 Schizophrenia, unspecified type F20.9 Schizophrenia type: unspecified Anxiety F41.9 Depression, unspecified depression type F32.9 Depression Type: unspecified Smoker F17.200 Obesity (BMI 30-39.9) E66.9 Additional Codes LYNN-7 Assessment Billing - LYNN-7 Assessment Tool: LYNN-7 Assessment 12427 ([id number])
== END 2023-09-24 15:04 | disposition home or self-care (01) ==
PROVIDERS: PCP Internal Medicine; Visit Provider Internal Medicine
DX: E11.9 Type 2 diabetes mellitus without complications (principal); J44.9 Chronic obstructive pulmonary disease, unspecified; G30.9 Alzheimer's disease, unspecified; F02.80 Dementia in other diseases classified elsewhere, unspecified severity, without behavioral disturbance, psychotic disturbance, mood disturbance, and anxiety; F20.9 Schizophrenia, unspecified; R26.81 Unsteadiness on feet; E78.00 Pure hypercholesterolemia, unspecified; K58.0 Irritable bowel syndrome with diarrhea; F41.9 Anxiety disorder, unspecified; F32.9 Major depressive disorder, single episode, unspecified; F17.200 Nicotine dependence, unspecified, uncomplicated; E66.9 Obesity, unspecified
CPT/HCPCS: 99214

== ENCOUNTER 2023-11-01 13:49 | Outpatient (REF) | payer MEDICARE, MEDICAID, SELFPAY ==
[2023-11-01 15:59] LABS: MANUAL DIFF FLAG NO
[2023-11-01 16:08] LABS: Basophils Percent Auto 0.4 % (0-2); Eosinophils Absolute Auto 0.2 X10*3/uL (0.0-0.4); Eosinophils Percent Auto 2.2 % (0-4); Hematocrit 39.7 % (42.0-52.0); Hemoglobin 12.5 g/dl (14.0-18.0); Imm Gran Abs Auto 0.05 X10*3/uL (0.00-0.03); Imm Gran Pct Auto 0.7 % (0.0-0.4); Lymphocytes Absolute Auto 2.7 X10*3/uL (1.2-4.9); Lymphocytes Percent Auto 37.5 % (20-40); Mean Corpuscular HGB Conc 31.5 g/dl (31.0-36.0); Mean Corpuscular Hemoglobin 27.8 pg (27.0-33.0); Mean Corpuscular Volume 88.2 fL (80.0-98.0); Mean Platelet Volume 12.5 fL (9.4-12.4); Monocytes Absolute Auto 0.7 X10*3/uL (0.1-1.2); Monocytes Percent Auto 10.2 % (2-11); Neutrophils Absolute Auto 3.5 x10*3/uL (2.0-8.3); Platelet Count 229 X10*3/uL (160-400); Red Cell Distribution Width 14.5 % (11.0-16.0); White Blood Count 7.2 X10*3/uL (4.8-10.8)
[2023-11-05 07:09] LABS: Clozapine (Clozaril) 379 mcg/L; Norclozapine 138 mcg/L (25-400)
== END 2023-11-01 13:50 | disposition home or self-care (01) ==
LOC: HO.HMGCLR 13:49
PROVIDERS: PCP Internal Medicine; Visit Provider Psychiatry & Neurology Psychiatry
DX: Z79.899 Other long term (current) drug therapy (principal)
CPT/HCPCS: 36415; 80159; 85025

== ENCOUNTER 2023-11-21 11:00 | Outpatient (RCR) | payer MEDICARE, MEDICAID, SELFPAY ==
--- NOTE | 2023-10-09 13:51 | MHC.PT.EP ---
[facility] [place] Office [place] Office [place] Office [address] Annetta Al [address] [phone] F: [phone] F: [phone] F: [phone] F: [phone] Physical Therapy Plan of Care Date of Evaluation: 10/09/23 Date of Surgery: n/a Diagnosis: unsteadiness on feet Assessment: Patient is a 73 year old male presenting to PT with complaints unsteadiness on feet. Pt reports onset of pain began a while ago due to insidious onset. He presents today with impairments in gait mechanics, balance, LE strength, endurance. Pt's current occupation is none, with baseline physical activities including ADLs, ambulating, stair negotiation. 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 Clinical presentation today is most consistent with signs and sx associated with unsteadiness on feet and pt will benefit from skilled PT 1 week x 4 weeks to address the following problems and impairments noted upon evaluation: gait mechanics, balance, LE strength, endurance. Pt rehab potential is fair due to difficulty following commands at times and historically not wanting to participate in therapy/comply with HEP. These problems limit the patient with the following functional activities: ADLs, ambulating, stair negotiation. The prescribed treatment plan of care is medically necessary. Co-morbidities of alzheimers dementia, schizophrenia, HTN, hearing impairment, T2DM, dizziness were identified and taken into considerations of plan of care. Pt was educated on HEP, role of PT, prognosis, POC. Frequency and Duration: The patient will be seen 1 x week x 4 weeks Short Term Goals: Pt will demonstrate compliance with initial HEP in 2 visits. Pt will demonstrate improved LE strength by 1/3 grade in 2 weeks. Rehabilitation Services Aide Goals: Pt will demonstrate improved LEFI score by 9 points in 4 weeks for improved functional mobility. Pt will demonstrate ability to complete 30 second chair stand test with 10 STS in 4 weeks for improved endurance. Pt will demonstrate improved TUG score by 3 seconds in 4 weeks for decreased risk of falls. Treatment Plan: Modalities to reduce pain, spasms and effusion. Manual therapy to restore motion and function. Therapeutic exercise to improve strength and flexibility. Neuromuscular re-education for posture and balance. Therapeutic activities to return to functional activities of daily living. Electronically signed by: Brii Mendiola, PT, DPT, ATC Please sign and return to therapist. Thank you for your referral.
== END 2023-11-21 11:43 | disposition home or self-care (01) ==
LOC: HO.PTCHIC 11:00
PROVIDERS: PCP Internal Medicine; Visit Provider Internal Medicine
DX: R26.81 Unsteadiness on feet (principal)
CPT/HCPCS: 97110; 97162; 97530

== ENCOUNTER 2023-11-21 11:43 | Outpatient (REF) | payer MEDICARE, MEDICAID, SELFPAY ==
[2023-11-21 13:24] LABS: MANUAL DIFF FLAG NO
[2023-11-21 13:37] LABS: Basophils Percent Auto 0.3 % (0-2); Eosinophils Absolute Auto 0.1 X10*3/uL (0.0-0.4); Eosinophils Percent Auto 1.9 % (0-4); Hematocrit 38.5 % (42.0-52.0); Imm Gran Abs Auto 0.05 X10*3/uL (0.00-0.03); Imm Gran Pct Auto 0.7 % (0.0-0.4); Lymphocytes Absolute Auto 2.1 X10*3/uL (1.2-4.9); Lymphocytes Percent Auto 28.8 % (20-40); Mean Corpuscular HGB Conc 31.2 g/dl (31.0-36.0); Mean Corpuscular Hemoglobin 27.8 pg (27.0-33.0); Mean Corpuscular Volume 89.1 fL (80.0-98.0); Mean Platelet Volume 12.1 fL (9.4-12.4); Monocytes Absolute Auto 0.6 X10*3/uL (0.1-1.2); Monocytes Percent Auto 8.6 % (2-11); Neutrophils Absolute Auto 4.4 x10*3/uL (2.0-8.3); Neutrophils Percent Auto 59.7 % (45-73); Platelet Count 239 X10*3/uL (160-400); Red Blood Count 4.32 X10*6/uL (4.60-5.80); Red Cell Distribution Width 14.6 % (11.0-16.0); White Blood Count 7.3 X10*3/uL (4.8-10.8)
== END 2023-11-21 11:44 | disposition home or self-care (01) ==
LOC: HO.HMGCLR 11:43
PROVIDERS: PCP Internal Medicine; Visit Provider Psychiatry & Neurology Psychiatry
DX: Z79.899 Other long term (current) drug therapy (principal)
CPT/HCPCS: 36415; 85025

== ENCOUNTER 2023-11-24 20:12 | Emergency (ER) | payer MEDICARE, MEDICAID, SELFPAY ==
--- NOTE | 2023-11-24 | ECG_ITS ---
Test Reason : SYNCOPE Blood Pressure : / mmHG Vent. Rate : 079 BPM Atrial Rate : 079 BPM P-R Int : 248 ms QRS Dur : 140 ms QT Int : 428 ms P-R-T Axes : 027 -65 108 degrees QTc Int : 490 ms Sinus rhythm with 1st degree A-V block Left axis deviation Left bundle branch block Abnormal ECG When compared with ECG of 07-SEP-2022 20:44, GA interval has increased Referred By: Generic ED Physician Electronically Signed By:ARCHANA VERDUGO
--- NOTE | ~2023-11-24 | XR_ITS ---
EXAMINATION: XR CHEST CLINICAL INFORMATION: Syncope. COMPARISON: 07/31/2023 TECHNIQUE: 2 views of the chest were obtained. FINDINGS: The patient is mildly rotated. The cardiomediastinal silhouette is stable. There is no focal consolidation or pleural effusion. The bony structures and soft tissues are unremarkable. XR/XR chest 2V IMPRESSION: No acute cardiopulmonary process. No significant interval change.
[2023-11-24 20:15] VITALS: BP 168/90; PULSE 88; O2SAT 97
[2023-11-24 20:18] VITALS: BP 182/85; PULSE 86; RESP 17; TEMP 36.7; O2SAT 96
[2023-11-24 20:21] VITALS: BMI 28.8
[2023-11-24 20:26] VITALS: PULSE 83; O2SAT 93
[2023-11-24 20:50] VITALS: PULSE 79; RESP 16; O2SAT 92
[2023-11-24 20:57] LABS: MANUAL DIFF FLAG NO
[2023-11-24 20:58] LABS: Basophils Percent Auto 0.3 % (0-2); Eosinophils Absolute Auto 0.2 X10*3/uL (0.0-0.4); Hematocrit 34.9 % (42.0-52.0); Hemoglobin 11.4 g/dl (14.0-18.0); Imm Gran Abs Auto 0.04 X10*3/uL (0.00-0.03); Imm Gran Pct Auto 0.5 % (0.0-0.4); Lymphocytes Percent Auto 27.6 % (20-40); Mean Corpuscular HGB Conc 32.7 g/dl (31.0-36.0); Mean Corpuscular Hemoglobin 28.2 pg (27.0-33.0); Mean Corpuscular Volume 86.4 fL (80.0-98.0); Mean Platelet Volume 11.5 fL (9.4-12.4); Monocytes Absolute Auto 0.6 X10*3/uL (0.1-1.2); Monocytes Percent Auto 8.4 % (2-11); Neutrophils Absolute Auto 4.5 x10*3/uL (2.0-8.3); Neutrophils Percent Auto 61.2 % (45-73); Platelet Count 210 X10*3/uL (160-400); Red Blood Count 4.04 X10*6/uL (4.60-5.80); Red Cell Distribution Width 14.2 % (11.0-16.0); White Blood Count 7.4 X10*3/uL (4.8-10.8)
[2023-11-24 21:10] LABS: Anion Gap 13 (12-20); Blood Urea Nitrogen 20 mg/dL (9-16); Calcium 9.7 mg/dL (8.4-10.2); Carbon Dioxide 29 mmol/L (22-29); Chloride 100 mmol/L (96-108); Creatinine Clr Calc Pharmacy 85.7; Estimated Glomerular Filt Rate > 60; Glucose Random 151 mg/dL (60-115); Sodium 138 mmol/L (135-145)
--- NOTE | 2023-11-24 23:29 | ED.GENADULT ---
HPI - General Adult General Chief complaint: Syncope Stated complaint: SYNCOPE, SOB Time Seen by Provider: 11/24/23 23:13 History of Present Illness HPI narrative: The patient is a 73-year-old male who [facility]. Apparently he would gone outside to smoke a cigarette with some staff. He apparently fainted outside. According to staff member he had a significant coughing fit while sitting down. He then stood up and seemed very unsteady and looked like he was going to faint. The staff member caught him and helped him sit down again. The staff member then walked him into the house and called 911. The patient was not injured. The patient admits to feeling dizzy before he fainted. He denies having had any chest pain or shortness of breath or headache. No nausea or vomiting. No black or bloody stools. No fever, sweats, chills. The patient denies being on anticoagulants. Apparently the patient had had a somewhat similar episode earlier in the day when he had seemed very weak after a coughing fit. At that point he landed on all fours and scraped his knee. He did not lose consciousness. He did not hit his head. He was not brought to the hospital at that time. Related Data Home Medications Medication Instructions Recorded Confirmed betamethasone dipropionate 0.05 % topical 01/10/21 09/24/23 topical ointment ketoconazole 2 % shampoo 1 appl topical DAILY 08/26/22 09/24/23 donepezil 10 mg tablet 10 mg PO DAILY 11/29/22 09/24/23 memantine 10 mg tablet 10 mg PO BID 12/04/22 09/24/23 clozapine 100 mg tablet 300 mg PO BEDTIME 12/27/22 09/24/23 clonazepam 0.5 mg tablet 0.5 mg PO BID Anxiety 02/28/23 09/24/23 venlafaxine 150 mg 150 mg PO DAILY 02/28/23 09/24/23 capsule,extended release 24 hr Previous Rx's Medication Instructions Recorded 4-PRONGED CANE #1 ea 04/08/21 FreeStyle Lite Strips (blood sugar #100 ea 12/28/21 diagnostic) blood sugar diagnostic #100 ea 12/29/21 blood-glucose meter #1 ea 12/29/21 lancets 28 gauge (Prodigy Lancets) #100 ea 12/29/21 adult pull ups #100 ea 12/04/22 simvastatin 40 mg tablet 40 mg PO BEDTIME #90 tabs 01/03/23 zinc oxide 40 % topical ointment 1 appl topical BID-QID PRN skin 01/03/23 (Diaper Rash) irritation/diaper rash #397 grams CHUX sheets #60 ea 03/07/23 acetaminophen 500 mg tablet 500 mg PO TID PRN fever or pain 30 03/07/23 (Tylenol Extra Strength) days #90 tabs cholecalciferol (vitamin D3) 25 25 mcg PO DAILY #90 tabs 06/04/23 mcg (1,000 unit) tablet lisinopril 2.5 mg tablet 2.5 mg PO DAILY #90 tabs 06/04/23 molnupiravir 200 mg capsule (EUA) 800 mg (4 x 200 mg) PO Q12H 5 days 07/31/23 #40 caps methylcellulose (laxative) 500 mg 1,000 mg (2 x 500 mg) PO BID 30 09/05/23 tablet (Citrucel) days #120 tabs rifaximin 550 mg tablet (Xifaxan) 550 mg PO BID #60 tabs 09/05/23 sucralfate 1 gram tablet 3 g (3 x 1 gram) PO DAILY #90 tabs 09/05/23 Breo Ellipta 200 mcg-25 mcg/dose 1 ea PO DAILY #60 ea 09/14/23 powder for inhalation (fluticasone furoate-vilanterol) DISPOSABLE GLOVES (large) #100 ea 09/24/23 aspirin 81 mg tablet,delayed 81 mg PO DAILY 90 days #90 tabs 10/16/23 release gemfibrozil 600 mg tablet 600 mg PO BID #60 tabs 10/16/23 metformin 500 mg tablet 500 mg PO BID #60 tabs 10/29/23 Allergies Allergy/AdvReac Type Severity Reaction Status Date / Time No Known Allergies Allergy Verified 09/24/23 14:46 [No Known Allergies*] Review of Systems Review of Systems: Yes all other systems are reviewed and are negative PMFSH Past Medical History Medical History Dementia Schizophrenia Nocturnal hypoxia Hyperlipidemia Hypertension History of COPD Screening for diabetes mellitus Obesity (BMI 30-39.9) COPD (chronic obstructive pulmonary disease) Hypoxia Weakness Gait instability Hearing impairment Overweight (BMI 25.0-29.9) Smoker Depression Anxiety Schizophrenia Vitamin D deficiency Seborrheic dermatitis of scalp Alzheimer's dementia without behavioral disturbance Pure hypercholesterolemia Type 2 diabetes mellitus without complication Surgical History No pertinent past surgical history H/O colonoscopy History of appendectomy Family History Family History Father Cancer Mother No problems noted. Brother Substance abuse Other Alcohol abuse Social History Social History Household Members: None Housing: Assisted Living Facility Housing Other:: Nursing Home Do you presently have visiting nurse or other home services: No Alcohol intake: never Patient Tobacco Use Status: Former Tobacco user Tobacco use type: Cigarette Cigarettes Per Day: 3 e-Cigarette/Vaping Use: Never Used Second Hand Smoke Exposure: Yes Advance Directives: No Advance Directives Information Provided: No service: No Current occupational status: disabled and other Cognitive needs: Yes (walker) Hearing needs: Yes Vision needs: Yes Physical Exam ED Vital Signs: Vital Signs - 24 hr 11/24/23 20:18 11/24/23 20:26 11/24/23 20:50 Temperature 98.0 F Pulse Rate 86 79 Respiratory Rate 17 16 Blood Pressure 182/85 H Pulse Oximetry 96 93 92 Oxygen Delivery Method Nasal Cannula Room Air Nasal Cannula Oxygen Flow Rate 2 2 11/25/23 00:42 11/25/23 01:30 Temperature 97.3 F 97.3 F Pulse Rate 91 91 Respiratory Rate 17 17 Blood Pressure 162/72 H 162/72 H Pulse Oximetry 93 93 Oxygen Delivery Method Room Air Room Air Oxygen Flow Rate BMI result Body Mass Index 28.8 Const Other: The patient is a chronically ill-appearing 73-year-old who was awake and alert, pleasant cooperative, he did not appear in any distress and had no complaints. HENMT Other: Face is symmetrical, mucous membranes moist Eyes Other: Pupils are round equal, conjunctivae clear Neck Other: No JVD Resp Effort & Inspection: normal respiratory effort Auscultation: clear to auscultation bilaterally Cardio Rate: regular rate Rhythm: regular rhythm Heart sounds: S1 normal heart sound present and S2 normal heart sound present GI Other: Abdomen is soft and nontender. Rectal exam reveals light brown heme-negative stool. Skin Other: Skin is dry and unremarkable Neuro Other: The patient is awake and alert. He seems reasonably well oriented. Cranial nerves are intact. He moves his extremities symmetrically and appropriately. Gait is reasonably steady. He seems grossly neurologically intact. Extrem Other: No deformities. No calf swelling or tenderness, no pitting edema. Medical Decision Making Medical Decision Making MDM Narrative: The patient is a 73-year-old male with chronic schizophrenia and multiple medical problems who lives [facility] a [facility]. He seems to have had a syncopal or near syncopal episode that I believe was likely precipitated by a coughing fit. This makes me think that the syncope or near-syncope was much more likely a provoked episode than something more ominous. The patient has no complaints here in the emergency room. I think he may return to his [facility]. Lab Data 11/24/23 20:38 11/24/23 20:38 Labs: Lab Results 11/24/23 11/25/23 Range/Units 20:38 00:47 WBC 7.4 (4.8-10.8) X10*3/uL RBC 4.04 L (4.60-5.80) X10*6/uL Hgb 11.4 L (14.0-18.0) g/dl Hct 34.9 L (42.0-52.0) % MCV 86.4 (80.0-98.0) fL MCH 28.2 (27.0-33.0) pg MCHC 32.7 (31.0-36.0) g/dl RDW 14.2 (11.0-16.0) % Plt Count 210 (160-400) X10*3/uL MPV 11.5 (9.4-12.4) fL Immature Gran % (Auto) 0.5 H (0.0-0.4) % Neut % (Auto) 61.2 (45-73) % Lymph % (Auto) 27.6 (20-40) % Evans % (Auto) 8.4 (2-11) % Eos % (Auto) 2.0 (0-4) % Baso % (Auto) 0.3 (0-2) % Lymph # (Auto) 2.0 (1.2-4.9) X10*3/uL Evans # (Auto) 0.6 (0.1-1.2) X10*3/uL Eos # (Auto) 0.2 (0.0-0.4) X10*3/uL Baso # (Auto) 0.0 (0.0-0.2) X10*3/uL Abs Immat Gran (auto) 0.04 H (0.00-0.03) X10*3/uL Absolute Neuts (auto) 4.5 (2.0-8.3) x10*3/uL Absolute Nucleated RBC 0.000 (0.0-0.012) X10*3/uL Nucleated RBC % (auto) 0.0 (0.0-0.2) /100WBC Sodium 138 (135-145) mmol/L Potassium 4.0 (3.3-5.1) mmol/L Chloride 100 (96-108) mmol/L Carbon Dioxide 29 (22-29) mmol/L Anion Gap 13 (12-20) BUN 20 H (9-16) mg/dL Creatinine 0.83 (0.5-1.4) mg/dL Estim Creat Clear Calc 85.7 Estimated GFR > 60 Random Glucose 151 H (60-115) mg/dL Calcium 9.7 (8.4-10.2) mg/dL Troponin I High Sens 8.9 (<3.5-35.0) ng/L B-Natriuretic Peptide 63 (<100) pg/mL Influenza Type A (PCR) NEGATIVE (Negative) Influenza Type B (PCR) NEGATIVE (Negative) RSV RNA Qual (PCR) NEGATIVE (Negative) SARS-CoV-2 RNA (RT-PCR) NEGATIVE (Negative) Discharge Plan Discharge Clinical Impression: Syncope Patient Disposition: Home, Self-Care Additional Instructions: I think his fainting episode was likely precipitated by a coughing fit. His testing in the emergency room seems stable. Please continue his regular medications and have him follow up soon with his regular doctor. Return to the emergency room if worse. Prescriptions: No Action (DME) FreeStyle Lite Strips Strip See Rx Instructions .Route Qty: 100 5RF Rx Instructions: As directed- to test blood sugar once a day (DME) lancets [Prodigy Lancets] 28 gauge misc See Rx Instructions .Route Qty: 100 3RF Rx Instructions: To test once a day (DME) blood sugar diagnostic Strip See Rx Instructions .Route Qty: 100 3RF Rx Instructions: To test once a day (DME) blood-glucose meter Misc See Rx Instructions .Route Qty: 1 0RF Rx Instructions: To test blood sugar daily zinc oxide [Diaper Rash] 40 % ointment 1 appl topical BID-QID PRN (Reason: skin irritation/diaper rash) Qty: 397 3RF simvastatin 40 mg tablet 40 mg PO BEDTIME Qty: 90 3RF acetaminophen [Tylenol Extra Strength] 500 mg tablet 500 mg PO TID PRN (Reason: fever or pain) 30 Days Qty: 90 3RF Rx Instructions: Take only as needed for increased pain cholecalciferol (vitamin D3) 25 mcg (1,000 unit) tablet 25 mcg PO DAILY Qty: 90 1RF lisinopril 2.5 mg tablet 2.5 mg PO DAILY Qty: 90 1RF fluticasone furoate-vilanterol [Breo Ellipta] 200-25 mcg/dose blister with device 1 ea PO DAILY Qty: 60 0RF aspirin 81 mg tablet,delayed release (DR/EC) 81 mg PO DAILY 90 Days Qty: 90 3RF gemfibrozil 600 mg tablet 600 mg PO BID Qty: 60 1RF metformin 500 mg tablet 500 mg PO BID Qty: 60 3RF ketoconazole 2 % shampoo 1 appl topical DAILY donepezil 10 mg tablet 10 mg PO DAILY memantine 10 mg tablet 10 mg PO BID clozapine 100 mg tablet 300 mg PO BEDTIME clonazepam 0.5 mg tablet 0.5 mg PO BID molnupiravir 200 mg capsule 800 mg PO Q12H 5 Days Qty: 40 0RF (DME) 4-PRONGED CANE See Rx Instructions .Route .MEDSUPPLY Qty: 1 0RF Rx Instructions: As directed (DME) CHUX sheets See Rx Instructions .Route .MEDSUPPLY Qty: 60 12RF Rx Instructions: As directed (DME) adult pull ups XL See Rx Instructions .Route .MEDSUPPLY Qty: 100 12RF Rx Instructions: As directed (DME) DISPOSABLE GLOVES (large) large See Rx Instructions .Route .MEDSUPPLY Qty: 100 12RF Rx Instructions: Use as directed betamethasone dipropionate 0.05 % ointment topical venlafaxine 150 mg capsule,extended release 24hr 150 mg PO DAILY Xifaxan 550 mg tablet 550 mg PO BID Qty: 60 6RF sucralfate 1 gram tablet 3 g PO DAILY Qty: 90 2RF Citrucel 500 mg tablet 1,000 mg PO BID 30 Days Qty: 120 6RF Referrals: Alex Salazar MD [Physician] - (Syncope) Interventions: ED Discharge Assessment Last Done: 11/25/23 01:30 Discharge Date/Time: 11/25/23 01:31
[2023-11-24 23:54] LABS: Troponin-I High Sensitivity 8.9 ng/L (<3.5-35.0)
[2023-11-24 23:58] LABS: B Type Natriuretic Peptide 63 pg/mL (<100)
[2023-11-25 00:42] VITALS: BP 162/72; PULSE 91; RESP 17; TEMP 36.3; O2SAT 93
[2023-11-25 01:28] LABS: Influenza A PCR NEGATIVE (Negative); Influenza B PCR NEGATIVE (Negative); Resp Syncy Virus RNA Qual PCR NEGATIVE (Negative); SARS COV2 PCR INHOUSE NEGATIVE (Negative)
[2023-11-25 01:30] VITALS: BP 162/72; PULSE 91; RESP 17; TEMP 36.3; O2SAT 93
== END 2023-11-25 01:31 | disposition home or self-care (01) ==
PROVIDERS: Emergency Provider Emergency Medicine
DX: R55 Syncope and collapse (principal); R06.02 Shortness of breath; R42 Dizziness and giddiness; R05.9 Cough, unspecified; Z11.52 Encounter for screening for COVID-19; Z20.822 Contact with and (suspected) exposure to COVID-19; Z79.899 Other long term (current) drug therapy
CPT/HCPCS: 0241U; 36415; 71046; 80048; 83880; 84484; 85025; 93005; 99283; 99285

== ENCOUNTER → 2023-11-24 20:40 | Outpatient (BNV) | payer MEDICARE, MEDICAID, SELFPAY | PROVIDERS: Emergency Provider Emergency Medicine; Visit Provider Internal Medicine | DX: R55 Syncope and collapse (principal) | CPT/HCPCS: 93010 ==

== ENCOUNTER 2023-12-06 11:49 | Outpatient (AMB) | payer MEDICARE, MEDICAID, SELFPAY ==
[2023-12-06 11:57] VITALS: BP 140/60; PULSE 85; O2SAT 95; BMI 30.4
--- NOTE | 2023-12-06 11:57 | A.OFFPC_ITS ---
Vital Signs 12/06/23 11:57 Height 5 ft 8 in Weight 200 lb BMI 30.4 BP 140/60 H Blood Pressure Location Lt brachial Position Sitting Pulse 85 Pulse Source Pulse Oximeter Pulse Oximetry (%) 95 Oxygen Delivery Method Room Air Intake Visit Reasons: Syncope 11/24 Nuclear Supervising Operator Required: No Supervisor Major Appliance Assembly: Not Required per policy Accompanied by: Self / Same As Patient Allergies No Known Allergies [No Known Allergies*] Allergy (Verified 12/06/23 22:01) Medication List - Last Reconciled 12/06/23 by Alex Salazar MD [4-PRONGED CANE As directed] acetaminophen (Tylenol Extra Strength) 500 mg PO TID PRN 30 days [adult pull ups As directed] aspirin 81 mg PO DAILY 90 days betamethasone dipropionate 0.05% topical blood sugar diagnostic To test once a day blood-glucose meter To test blood sugar daily Breo Ellipta 200-25 mcg/dose (fluticasone furoate-vilanterol) 1 ea PO DAILY NS cholecalciferol (vitamin D3) 25 mcg PO DAILY [CHUX sheets As directed] clonazepam 0.5 mg PO BID clozapine 300 mg PO BEDTIME [DISPOSABLE GLOVES (large) Use as directed] donepezil 10 mg PO DAILY FreeStyle Lite Strips (blood sugar diagnostic) As directed- to test blood sugar once a day NS gemfibrozil 600 mg PO BID ketoconazole 2% 1 appl topical DAILY lancets (Prodigy Lancets) To test once a day lisinopril 2.5 mg PO DAILY memantine 10 mg PO BID metformin 500 mg PO BID methylcellulose (laxative) (Citrucel) 1,000 mg (2 x 500 mg) PO BID 30 days molnupiravir 800 mg (4 x 200 mg) PO Q12H 5 days rifaximin (Xifaxan) 550 mg PO BID simvastatin 40 mg PO BEDTIME sucralfate 3 grams (3 x 1 gram) PO DAILY venlafaxine ER 150 mg PO DAILY zinc oxide 40% (Diaper Rash) 1 appl topical BID-QID PRN Tobacco use date assessed: 09/24/23 Fall risk assessment: 1 Fall in past year Last assessed Fall Risk: 12/06/23 Dental Screening Dental Screen Date: 09/24/23 HPI Syncope 11/24 HPI Details Patient comes in today for his [facility] follow up visit He was brought to the ER from his fdc early last week on 11/25/2023 when he apparently fainted briefly after he had a coughing fit after he went outside with some staff to smoke a cigarette This was reportedly not the first time this has happened as there were supposedly other similar incidents wherein patient would appear very weak and unsteady after a coughing spell - per staff, he had a similar incident earlier that morning wherein he fell on all fours but he did not pass out He was examined in the ER and had some labs done, all of which came back normal He was eventually discharged back to his fdc and advised that his syncopal episode was likely a vasovagal episode triggered by his coughing spell and there is nothing acute going on at this time His STUDY ABROAD COORDINATOR states that he has not had any recurrence of his syncopal episode since his ER visit last week but he has also not been allowed to smoke since - is wondering if having him permanently stop smoking can help prevent his symptoms from occurring again in the future Patient states that he currently feels okay and denies any headaches or dizziness Denies any chest pains, no increased SOB No nausea/vomiting, no abdominal pain No change in bowel habits noted PFSH Medical History Dementia Schizophrenia Nocturnal hypoxia Hyperlipidemia Hypertension History of COPD Screening for diabetes mellitus Obesity (BMI 30-39.9) COPD (chronic obstructive pulmonary disease) Hypoxia Weakness Gait instability Hearing impairment Overweight (BMI 25.0-29.9) Smoker Depression Anxiety Schizophrenia Vitamin D deficiency Seborrheic dermatitis of scalp Alzheimer's dementia without behavioral disturbance Pure hypercholesterolemia Type 2 diabetes mellitus without complication Surgical History No pertinent past surgical history H/O colonoscopy History of appendectomy Family History Father Cancer Mother No problems noted. Brother Substance abuse Other Alcohol abuse Social History Household Members: None Housing: Assisted Living Facility Housing Other:: Residential Do you presently have visiting nurse or other home services: No Alcohol intake: never Patient Tobacco Use Status: Former Tobacco user Tobacco use type: Cigarette Cigarettes Per Day: 3 e-Cigarette/Vaping Use: Never Used Second Hand Smoke Exposure: Yes service: No Current occupational status: disabled and other Cognitive needs: Yes (walker) Hearing needs: Yes Vision needs: Yes Questionnaire PHQ-9 Over the last 2 weeks, how often have you been bothered by any of the following problems? Depression Screening Interpretation: Negative Depression Screening Done: Yes Source: Developed by Drs. Jose David Kumari, Roman العراقي and colleagues, with an educational claude from [employer]. Thrive Questionnaire Date Thrive assessed: 09/24/23 Currently or been in a relationship where the following occur: no concerns reported THRIVE Score: 0 LYNN-7 AMB Questionnaire LYNN-7 Date LYNN - 7 assessed: 09/24/23 Source: Developed by Drs. Jose David Kumari, Ada Perez, Roman Winters and colleagues, with an educational claude from [employer]. Review of Systems Const Details: ROS is obtained primarily from fdc staff as patient is limited with his ability to provide information due to his advancing dementia Denies difficulty sleeping, Denies fatigue, Denies fever(s) and Denies headache(s) ENT Details: Reportedly has trouble eating/swallowing only when wearing his dentures Reports dysphagia (only when he is wearing dentures), Denies dizziness, Denies otalgia, Denies headache(s), Denies neck pain, Denies odynophagia and Denies sore throat Card Denies chest pain, Reports syncope (see HPI), Denies palpitations and Reports dyspnea on exertion (mild) Resp Denies cough, Reports dyspnea on exertion (mild) and Denies wheezing GI Denies abdominal pain, Denies constipation, Reports dysphagia (only when he is wearing dentures), Denies heartburn, Reports fecal incontinence (at times), Denies diarrhea, Denies nausea, Denies odynophagia and Denies vomiting Denies dysuria, Denies nocturia, Denies urinary frequency and Denies urinary incontinence Musc Reports abnormal gait (unstable gait - often trips and falls while going UP stairs, hiram in AM) and Denies neck pain Skin/Breast Denies rash Neuro Reports abnormal gait (unstable gait - often trips and falls while going UP stairs, hiram in AM), Denies dizziness, Reports syncope (see HPI), Denies headache(s) and Reports memory loss Psych Reports memory loss Endo Denies fatigue and Denies palpitations Aller/Immun Denies wheezing Physical exam (Primary Care) Vital Signs: Last Vital Signs Pulse 85 12/06/23 11:57 BP 140/60 H 12/06/23 11:57 Pulse Ox 95 12/06/23 11:57 Oxygen Delivery Method Room Air 12/06/23 11:57 BMI result Body Mass Index 30.4 Tobacco/Smoking Status: Tobacco use Status Tobacco use date assessed 09/24/23 12/06/23 11:58 Patient Tobacco Use Status Former Tobacco user 12/06/23 11:58 Tobacco use type Cigarette 12/06/23 11:58 e-Cigarette/Vaping Use Never Used 12/06/23 11:58 Depression Screening Interpretation: Negative Thrive Assessment: Date of Thrive Assessment Date Thrive assessed 09/24/23 12/06/23 11:58 Currently or been in a relationship where the following occur: no concerns reported Const General: no acute distress and alert Orientation/consciousness: oriented to person HENMT Ears: TM's normal bilaterally and EAC's normal Throat: Yes posterior oropharynx normal and Yes tonsils normal (no TP congestion noted) Neck Neck: Yes no lymphadenopathy and Yes supple Thyroid: Thyroid normal Resp Auscultation: no rales, rhonchi (occasional) throughout, no wheezes and diminished lung sounds (slightly) bilateral Cardio Rate: regular rate Rhythm: regular rhythm Heart sounds: no murmurs GI Palpation (GI): Soft to palpation and nontender Auscultation: normal bowel sounds General: Yes no CVA tenderness Back/Spine/Pelvis Back: no CVA tenderness Neuro General: oriented to person, moves all extremities and no focal motor deficits Extrem General: Yes no clubbing, cyanosis or edema Assessment and Plan Assessment & Plan (1) Cough syncope: Code(s): R55 - Syncope and collapse; R05.4 - Cough syncope Plan: Patient and his fdc staff is advised that what patient has been experiencing lately is likely a cough-induced syncope, which is not unlike a type of vasovagal syncope and is actually fairly common in people who are 70 years and older Discussed that cough syncope is generally due to increased vagal tone and decreased peripheral sympathetic tone, which causes bradycardia and hypotension. This results from a vasovagal reflex caused by an increased thoracic pressure Have advised that in patient's case, his smoking may potentially be a trigger for his cough, which in turn leads to the above sequence of events and that not allowing him to smoke anymore may at least decrease the likelihood that this may occur but is not a 100% guarantee Per request, will indicate on his papers today from his fdc that patient should no longer be allowed to smoke any cigarettes from now on (2) Alzheimer's dementia without behavioral disturbance: Code(s): G30.9 - Alzheimer's disease, unspecified; F02.80 - Dementia in other diseases classified elsewhere, unspecified severity, without behavioral disturbance, psychotic disturbance, mood disturbance, and anxiety Plan: Continue Donepezil 10 mg QD and Memantine 10 mg BID Follow-up with Neurology as scheduled (3) Schizophrenia: Code(s): F20.9 - Schizophrenia, unspecified Qualifiers: Schizophrenia type: unspecified Qualified Code(s): F20.9 - Schizophrenia, unspecified Plan: Continue Clozaril 100 mg 3 & 1/2 tablets once a day at bedtime Follow-up with Psychiatry as scheduled (4) Anxiety: Code(s): F41.9 - Anxiety disorder, unspecified Plan: Continue Clonazepam 0.5 mg BID PRN (5) Depression: Code(s): F32.9 - Major depressive disorder, single episode, unspecified Qualifiers: Depression Type: unspecified Qualified Code(s): F32.9 - Major depressive disorder, single episode, unspecified Plan: Continue Effexor XR 150 mg once a day Follow-up with Psychiatry as scheduled (6) Smoker: Comment: Patient has been a heavy smoker throughout his adult life. Presence of severe psychotic problem, (Schizophrenia) is an impediment to quit smoking completely. The fdc staff is restricting his number of cigarettes to 4 per day. * Because of his long-time smoking, he should be in LDCT. Lung screening program. I discussed with him and he is fully agreeable. Code(s): F17.200 - Nicotine dependence, unspecified, uncomplicated Plan: Patient is counseled again on the importance and urgency of smoking cessation, especially since he has frequent hypoxemia and is on oxygen In light of his recent recurrent syncopal episodes that are likely triggered by his coughing fits, have advised fdc staff to no longer allow patient to smoke any cigarettes (7) Obesity (BMI 30-39.9): Code(s): E66.9 - Obesity, unspecified Plan: Reinforced diet; exercise and losing weight are unrealistic now due to patient's gait instability and declining dementia Plan Follow up as scheduled next month Coding Level of Care Code Est Pt Level 4 (51135) Diagnoses Cough syncope R55; R05.4 Alzheimer's dementia without behavioral disturbance G30.9; F02.80 Schizophrenia, unspecified type F20.9 Schizophrenia type: unspecified Anxiety F41.9 Depression, unspecified depression type F32.9 Depression Type: unspecified Smoker F17.200 Obesity (BMI 30-39.9) E66.9
== END 2023-12-06 12:28 | disposition home or self-care (01) ==
PROVIDERS: PCP Internal Medicine; Visit Provider Internal Medicine
DX: R55 Syncope and collapse (principal); G30.9 Alzheimer's disease, unspecified; F02.80 Dementia in other diseases classified elsewhere, unspecified severity, without behavioral disturbance, psychotic disturbance, mood disturbance, and anxiety; F20.9 Schizophrenia, unspecified; F17.210 Nicotine dependence, cigarettes, uncomplicated; R05.4 Cough syncope; F41.9 Anxiety disorder, unspecified; F32.9 Major depressive disorder, single episode, unspecified; E66.9 Obesity, unspecified
CPT/HCPCS: 99214

== ENCOUNTER 2023-12-13 14:59 | Outpatient (AMB) | payer MEDICARE, MEDICAID, SELFPAY ==
[2023-12-13 15:04] VITALS: BP 132/62; PULSE 84; O2SAT 97; BMI 30.7
--- NOTE | 2023-12-13 15:04 | MHC.OFFVIS ---
Intake Vital Signs 12/13/23 15:04 Height 5 ft 8 in Weight 201 lb 11.567 oz BMI 30.7 BP 132/62 Blood Pressure Location Lt brachial Position Sitting Pulse 84 Pulse Source Pulse Oximeter Pulse Oximetry (%) 97 Oxygen Delivery Method Nasal Cannula Oxygen Flow Rate 2.5 Intake Visit Reasons: oxygen issue Intake Note: pt is here for follow up and has question on what liter flow should be used, sometimes he is forgetting to keep it on, and pcp had put a d/c order on cigaretts, no smoking since 11/24/23. 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 Allergies No Known Allergies [No Known Allergies*] Allergy (Verified 12/13/23 15:31) Medication List - Last Reconciled 12/13/23 by Susan Sadler MD [4-PRONGED CANE As directed] acetaminophen (Tylenol Extra Strength) 500 mg PO TID PRN 30 days [adult pull ups As directed] aspirin 81 mg PO DAILY 90 days betamethasone dipropionate 0.05% topical blood sugar diagnostic To test once a day blood-glucose meter To test blood sugar daily Breo Ellipta 200-25 mcg/dose (fluticasone furoate-vilanterol) 1 ea PO DAILY NS cholecalciferol (vitamin D3) 25 mcg PO DAILY [CHUX sheets As directed] clonazepam 0.5 mg PO BID clozapine 300 mg PO BEDTIME [DISPOSABLE GLOVES (large) Use as directed] donepezil 10 mg PO DAILY FreeStyle Lite Strips (blood sugar diagnostic) As directed- to test blood sugar once a day NS gemfibrozil 600 mg PO BID ketoconazole 2% 1 appl topical DAILY lancets (Prodigy Lancets) To test once a day lisinopril 2.5 mg PO DAILY memantine 10 mg PO BID metformin 500 mg PO BID methylcellulose (laxative) (Citrucel) 1,000 mg (2 x 500 mg) PO BID 30 days molnupiravir 800 mg (4 x 200 mg) PO Q12H 5 days rifaximin (Xifaxan) 550 mg PO BID simvastatin 40 mg PO BEDTIME sucralfate 3 grams (3 x 1 gram) PO DAILY venlafaxine ER 150 mg PO DAILY zinc oxide 40% (Diaper Rash) 1 appl topical BID-QID PRN HPI oxygen issue HPI Details Patricio is 73 years old gentleman a case of Schizophrenic disorder , living in a skilled nursing, previous smoker, is here for follow-up after 4 months. On 11/24/2023 he had a syncopal episode for which he was checked in the emergency room. Is workup was basically normal and he was discharged with the diagnosis of post tussive syncope. He was advised to stop smoking completely which has been done. Dagoberto has longstanding chronic obstructive pulmonary disease and is oxygen dependent. He is being treated with Breo-200/25 1 inhalation daily, and does not have any emergency inhaler on hand. He uses O2 2 L/minute . Today he is doing as good as always and denies any active cough or wheezing. The staff nurse who came with him, indicated the her concerned that he does not have any emergency inhaler on hand. [facility] Medical History Dementia Schizophrenia Nocturnal hypoxia Hyperlipidemia Hypertension History of COPD Screening for diabetes mellitus Obesity (BMI 30-39.9) COPD (chronic obstructive pulmonary disease) Hypoxia Weakness Gait instability Hearing impairment Overweight (BMI 25.0-29.9) Smoker Depression Anxiety Schizophrenia Vitamin D deficiency Seborrheic dermatitis of scalp Alzheimer's dementia without behavioral disturbance Pure hypercholesterolemia Type 2 diabetes mellitus without complication Surgical History No pertinent past surgical history H/O colonoscopy History of appendectomy Family History Father Cancer Mother No problems noted. Brother Substance abuse Other Alcohol abuse Social History Household Members: None Housing: Assisted Living Facility Housing Other:: Senior Care Do you presently have visiting nurse or other home services: No Alcohol intake: never Patient Tobacco Use Status: Former Tobacco user Tobacco use type: Cigarette Cigarettes Per Day: 3 e-Cigarette/Vaping Use: Never Used Second Hand Smoke Exposure: Yes service: No Current occupational status: disabled and other Cognitive needs: Yes (walker) Hearing needs: Yes Vision needs: Yes Review of Systems Const All systems reviewed & are unremarkable except as noted in HPI and below Eyes Reports no additional complaints ENT Reports no additional complaints Card Reports no additional complaints Resp Reports as per HPI GI Reports constipation, Reports heartburn and Reports other (One minor incidence of choking on rice ) Reports no additional complaints Musc Reports abnormal gait (Unstable and he needs to use the walker) and Reports back pain (mild) Skin/Breast Reports system reviewed and no additional complaints, except as documented Neuro Reports abnormal gait (Unstable and he needs to use the walker) and Reports behavioral changes Psych Reports anxiety, Reports behavioral changes and Reports mood swings Endo Reports no additional complaints Physical Exam Vital Signs: Last Vital Signs Pulse 84 12/13/23 15:04 BP 132/62 12/13/23 15:04 Pulse Ox 97 12/13/23 15:04 Oxygen Delivery Method Nasal Cannula 12/13/23 15:04 Oxygen Flow Rate 2.5 12/13/23 15:04 BMI result Body Mass Index 30.7 Const General: comfortable, no acute distress, alert and awake Orientation/consciousness: patient oriented x3 HEENT Head: Yes normal to inspection General nose exam: No nasal polyps present and No nasal discharge present Face and sinus: Yes sinuses nontender Mouth: oropharynx normal Throat: Yes posterior oropharynx normal Eyes General: appearance normal, both eyes and all related structures Neck Neck: Yes normal visual inspection, Yes no lymphadenopathy, Yes trachea midline and Yes no JVD Thyroid: Thyroid normal Chest Chest palpation & inspection: normal inspection of the chest, normal palpation of entire chest wall and no tenderness Resp Other: Percussion note resonant, breath sounds are very distant on both sides with prolonged expiratory phase. No wheezes rhonchi or crepitations are heard. Cardio Palpation: normal PMI Rate: regular rate Rhythm: regular rhythm Heart sounds: no gallops and no murmurs GI Palpation (GI): Soft to palpation, nontender, No hepatosplenomegaly present and no masses Auscultation: normal bowel sounds Back/Spine/Pelvis Thoracic/Lumbar Spine: thoracic and lumbar spine normal to inspection Skin General skin exam: no rashes or lesions noted Neuro General: patient oriented x3 and no focal motor deficits Cranial nerves: Yes CN's II-XII intact bilaterally Extrem General: Yes normal to inspection, Yes no clubbing, cyanosis or edema and Yes no calf tenderness Psych Appearance: grossly normal and well kempt Speech and movement: Normal speech and movement present Assessment & Plan Assessment & Plan (1) COPD (chronic obstructive pulmonary disease): Comment: As per examination and spirometry results he does have severe obstructive airway disorder. He is doing fairly well and remains stable. There has been no acute exacerbation since his last visit in September. He uses Breo 200-25 1 inhalation daily at present does not have any rescue inhaler on hand. Code(s): J44.9 - Chronic obstructive pulmonary disease, unspecified Qualifiers: COPD type: unspecified COPD Qualified Code(s): J44.9 - Chronic obstructive pulmonary disease, unspecified Plan: Advised to continue using Breo 200-25 1 inhalation daily which is administered by the staff . I would also send a prescription for albuterol HFA to be used Q 6 hours p.r.n. if he develops any respiratory distress . (2) Hypoxia: Comment: Resting O2 sat 91% but he quickly desaturates on walking, thus indicating that he has exertional hypoxemia. He is using O2 2 L/minute with any physical activity, and when he goes outdoors . He is doing well . Code(s): R09.02 - Hypoxemia Plan: Continue to use O2 2 L/minute with any physical activity or when going outdoors. It can increase to 3 L/minute p.r.n. if he has any acute episode of respiratory distress. (3) Lung nodule: Comment: HE HAS A SMALL GROUND-GLASS DENSITY, IN RIGHT UPPER LOBE, 1 CM IN SIZE, HAS NOT GROWN IN SIZE. HE WOULD NEED TO HAVE A CT SCAN REPEATED IN 1 YEAR. (IN 2023 ) *Will arrange for a CT scan on his next visit. Code(s): R91.1 - Solitary pulmonary nodule (4) Smoker: Comment: Patient has been a heavy smoker throughout his adult life. Presence of severe psychotic problem, (Schizophrenia) is an impediment to quit smoking completely. The skilled nursing staff was restricting his number of cigarettes to 4 per day. Now since his the visit to the emergency room on 11/24/23, his smoking has been stop completely. Code(s): F17.200 - Nicotine dependence, unspecified, uncomplicated Plan: Glad that he has stop smoking completely. Because of his past history of smoking he should still get annual lung screening with LDCT. Plan I WILL MAKE SURE THAT HE IS, PARTICIPATING IN ANNUAL LUNG SCREENING PROGRAM. Coding Level of Care Code Est Pt Level 3 (66102) Diagnoses Chronic obstructive pulmonary disease, unspecified COPD type J44.9 COPD type: unspecified COPD Hypoxia R09.02 Lung nodule R91.1 Smoker F17.200
== END 2023-12-13 15:29 | disposition home or self-care (01) ==
PROVIDERS: PCP Internal Medicine; Visit Provider Internal Medicine
DX: J44.9 Chronic obstructive pulmonary disease, unspecified (principal); R09.02 Hypoxemia; R91.1 Solitary pulmonary nodule; F17.200 Nicotine dependence, unspecified, uncomplicated
CPT/HCPCS: 99213

== ENCOUNTER → 2023-12-13 14:59 | Outpatient (BNVA) | payer MEDICARE, MEDICAID, SELFPAY | PROVIDERS: PCP Internal Medicine; Visit Provider Internal Medicine | DX: J44.9 Chronic obstructive pulmonary disease, unspecified (principal); R09.02 Hypoxemia; R91.1 Solitary pulmonary nodule; F17.210 Nicotine dependence, cigarettes, uncomplicated; Z99.81 Dependence on supplemental oxygen | CPT/HCPCS: 99212 ==

== ENCOUNTER 2023-12-25 14:07 | Outpatient (AMB) | payer MEDICARE, MEDICAID, SELFPAY ==
[2023-12-25 14:13] VITALS: BP 126/76; PULSE 94; TEMP 36.2; O2SAT 94; BMI 29.8
--- NOTE | 2023-12-25 14:13 | AM.OFFWIN_ITS ---
Intake Vital Signs 12/25/23 14:13 Height 5 ft 8 in Weight 196 lb BMI 29.8 BP 126/76 Blood Pressure Location Lt brachial Position Sitting Pulse 94 Pulse Source Pulse Oximeter Temp 97.2 F Temp Source Temporal Artery Scan Pulse Oximetry (%) 94 Oxygen Delivery Method Room Air Comment othrostatic b/p, lying 130/62, sitting 118/60, standing 100/50 Intake Visit Reasons: EP Low BP/Leaning to LT/not feeling well Intake Note: pt is here today for low bp and leaning to lft not feeling good started today Patient Tobacco Use Status: Former Tobacco user Allergies No Known Allergies [No Known Allergies*] Allergy (Verified 12/25/23 14:59) Medication List - Last Reconciled 12/25/23 by CATALINA Zuniga [4-PRONGED CANE As directed] acetaminophen (Tylenol Extra Strength) 500 mg PO TID PRN 30 days [adult pull ups As directed] albuterol sulfate 90 mcg/actuation 2 puffs inhalation Q4-6H PRN 30 days aspirin 81 mg PO DAILY 90 days betamethasone dipropionate 0.05% topical blood sugar diagnostic To test once a day blood-glucose meter To test blood sugar daily Breo Ellipta 200-25 mcg/dose (fluticasone furoate-vilanterol) 1 ea PO DAILY NS cholecalciferol (vitamin D3) 25 mcg PO DAILY [CHUX sheets As directed] clonazepam 0.5 mg PO BID clozapine 300 mg PO BEDTIME [DISPOSABLE GLOVES (large) Use as directed] donepezil 10 mg PO DAILY FreeStyle Lite Strips (blood sugar diagnostic) As directed- to test blood sugar once a day NS gemfibrozil 600 mg PO BID ketoconazole 2% 1 appl topical DAILY lancets (Prodigy Lancets) To test once a day lisinopril 2.5 mg PO DAILY memantine 10 mg PO BID metformin 500 mg PO BID methylcellulose (laxative) (Citrucel) 1,000 mg (2 x 500 mg) PO BID 30 days molnupiravir 800 mg (4 x 200 mg) PO Q12H 5 days rifaximin (Xifaxan) 550 mg PO BID simvastatin 40 mg PO BEDTIME sucralfate 3 grams (3 x 1 gram) PO DAILY venlafaxine ER 150 mg PO DAILY zinc oxide 40% (Diaper Rash) 1 appl topical BID-QID PRN Do you need a note to return to daycare/school/sports/work: Yes HPI HPI Comments History of Present Illness Details Patient is a 73-year-old male in today for sick visit. He was seen 2 weeks prior and his primary care office following hospital discharge for near syncopal event that was determined to be a vasovagal accident after a coughing fit. Patient is currently reducing his smoking habits down to 4 cigarettes per day. He also has a past medical history significant for schizophrenia, COPD, DM type 2, Alzheimer dementia, IBS. Patient has a community health worker with him from his long term. She states that the patient was eating lunch and started he does off to the left. He also states that when he stood up he started to feel dizzy. The nurse on site took his blood pressure which was reportedly 90/60. On physical exam today patient's blood pressure is 126/76. POC testing is 144. Patient is not listing to the left at exam today. Patient is able to walk with his baseline gait. Will obtain in office EKG. 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 Patient has no vision changes. Patient is positive in office for orthostatic hypotension. In office EKG demonstrated left bundle branch block 1st degree AV block. This is unchanged from ER visit 3 weeks prior. Patient should follow-up with PCP stat to get potential referral to Cardiology. [facility] Medical History Dementia Schizophrenia Nocturnal hypoxia Hyperlipidemia Hypertension History of COPD Screening for diabetes mellitus Obesity (BMI 30-39.9) COPD (chronic obstructive pulmonary disease) Hypoxia Weakness Gait instability Hearing impairment Overweight (BMI 25.0-29.9) Smoker Depression Anxiety Schizophrenia Vitamin D deficiency Seborrheic dermatitis of scalp Alzheimer's dementia without behavioral disturbance Pure hypercholesterolemia Type 2 diabetes mellitus without complication Surgical History No pertinent past surgical history H/O colonoscopy History of appendectomy Family History Father Cancer Mother No problems noted. Brother Substance abuse Other Alcohol abuse Social History Household Members: None Housing: Assisted Living Facility Housing Other:: Long-Term Do you presently have visiting nurse or other home services: No Alcohol intake: never Patient Tobacco Use Status: Former Tobacco user Tobacco use type: Cigarette Cigarettes Per Day: 3 e-Cigarette/Vaping Use: Never Used Second Hand Smoke Exposure: Yes service: No Current occupational status: disabled and other Cognitive needs: Yes (walker) Hearing needs: Yes Vision needs: Yes Review of Systems Const All systems reviewed & are unremarkable except as noted in HPI and below Denies body aches, Denies chills, Denies fever(s) and Denies headache(s) Eyes Denies blind spots, Denies blurry vision, Denies diplopia, Denies eye discharge and Denies loss of vision ENT Reports dizziness and Denies headache(s) Card Denies chest pain, Denies syncope and Denies dyspnea Resp Denies dyspnea and Denies wheezing GI Denies diarrhea, Denies nausea and Denies vomiting Musc Denies abnormal gait, Denies numbness and Denies tingling Neuro Denies Abnormal speech present, Denies abnormal gait, Reports dizziness, Denies syncope, Denies headache(s), Denies loss of vision, Denies numbness, Denies tingling and Denies paresthesias Aller/Immun Denies wheezing Physical Exam Vital Signs: Last Vital Signs Temp 97.2 F 12/25/23 14:13 Pulse 94 12/25/23 14:13 BP 126/76 12/25/23 14:13 Pulse Ox 94 12/25/23 14:13 Oxygen Delivery Method Room Air 12/25/23 14:13 BMI result Body Mass Index 29.8 Vital signs reviewed stable. Const Other: Appearance: Alert.? Oriented X3.? No acute distress.? Head: Normocephalic, atraumatic, no step-offs or deformities Eyes: Pupils equal, round and reactive to light.?EOMI. ENT: Pharynx normal. Neck: Normal inspection.? Neck supple.? CVS: Normal heart rate and rhythm.? Pulses normal.? Respiratory: No respiratory distress.? Breath sounds normal.? Abdomen: Soft and nontender.? Skin: Skin warm and dry.? Normal skin color.? Normal skin turgor.? Extremities: No lower extremity edema.? No calf ttp. 5/5 strength to bilateral upper and lower extremities Neuro: Oriented X 3.? No motor deficit.? No sensory deficit. CN 2-12 intact Orientation/consciousness: patient oriented x3 Eyes EOM: No Nystagmus present Neuro General: patient oriented x3, moves all extremities and CN's II-XI intact bilaterally Cranial nerves: Yes CN's II-XII intact bilaterally, Yes Facial sensation intact/muscles of mastication intact, Yes Bilaterally intact EOM present, Yes Normal facial strength present, Yes Midline tongue present, Yes Ability to bilaterally elevate shoulders present and No Nystagmus present Speech: No Abnormal speech present Gait exam (Neuro): Other gait observations present (Patient has staggering gait which is normal for baseline) Motor exam (neuro): Pronator motor function not present Coordination: [id number] test normal, does not sway with eyes open and rapid alternating movements of the distal upper extremity normal Romberg Test: Negative Comatose Patient: corneal reflex present Assessment & Plan Assessment & Plan (1) Orthostatic hypotension: Comment: Patient is positive for orthostatic hypotension in office today. Patient has been educated that he should drink plenty of water and should change positions slowly. Patient is on several medications that could contribute to orthostatic hypotension. Patient has been educated to hold his lisinopril 2.5 mg, until he can follow up with pcp. Patient has been educated on signs of worsening symptoms and when to report back to the walk-in clinic or when to present to the ED. Code(s): I95.1 - Orthostatic hypotension Plan: Take your medications as prescribed. If you were prescribed antibiotics today, it is important that you take your medication to their entirety, do not skip any doses, do not finish them early. Follow-up with your primary care provider this week. Return to the emergency department with new or worsening symptoms. Such as fevers, chills, chest pain, shortness of breath, nausea, vomiting, dizziness, headache, vision changes, lethargy In case of emergency call 911 Plan Will draw labs. Follow-up with PCP. Orders: Orders Complete Blood Count Auto Diff Today R42 - Dizziness and giddiness Comprehensive Met. Panel Today Z91.89 - Other specified personal risk factors, not elsewhere classified Coding Level of Care Code Est Pt Level 3 (47969) Diagnoses Orthostatic hypotension I95.1 Time Spent (min) 31
== END 2023-12-25 15:09 | disposition home or self-care (01) ==
PROVIDERS: PCP Internal Medicine; Visit Provider Nurse Practitioner Primary Care
DX: I95.1 Orthostatic hypotension (principal)
CPT/HCPCS: 99213

== ENCOUNTER 2023-12-25 15:00 | Outpatient (REF) | payer MEDICARE, MEDICAID, SELFPAY ==
[2023-12-25 16:20] LABS: MANUAL DIFF FLAG NO
[2023-12-25 16:42] LABS: Basophils Percent Auto 0.4 % (0-2); Eosinophils Absolute Auto 0.2 X10*3/uL (0.0-0.4); Eosinophils Percent Auto 2.1 % (0-4); Hematocrit 37.5 % (42.0-52.0); Hemoglobin 11.6 g/dl (14.0-18.0); Imm Gran Abs Auto 0.04 X10*3/uL (0.00-0.03); Imm Gran Pct Auto 0.5 % (0.0-0.4); Lymphocytes Absolute Auto 2.1 X10*3/uL (1.2-4.9); Lymphocytes Percent Auto 28.3 % (20-40); Mean Corpuscular HGB Conc 30.9 g/dl (31.0-36.0); Mean Corpuscular Hemoglobin 27.6 pg (27.0-33.0); Mean Corpuscular Volume 89.1 fL (80.0-98.0); Mean Platelet Volume 12.5 fL (9.4-12.4); Monocytes Absolute Auto 0.7 X10*3/uL (0.1-1.2); Monocytes Percent Auto 9.9 % (2-11); Neutrophils Absolute Auto 4.4 x10*3/uL (2.0-8.3); Neutrophils Percent Auto 58.8 % (45-73); Platelet Count 242 X10*3/uL (160-400); Red Blood Count 4.21 X10*6/uL (4.60-5.80); Red Cell Distribution Width 14.1 % (11.0-16.0); White Blood Count 7.5 X10*3/uL (4.8-10.8)
[2023-12-25 17:26] LABS: Alanine Aminotransferase 61 U/L (0-40); Albumin Level 4.5 g/dL (3.5-5.0); Alkaline Phosphatase 102 U/L (39-117); Anion Gap 15 (12-20); Aspartate Amino Transferase 42 U/L (5-37); Bilirubin Total 0.2 mg/dL (0.0-1.0); Blood Urea Nitrogen 33 mg/dL (9-16); Calcium 10.1 mg/dL (8.4-10.2); Carbon Dioxide 27 mmol/L (22-29); Chloride 105 mmol/L (96-108); Estimated Glomerular Filt Rate 54; Glucose Random 142 mg/dL (60-115); Potassium 4.9 mmol/L (3.3-5.1); Sodium 142 mmol/L (135-145); Total Protein 7.8 g/dL (6.5-8.0)
== END 2023-12-25 15:01 | disposition home or self-care (01) ==
LOC: HO.HMGCLR 15:00
PROVIDERS: PCP Nurse Practitioner Family; Referring Provider Psychiatry & Neurology Psychiatry; Visit Provider Nurse Practitioner Primary Care
DX: Z79.899 Other long term (current) drug therapy (principal); R42 Dizziness and giddiness; Z91.89 Other specified personal risk factors, not elsewhere classified
CPT/HCPCS: 36415; 80053; 85025

== ENCOUNTER 2023-12-31 09:09 | Outpatient (REF) | payer MEDICARE, MEDICAID, SELFPAY ==
[2023-12-31 10:20] LABS: MANUAL DIFF FLAG NO
[2023-12-31 10:35] LABS: Basophils Percent Auto 0.5 % (0-2); Eosinophils Absolute Auto 0.2 X10*3/uL (0.0-0.4); Eosinophils Percent Auto 2.6 % (0-4); Hematocrit 36.9 % (42.0-52.0); Hemoglobin 11.6 g/dl (14.0-18.0); Imm Gran Abs Auto 0.03 X10*3/uL (0.00-0.03); Imm Gran Pct Auto 0.5 % (0.0-0.4); Lymphocytes Absolute Auto 2.3 X10*3/uL (1.2-4.9); Mean Corpuscular HGB Conc 31.4 g/dl (31.0-36.0); Mean Corpuscular Hemoglobin 28.2 pg (27.0-33.0); Mean Corpuscular Volume 89.6 fL (80.0-98.0); Monocytes Absolute Auto 0.6 X10*3/uL (0.1-1.2); Monocytes Percent Auto 9.5 % (2-11); Neutrophils Percent Auto 48.9 % (45-73); Platelet Count 233 X10*3/uL (160-400); Red Blood Count 4.12 X10*6/uL (4.60-5.80); Red Cell Distribution Width 14.3 % (11.0-16.0); White Blood Count 6.1 X10*3/uL (4.8-10.8)
== END 2023-12-31 09:10 | disposition home or self-care (01) ==
LOC: HO.HMGCLR 09:09
PROVIDERS: PCP Internal Medicine; Visit Provider Psychiatry & Neurology Psychiatry
DX: Z79.899 Other long term (current) drug therapy (principal)
CPT/HCPCS: 36415; 85025

== ENCOUNTER 2024-01-02 13:23 | Outpatient (AMB) | payer MEDICARE, MEDICAID, SELFPAY ==
[2024-01-02 13:28] VITALS: BP 152/74; PULSE 91; O2SAT 92
--- NOTE | 2024-01-02 13:28 | MHC.PC.OV ---
Vital Signs 01/02/24 13:28 01/02/24 14:02 Height 5 ft 8 in Weight 197 lb BMI 30.0 BP 152/74 H 120/60 Blood Pressure Location Lt brachial Lt brachial Position Sitting Sitting Pulse 91 Pulse Source Pulse Oximeter Pulse Oximetry (%) 92 Oxygen Delivery Method Room Air Intake Visit Reasons: dementia, COPD, HTN, hyperlipidemia Winding Lathe Operator Required: No Allergies No Known Allergies [No Known Allergies*] Allergy (Verified 01/27/24 14:32) Medication List - Last Reconciled 01/02/24 by Alex Salazar MD [4-PRONGED CANE As directed] acetaminophen (Tylenol Extra Strength) 500 mg PO TID PRN 30 days [adult pull ups As directed] albuterol sulfate 90 mcg/actuation 2 puffs inhalation Q4-6H PRN 30 days aspirin 81 mg PO DAILY 90 days betamethasone dipropionate 0.05% topical blood sugar diagnostic To test once a day blood-glucose meter To test blood sugar daily Breo Ellipta 200-25 mcg/dose (fluticasone furoate-vilanterol) 1 ea PO DAILY NS cholecalciferol (vitamin D3) 25 mcg PO DAILY [CHUX sheets As directed] clonazepam 0.5 mg PO BID clozapine 300 mg PO BEDTIME [DISPOSABLE GLOVES (large) Use as directed] donepezil 10 mg PO DAILY ferrous fumarate 325 mg PO DAILY FreeStyle Lite Strips (blood sugar diagnostic) As directed- to test blood sugar once a day NS gemfibrozil 600 mg PO BID ketoconazole 2% 1 appl topical DAILY lancets (Prodigy Lancets) To test once a day lisinopril 2.5 mg PO DAILY memantine 10 mg PO BID metformin 500 mg PO BID methylcellulose (laxative) (Citrucel) 1,000 mg (2 x 500 mg) PO BID 30 days molnupiravir 800 mg (4 x 200 mg) PO Q12H 5 days rifaximin (Xifaxan) 550 mg PO BID simvastatin 40 mg PO BEDTIME sucralfate 3 grams (3 x 1 gram) PO DAILY venlafaxine ER 150 mg PO DAILY zinc oxide 40% (Diaper Rash) 1 appl topical BID-QID PRN Tobacco use date assessed: 01/02/24 Fall risk assessment: 1 Fall in past year Last assessed Fall Risk: 01/02/24 Dental Screening Dental Screen Date: 09/24/23 HPI dementia, COPD, HTN, hyperlipidemia HPI Details Patient comes in today for his follow up visit He was brought to the walk-in clinic in [place] last month when he complained of not feeling well and felt very dizzy when he stood up; nurse noted his BP at the time was around 90/60 He was noted to be orthostatic while being examined at the clinic and was instructed to HOLD his Lisinopril until further notice He was also started on Ferrous fumarate but his half-way has not yet given it to him as they want him to come in to see his PCP first States that they brought him to the lab a couple of days ago and had his fasting labs done but for unclear reasons. his labs were incomplete and was labeled non-fasting and his previous labs orders appear untouched in his chart Patient states that he currently feels okay He denies any headaches Denies any chest pains, no increased SOB although half-way staff states that his activity level has declined a lot recently and he spends most of his time in his room when he is allowed to No nausea/vomiting, no abdominal pain He is now having issues with incontinence due to his declining cognition [facility] Medical History (Updated 02/05/24 @ 19:18 by Alex Salazar MD) Alzheimer's dementia without behavioral disturbance Schizophrenia Hypertension Hyperlipidemia Type 2 diabetes mellitus without complication Dysphagia COPD (chronic obstructive pulmonary disease) Hypoxia Nicotine dependence, cigarettes, uncomplicated Hearing impairment Gait instability Weakness Overweight (BMI 25.0-29.9) Depression Anxiety Vitamin D deficiency Seborrheic dermatitis of scalp Surgical History History of colonoscopy History of appendectomy Family History Father Cancer Mother No problems noted. Brother Substance abuse Other Alcohol abuse Social History (Updated 02/01/24 @ 11:13 by Mabel Espinoza PA-C) Household Members: None Housing: Assisted Living Facility Housing Other:: [facility] Do you presently have visiting nurse or other home services: No Alcohol intake: never Patient Tobacco Use Status: Former Tobacco user Tobacco use type: Cigarette Years Smoked: (onset 14yo, 1-2ppd x 59yrs, 50pyh - quit 11/2023) e-Cigarette/Vaping Use: Never Used Second Hand Smoke Exposure: Yes service: No Current occupational status: disabled and other Cognitive needs: Yes (walker) Hearing needs: Yes Vision needs: Yes Questionnaire Thrive Questionnaire Date Thrive assessed: 09/24/23 AUDIT C Alcohol Use Questionnaire (AUDIT-C) 1. How often do you have a drink containing alcohol?: Never 3. How often do you have six or more drinks on one occasion?: Never Total Score: 0 Score Reviewed/Action Taken: Yes LYNN-7 AMB Questionnaire LYNN-7 Date LYNN - 7 assessed: 09/24/23 Source: Developed by Drs. Jose David Kumari, Ada Perez, Roman Winters and colleagues, with an educational claude from [employer]. Review of Systems Const Details: ROS is obtained primarily from half-way staff as patient is limited with his ability to provide information due to his advancing dementia Denies difficulty sleeping, Denies fatigue, Denies fever(s) and Denies headache(s) ENT Details: Reportedly has trouble eating/swallowing only when wearing his dentures Reports dysphagia (only when he is wearing dentures), Denies dizziness, Denies otalgia, Denies headache(s), Denies neck pain, Denies odynophagia and Denies sore throat Card Denies chest pain, Denies palpitations and Reports dyspnea on exertion (mild) Resp Denies cough, Reports dyspnea on exertion (mild) and Denies wheezing GI Denies abdominal pain, Denies constipation, Reports dysphagia (only when he is wearing dentures), Denies heartburn, Reports fecal incontinence (at times), Denies diarrhea, Denies nausea, Denies odynophagia and Denies vomiting Denies dysuria, Denies nocturia, Denies urinary frequency and Reports urinary incontinence (occasionally) Musc Reports abnormal gait (unstable gait - often trips and falls while going UP stairs, hiram in AM) and Denies neck pain Skin/Breast Denies rash Neuro Reports abnormal gait (unstable gait - often trips and falls while going UP stairs, hiram in AM), Reports confusion (at times), Denies dizziness, Denies headache(s) and Reports memory loss Psych Reports confusion (at times) and Reports memory loss Endo Denies fatigue and Denies palpitations Aller/Immun Denies wheezing Physical exam (Primary Care) Vital Signs: Last Vital Signs Pulse 91 01/02/24 13:28 BP 120/60 01/02/24 14:02 Pulse Ox 92 01/02/24 13:28 Oxygen Delivery Method Room Air 01/02/24 13:28 BMI result Body Mass Index 30.0 Tobacco/Smoking Status: Tobacco use Status Tobacco use date assessed 01/02/24 01/02/24 13:29 Patient Tobacco Use Status Former Tobacco user 01/02/24 13:29 Tobacco use type Cigarette 01/02/24 13:29 e-Cigarette/Vaping Use Never Used 01/02/24 13:29 Thrive Assessment: Date of Thrive Assessment Date Thrive assessed 09/24/23 01/02/24 13:29 Const General: no acute distress and confusion (at times) Orientation/consciousness: confusion (at times) HENMT Ears: TM's normal bilaterally and EAC's normal Throat: Yes posterior oropharynx normal and Yes tonsils normal (no TP congestion noted) Neck Neck: Yes no lymphadenopathy and Yes supple Thyroid: Thyroid normal Resp Auscultation: no rales, rhonchi (occasional) throughout, no wheezes and diminished lung sounds (slightly) bilateral Cardio Rate: regular rate Rhythm: regular rhythm Heart sounds: no murmurs GI Palpation (GI): Soft to palpation and nontender Auscultation: normal bowel sounds General: Yes no CVA tenderness Back/Spine/Pelvis Back: no CVA tenderness Skin Rashes: no rashes Neuro General: confusion (at times) Extrem General: Yes no clubbing, cyanosis or edema Results AMB Hemoglobin A1c AMB Hemoglobin A1c 6.4 % Last Edit by ALVARO Mcdaniel on 01/02/24 13:50 Results Reviewed Results Reviewed: Laboratory Last Values Hgb A1c (Clinic) 6.4 % (4.0-6.0) H 01/02/24 10:44 Laboratory Tests 12/25/23 12/31/23 01/02/24 15:08 09:18 10:44 WBC 6.1 Hgb 11.6 L Hct 36.9 L Plt Count 233 Sodium 142 Potassium 4.9 D Creatinine 1.31 Estimated GFR 54 Random Glucose 142 H Hgb A1c (Clinic) 6.4 H Calcium 10.1 AST 42 H ALT 61 H Total Protein 7.8 Albumin 4.5 Assessment and Plan Assessment & Plan (1) Pure hypercholesterolemia: Code(s): E78.00 - Pure hypercholesterolemia, unspecified Plan: Results of his labs done over the past week reviewed and discussed with patient and half-way staff but these were NOT fasting labs as for unclear reasons, the hospital registration cannot seem to find his orders even though the orders are still active in his file Reinforced low cholesterol diet Continue Simvastatin 40 mg QD and Gemfibrozil 600 mg BID Will recheck his labs and fasting lipids in 3 months for follow up (2) Type 2 diabetes mellitus without complication: Code(s): E11.9 - Type 2 diabetes mellitus without complications Qualifiers: Diabetes mellitus terminal press operator insulin use: without terminal press operator use Qualified Code(s): E11.9 - Type 2 diabetes mellitus without complications Plan: His in-office HgbA1c done today is at 6.4% (HgbA1c was at 5.7% a few months ago) - goal is <7.0% Reinforced diabetic diet Continue Metformin 500 mg BID; continue Lisinopril 2.5 mg QD for renoprotection (3) COPD (chronic obstructive pulmonary disease): Comment: Severe Obstructive Airway Disorder - per exam/spiromety. Remains stable, No exacerbations since last visit - uses Breo 200-25 1 inhalation daily - does not have any rescue inhaler on hand Code(s): J44.9 - Chronic obstructive pulmonary disease, unspecified Qualifiers: COPD type: unspecified COPD Qualified Code(s): J44.9 - Chronic obstructive pulmonary disease, unspecified Plan: He is currently doing well with no acute exacerbation He still has his oxygen but he only uses it now when he has recurrent hypoxemia or has increased dyspnea on exertion Continue Breo Ellipta 200-25 mcg 1 inhalation QD and Albuterol HFA 2 inhalations every 6 hours as needed Follow up with pulmonary as scheduled (4) Alzheimer's dementia without behavioral disturbance: Code(s): G30.9 - Alzheimer's disease, unspecified; F02.80 - Dementia in other diseases classified elsewhere, unspecified severity, without behavioral disturbance, psychotic disturbance, mood disturbance, and anxiety Plan: Continue Donepezil 10 mg QD and Memantine 10 mg BID Follow-up with Neurology as scheduled (5) Exertional dyspnea: Code(s): R06.09 - Other forms of dyspnea Plan: [facility] notes that patient's exertional dyspnea appears to have progressed somewhat recently Discussed that this is still likely mulitfactorial, including due to his COPD, weight and physical deconditioning, but will send patient for echocardiogram for further evaluation (6) Anemia: Code(s): D64.9 - Anemia, unspecified Qualifiers: Anemia type: unspecified type Qualified Code(s): D64.9 - Anemia, unspecified Plan: He is slightly anemic on his recent labs Will start him on Ferrous fumarate 325 mg QD Will recheck his CBC in a few months for follow up (7) Irritable bowel syndrome with diarrhea: Code(s): K58.0 - Irritable bowel syndrome with diarrhea Plan: Continue Sucralfate 1 gm once a day - symptoms have improved somewhat with Rx His recent stool incontinence may be related to this or may be due to his progressing dementia Follow up with GI as scheduled (8) Schizophrenia: Code(s): F20.9 - Schizophrenia, unspecified Qualifiers: Schizophrenia type: unspecified Qualified Code(s): F20.9 - Schizophrenia, unspecified Plan: Continue Clozaril 100 mg 3 & 1/2 tablets once a day at bedtime Follow-up with Psychiatry as scheduled (9) Anxiety: Code(s): F41.9 - Anxiety disorder, unspecified Plan: Continue Clonazepam 0.5 mg BID PRN (10) Depression: Code(s): F32.9 - Major depressive disorder, single episode, unspecified Qualifiers: Depression Type: unspecified Qualified Code(s): F32.9 - Major depressive disorder, single episode, unspecified Plan: Continue Effexor XR 150 mg QD Follow-up with Psychiatry as scheduled (11) Obesity (BMI 30-39.9): Code(s): E66.9 - Obesity, unspecified Plan: Reinforced diet; exercise and losing weight are unrealistic now due to patient's gait instability and declining dementia Plan To return as scheduled in March 2024 for his Medicare Wellness Exam and follow up visit Orders: Orders AMB Hemoglobin A1c 01/02/24 E11.9 - Type 2 diabetes mellitus without complications CA echo transthoracic complete 01/02/24 R06.09 - Other forms of dyspnea Medications: Refilled ferrous fumarate 325 mg PO DAILY 30 tabs 3RF Coding Level of Care Code Est Pt Level 4 (56980) Diagnoses Pure hypercholesterolemia E78.00 Type 2 diabetes mellitus without complication, without long-term current use of insulin E11.9 Diabetes mellitus terminal press operator insulin use: without terminal press operator use Chronic obstructive pulmonary disease, unspecified COPD type J44.9 COPD type: unspecified COPD Alzheimer's dementia without behavioral disturbance G30.9; F02.80 Exertional dyspnea R06.09 Anemia, unspecified type D64.9 Anemia type: unspecified type Irritable bowel syndrome with diarrhea K58.0 Schizophrenia, unspecified type F20.9 Schizophrenia type: unspecified Anxiety F41.9 Depression, unspecified depression type F32.9 Depression Type: unspecified Obesity (BMI 30-39.9) E66.9
[2024-01-02 14:02] VITALS: BP 120/60
== END 2024-01-02 14:18 | disposition home or self-care (01) ==
PROVIDERS: PCP Internal Medicine; Visit Provider Internal Medicine
DX: E11.9 Type 2 diabetes mellitus without complications (principal)
CPT/HCPCS: 83036; 99214

== ENCOUNTER → 2024-01-17 13:46 | Outpatient (REF) | payer MEDICARE, MEDICAID, SELFPAY ==
--- NOTE | 2024-01-17 13:51 | CA_ITS ---
Transthoracic Echocardiogram Patient (Last, First, Middle): Patricio Ochoa G Gender: Male Date of : 1950 Age: 73 Procedure Date: 01/17/2024 Procedure Type: Transthoracic Echocardiogram Location: OP Height: 175.26 cm Weight: 90.72 kg BSA: 2.07 m2 Heart Rate: 75 bpm BP: 130 / 80 mmHg Slat Basket Maker Helper: JANINE Nichole MD: Alex Salazra MD Online User Experience Strategist: Pierre Tijerina MD Symptoms: R06.09 - Other forms of dyspnea Study Quality: Technically Difficult ECG Rhythm: Sinus Conclusions: - 1. Low normal LV ejection fraction of 50-55% with moderate left ventricular hypertrophy with impaired relaxation filling pattern 2. Cardiac valvular Dopplers within normal limits 3. Upper limits of normal ascending aortic size 4. No gross pericardial effusion Findings Left Ventricle Normal left ventricular cavity size. There is moderately increased left ventricular wall thickness. The left ventricular systolic function is low normal. There is paradoxical septal motion consistent with a left bundle branch block. Spectral Doppler is indicative of an impaired relaxation filling pattern. E/E prime ratio is between 8 and 15 consistent with indeterminate filling pressures. Peak GLS is -11.4%, which is severely reduced. Right Ventricle Normal right ventricular cavity size. There is low normal right ventricular systolic function. Atria The left atrium is likely dilated. Interatrial shunt cannot be excluded. The right atrium was not well visualized. Aortic Valve The aortic valve was not well visualized. There is mild calcification of the aortic valve. There is no aortic valve stenosis. There is no aortic valve regurgitation. Mitral Valve Likely normal mitral valve structure and function. There is trace mitral valve regurgitation. There is no mitral valve stenosis. Pulmonic Valve The pulmonic valve was not well visualized. Tricuspid Valve Likely normal tricuspid valve structure and function. Tricuspid regurgitation envelope is inadequate for calculation of right ventricular systolic pressure. Great Vessels Small plaque is seen in the sino tubular ridge. Venous The inferior vena cava is normal in size and collapses greater than 50% with inspiration. Pericardium/Pleural There is no evidence of pericardial effusion. Prior Study Comparison No prior study available for comparison. Measurements 2D Linear Measurements IVSd: 1.58 0.6-0.9/0.6-1.0 cm LVIDd: 3.94 3.9-5.3/4.2-5.9 cm LVIDd Index: 1.90 2.4-3.2/2.2-3.1 cm/m2 LVIDs: 2.25 2.0-3.6 cm LVPWd: 1.42 0.7-1.1 cm LA Diam: 3.90 2.7-3.8/3.0-4.0 cm LAIDs Index: 1.88 1.5-2.3 cm/m2 LV Mass: 284.02 67-162/88-224 g LV Mass Index: 137.21 43-95/49-115 g/m2 LVOT Diam: 1.90 3.0+(-)1.3 cm 2D Systolic Function EF 4C: 53.40 >55% EF 2C: 50.90 >55% EF BiP: 52.50 >55% Mitral Valve MV Pk E: 0.68 MV PK A: 0.90 MV Decel Time: 107.00 E/A: 0.80 E'Lateral: 7.94 E'Medial: 5.00 E/E' Med: 13.50 E/E' Lat: 8.50 PHT: 31.00 MVA PHT: 7.10 Decel [place]: 6.33 Aortic Valve AoV Pk Benjamin: 1.42 AoV Mn Benjamin: 0.99 AoV VTI: 0.29 AoV Pk Grad: 8.00 Aov Mn Grad: 4.00 GUILHERME Cont.VTI: 1.75 LVOT LVOT Pk Benjamin: 0.81 LVOT Mn Benjamin: 0.62 LVOT VTI: 0.18 LVOT Pk Grad: 3.00 LVOT Mn Grad: 2.00 LVOT Diam: 1.90 LVOT Area: 2.84 Diastolic Function MV Pk E: 0.68 MV Pk A: 0.90 E/A: 0.80 E'Medial: 5.00 E/E' Med: 13.50 E' Laterial: 7.94 E/E' Lat: 8.50 Right Ventricle TAPSE (mm): 17.00 TVS' Benjamin: 9.03 Great Vessels Aorta Sinus of Valsalva: 3.70 2.0-3.5 cm Ao Asc: 3.60 2.1-3.4 cm Pulmonary Valve PV Pk Benjamin: 1.18 Peak PV Grad: 6.00 Updated in Other Vendor System with Status of Final Pierre Tijerina MD electronically signed on 01/17/2024 5:58:28 PM with status of Final
== END ==
LOC: HO.CARD 13:46
PROVIDERS: PCP Internal Medicine; Visit Provider Internal Medicine
DX: R06.09 Other forms of dyspnea (principal)
CPT/HCPCS: 93306; 93356

== ENCOUNTER → 2024-01-17 13:51 | Outpatient (BNV) | payer MEDICARE, MEDICAID, SELFPAY | PROVIDERS: PCP Internal Medicine; Visit Provider Internal Medicine Cardiovascular Disease | DX: I44.7 Left bundle-branch block, unspecified (principal); R93.1 Abnormal findings on diagnostic imaging of heart and coronary circulation | CPT/HCPCS: 93306; 93356 ==

== ENCOUNTER 2024-01-23 12:49 | Outpatient (REF) | payer MEDICARE, MEDICAID, SELFPAY ==
[2024-01-23 16:48] LABS: MANUAL DIFF FLAG NO
[2024-01-23 18:03] LABS: Basophils Percent Auto 0.5 % (0-2); Eosinophils Absolute Auto 0.1 X10*3/uL (0.0-0.4); Eosinophils Percent Auto 2.2 % (0-4); Hematocrit 37.8 % (42.0-52.0); Hemoglobin 11.5 g/dl (14.0-18.0); Imm Gran Abs Auto 0.04 X10*3/uL (0.00-0.03); Imm Gran Pct Auto 0.6 % (0.0-0.4); Lymphocytes Absolute Auto 2.3 X10*3/uL (1.2-4.9); Mean Corpuscular HGB Conc 30.4 g/dl (31.0-36.0); Mean Corpuscular Hemoglobin 27.8 pg (27.0-33.0); Mean Corpuscular Volume 91.3 fL (80.0-98.0); Mean Platelet Volume 12.6 fL (9.4-12.4); Monocytes Absolute Auto 0.8 X10*3/uL (0.1-1.2); Monocytes Percent Auto 11.6 % (2-11); Neutrophils Absolute Auto 3.3 x10*3/uL (2.0-8.3); Neutrophils Percent Auto 50.1 % (45-73); Platelet Count 234 X10*3/uL (160-400); Red Blood Count 4.14 X10*6/uL (4.60-5.80); Red Cell Distribution Width 14.3 % (11.0-16.0); White Blood Count 6.5 X10*3/uL (4.8-10.8)
== END 2024-01-23 12:50 | disposition home or self-care (01) ==
LOC: HO.HMGCLDS 12:49
PROVIDERS: PCP Internal Medicine; Visit Provider Psychiatry & Neurology Psychiatry
DX: Z79.899 Other long term (current) drug therapy (principal)
CPT/HCPCS: 36415; 85025

== ENCOUNTER 2024-01-27 14:07 | Emergency (ER) | payer MEDICARE, MEDICAID, SELFPAY ==
--- NOTE | ~2024-01-27 | CT_ITS ---
EXAMINATION: CT CERVICAL SPINE WITHOUT CONTRAST; UNENHANCED CT OF THE HEAD. CLINICAL INFORMATION: Fall. COMPARISON: None TECHNIQUE: Routine unenhanced CT of the head with multiple coronal and sagittal reformatted images; routine unenhanced CT of the cervical spine with multiple coronal and sagittal reformatted images. This CT examination was performed using dose optimization techniques as appropriate, variously including the following: *Automated exposure control *Adjustment of mA and/or kV according to patient size (this includes techniques or standardized protocols for targeted exams where dose is matched to indication/reason for exam; i.e. extremities or head) *Use of iterative reconstruction technique DLP: 1219 mGy-cm FINDINGS: Focal encephalomalacia is present in the inferior left cerebellar hemisphere consistent with a chronic infarct. Moderate diffuse commensurate prominence of ventricles and sulci is noted. Moderate scattered subcortical and periventricular white matter patchy hypodensities visualized. No intracranial hemorrhage, tumors or acute infarcts visualized. The maxillofacial region is partially excluded from the reconstructed image [id number]. The lateral ocular senescent calcifications noted. No significant opacification of the visualized paranasal sinuses, mastoid air cells and middle ear cavities. CT cervical spine: No fractures or acute appearing subluxations identified. Multilevel facet and endplate hypertrophic changes are visualized. No vertebral body compression deformities. No prevertebral fluid collections or soft tissue inflammatory changes. Mild bilateral carotid bulb calcific atherosclerotic plaques. The visualized lung apices demonstrate evidence of bilateral pleural parenchymal scarring which is likely chronic. CT/CT head/brain wo IV con IMPRESSION: CT HEAD: 1. No acute intracranial abnormalities. 2. Chronic left cerebellar infarct. 3. Moderate white matter chronic small vessel ischemic disease. CT CERVICAL SPINE: 1. No acute abnormalities. 2. Multilevel chronic spondylosis.
--- NOTE | ~2024-01-27 | CT_ITS ---
EXAMINATION: CT CERVICAL SPINE WITHOUT CONTRAST; UNENHANCED CT OF THE HEAD. CLINICAL INFORMATION: Fall. COMPARISON: None TECHNIQUE: Routine unenhanced CT of the head with multiple coronal and sagittal reformatted images; routine unenhanced CT of the cervical spine with multiple coronal and sagittal reformatted images. This CT examination was performed using dose optimization techniques as appropriate, variously including the following: *Automated exposure control *Adjustment of mA and/or kV according to patient size (this includes techniques or standardized protocols for targeted exams where dose is matched to indication/reason for exam; i.e. extremities or head) *Use of iterative reconstruction technique DLP: 1219 mGy-cm FINDINGS: Focal encephalomalacia is present in the inferior left cerebellar hemisphere consistent with a chronic infarct. Moderate diffuse commensurate prominence of ventricles and sulci is noted. Moderate scattered subcortical and periventricular white matter patchy hypodensities visualized. No intracranial hemorrhage, tumors or acute infarcts visualized. The maxillofacial region is partially excluded from the reconstructed image [id number]. The lateral ocular senescent calcifications noted. No significant opacification of the visualized paranasal sinuses, mastoid air cells and middle ear cavities. CT cervical spine: No fractures or acute appearing subluxations identified. Multilevel facet and endplate hypertrophic changes are visualized. No vertebral body compression deformities. No prevertebral fluid collections or soft tissue inflammatory changes. Mild bilateral carotid bulb calcific atherosclerotic plaques. The visualized lung apices demonstrate evidence of bilateral pleural parenchymal scarring which is likely chronic. CT/CT cervical spine wo IV con IMPRESSION: CT HEAD: 1. No acute intracranial abnormalities. 2. Chronic left cerebellar infarct. 3. Moderate white matter chronic small vessel ischemic disease. CT CERVICAL SPINE: 1. No acute abnormalities. 2. Multilevel chronic spondylosis.
[2024-01-27 14:28] VITALS: BP 121/68; BP 131/62; PULSE 82; RESP 16; TEMP 36.6; O2SAT 92; O2SAT 98; BMI 26.5
--- NOTE | 2024-01-27 14:32 | ECG_ITS ---
Test Reason : SYNCOPE Blood Pressure : / mmHG Vent. Rate : 081 BPM Atrial Rate : 081 BPM P-R Int : 244 ms QRS Dur : 144 ms QT Int : 422 ms P-R-T Axes : 073 -54 109 degrees QTc Int : 490 ms Sinus rhythm with 1st degree A-V block with Premature atrial complexes Left axis deviation Left bundle branch block Abnormal ECG When compared with ECG of 24-NOV-2023 20:40, Premature atrial complexes are now Present Left bundle branch block has replaced Non-specific intra-ventricular conduction block Criteria for Anterior infarct are no longer Present Criteria for Anterolateral infarct are no longer Present Referred By: Princess Lugo Electronically Signed By:Claus Arias
[2024-01-27 15:00] LABS: MANUAL DIFF FLAG NO
[2024-01-27 15:02] LABS: Basophils Percent Auto 0.5 % (0-2); Eosinophils Absolute Auto 0.1 X10*3/uL (0.0-0.4); Hematocrit 34.6 % (42.0-52.0); Hemoglobin 11.2 g/dl (14.0-18.0); Imm Gran Abs Auto 0.04 X10*3/uL (0.00-0.03); Imm Gran Pct Auto 0.6 % (0.0-0.4); Lymphocytes Absolute Auto 1.9 X10*3/uL (1.2-4.9); Lymphocytes Percent Auto 28.5 % (20-40); Mean Corpuscular HGB Conc 32.4 g/dl (31.0-36.0); Mean Corpuscular Hemoglobin 28.9 pg (27.0-33.0); Mean Corpuscular Volume 89.4 fL (80.0-98.0); Mean Platelet Volume 11.5 fL (9.4-12.4); Monocytes Absolute Auto 0.7 X10*3/uL (0.1-1.2); Monocytes Percent Auto 10.9 % (2-11); Neutrophils Absolute Auto 3.7 x10*3/uL (2.0-8.3); Neutrophils Percent Auto 57.5 % (45-73); Platelet Count 202 X10*3/uL (160-400); Red Blood Count 3.87 X10*6/uL (4.60-5.80); Red Cell Distribution Width 13.9 % (11.0-16.0); White Blood Count 6.5 X10*3/uL (4.8-10.8)
[2024-01-27 15:05] LABS: VBG Base Excess 8.5 mmol/L; VBG HCO3 34 mmol/L (22-26); VBG pCO2 54 mmHg; VBG pH 7.41 (7.32-7.43); VBG pO2 143 mmHg
[2024-01-27 15:07] LABS: Venous Blood Gas Refer to POC result
[2024-01-27 15:09] LABS: Prothrombin Time 12.4 SEC (11.1-13.3)
[2024-01-27 15:17] LABS: Alanine Aminotransferase 87 U/L (0-40); Albumin Level 4.3 g/dL (3.5-5.0); Alkaline Phosphatase 102 U/L (39-117); Anion Gap 14 (12-20); Aspartate Amino Transferase 88 U/L (5-37); Bilirubin Total 0.3 mg/dL (0.0-1.0); Blood Urea Nitrogen 17 mg/dL (9-16); Carbon Dioxide 30 mmol/L (22-29); Chloride 100 mmol/L (96-108); Creatinine Clr Calc Pharmacy 74.9; Estimated Glomerular Filt Rate > 60; Glucose Random 104 mg/dL (60-115); Potassium 4.3 mmol/L (3.3-5.1); Sodium 140 mmol/L (135-145); Total Protein 7.3 g/dL (6.5-8.0)
--- NOTE | 2024-01-27 17:37 | MHC.EDTECH ---
This pct wasnt able to perform orthostatic vitals due to patient have a neck brace on and needing to be cleared by the doctor waiting on ct results will attempt once neck brace is removed.RN Aware
--- NOTE | 2024-01-27 17:39 | ED.FALL ---
HPI - Fall General Chief Complaint: Fall Stated Complaint: SYNCOPE AFTER FALL Time Seen by Provider: 01/27/24 17:00 Source: patient and EMS Mode of arrival: EMS Limitations: no limitations History of Present Illness HPI Narrative: Patient is 73 years old history of schizophrenia orthostatic hypotension Alzheimer dementia and diabetes came from [facility] as he fell from standing denies any dizziness or chest pain has happened before no chest pain or palpitation Related Data Home Medications ?Medication ?Instructions ?Recorded ?Confirmed betamethasone dipropionate 0.05 % topical 01/10/21 01/02/24 topical ointment ketoconazole 2 % shampoo 1 appl topical DAILY 08/26/22 01/02/24 donepezil 10 mg tablet 10 mg PO DAILY 11/29/22 01/02/24 memantine 10 mg tablet 10 mg PO BID 12/04/22 01/02/24 clozapine 100 mg tablet 300 mg PO BEDTIME 12/27/22 01/02/24 clonazepam 0.5 mg tablet 0.5 mg PO BID Anxiety 02/28/23 01/02/24 venlafaxine 150 mg 150 mg PO DAILY 02/28/23 01/02/24 capsule,extended release 24 hr Previous Rx's ?Medication ?Instructions ?Recorded 4-PRONGED CANE #1 ea 04/08/21 FreeStyle Lite Strips (blood sugar #100 ea 12/28/21 diagnostic) blood sugar diagnostic #100 ea 12/29/21 blood-glucose meter #1 ea 12/29/21 lancets 28 gauge (Prodigy Lancets) #100 ea 12/29/21 adult pull ups #100 ea 12/04/22 zinc oxide 40 % topical ointment 1 appl topical BID-QID PRN skin 01/03/23 (Diaper Rash) irritation/diaper rash #397 grams CHUX sheets #60 ea 03/07/23 acetaminophen 500 mg tablet 500 mg PO TID PRN fever or pain 30 03/07/23 (Tylenol Extra Strength) days #90 tabs molnupiravir 200 mg capsule (EUA) 800 mg (4 x 200 mg) PO Q12H 5 days 07/31/23 #40 caps methylcellulose (laxative) 500 mg 1,000 mg (2 x 500 mg) PO BID 30 09/05/23 tablet (Citrucel) days #120 tabs rifaximin 550 mg tablet (Xifaxan) 550 mg PO BID #60 tabs 09/05/23 Breo Ellipta 200 mcg-25 mcg/dose 1 ea PO DAILY #60 ea 09/14/23 powder for inhalation (fluticasone furoate-vilanterol) DISPOSABLE GLOVES (large) #100 ea 09/24/23 aspirin 81 mg tablet,delayed 81 mg PO DAILY 90 days #90 tabs 10/16/23 release metformin 500 mg tablet 500 mg PO BID #60 tabs 10/29/23 cholecalciferol (vitamin D3) 25 25 mcg PO DAILY #90 tabs 11/27/23 mcg (1,000 unit) tablet albuterol sulfate 90 mcg/actuation 2 puff inhalation Q4-6H PRN 12/13/23 aerosol inhaler shortness of breath or wheezing 30 days #8.5 grams lisinopril 2.5 mg tablet 2.5 mg PO DAILY #90 tabs 12/18/23 sucralfate 1 gram tablet 3 g (3 x 1 gram) PO DAILY #90 tabs 01/07/24 ferrous sulfate 324 mg (65 mg 324 mg PO DAILY 90 days #90 tabs 01/09/24 iron) tablet,delayed release gemfibrozil 600 mg tablet 600 mg PO BID #60 tabs 01/14/24 simvastatin 40 mg tablet 40 mg PO BEDTIME #90 tabs 01/14/24 ferrous fumarate 325 mg (106 mg 325 mg PO DAILY #30 tabs 01/22/24 iron) tablet Allergies Allergy/AdvReac Type Severity Reaction Status Date / Time No Known Allergies Allergy Verified 01/27/24 14:32 [No Known Allergies*] Review of Systems Review of Systems: Yes all other systems are reviewed and are negative [facility] Past Medical History Medical History Alzheimer's dementia without behavioral disturbance Schizophrenia Hypertension Hyperlipidemia Type 2 diabetes mellitus without complication Dysphagia COPD (chronic obstructive pulmonary disease) Hypoxia Nicotine dependence, cigarettes, uncomplicated Hearing impairment Gait instability Weakness Overweight (BMI 25.0-29.9) Depression Anxiety Vitamin D deficiency Seborrheic dermatitis of scalp Surgical History History of colonoscopy History of appendectomy Family History Family History Father Cancer Mother No problems noted. Brother Substance abuse Other Alcohol abuse Social History Social History Household Members: None Housing: Assisted Living Facility Housing Other:: Senior Living Do you presently have visiting nurse or other home services: No Alcohol intake: never Patient Tobacco Use Status: Former Tobacco user Tobacco use type: Cigarette Cigarettes Per Day: 3 e-Cigarette/Vaping Use: Never Used Second Hand Smoke Exposure: Yes Advance Directives: Yes Advance Directives Information Provided: No Advance Directives on File: No service: No Current occupational status: disabled and other Cognitive needs: Yes (walker) Hearing needs: Yes Vision needs: Yes Physical Exam Vital Signs: Vital Signs: Last Vital Signs Temp 98.3 F 01/27/24 20:46 Pulse 64 01/27/24 20:46 Resp 16 01/27/24 20:46 BP 137/69 01/27/24 20:46 Pulse Ox 97 01/27/24 20:46 O2 Del Method Nasal Cannula 01/27/24 20:46 O2 Flow Rate 2 01/27/24 20:46 Oxygen Flow Rate 3 01/27/24 14:28 BMI result Body Mass Index 26.5 Appearance: Alert. Oriented 2-3. No acute distress. Eyes: PERRLA, No Nystagmus ENT: Pharynx normal. Oral Mucosa moist Neck: Normal inspection. Neck supple. No midline tenderness CVS: Normal heart rate and rhythm. Pulses normal. Respiratory: No respiratory distress. Equal air entry bilateral, no wheezing/rales/rhonchi Abdomen: Soft and nontender. Bowel sounds are present, no mass palpable, no CVA tenderness Skin: Skin warm and dry. Normal skin color. Normal skin turgor. Extremities: No lower extremity edema. No calf tenderness no hip tenderness good range of movement patient able to ambulate without discomfort Neuro: Oriented X 2-3 No motor deficit. No sensory deficit.No cerebellar signs , cranial nerves II-XII intact Medical Decision Making Medical Decision Making MDM Narrative: Patient is status post mechanical for normal orthostatics head CT labs cervical CT discharge patient Lab Data [facility] Lab Attestation statement: I reviewed the patient's lab results. 01/27/24 14:54 05/26/24 14:54 Labs: Lab Results 01/27/24 01/27/24 Range/Units 14:54 14:56 WBC 6.5 (4.8-10.8) X10*3/uL RBC 3.87 L (4.60-5.80) X10*6/uL Hgb 11.2 L (14.0-18.0) g/dl Hct 34.6 L (42.0-52.0) % MCV 89.4 (80.0-98.0) fL MCH 28.9 (27.0-33.0) pg MCHC 32.4 (31.0-36.0) g/dl RDW 13.9 (11.0-16.0) % Plt Count 202 (160-400) X10*3/uL MPV 11.5 (9.4-12.4) fL Immature Gran % (Auto) 0.6 H (0.0-0.4) % Neut % (Auto) 57.5 (45-73) % Lymph % (Auto) 28.5 (20-40) % [place] % (Auto) 10.9 (2-11) % Eos % (Auto) 2.0 (0-4) % Baso % (Auto) 0.5 (0-2) % Lymph # (Auto) 1.9 (1.2-4.9) X10*3/uL [place] # (Auto) 0.7 (0.1-1.2) X10*3/uL Eos # (Auto) 0.1 (0.0-0.4) X10*3/uL Baso # (Auto) 0.0 (0.0-0.2) X10*3/uL Abs Immat Gran (auto) 0.04 H (0.00-0.03) X10*3/uL Absolute Neuts (auto) 3.7 (2.0-8.3) x10*3/uL Absolute Nucleated RBC 0.000 (0.0-0.012) X10*3/uL Nucleated RBC % (auto) 0.0 (0.0-0.2) /100WBC PT 12.4 (11.1-13.3) SEC INR 1.0 (0.9-1.1) VBG pH 7.41 (7.32-7.43) VBG pCO2 54 mmHg VBG pO2 143 mmHg VBG HCO3 34 H (22-26) mmol/L VBG O2 Saturation 97.0 % VBG Base Excess 8.5 mmol/L Sodium 140 (135-145) mmol/L Potassium 4.3 (3.3-5.1) mmol/L Chloride 100 (96-108) mmol/L Carbon Dioxide 30 H (22-29) mmol/L Anion Gap 14 (12-20) BUN 17 H (9-16) mg/dL Creatinine 0.92 (0.5-1.4) mg/dL Estim Creat Clear Calc 74.9 Estimated GFR > 60 Random Glucose 104 (60-115) mg/dL Calcium 10.0 (8.4-10.2) mg/dL Total Bilirubin 0.3 (0.0-1.0) mg/dL AST 88 H (5-37) U/L ALT 87 H (0-40) U/L Alkaline Phosphatase 102 (39-117) U/L Total Protein 7.3 (6.5-8.0) g/dL Albumin 4.3 (3.5-5.0) g/dL Independent Interpretation I performed an independent interpretation of an: EKG and CT Scan Interpretation: Normal sinus rhythm heart rate 81 beats per minute first-degree heart block left bundle block left axis deviation no acute ST-T changes Radiology Impression Discussion of test interpretation with radiology: I have reviewed the radiologist's reading. Discharge Plan Discharge Clinical Impression: Fall Patient Disposition: Xfer LTC Transfer Details: CT scan of the head and C-spine negative, labs are stable patient ambulated in the ER Instructions: Fall Prevention for Older Adults (ED) Additional Instructions: Care and cautions as advised Prescriptions: No Action (DME) FreeStyle Lite Strips Strip See Rx Instructions .Route Qty: 100 5RF Rx Instructions: As directed- to test blood sugar once a day (DME) lancets [Prodigy Lancets] 28 gauge misc See Rx Instructions .Route Qty: 100 3RF Rx Instructions: To test once a day (DME) blood sugar diagnostic Strip See Rx Instructions .Route Qty: 100 3RF Rx Instructions: To test once a day (DME) blood-glucose meter Misc See Rx Instructions .Route Qty: 1 0RF Rx Instructions: To test blood sugar daily zinc oxide [Diaper Rash] 40 % ointment 1 appl topical BID-QID PRN (Reason: skin irritation/diaper rash) Qty: 397 3RF acetaminophen [Tylenol Extra Strength] 500 mg tablet 500 mg PO TID PRN (Reason: fever or pain) 30 Days Qty: 90 3RF Rx Instructions: Take only as needed for increased pain fluticasone furoate-vilanterol [Breo Ellipta] 200-25 mcg/dose blister with device 1 ea PO DAILY Qty: 60 0RF aspirin 81 mg tablet,delayed release (DR/EC) 81 mg PO DAILY 90 Days Qty: 90 3RF metformin 500 mg tablet 500 mg PO BID Qty: 60 3RF cholecalciferol (vitamin D3) 25 mcg (1,000 unit) tablet 25 mcg PO DAILY Qty: 90 1RF lisinopril 2.5 mg tablet 2.5 mg PO DAILY Qty: 90 0RF sucralfate 1 gram tablet 3 g PO DAILY Qty: 90 0RF ferrous sulfate 324 mg (65 mg iron) tablet,delayed release (DR/EC) 324 mg PO DAILY 90 Days Qty: 90 12RF simvastatin 40 mg tablet 40 mg PO BEDTIME Qty: 90 0RF gemfibrozil 600 mg tablet 600 mg PO BID Qty: 60 0RF ferrous fumarate 325 mg (106 mg iron) tablet 325 mg PO DAILY Qty: 30 3RF ketoconazole 2 % shampoo 1 appl topical DAILY donepezil 10 mg tablet 10 mg PO DAILY memantine 10 mg tablet 10 mg PO BID clozapine 100 mg tablet 300 mg PO BEDTIME clonazepam 0.5 mg tablet 0.5 mg PO BID molnupiravir 200 mg capsule 800 mg PO Q12H 5 Days Qty: 40 0RF (DME) 4-PRONGED CANE See Rx Instructions .Route .MEDSUPPLY Qty: 1 0RF Rx Instructions: As directed (DME) CHUX sheets See Rx Instructions .Route .MEDSUPPLY Qty: 60 12RF Rx Instructions: As directed (DME) adult pull ups XL See Rx Instructions .Route .MEDSUPPLY Qty: 100 12RF Rx Instructions: As directed (DME) DISPOSABLE GLOVES (large) large See Rx Instructions .Route .MEDSUPPLY Qty: 100 12RF Rx Instructions: Use as directed betamethasone dipropionate 0.05 % ointment topical venlafaxine 150 mg capsule,extended release 24hr 150 mg PO DAILY Xifaxan 550 mg tablet 550 mg PO BID Qty: 60 6RF Citrucel 500 mg tablet 1,000 mg PO BID 30 Days Qty: 120 6RF albuterol sulfate 90 mcg/actuation HFA aerosol inhaler 2 puff inhalation Q4-6H PRN (Reason: shortness of breath or wheezing) 30 Days Qty: 8.5 3RF Interventions: ED Discharge Assessment Last Done: 01/27/24 20:46 Discharge Date/Time: 01/27/24 20:47 Print Language: Greenlandic
[2024-01-27 20:30] VITALS: BP 137/69; PULSE 64; RESP 16; TEMP 36.8; O2SAT 97
--- NOTE | 2024-01-27 20:36 | PC.NURSE ---
Called Melissa from the [facility] at [phone] and discussed discharge instructions. Pt is to return via EMS. Pt is aware of plan of care.
[2024-01-27 20:46] VITALS: BP 137/69; PULSE 64; RESP 16; TEMP 36.8; O2SAT 97
== END 2024-01-27 20:47 ==
PROVIDERS: Student in an Organized Health Care Education/Training Program; Emergency Provider Internal Medicine; PCP Internal Medicine
DX: Z04.3 Encounter for examination and observation following other accident (principal); G30.9 Alzheimer's disease, unspecified; F02.80 Dementia in other diseases classified elsewhere, unspecified severity, without behavioral disturbance, psychotic disturbance, mood disturbance, and anxiety; E11.9 Type 2 diabetes mellitus without complications; I10 Essential (primary) hypertension; Z91.81 History of falling
CPT/HCPCS: 36415; 70450; 72125; 80053; 82803; 85025; 85610; 93005; 99284

== ENCOUNTER → 2024-01-27 14:32 | Outpatient (BNV) | payer MEDICARE, MEDICAID, SELFPAY | PROVIDERS: Emergency Provider Internal Medicine; PCP Internal Medicine; Visit Provider Internal Medicine Cardiovascular Disease | DX: R94.31 Abnormal electrocardiogram [ECG] [EKG] (principal) | CPT/HCPCS: 93010 ==

== ENCOUNTER 2024-02-01 10:58 | Outpatient (AMB) | payer MEDICARE, MEDICAID, SELFPAY ==
--- NOTE | 2024-02-01 08:02 | MHC.OFFVIS ---
Intake Visit Reasons: Former Smoker Allergies No Known Allergies [No Known Allergies*] Allergy (Verified 01/27/24 14:32) HPI HPI Former Smoker: Details: Initial visit for this 73yo former smoker with a 50+PYH. Patient has been smoking since age 14 for 59 years at 1ppd. Max 2ppd, the worked way down and recently quit 11/24/2023. He is in assisted living/home and doctor D/C smoking due to a syncopal event. . Denies marijuana use. Denies second hand smoke exposure. Denies exposure to chemicals or substances like asbestos. . Denies known family history of lung cancer. Denies personal history of cancers. . Denies chest CT in last year. Had Chest CT done 09/07/22 noting a left lung base linear opacity unchanged from prior study and decrease RUL GGO measuring 1.0cm . Denies recent travel outside the [place]. Denies recent respiratory illness or recent hospitalization for respiratory issues. Reports testing positive for COVID. Admits receiving COVID Vaccine. x 3. . Does note trouble swallowing. He has Alzheimer dementia. Denies fever, chills, new/worsening cough, hemoptysis, hoarseness. Denies significant chest pain, significant dyspnea or unintentional weight loss. Patient Lung Cancer Screening Questionnaire reviewed with patient by provider. . Shared Decision Making Completed. Patient meets criteria. Discussed in detail with patient, the risk vs benefit of LDCT screening. Patient consents to proceed with scan. Discussed and encouraged continued smoking cessation. [facility] Medical History (Updated 02/01/24 @ 11:12 by Mabel Espinoza PA-C) Alzheimer's dementia without behavioral disturbance Schizophrenia Hypertension Hyperlipidemia Type 2 diabetes mellitus without complication Dysphagia COPD (chronic obstructive pulmonary disease) Hypoxia Nicotine dependence, cigarettes, uncomplicated Hearing impairment Gait instability Weakness Overweight (BMI 25.0-29.9) Depression Anxiety Vitamin D deficiency Seborrheic dermatitis of scalp Surgical History History of colonoscopy History of appendectomy Family History Father Cancer Mother No problems noted. Brother Substance abuse Other Alcohol abuse Social History (Updated 02/01/24 @ 11:13 by Mabel Espinoza PA-C) Household Members: None Housing: Assisted Living Facility Housing Other:: Longterm Do you presently have visiting nurse or other home services: No Alcohol intake: never Patient Tobacco Use Status: Former Tobacco user Tobacco use type: Cigarette Years Smoked: (onset 14yo, 1-2ppd x 59yrs, 50pyh - quit 11/2023) e-Cigarette/Vaping Use: Never Used Second Hand Smoke Exposure: Yes service: No Current occupational status: disabled and other Cognitive needs: Yes (walker) Hearing needs: Yes Vision needs: Yes Assessment & Plan Assessment & Plan (1) Nicotine dependence, cigarettes, uncomplicated: Comment: (onswt 14yo, 1-2ppd x 59yrs, 50+PYH, recently quit 11/2023) Code(s): F17.210 - Nicotine dependence, cigarettes, uncomplicated Category: Medical Plan: - SDM visit completed today in office. - Patient meets criteria for LDCT for lung cancer screening purposes and is asymptomatic. - Smoking cessation counseling offered. Patients can always call [phone]. - Will arrange for a LDCT scan of the chest for screening purposes at [facility]. - Risks, benefits, and alternatives were discussed in detail and the patient agrees to proceed. - Risks discussed include but are not limited to: radiation exposure, anxiety during testing and while awaiting results, false negatives, false positives and possibility of additional intervention such as further imaging or surgical procedures for benign disease. - Benefits are obviously detection of lung cancer at an early stage which can lead to improved outcomes. - Discussed the importance of screening program compliance with adherence to yearly LDCT scan as scheduled - or sooner interval scans for personalized screening regimen. - Discussed follow up plan. Our office will send a letter discussing results and if needed set up phone call and office visit based on CT findings. - Patient educated on results categorization and the management decisions for suspicious findings potentially found on the screening LDCT scan. Any patient with a Lung RADS score of 3 or 4 will be reviewed by a multidisciplinary team at [facility] to form a plan of action in regards to scan findings. - If further work up is warranted for a suspicious lung finding this will be followed by the Lung Cancer Screening program in conjunction with the Thoracic Surgery Department at [facility]. - A copy of the office note and LDCT will be sent to the patient's PCP - as well as documentation on any associated further plans of care. - Incidental findings on LDCT are the PCP's responsibility. These findings are indicated with an S finding on the LDCT Assessment. A note discussing the findings will be sent to the PCP who is then responsible for further management. - All questions answered.? Coding Level of Care Code Lung Cancer Screening G0296 Diagnoses Nicotine dependence, cigarettes, uncomplicated F17.210
== END 2024-02-01 13:28 | disposition home or self-care (01) ==
PROVIDERS: PCP Internal Medicine; Referring Provider Internal Medicine; Visit Provider Physician Assistant Medical
DX: F17.210 Nicotine dependence, cigarettes, uncomplicated (principal)
CPT/HCPCS: G0296

== ENCOUNTER 2024-02-01 11:13 | Outpatient (REF) | payer MEDICARE, MEDICAID, SELFPAY ==
--- NOTE | ~2024-02-01 | CT_ITS ---
EXAMINATION: CT LOW-DOSE SCREENING CHEST WITHOUT CONTRAST CLINICAL INFORMATION: Nicotine dependence, cigarettes, uncomplicated. The patient has a greater than 20 pack-year history of smoking, having quit 2 months ago. COMPARISON: Multiple prior CT scans of the chest, the most recent of which is dated 09/07/2022 and the most remote of which is dated 06/07/2021. TECHNIQUE: Multidetector volumetric CT imaging of the chest is performed on a Siemens SOMATOM Definition scanner without contrast using low dose technique. Additional 2D coronal and sagittal reformatted images and axial 3D maximum intensity projection (MIP) images are generated on the CT workstation. This CT examination was performed using dose optimization techniques as appropriate, variously including the following: *Automated exposure control *Adjustment of mA and/or kV according to patient size (this includes techniques or standardized protocols for targeted exams where dose is matched to indication/reason for exam; i.e. extremities or head) *Use of iterative reconstruction technique TOTAL EXAM DLP: 54 mGy-cm. CTDIvol: 1.59 mGy. FINDINGS: PULMONARY NODULES: Some tiny punctate calcified pulmonary granulomas are seen. There is a 2 mm noncalcified subpleural nodule in the right upper lobe (5:138). Previously seen ground-glass nodule in the right upper lobe (prior 5:172) has resolved. There is no new, increasing sized or concerning nodule seen. LUNGS: Lungs bilaterally symmetrically expanded. Linear scarring/atelectasis is present at the left lung base. Mild emphysema and bronchial thickening is noted. No effusion or pneumothorax. Central airways patent. MEDIASTINUM: No mediastinal, hilar or axillary adenopathy or free fluid collection. CORONARY ARTERY CALCIFICATION: Mild. THYROID GLAND: Unremarkable to the extent seen. CARDIOVASCULAR STRUCTURES: Aortic and heart size normal. No pericardial effusion. CHEST WALL/AXILLA: Unremarkable. UPPER ABDOMEN: The liver appears enlarged and there is hepatic steatosis. Patient status post cholecystectomy. OSSEOUS STRUCTURES: Degenerative changes in the spine. CT/CT lung screening IMPRESSION: 1. No evidence of pulmonary malignancy. 2. Incidental note made of enlarged fatty liver and cholecystectomy. 3. Incidental findings (S category): No significant new incidental findings. ASSESSMENT: 1. Lung-RADS Category 2: Benign appearance or behavior of nodules. N/A RECOMMENDATION: Continued routine annual low-dose CT lung screening in 1 year is recommended. An order for CT CHEST LOW DOSE CANCER SCREENING ([id number]) can be placed.
== END 2024-02-01 11:14 | disposition home or self-care (01) ==
LOC: HO.CT 11:13
PROVIDERS: PCP Internal Medicine; Visit Provider Physician Assistant Medical
DX: Z12.2 Encounter for screening for malignant neoplasm of respiratory organs (principal); F17.210 Nicotine dependence, cigarettes, uncomplicated
CPT/HCPCS: 71271; G0296

== ENCOUNTER 2024-02-08 11:18 | Outpatient (AMB) | payer MEDICARE, MEDICAID, SELFPAY ==
[2024-02-08 11:22] VITALS: BP 142/84; PULSE 85; O2SAT 94; BMI 27.8
--- NOTE | 2024-02-08 11:22 | MHC.PC.OV ---
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 DOS: 01/27/24. CT head/neck negative. Pt accompanied by leather staker. Pt reports feeling good and denies headaches, dizziness, Nausea or vomiting today. He has a scheduled Appointment with PCP 02/14/24. [facility], [facility] Medical History (Updated 02/05/24 @ 19:18 by Alex Salazar MD) Alzheimer's dementia without behavioral disturbance Schizophrenia Hypertension Hyperlipidemia Type 2 diabetes mellitus without complication Dysphagia COPD (chronic obstructive pulmonary disease) Hypoxia Nicotine dependence, cigarettes, uncomplicated Hearing impairment Gait instability Weakness Overweight (BMI 25.0-29.9) Depression Anxiety Vitamin D deficiency Seborrheic dermatitis of scalp Surgical History History of colonoscopy History of appendectomy Family History Father Cancer Mother No problems noted. Brother Substance abuse Other Alcohol abuse Social History (Updated 02/01/24 @ 11:13 by Maebl Espinoza PA-C) Household Members: None Housing: Assisted Living Facility Housing Other:: Retirement Do you presently have visiting nurse or other home services: No Alcohol intake: never Patient Tobacco Use Status: Former Tobacco user Tobacco use type: Cigarette Years Smoked: (onset 14yo, 1-2ppd x 59yrs, 50pyh - quit 11/2023) e-Cigarette/Vaping Use: Never Used Second Hand Smoke Exposure: Yes service: No Current occupational status: disabled and other Cognitive needs: Yes (walker) Hearing needs: Yes Vision needs: Yes Questionnaire Thrive Questionnaire Date Thrive assessed: 09/24/23 LYNN-7 AMB Questionnaire LYNN-7 Date LYNN - 7 assessed: 09/24/23 Source: Developed by Drs. Jose David Kumari, Ada Perez, Roman Winters and colleagues, with an educational claude from [employer]. Review of Systems Const All systems reviewed & are unremarkable except as noted in HPI and below Physical exam (Primary Care) Vital Signs: Last Vital Signs Pulse 85 02/08/24 11:22 BP 142/84 H 02/08/24 11:22 Pulse Ox 94 02/08/24 11:22 Oxygen Delivery Method Room Air 02/08/24 11:22 BMI result Body Mass Index 27.8 Tobacco/Smoking Status: Tobacco use Status Tobacco use date assessed 01/02/24 02/08/24 11:23 Patient Tobacco Use Status Former Tobacco user 02/08/24 11:23 Tobacco use type Cigarette 02/08/24 11:23 e-Cigarette/Vaping Use Never Used 02/08/24 11:23 Thrive Assessment: Date of Thrive Assessment Date Thrive assessed 09/24/23 02/08/24 11:23 Const General: comfortable and no acute distress Orientation/consciousness: patient oriented x3 Neuro General: patient oriented x3 and gait normal (walks with walker) Psych Speech and movement: Normal speech and movement present Affect: normal affect Vital Signs: Last Vital Signs Pulse 85 02/08/24 11:22 BP 142/84 H 02/08/24 11:22 Pulse Ox 94 02/08/24 11:22 Oxygen Delivery Method Room Air 02/08/24 11:22 BMI result Body Mass Index 27.8 Const General: comfortable and no acute distress Orientation/consciousness: patient oriented x3 Neuro General: patient oriented x3 and gait normal (walks with walker) Psych Speech and movement: Normal speech and movement present Affect: normal affect Assessment and Plan Assessment & Plan (1) Fall: Code(s): W19.XXXA - Unspecified fall, initial encounter Qualifiers: Encounter type: initial encounter Qualified Code(s): W19.XXXA - Unspecified fall, initial encounter Plan: F/U with PCP as scheduled. Pt stable and doing well since hospital discharge. Coding Level of Care Code Est Pt Level 4 (18370) Diagnoses Fall, initial encounter W19.XXXA Encounter type: initial encounter Time Spent (min) 15 Comment Spent 15 minutes, reviewing ED notes and Imaging.
== END 2024-02-08 11:54 | disposition home or self-care (01) ==
PROVIDERS: PCP Internal Medicine; Visit Provider Nurse Practitioner Family
DX: R55 Syncope and collapse (principal)
CPT/HCPCS: 99214

== ENCOUNTER 2024-02-26 11:51 | Outpatient (REF) | payer MEDICARE, MEDICAID, SELFPAY ==
[2024-02-26 13:12] LABS: MANUAL DIFF FLAG NO
[2024-02-26 13:29] LABS: Basophils Percent Auto 0.4 % (0-2); Eosinophils Absolute Auto 0.1 X10*3/uL (0.0-0.4); Eosinophils Percent Auto 1.1 % (0-4); Hematocrit 35.3 % (42.0-52.0); Hemoglobin 11.2 g/dl (14.0-18.0); Imm Gran Abs Auto 0.04 X10*3/uL (0.00-0.03); Imm Gran Pct Auto 0.5 % (0.0-0.4); Lymphocytes Absolute Auto 2.1 X10*3/uL (1.2-4.9); Lymphocytes Percent Auto 26.5 % (20-40); Mean Corpuscular HGB Conc 31.7 g/dl (31.0-36.0); Mean Corpuscular Hemoglobin 28.7 pg (27.0-33.0); Mean Corpuscular Volume 90.5 fL (80.0-98.0); Mean Platelet Volume 12.3 fL (9.4-12.4); Monocytes Absolute Auto 0.7 X10*3/uL (0.1-1.2); Monocytes Percent Auto 8.5 % (2-11); Platelet Count 209 X10*3/uL (160-400); Red Cell Distribution Width 14.3 % (11.0-16.0)
== END 2024-02-26 11:52 | disposition home or self-care (01) ==
LOC: HO.HMGCLR 11:51
PROVIDERS: PCP Internal Medicine; Visit Provider Psychiatry & Neurology Psychiatry
DX: Z79.899 Other long term (current) drug therapy (principal)
CPT/HCPCS: 36415; 85025

== ENCOUNTER 2024-03-05 11:54 | Outpatient (AMB) | payer MEDICARE, MEDICAID, SELFPAY ==
--- NOTE | 2024-03-05 12:06 | A.OFFVIS_ITS ---
Vital Signs 03/05/24 12:07 Height 5 ft 10 in Weight 197 lb 15.602 oz BMI 28.4 BP 148/65 H Blood Pressure Location Lt brachial Position Sitting Pulse 91 Intake Visit Reasons: Irritable bowel syndrome Allergies No Known Allergies [No Known Allergies*] Allergy (Verified 03/05/24 12:14) HPI HPI Irritable bowel syndrome: Details: Assessment & Plan (1) Irritable bowel syndrome with diarrhea: Code(s): K58.0 - Irritable bowel syndrome with diarrhea Plan He is accompanied by a staff member from his alf who is supportive. He continues to do extremely well his irritable bowel is maintained on Xifaxan along with Carafate and Citrucel. They would like refills on these and of course I will provided. He has no concerns remains satisfied with his GI regimen. The only new health concern was that he caught COVID, and they are not sure how that happened since he never leaves the house but it was, fortunately, a mild case and he has recovered. Return office visit in 6 months. Medications: Changed From methylcellulose (laxative) 1,000 mg (2 x 500 mg) PO BID 30 days 120 tabs 6RF To methylcellulose (laxative) (Citrucel) 1,000 mg (2 x 500 mg) PO BID 120 tabs 6RF 30 days From sucralfate 3 grams (3 x 1 gram) PO DAILY 90 tabs 0RF To sucralfate 3 grams (3 x 1 gram) PO DAILY 90 tabs 2RF Refilled rifaximin (Xifaxan) 550 mg PO BID 60 tabs 6RF K58.0 - Irritable bowel syndrome with diarrhea TODAY'S VISIT He continues to do well. The only problem is because of supply side problems we would to change him from Citrucel 2 Benefiber. I make the change on his medical forms. They tell me they are looking for a higher level of care possible nursing home facility for Patricio so he may change his caregivers sometime in the near future. Return office visit in 6 months [facility] Medical History Alzheimer's dementia without behavioral disturbance Schizophrenia Hypertension Hyperlipidemia Type 2 diabetes mellitus without complication Dysphagia COPD (chronic obstructive pulmonary disease) Hypoxia Nicotine dependence, cigarettes, uncomplicated Hearing impairment Gait instability Weakness Overweight (BMI 25.0-29.9) Depression Anxiety Vitamin D deficiency Seborrheic dermatitis of scalp Surgical History History of colonoscopy History of appendectomy Family History Father Cancer Mother No problems noted. Brother Substance abuse Other Alcohol abuse Social History Household Members: None Housing: Assisted Living Facility Housing Other:: Detention Do you presently have visiting nurse or other home services: No Alcohol intake: never Patient Tobacco Use Status: Former Tobacco user Tobacco use type: Cigarette Years Smoked: (onset 14yo, 1-2ppd x 59yrs, 50pyh - quit 11/2023) e-Cigarette/Vaping Use: Never Used Second Hand Smoke Exposure: Yes service: No Current occupational status: disabled and other Cognitive needs: Yes (walker) Hearing needs: Yes Vision needs: Yes Review of Systems Const Denies fatigue, Denies fever(s), Denies night sweats, Denies poor appetite and Denies weight loss ENT Reports Normal hearing present, Denies dental pain, Denies dysphagia, Denies hearing loss, Denies mouth pain, Denies odynophagia, Denies throat swelling, Denies tongue swelling and Reports other (Dentition adequate) Card Reports no additional complaints Resp Reports no additional complaints GI Details: Denies abdominal pain, Denies melena, Denies bloating, Denies hematochezia, Denies constipation, Denies GI cramping, Denies dysphagia, Denies excessive flatus, Denies early satiety, Denies heartburn, Reports diarrhea, Denies nausea, Denies odynophagia, Denies vomiting and Denies hematemesis Musc Reports abnormal gait and Reports arthralgias Skin/Breast Denies pruritus, Denies lesions, Denies rash and Denies jaundice Neuro Reports Normal hearing present, Denies Abnormal speech present, Reports abnormal gait and Reports memory loss Psych Reports auditory hallucinations and Reports memory loss Endo Denies fatigue Aller/Immun Denies throat swelling and Denies tongue swelling Physical Exam Vital Signs: Last Vital Signs Pulse 91 03/05/24 12:07 BP 148/65 H 03/05/24 12:07 BMI result Body Mass Index 28.4 Const General: cooperative, no acute distress, well developed and well groomed Nutritional Appearance: well nourished and obese Orientation/consciousness: oriented to person, oriented to place and oriented to time Limitations: No language barrier, ambulation with walker and other limitations HEENT Head: Yes normocephalic and Yes atraumatic Eyes General: appearance normal, both eyes and all related structures Pupils: Equal, round and reactive pupils present Neck Neck: Yes normal visual inspection and Yes no lymphadenopathy Thyroid: Thyroid normal Resp Effort & Inspection: normal respiratory effort and able to speak in complete sentences Auscultation: clear to auscultation bilaterally Cardio Rate: regular rate Rhythm: regular rhythm Heart sounds: Normal, physiologic split S2 sound present Peripheral pulses: radial pulses present and posterior tibial pulses present GI Inspection: No distended, No Abdominal panniculus present and Yes obesity Palpation (GI): Soft to palpation, nontender, no guarding, not rigid and No hepatosplenomegaly present Percussion: Yes normal to percussion Auscultation: normal bowel sounds Rectal Exam - Male: Yes deferred Skin General skin exam: no rashes or lesions noted, turgor normal, skin not dry, no jaundice, No spider nevi and no striae Rashes: no rashes Nails: normal Neuro General: oriented to person, oriented to place and oriented to time Cranial nerves: Yes Equal, round and reactive pupils present and Yes Normal hea ring present Speech: No Abnormal speech present Extrem General: Yes normal to inspection, No clubbing, No cyanosis and No edema Psych Appearance: grossly normal and well kempt Mental Status: other Speech and movement: Slowed speech present (Psych) Affect: normal affect Attitude: cooperative Thought process: Other thought process findings present Thought content: other Insight: Poor insight present (Psych) Judgement: Poor judgement present (Psych) Assessment & Plan Assessment & Plan (1) Irritable bowel syndrome with diarrhea: Code(s): K58.0 - Irritable bowel syndrome with diarrhea Category: Medical (2) Schizophrenia: Code(s): F20.9 - Schizophrenia, unspecified Category: Medical Qualifiers: Schizophrenia type: unspecified Qualified Code(s): F20.9 - Schizophrenia, unspecified (3) Alzheimer's dementia without behavioral disturbance: Code(s): G30.9 - Alzheimer's disease, unspecified; F02.80 - Dementia in other diseases classified elsewhere, unspecified severity, without behavioral disturbance, psychotic disturbance, mood disturbance, and anxiety Category: Medical Plan He continues to do well. The only problem is because of supply side problems we would to change him from Citrucel 2 Benefiber. I make the change on his medical forms. They tell me they are looking for a higher level of care possible nursing home facility for Patricio so he may change his caregivers sometime in the near future. Return office visit in 6 months Medications: Refilled sucralfate 3 grams (3 x 1 gram) PO DAILY 90 tabs 1RF rifaximin (Xifaxan) 550 mg PO BID 60 tabs 6RF K58.0 - Irritable bowel syndrome with diarrhea Discontinued methylcellulose (laxative) (Citrucel) Discontinued Reason: Doctor's Order 1,000 mg (2 x 500 mg) PO BID 30 days 120 tabs 6RF Coding Level of Care Code Est Pt Level 3 (60144) Diagnoses Irritable bowel syndrome with diarrhea K58.0 Schizophrenia, unspecified type F20.9 Schizophrenia type: unspecified Alzheimer's dementia without behavioral disturbance G30.9; F02.80
[2024-03-05 12:07] VITALS: BP 148/65; PULSE 91; BMI 28.4
--- NOTE | 2024-03-05 12:07 | A.OFFVIS_ITS ---
Vital Signs 03/05/24 12:07 Height 5 ft 10 in Weight 197 lb 15.602 oz BMI 28.4 BP 148/65 H Blood Pressure Location Lt brachial Position Sitting Pulse 91 Intake Visit Reasons: Irritable bowel syndrome Intake Note: Patricio returns to in office 6 months follow up of IBS. CC: Patient reports doing well and denies having any GI concerns today. Shiftman Required: No Accompanied by: staff CHD Allergies No Known Allergies [No Known Allergies*] Allergy (Verified 03/05/24 12:14) PFS Medical History Alzheimer's dementia without behavioral disturbance Schizophrenia Hypertension Hyperlipidemia Type 2 diabetes mellitus without complication Dysphagia COPD (chronic obstructive pulmonary disease) Hypoxia Nicotine dependence, cigarettes, uncomplicated Hearing impairment Gait instability Weakness Overweight (BMI 25.0-29.9) Depression Anxiety Vitamin D deficiency Seborrheic dermatitis of scalp Surgical History History of colonoscopy History of appendectomy Family History Father Cancer Mother No problems noted. Brother Substance abuse Other Alcohol abuse Social History Household Members: None Housing: Assisted Living Facility Housing Other:: [facility] Do you presently have visiting nurse or other home services: No Alcohol intake: never Patient Tobacco Use Status: Former Tobacco user Tobacco use type: Cigarette Years Smoked: (onset 14yo, 1-2ppd x 60yrs, 50pyh - quit 11/2023) e-Cigarette/Vaping Use: Never Used Second Hand Smoke Exposure: Yes service: No Current occupational status: disabled and other Cognitive needs: Yes (walker) Hearing needs: Yes Vision needs: Yes Coding
== END 2024-03-05 12:45 | disposition home or self-care (01) ==
PROVIDERS: PCP Internal Medicine; Visit Provider Nurse Practitioner
DX: K58.0 Irritable bowel syndrome with diarrhea (principal); F20.9 Schizophrenia, unspecified; G30.9 Alzheimer's disease, unspecified; F02.80 Dementia in other diseases classified elsewhere, unspecified severity, without behavioral disturbance, psychotic disturbance, mood disturbance, and anxiety
CPT/HCPCS: 99213

== ENCOUNTER → 2024-03-05 11:54 | Outpatient (BNVA) | payer MEDICARE, MEDICAID, SELFPAY | PROVIDERS: PCP Internal Medicine; Visit Provider Nurse Practitioner | DX: K58.0 Irritable bowel syndrome with diarrhea (principal); F20.9 Schizophrenia, unspecified; G30.9 Alzheimer's disease, unspecified; F02.80 Dementia in other diseases classified elsewhere, unspecified severity, without behavioral disturbance, psychotic disturbance, mood disturbance, and anxiety | CPT/HCPCS: 99212 ==

== ENCOUNTER 2024-03-13 08:55 | Outpatient (REF) | payer MEDICARE, MEDICAID, SELFPAY ==
[2024-03-13 10:09] LABS: MANUAL DIFF FLAG NO
[2024-03-13 10:20] LABS: Basophils Percent Auto 0.2 % (0-2); Eosinophils Absolute Auto 0.1 X10*3/uL (0.0-0.4); Eosinophils Percent Auto 1.4 % (0-4); Hematocrit 37.9 % (42.0-52.0); Hemoglobin 11.6 g/dl (14.0-18.0); Imm Gran Abs Auto 0.05 X10*3/uL (0.00-0.03); Imm Gran Pct Auto 0.9 % (0.0-0.4); Lymphocytes Absolute Auto 1.9 X10*3/uL (1.2-4.9); Lymphocytes Percent Auto 32.9 % (20-40); Mean Corpuscular HGB Conc 30.6 g/dl (31.0-36.0); Mean Corpuscular Volume 91.3 fL (80.0-98.0); Mean Platelet Volume 11.9 fL (9.4-12.4); Monocytes Absolute Auto 0.6 X10*3/uL (0.1-1.2); Monocytes Percent Auto 10.1 % (2-11); Neutrophils Absolute Auto 3.2 x10*3/uL (2.0-8.3); Neutrophils Percent Auto 54.5 % (45-73); Platelet Count 206 X10*3/uL (160-400); Red Blood Count 4.15 X10*6/uL (4.60-5.80); Red Cell Distribution Width 13.8 % (11.0-16.0); White Blood Count 5.9 X10*3/uL (4.8-10.8)
[2024-03-13 10:24] LABS: Estimated Average Glucose 128 mg/dL; Hemoglobin A1c % 6.1 % (<6.0)
[2024-03-13 11:01] LABS: Alanine Aminotransferase 68 U/L (0-40); Albumin Level 4.4 g/dL (3.5-5.0); Alkaline Phosphatase 101 U/L (39-117); Anion Gap 15 (12-20); Aspartate Amino Transferase 65 U/L (5-37); Bilirubin Total 0.3 mg/dL (0.0-1.0); Blood Urea Nitrogen 21 mg/dL (9-16); Calcium 9.6 mg/dL (8.4-10.2); Carbon Dioxide 27 mmol/L (22-29); Chloride 105 mmol/L (96-108); Cholesterol 188 mg/dL (<200); Estimated Glomerular Filt Rate > 60; Glucose Fasting 164 mg/dL (60-99); HDL Cholesterol 37 mg/dL (>40); LDL Cholesterol Calculated 109 mg/dL (<100); Potassium 4.4 mmol/L (3.3-5.1); Sodium 143 mmol/L (135-145); Total Protein 7.5 g/dL (6.5-8.0); Triglycerides 210 mg/dL (<150)
[2024-03-13 11:18] LABS: TSH reflex Free T4 3.37 uIU/mL (0.32-4.0); Vitamin D 25-OH Total 46.3 ng/mL (>30)
[2024-03-13 11:28] LABS: Folate 10.6 ng/mL (> or = 4.0); Vitamin B12 301 pg/mL (200-900)
== END 2024-03-13 08:56 | disposition home or self-care (01) ==
LOC: HO.HMGCLDS 08:55
PROVIDERS: PCP Internal Medicine; Visit Provider Internal Medicine
DX: D64.9 Anemia, unspecified (principal); E78.00 Pure hypercholesterolemia, unspecified; E11.9 Type 2 diabetes mellitus without complications; E53.8 Deficiency of other specified B group vitamins; E55.9 Vitamin D deficiency, unspecified
CPT/HCPCS: 36415; 80053; 80061; 82306; 82607; 82746; 83036; 84443; 85025

== ENCOUNTER 2024-03-18 12:31 | Outpatient (AMB) | payer MEDICARE, MEDICAID, SELFPAY ==
--- NOTE | 2024-03-18 12:36 | A.OFFVIS_ITS ---
Intake Vital Signs 03/18/24 12:38 Height 5 ft 10 in Weight 197 lb 2 oz BMI 28.3 BP 132/70 Blood Pressure Location Lt brachial Position Sitting Pulse 78 Pulse Source Pulse Oximeter Pulse Oximetry (%) 94 Oxygen Delivery Method Room Air Intake Visit Reasons: JOCELINE G0439 Intake Note: Patient is here for an Annual Wellness Visit. Drapery Hand Required: No Real Estate Loan Processor: Real Estate Loan Processor Present and Real Estate Loan Processor offered & declined Accompanied by: Staff Allergies No Known Allergies [No Known Allergies*] Allergy (Verified 03/18/24 12:57) Medication List - Last Reconciled 03/18/24 by Alex Salazar MD [4-PRONGED CANE As directed] acetaminophen (Tylenol Extra Strength) 500 mg PO TID PRN 30 days [adult pull ups As directed] albuterol sulfate 90 mcg/actuation 2 puffs inhalation Q4-6H PRN 30 days aspirin 81 mg PO DAILY 90 days betamethasone dipropionate 0.05% topical blood sugar diagnostic To test once a day blood sugar diagnostic (microDimensions No Coding strips) As directed once per day blood-glucose meter To test blood sugar daily Breo Ellipta 200-25 mcg/dose (fluticasone furoate-vilanterol) 1 ea PO DAILY NS carbamide peroxide 6.5% (Ear Drops (carbamide peroxide)) drps otic (ears) cholecalciferol (vitamin D3) 25 mcg PO DAILY [CHUX sheets As directed] clonazepam 0.5 mg PO BID clozapine 300 mg PO BEDTIME [DISPOSABLE GLOVES (large) Use as directed] donepezil 10 mg PO DAILY ferrous fumarate 325 mg PO DAILY ferrous sulfate 324 mg PO DAILY 90 days FreeStyle Lite Strips (blood sugar diagnostic) As directed- to test blood sugar once a day NS gemfibrozil 600 mg PO BID ketoconazole 2% 1 appl topical DAILY lancets (microDimensions Lancets) To test once a day lisinopril 2.5 mg PO DAILY memantine 10 mg PO BID metformin 500 mg PO BID molnupiravir 800 mg (4 x 200 mg) PO Q12H 5 days rifaximin (Xifaxan) 550 mg PO BID simvastatin 40 mg PO BEDTIME sucralfate 3 grams (3 x 1 gram) PO DAILY venlafaxine ER 150 mg PO DAILY wheat dextrin (Benefiber Clear Sugar Free(dextrin)) 1.5 grams PO BID zinc oxide 40% (Diaper Rash) 1 appl topical BID-QID PRN HPI SWV G0439 HPI Details Patient comes in today for his Annual Medicare Wellness Exam AND follow up vist States that he feels okay He denies any headaches or dizziness lately Denies any chest pains, no increased SOB but his [place] [facility] staff again pointed out that patient's activity level has declined a lot over the past few months and he now spends most of his time in his room whenever he is allowed to No nausea/vomiting, no abdominal pain No change in bowel habits noted although he now has issues with incontinence due to his declining cognition He had his follow up labs done a few days ago ------- IPPE/AWV: c/o of Annual Wellness Visit, subsequent visit. Medical / Social History Reviewed Past Medical History Yes . [place] of Care / Care Team list updated Yes . Surgical/Hospitalization History Yes . Current Medications (including OTC and supplements) Yes . Family History Yes . Tobacco Control form Yes . AUDIT-C (Alcohol use) form Yes . Illicit drug use in Social History Yes . Current diagnosis of depression? No Appropriate PHQ2/PHQ9 completed Yes . Data entered by Fuel Manager and reviewed by provider Home Safety Throw rugs? No Grab bars? Yes Raised toilet seats? No Working smoke detectors? Yes Working carbon monoxide detectors? Yes Data entered by Fuel Manager and reviewed by provider Activities of Daily Living (ADLs) Difficulty bathing or showering? Yes Difficulty dressing? Yes Difficulty using the toilet? No Difficulty getting in and out of bed? No Difficulty walking? No - uses walker Receives help from another person with any of the above tasks? Yes Instrumental Activities of Daily Living (IADLs) Uses the telephone with help Gets to places out of walking distance with help Goes shopping for groceries with help Prepares own meals with help Does own minor home maintenance with help Does own laundry with help Does own housework with help Manages own money with help Currently takes medications? Yes Takes medication with help End-of-Life Planning Discussed advance directive Yes Advance directive on file Discussed wishes expressed in advance directive agreed to following patient's wishes Fall Risk: Fall History Have you had any falls with injury in the past year? No . Have you had two or more falls in the past year? No . Fall Risk Assessment: No falls in the past year . HRA filled out by the patient, reviewed by Provider and scanned. [facility] Medical History (Updated 03/23/24 @ 22:03 by Alxe Salazar MD) Essential hypertension Alzheimer's dementia without behavioral disturbance Schizophrenia Hypertension Hyperlipidemia Type 2 diabetes mellitus without complication Dysphagia COPD (chronic obstructive pulmonary disease) Hypoxia Nicotine dependence, cigarettes, uncomplicated Hearing impairment Gait instability Weakness Overweight (BMI 25.0-29.9) Depression Anxiety Vitamin D deficiency Seborrheic dermatitis of scalp Surgical History History of colonoscopy History of appendectomy Family History Father Cancer Mother No problems noted. Brother Substance abuse Other Alcohol abuse Social History (Updated 03/18/24 @ 13:10 by Alex Salazar MD) Household Members: None Housing: Assisted Living Facility Housing Other:: Intermediate Do you presently have visiting nurse or other home services: No Alcohol intake: never Patient Tobacco Use Status: Former Tobacco user Tobacco use type: Cigarette Years Smoked: (onset 14yo, 1-2ppd x 59yrs, 50pyh - quit 11/2023) e-Cigarette/Vaping Use: Never Used Second Hand Smoke Exposure: Yes service: No Current occupational status: disabled and other Cognitive needs: Yes (walker) Hearing needs: Yes Vision needs: Yes Questionnaire Medicare Wellness Checkup What [age] What gender do you identify with?: male During the past 4 weeks, how much have you been bothered by emotional problems such as feeling anxious, depressed, irritable, sad or downhearted, and blue?: slightly During the past 4 weeks, has your physical & emotional health limited your social activities with family, friends, neighbors, or groups?: not at all During the past 4 weeks, how much bodily pain have you generally had?: very mild pain During the past 4 weeks, was someone available to help you if you needed & wanted help?: yes, as much as I wanted During the past 4 weeks, what was the hardest physical activity you could do for at least 2 minutes?: moderate Can you get to places out of walking distance without help? (For eg., can you travel alone on buses, taxis or drive your car?): No Can you go shopping for groceries or clothes without someone's help?: No Can you prepare your own meals?: No Can you do your housework without help?: No Because of any health problems, do you need the help of another person with your personal care needs such as eating, bathing, dressing or getting around the house?: Yes Can you handle your own money without help?: No During the past 4 weeks, how would you rate your health in general?: good During the past 4 weeks how have things been going for you?: good & bad parts about equal Are you having difficulties driving your car?: not applicable, I don't use a car Do you always fasten your seat belt when you are in a car?: yes, usually During past 4 weeks, have you been bothered by the following: never: Sexual problems? and Trouble eating well?, seldom: Teeth or denture problems? and sometimes: Falling or dizzy when standing up, Problems using the telephone? and Tiredness or fatigue? Have you fallen 2 or more times in the past year?: Yes Are you afraid of falling?: No Are you a smoker?: no During the past 4 weeks, how many drinks of wine, beer, or other alcoholic beverages did you have?: no alcohol at all Do you exercise for about 20 minutes 3 or more times a week?: yes, some of the time (light exercise) Have you been given information to help with the following?: yes: Hazards in your house that might hurt you? and yes: Keeping track of your medications? How often do you have trouble taking medicines the way you have been told to take them?: I always take medicine as prescribed (staff helps) How confident are you that you can control & manage most of your health problems?: not very confident What is your race?: White Mini Mental State Exam (MMSE) Orientation What is the (year) (season) (date) (day) (month)?: year (unable to do - is alert to person only (x1)) Score Score: 1 Activity of Daily Living Bathing - sponge bath, tub bath or shower: receives help in bathing only one body part (such as back or leg) Dressing - getting clothes from closets & drawers, including inner/outer garments & fasteners.: gets clothes & gets dressed without help, except for help tying shoes Toileting - going to the 'toilet room' for urine/bowel elimination & cleaning self/arranging clothes: goes to toilet room, cleans self, arranges clothes without help Transfer: moves in & out of bed and chair without help (may use support object) Continence: has occasional 'accidents' Feeding: feeds self without help Total Score: 0 Information obtained from: informant Using telephone: needs assistance Traveling: dependent Shopping: dependent Preparing meals: dependent Housework: dependent Taking medicine: dependent Managing money: dependent PHQ-9 Over the last 2 weeks, how often have you been bothered by any of the following problems? 1. Little interest or pleasure in doing things: not at all 2. Feeling down, depressed, or hopeless: not at all 3. Trouble falling or staying asleep, or sleeping too much: not at all 4. Feeling tired or having little energy: more than half the days 5. Poor appetite or overeating: not at all 6. Feeling bad about yourself - or that you are a failure or have let yourself or your family down: not at all (sometimes) 7. Trouble concentrating on things, such as reading the newspaper or watching television: not at all 8. Moving or speaking so slowly that other people could have noticed. Or the opposite - being so fidgety or restless that you have been moving around a lot more than usual: not at all (sometimes fidget or restless) 9. Thoughts that you would be better off or of hurting yourself in some way: not at all Total score: 2 Depression Screening Interpretation: Positive Depression Screening Done: Yes Source: Developed by Drs. Jose David Kumari, Ada Perez, Roman Winters and colleagues, with an educational claude from [employer]. Thrive Questionnaire Date Thrive assessed: 09/24/23 LYNN-7 AMB Questionnaire LYNN-7 Date LYNN - 7 assessed: 09/24/23 Source: Developed by Drs. Jose David Kumari, Ada Perez, Roman Winters and colleagues, with an educational claude from [employer]. Review of Systems Const Details: ROS is obtained primarily from [place] [facility] staff as patient is limited with his ability to provide information due to his advancing dementia Denies difficulty sleeping, Denies fatigue, Denies fever(s) and Denies headache(s) ENT Details: Reportedly has trouble eating/swallowing especially when he is wearing his dentures Reports dysphagia (especially when he is wearing his dentures), Denies dizziness, Denies otalgia, Denies headache(s), Denies neck pain, Denies odynophagia and Denies sore throat Card Denies chest pain, Denies palpitations and Reports dyspnea on exertion (mild) Resp Denies cough, Reports dyspnea on exertion (mild) and Denies wheezing GI Denies abdominal pain, Denies constipation, Reports dysphagia (especially when he is wearing his dentures), Denies heartburn, Reports fecal incontinence (at times), Denies diarrhea, Denies nausea, Denies odynophagia and Denies vomiting Denies dysuria, Denies nocturia, Denies urinary frequency and Reports urinary incontinence (occasionally) Musc Reports abnormal gait (unstable gait - often trips and falls while going UP stairs, hiram in AM) and Denies neck pain Skin/Breast Denies rash Neuro Reports abnormal gait (unstable gait - often trips and falls while going UP stairs, hiram in AM), Reports confusion (at times), Denies dizziness, Denies head ache(s) and Reports memory loss Psych Reports confusion (at times) and Reports memory loss Endo Denies fatigue and Denies palpitations Aller/Immun Denies wheezing Physical Exam Vital Signs: Last Vital Signs Pulse 78 03/18/24 12:38 BP 132/70 03/18/24 12:38 Pulse Ox 94 03/18/24 12:38 Oxygen Delivery Method Room Air 03/18/24 12:38 BMI result Body Mass Index 28.3 IPPE/AWV: Balance Romberg No . Tandem walk No . Walk and Turn No . Rise from sit to stand No . Vision Corrective lens No Vision screen pass Hearing Whisper test pass . Urinary incont. yes. EKG Not clinically necessary. Const General: confusion (at times) Orientation/consciousness: confusion (at times) HEENT Ears: TM's normal bilaterally and EAC's normal Throat: Yes posterior oropharynx normal and Yes tonsils normal (no TP congestion) Neck Neck: Yes no lymphadenopathy and Yes supple Thyroid: Thyroid normal Resp Auscultation: clear to auscultation bilaterally, no rales and no wheezes Cardio Rate: regular rate Rhythm: regular rhythm Heart sounds: no murmurs GI Palpation (GI): Soft to palpation and nontender Auscultation: normal bowel sounds General: Yes no CVA tenderness Back/Spine/Pelvis Back: no CVA tenderness Thoracic/Lumbar Spine: No lumbar spinal tenderness Skin Rashes: no rashes Neuro General: confusion (at times) Extrem General: Yes no clubbing, cyanosis or edema Results Reviewed Results Reviewed: Laboratory Tests 03/13/24 03/13/24 09:23 09:25 WBC 5.9 Hgb 11.6 L Hct 37.9 L Plt Count 206 Sodium 143 Potassium 4.4 Creatinine 0.92 Estimated GFR > 60 Fasting Glucose 164 H Hemoglobin A1c % 6.1 H Calcium 9.6 AST 65 H ALT 68 H Triglycerides 210 H Cholesterol 188 LDL Cholesterol, Calc 109 H HDL Cholesterol 37 L Vitamin B12 301 25-OH Vitamin D Total 46.3 TSH 3.37 Assessment & Plan Assessment & Plan (1) Medicare annual wellness visit, subsequent: Code(s): Z00.00 - Encounter for general adult medical examination without abnormal findings Plan: HRA form discussed and completed with patient; form will be scanned into patient's chart (2) Hyperlipidemia: Code(s): E78.5 - Hyperlipidemia, unspecified Qualifiers: Hyperlipidemia type: pure hypercholesterolemia Qualified Code(s): E78.00 - Pure hypercholesterolemia, unspecified Plan: Results of her labs done a few days ago reviewed and discussed with patient Reinforce low-cholesterol diet Will recheck his labs in fasting lipids in 3 months for follow-up (3) Type 2 diabetes mellitus without complication: Code(s): E11.9 - Type 2 diabetes mellitus without complications Qualifiers: Diabetes mellitus terminal operator insulin use: without chcf use Qualified Code(s): E11.9 - Type 2 diabetes mellitus without complications Plan: His HgbA1c was at 6.1% on his labs done few days ago (was at 6.4% a few months ago) - goal is <7.0% Reinforced diabetic diet Continue Metformin 500 mg BID; continue Lisinopril 2.5 mg QD for renoprotection (4) COPD (chronic obstructive pulmonary disease): Comment: Severe Obstructive Airway Disorder - per exam/spiromety. Remains stable, No exacerbations since last visit - uses Breo 200-25 1 inhalation daily - does not have any rescue inhaler on hand Code(s): J44.9 - Chronic obstructive pulmonary disease, unspecified Qualifiers: COPD type: unspecified COPD Qualified Code(s): J44.9 - Chronic obstructive pulmonary disease, unspecified Plan: He is currently doing well with no acute exacerbation He still has his oxygen but he only uses it now when he has recurrent hypoxemia or has increased dyspnea on exertion Continue Breo Ellipta 200-25 mcg 1 inhalation QD and Albuterol HFA 2 inhalations every 6 hours as needed Follow up with pulmonary as scheduled (5) Alzheimer's dementia without behavioral disturbance: Code(s): G30.9 - Alzheimer's disease, unspecified; F02.80 - Dementia in other diseases classified elsewhere, unspecified severity, without behavioral disturbance, psychotic disturbance, mood disturbance, and anxiety Plan: Continue Donepezil 10 mg QD and Memantine 10 mg BID Follow-up with Neurology as scheduled (6) Exertional dyspnea: Code(s): R06.09 - Other forms of dyspnea Plan: This is still likely mulitfactorial, including due to his COPD, weight and physical deconditioning Echocardiogram done back in January 2024 revealed (+) low normal LV ejection fraction of 50-55% with moderate left ventricular hypertrophy with impaired relaxation filling pattern. Cardiac valvular Dopplers within normal limits, upper limits of normal ascending aortic size and no gross pericardial effusion seen (7) Anemia: Code(s): D64.9 - Anemia, unspecified Qualifiers: Anemia type: unspecified type Qualified Code(s): D64.9 - Anemia, unspecified Plan: Improving Continue Ferrous fumarate 325 mg QD Will recheck his CBC in a few months for follow up (8) Irritable bowel syndrome with diarrhea: Code(s): K58.0 - Irritable bowel syndrome with diarrhea Plan: Continue Sucralfate 1 gm once a day - symptoms have improved somewhat with Rx His recent stool incontinence may be related to this or may be due to his progressing dementia Follow up with GI as scheduled (9) Schizophrenia: Code(s): F20.9 - Schizophrenia, unspecified Qualifiers: Schizophrenia type: unspecified Qualified Code(s): F20.9 - Schizophrenia, unspecified Plan: Continue Clozaril 100 mg 3 & 1/2 tablets once a day at bedtime Follow-up with Psychiatry as scheduled (10) Anxiety: Code(s): F41.9 - Anxiety disorder, unspecified Plan: Continue Clonazepam 0.5 mg BID PRN (11) Depression: Code(s): F32.9 - Major depressive disorder, single episode, unspecified Qualifiers: Depression Type: unspecified Qualified Code(s): F32.9 - Major depressive disorder, single episode, unspecified Plan: Continue Effexor XR 150 mg QD Follow-up with Psychiatry as scheduled (12) Overweight (BMI 25.0-29.9): Code(s): E66.3 - Overweight Plan: Reinforced diet/ exercise as tolerated/lose weight Plan Follow up in 3 months Orders: Orders Hemoglobin A1c 3 Months E11.9 - Type 2 diabetes mellitus without complications Complete Blood Count Auto Diff 3 Months D64.9 - Anemia, unspecified Comprehensive [place]. Panel Fast 3 Months E78.00 - Pure hypercholesterolemia, unspecified UA CC w/rflx Micro + Cult 3 Months R30.0 - Dysuria Vitamin B12 and Folate 3 Months E53.8 - Deficiency of other specified B group vitamins Lipid Panel 3 Months E78.00 - Pure hypercholesterolemia, unspecified Microalbumin, Random (w Creat) 3 Months E11.9 - Type 2 diabetes mellitus without complications TSH reflex Free T4 3 Months E78.00 - Pure hypercholesterolemia, unspecified Vitamin D 25-OH Total 3 Months E55.9 - Vitamin D deficiency, unspecified Quality Reporting (2019) Depression/Bipolar (159/160/161/177) PHQ-9: Total score: 2 Coding Level of Care Code Medicare Subsequent (G0439) Est Pt Level 4 (98727) Diagnoses Medicare annual wellness visit, subsequent Z00.00 Pure hypercholesterolemia E78.00 Hyperlipidemia type: pure hypercholesterolemia Type 2 diabetes mellitus without complication, without long-term current use of insulin E11.9 Diabetes mellitus chcf insulin use: without terminal operator use Chronic obstructive pulmonary disease, unspecified COPD type J44.9 COPD type: unspecified COPD Alzheimer's dementia without behavioral disturbance G30.9; F02.80 Exertional dyspnea R06.09 Anemia, unspecified type D64.9 Anemia type: unspecified type Irritable bowel syndrome with diarrhea K58.0 Schizophrenia, unspecified type F20.9 Schizophrenia type: unspecified Anxiety F41.9 Depression, unspecified depression type F32.9 Depression Type: unspecified Overweight (BMI 25.0-29.9) E66.3
[2024-03-18 12:38] VITALS: BP 132/70; PULSE 78; O2SAT 94; BMI 28.3
== END 2024-03-18 13:25 | disposition home or self-care (01) ==
PROVIDERS: PCP Internal Medicine; Visit Provider Internal Medicine
DX: Z00.00 Encounter for general adult medical examination without abnormal findings (principal); E11.9 Type 2 diabetes mellitus without complications; J44.9 Chronic obstructive pulmonary disease, unspecified; G30.9 Alzheimer's disease, unspecified; F02.80 Dementia in other diseases classified elsewhere, unspecified severity, without behavioral disturbance, psychotic disturbance, mood disturbance, and anxiety; F20.9 Schizophrenia, unspecified; E78.00 Pure hypercholesterolemia, unspecified; R06.09 Other forms of dyspnea; D64.9 Anemia, unspecified; K58.0 Irritable bowel syndrome with diarrhea; F41.9 Anxiety disorder, unspecified; F32.9 Major depressive disorder, single episode, unspecified
CPT/HCPCS: 99214; G0439

== ENCOUNTER 2024-04-01 11:54 | Outpatient (REF) | payer MEDICARE, MEDICAID, SELFPAY ==
[2024-04-01 13:35] LABS: MANUAL DIFF FLAG NO
[2024-04-01 14:13] LABS: Basophils Percent Auto 0.2 % (0-2); Eosinophils Percent Auto 0.5 % (0-4); Hematocrit 35.4 % (42.0-52.0); Hemoglobin 11.2 g/dl (14.0-18.0); Imm Gran Abs Auto 0.03 X10*3/uL (0.00-0.03); Imm Gran Pct Auto 0.5 % (0.0-0.4); Lymphocytes Absolute Auto 1.7 X10*3/uL (1.2-4.9); Mean Corpuscular HGB Conc 31.6 g/dl (31.0-36.0); Mean Corpuscular Volume 91.7 fL (80.0-98.0); Mean Platelet Volume 12.4 fL (9.4-12.4); Monocytes Absolute Auto 0.6 X10*3/uL (0.1-1.2); Monocytes Percent Auto 10.9 % (2-11); Neutrophils Absolute Auto 3.3 x10*3/uL (2.0-8.3); Neutrophils Percent Auto 57.9 % (45-73); Platelet Count 197 X10*3/uL (160-400); Red Blood Count 3.86 X10*6/uL (4.60-5.80); Red Cell Distribution Width 13.5 % (11.0-16.0); White Blood Count 5.8 X10*3/uL (4.8-10.8)
== END 2024-04-01 11:55 | disposition home or self-care (01) ==
LOC: HO.HMGCLR 11:54
PROVIDERS: PCP Nurse Practitioner Family; Visit Provider Psychiatry & Neurology Psychiatry
DX: Z79.899 Other long term (current) drug therapy (principal)
CPT/HCPCS: 36415; 85025

== ENCOUNTER 2024-04-15 13:28 | Outpatient (AMB) | payer MEDICARE, MEDICAID, SELFPAY ==
--- NOTE | 2024-04-15 13:29 | A.OFFVIS_ITS ---
Vital Signs 04/15/24 13:30 Height 5 ft 10 in Weight 197 lb 5.019 oz BMI 28.3 BP 130/74 Blood Pressure Location Lt brachial Position Sitting Respiration 12 Pulse 97 Pulse Source Pulse Oximeter Pulse Oximetry (%) 94 Oxygen Delivery Method Room Air Intake Visit Reasons: COPD Intake Note: Patient comes in for COPD follow up. Allergies No Known Allergies [No Known Allergies*] Allergy (Verified 04/15/24 13:35) Medication List - Last Reconciled 04/15/24 by Susan Sadler MD [4-PRONGED CANE As directed] acetaminophen (Tylenol Extra Strength) 500 mg PO TID PRN 30 days [adult pull ups As directed] albuterol sulfate 90 mcg/actuation 2 puffs inhalation Q4-6H PRN 30 days aspirin 81 mg PO DAILY 90 days betamethasone dipropionate 0.05% topical blood sugar diagnostic To test once a day blood sugar diagnostic ([employer] No Coding strips) As directed once per day blood-glucose meter To test blood sugar daily Breo Ellipta 200-25 mcg/dose (fluticasone furoate-vilanterol) 1 ea PO DAILY NS carbamide peroxide 6.5% (Ear Drops (carbamide peroxide)) drps otic (ears) cholecalciferol (vitamin D3) 25 mcg PO DAILY [CHUX sheets As directed] clonazepam 0.5 mg PO BID clozapine 300 mg PO BEDTIME [DISPOSABLE GLOVES (large) Use as directed] donepezil 10 mg PO DAILY ferrous fumarate 325 mg PO DAILY ferrous sulfate 324 mg PO DAILY 90 days FreeStyle Lite Strips (blood sugar diagnostic) As directed- to test blood sugar once a day NS gemfibrozil 600 mg PO BID ketoconazole 2% 1 appl topical DAILY lancets ([employer] Lancets) To test once a day lisinopril 2.5 mg PO DAILY memantine 10 mg PO BID 90 days metformin 500 mg PO BID molnupiravir 800 mg (4 x 200 mg) PO Q12H 5 days rifaximin (Xifaxan) 550 mg PO BID simvastatin 40 mg PO BEDTIME sucralfate 3 grams (3 x 1 gram) PO DAILY venlafaxine ER 150 mg PO DAILY wheat dextrin (Benefiber Clear Sugar Free(dextrin)) 1.5 grams PO BID zinc oxide 40% (Diaper Rash) 1 appl topical BID-QID PRN Do you need a note to return to daycare/school/sports/work: No HPI HPI COPD: Details: This 74 years old gentleman, is here for follow-up for his COPD. Since his last admission he has been admitted to the hospital a few times with acute exacerbations Finally he has quit smoking completely . At this time he has very little cough, and he does not get any acute distress, he is mostly sitting in the chair, He is using O2 2 L/minute during the daytime, does not use O2 when he comes outdoors. He is also not using O2 at night. He is living in a half-way and supervised very closely by the personal care assistants. [facility] Medical History Essential hypertension Alzheimer's dementia without behavioral disturbance Schizophrenia Hypertension Hyperlipidemia Type 2 diabetes mellitus without complication Dysphagia COPD (chronic obstructive pulmonary disease) Hypoxia Nicotine dependence, cigarettes, uncomplicated Hearing impairment Gait instability Weakness Overweight (BMI 25.0-29.9) Depression Anxiety Vitamin D deficiency Seborrheic dermatitis of scalp Surgical History History of colonoscopy History of appendectomy Family History Father Cancer Mother No problems noted. Brother Substance abuse Other Alcohol abuse Social History Household Members: None Housing: Assisted Living Facility Housing Other:: Senior Living Do you presently have visiting nurse or other home services: No Alcohol intake: never Patient Tobacco Use Status: Former Tobacco user Tobacco use type: Cigarette Years Smoked: (onset 14yo, 1-2ppd x 59yrs, 50pyh - quit 11/2023) e-Cigarette/Vaping Use: Never Used Second Hand Smoke Exposure: Yes service: No Current occupational status: disabled and other Cognitive needs: Yes (walker) Hearing needs: Yes Vision needs: Yes Review of Systems Const All systems reviewed & are unremarkable except as noted in HPI and below Eyes Reports no additional complaints ENT Reports no additional complaints Card Reports no additional complaints Resp Reports as per HPI GI Reports constipation, Reports heartburn and Reports other (One minor incidence of choking on rice ) Reports no additional complaints Musc Reports abnormal gait (Unstable and he needs to use the walker) and Reports back pain (mild) Skin/Breast Reports system reviewed and no additional complaints, except as documented Neuro Reports abnormal gait (Unstable and he needs to use the walker) and Reports behavioral changes Psych Reports anxiety, Reports behavioral changes and Reports mood swings Endo Reports no additional complaints Physical Exam Vital Signs: Last Vital Signs Pulse 97 04/15/24 13:30 Resp 12 04/15/24 13:30 BP 130/74 04/15/24 13:30 Pulse Ox 94 04/15/24 13:30 Oxygen Delivery Method Room Air 04/15/24 13:30 BMI result Body Mass Index 28.3 Const General: comfortable, no acute distress, alert and awake Orientation/consciousness: patient oriented x3 HEENT Head: Yes normal to inspection General nose exam: No nasal polyps present and No nasal discharge present Face and sinus: Yes sinuses nontender Mouth: oropharynx normal Throat: Yes posterior oropharynx normal Eyes General: appearance normal, both eyes and all related structures Neck Neck: Yes normal visual inspection, Yes no lymphadenopathy, Yes trachea midline and Yes no JVD Thyroid: Thyroid normal Chest Chest palpation & inspection: normal inspection of the chest, normal palpation of entire chest wall and no tenderness Resp Other: Percussion note resonant, breath sounds are very distant on both sides with prolonged expiratory phase. No wheezes rhonchi or crepitations are heard. Cardio Palpation: normal PMI Rate: regular rate Rhythm: regular rhythm Heart sounds: no gallops and no murmurs GI Palpation (GI): Soft to palpation, nontender, No hepatosplenomegaly present and no masses Auscultation: normal bowel sounds Back/Spine/Pelvis Thoracic/Lumbar Spine: thoracic and lumbar spine normal to inspection Skin General skin exam: no rashes or lesions noted Neuro General: patient oriented x3 and no focal motor deficits Cranial nerves: Yes CN's II-XII intact bilaterally Extrem General: Yes normal to inspection, Yes no clubbing, cyanosis or edema and Yes no calf tenderness Psych Appearance: grossly normal and well kempt Speech and movement: Normal speech and movement present Results Reviewed Results Reviewed: 02/01/24 CT scan of Chest MPRESSION: 1. No evidence of pulmonary malignancy. 2. Incidental note made of enlarged fatty liver and cholecystectomy. 3. Incidental findings (S category): No significant new incidental findings. ASSESSMENT: 1. Lung-RADS Category 2: Benign appearance or behavior of nodules. N/A Assessment & Plan Assessment & Plan (1) COPD (chronic obstructive pulmonary disease): Comment: Severe Obstructive Airway Disorder - per exam/spiromety. Remains stable, No exacerbations since last visit - Code(s): J44.9 - Chronic obstructive pulmonary disease, unspecified Category: Medical Qualifiers: COPD type: unspecified COPD Qualified Code(s): J44.9 - Chronic obstructive pulmonary disease, unspecified Plan: Continue Breo 200-251 inhalation daily. Albuterol HFA 2 puffs Q 6 hours p.r.n. (2) Hypoxia: Comment: (Resting O2 sat 91% but quickly desaturates on walking, indicating exertional hypoxemia. Using O2 2 L/min with physical activity) Code(s): R09.02 - Hypoxemia Category: Medical Plan: He is advised to use O2 2 L/minute with any physical activity, And it will be better for him to use 2 L/minute at night time as well. (3) Lung nodule: Comment: His previously known ground-glass density had resolved. He has 2 mm round nodule in the right upper lobe,which is benign. Code(s): R91.1 - Solitary pulmonary nodule Category: Medical Plan: Continue annual lung screening Coding Level of Care Code Est Pt Level 3 (99375) Diagnoses Chronic obstructive pulmonary disease, unspecified COPD type J44.9 COPD type: unspecified COPD Hypoxia R09.02 Lung nodule R91.1
[2024-04-15 13:30] VITALS: BP 130/74; PULSE 97; RESP 12; O2SAT 94; BMI 28.3
== END 2024-04-15 13:46 | disposition home or self-care (01) ==
PROVIDERS: PCP Internal Medicine; Visit Provider Internal Medicine
DX: J44.9 Chronic obstructive pulmonary disease, unspecified (principal); R09.02 Hypoxemia; R91.1 Solitary pulmonary nodule
CPT/HCPCS: 99213

== ENCOUNTER → 2024-04-15 13:28 | Outpatient (BNVA) | payer MEDICARE, MEDICAID, SELFPAY | PROVIDERS: PCP Internal Medicine; Visit Provider Internal Medicine | DX: J44.9 Chronic obstructive pulmonary disease, unspecified (principal); R09.02 Hypoxemia; R91.1 Solitary pulmonary nodule; Z99.81 Dependence on supplemental oxygen | CPT/HCPCS: 99212 ==

== ENCOUNTER 2024-04-16 14:24 | Outpatient (REF) | payer MEDICARE, MEDICAID, SELFPAY ==
--- NOTE | ~2024-04-16 | FL_ITS ---
EXAMINATION: Modified Barium Swallow CLINICAL INFORMATION: Dysphagia. COMPARISON: None. TECHNIQUE: Modified barium swallow was performed under lateral fluoroscopy with patient in standing position. Barium mixed with solids and liquids of different consistencies was administered by the speech pathologist. Examination was recorded in the fluoroscopy suite. FINDINGS: Trace laryngeal penetration is seen with thin consistency barium. No subglottic aspiration was observed. FLUOROSCOPY TIME: 2 minutes Number of Spot Images: N/A DOSE AREA PRODUCT: 1154 uGy-m2 (microgray-meter squared) FL/FL barium swallow modified IMPRESSION: Trace laryngeal penetration is seen with thin consistency barium. No subglottic aspiration was observed. Refer to the full speech therapy report for further clarification This procedure was performed by Arron Davila PA-C, and supervised by Dr. Greenberg
--- NOTE | 2024-04-17 14:04 | MHC.SL.IMP ---
Date of Plan of Treatment: 04/16/24 Onset of Symptoms/Illness: 01/10/22 Date Treatment Started: 04/16/24 Admitting Diagnosis: Dysphagia Primary Speech & Language Diagnosis: R13.12 Oropharyngeal Phase Dysphagia Reason for Today's Visit: 47251 Modified Barium Swallow Study Pre-evaluation Dietary Consistencies: Soft food Pre-evaluation Liquid Consistency: Thin Pre-evaluation Medication Administration: Whole with Liquid Medical History: Medical History Essential hypertension Alzheimer's dementia without behavioral disturbance Schizophrenia Hypertension Hyperlipidemia Type 2 diabetes mellitus without complication Dysphagia COPD (chronic obstructive pulmonary disease) Hypoxia Nicotine dependence, cigarettes, uncomplicated Hearing impairment Gait instability Weakness Overweight (BMI 25.0-29.9) Depression Anxiety Vitamin D deficiency Seborrheic dermatitis of scalp Surgical History History of colonoscopy History of appendectomy Current (pre-evaluation) Intake/Diet: Route: PO Diet Grade: ?Soft Foods? Liquid Consistencies: Thin Pre-Study Functional Oral Intake Scale (FOIS): 5- Total oral intake of multiple consistencies requiring special preparation Pain: None reported at time of study SUBJECTIVE: Patient is a 74 year old male with history of Alzheimer?s dementia, COPD, and schizophrenia, who was referred for a modified barium swallow study (MBSS) by his primary care physician, Alex Salazar MD. Patient resides in [facility] and was accompanied to today?s exam by a staff member, Jacqui, who assisted in providing background information included in this report. Patient had a previous MBSS on 04/12/22 showing delayed oral phase and transient flash penetration with thin and nectar thick consistencies. Patient was recommended a ground/mechanically soft diet and thin liquids with aspiration precautions. Jacqui reports that patient continued on a soft diet at the [facility] and is directly supervised at meal time. Staff are often reminding patient to eat slowly and to alternate bites with sips of liquid, as patient has a tendency to pack several bites into his mouth before taking a sip of liquid. Patient returns today for a repeat-MBSS, as staff is concerned that patient is coughing at meals. Patient has dentures but will not wear them and is able to chew with his gums. He tolerates taking his pills whole with liquid. Oral Motor Exam Facial Symmetry: Symmetrical Mouth Occlusion: Normal Oral-Facial Teeth Characteristics: Edentulous Oral-Facial Smile (Lips) Description: Normal Oral-Facial Puff Cheeks Description: Normal Tongue Size: Normal Tongue Excursion Description: Normal Tongue Range of Movement Description: Normal Tongue Speed of Movement Description: Normal Tongue Strength of Movement (against opposing pressure): Normal Food and Liquid Trials: Oral Impairment: Lip Closure: Did not test Oral Impairment: Tongue Control During Bolus Hold: Did not test Oral Impairment: Bolus Preparation/Mastication: 2=Disorganized chewing/mashing with solid pieces of bolus Oral Impairment: Bolus Transport/Lingual Motion: 3=Repetitive/disorganized tongue motion Oral Impairment: Oral Residue: 2=Residue collection on oral structures Oral Impairment:Initiation of Pharyngeal Swallow: 3=Bolus head in pyriforms Pharyngeal Impairment: Soft Palate Elevation: 0=No bolus between soft palate (SP)/pharyngeal wall (PW) Pharyngeal Impairment: Laryngeal Elevation: 0=Complete superior movement of thyroid cartilage (see description) Pharyngeal Impairment: Anterior Hyoid Excursion: 1=Partial anterior movement Pharyngeal Impairment: Epiglottic Movement: 1=Partial inversion Pharyngeal Impairment: Laryngeal Vestibular Closure:: 1=Incomplete: narrow column air/contrast in laryngeal vestibule Pharyngeal Impairment: Pharyngeal Stripping Wave: 1=Present: diminished Pharyngeal Impairment: Pharyngeal Contraction: Pharyngeal Impairment: Pharyngoesophageal Segment Opening: Did not test Pharyngeal Impairment: Tongue Base (TB) Retraction: 1=Trace column of contrast/air between TB and posterior PW Pharyngeal Impairment: Pharyngeal Residue: 0=Complete pharyngeal clearance Pharyngeal Impairment: Esophageal Clearance Upright Position: Did not test Impressions and Recommendations Clinical Observations: OBJECTIVE: Time-out: performed at 15:00 Evaluation Start: 14:30; Stop: 14:35 Patient Positioning: Standing Viewing Planes: LATERAL ONLY Contrast: MBSImP? Standardized Protocol using commercially prepared, standardized Barium viscosities, including: Varibar? THIN LIQUID (40% w/v, <15 cps) , 1/2 Shortbread Cookie (1 x1 x.25 ) MBSImP ID: [id number] MBSImP Results: Lip closure for intraoral bolus containment could not be assessed due to logistical reasons not related to physiologic impairment. Tongue control during bolus hold could not be assessed due to logistical reasons not related to physiologic impairment. Bolus preparation and mastication demonstrated disorganized chewing/mashing with solid pieces of the bolus unchewed. Bolus transport/lingual motion was with repetitive/disorganized motion of the tongue. Oral residue was a collection on oral structures. Initiation of the pharyngeal swallow occurred when the bolus head was in the pyriform sinuses. Soft palate elevation resulted in no bolus between the soft palate and the pharyngeal wall. Laryngeal elevation demonstrated complete superior movement of the thyroid cartilage with complete approximation of the arytenoids to the epiglottic petiole. Anterior hyoid excursion demonstrated partial anterior movement. Epiglottic movement resulted in partial inversion. Laryngeal vestibular closure was incomplete, with a narrow column of air/contrast noted within the laryngeal vestibule at the height of the swallow. Pharyngeal stripping wave was present, but diminished. Pharyngeal contraction could not be determined due to logistical reasons not related to physiologic impairment. Pharyngoesophageal segment opening was completely distended for complete duration with no obstruction of bolus flow. Tongue base retraction allowed a trace column of contrast or air between the retracted tongue base and the posterior pharyngeal wall. Pharyngeal residue was not present. There was complete pharyngeal clearance. Esophageal clearance in the upright position could not be assessed due to logistical reasons not related to physiologic impairment. Oral Impairment Score: 10 (absence of score, component 1component 2) Pharyngeal Impairment Score: 4 (absence of score, component 13) Esophageal Impairment Score: --- (absence of score, component 17) Laryngeal Penetration and Aspiration: Penetration was observed in today's study. Thin Contrast entered the airway, remained above the vocal folds, and was ejected from the airway. ASSESSMENT: Clinician Assessment: This exam was conducted by the radiologist and the speech pathologist. Patient was standing for lateral view and was able to feed himself without difficulty. He trialed the following consistencies: thin liquid, puree, ground (chicken salad), and regular (Lenka Doone cookie) solids. Patient demonstrated delayed anterior-posterior transport, characterized at times by tongue rocking motion. Mastication was slow and disorganized, moderately prolonged with intake of the shortbread cookie. There was trace residue with liquid and puree consistencies, increased with harder solids, but still minimal, coating the tongue. Pharyngeal swallow trigger was delayed, initiated as bolus head reached pyriform sinuses. There was no nasopharyngeal reflux. Patient displayed complete superior movement of thyroid cartilage. Anterior hyoid excursion was partial, with partial epiglottic inversion. Laryngeal vestibular closure was incomplete resulting in narrow column of contrast in the laryngeal vestibule. There were episodes of flash penetration intermittently, with a trace amount of thin liquid entering the airway momentarily above the vocal folds, and spontaneously ejecting from the airway. No evidence of aspiration during this exam. There was complete pharyngeal clearance. Liquid Intake Recommendation: Thin Liquid Intake Strategies: Small Sips, No Straws Dietary Recommendations: Grnd/Mech Altered (NDD2) Medication Administration: Whole with Liquid Please contact the pharmacy regarding appropriate crushable or liquid drug formulations that are available whenever modified delivery is recommended. Compensatory Strategies Recommended: Sitting Upright (90 deg), Small Bites and Sips, Alternate Liquids/Solids, Rate of Ingestion Change, Avoid Specific Foods Supervision during eating and or drinking: Total Supervision (1:1) Recommendation for Speech Therapy: NA:Typical Evaluation Text Comment: Intake Recommendations: Route: PO Diet Grade: Mechanical Soft Liquid Consistencies: Thin Post-Study Functional Oral Intake Scale (FOIS): 5- Total oral intake of multiple consistencies requiring special preparation Oral phase was moderately prolonged with delayed lingual motion and disorganized mastication. Transient flash penetration above the vocal folds with thin liquids. There was no evidence of aspiration during this exam. Good oral and pharyngeal clearance. No significant change from prior exam in 2021. Recommend CONTINUE on GROUND/MECH ALTERED (NDD2) solids with sauces/gravies and THIN liquids, pills WHOLE one at a time with LIQUID or PUREE per pt?s tolerance. Given underlying dementia, patient would benefit from the supervision or assistance of a caregiver during all PO intake to monitor tolerance and ensure aspiration precautions. Patient requires cues and reminders to use strategies throughout meals. Recommended strategies and precautions include: -Take small sips of liquid, one sip at a time -Avoid ?chugging? consecutive sips of liquid -Avoid the use of straws -One bite at a time and chew food well -Clear oral cavity before taking more bites -Moisten food with sauce/gravy as needed -Alternate bites of food with sips of liquid -Avoid foods which cause you more difficulty swallowing (i.e. rice, foods that crumble, mixed consistencies) -Upright 90 degree position when eating/drinking Therapy Recommendations: TACK DRILLER discussed recommendations with patient and staff from [facility]. A brief summary was written on [facility] paperwork. Complete evaluation will also be faxed as requested. Questions were answered and clarification provided as needed. Further ST intervention is not warranted at this time. Recommend continue with softer diet, direct supervision, and aspiration precautions. Recommend patient and caregivers to continue monitoring patient?s dysphagia. Contact PCP if there is any worsening of dysphagia, in which case patient may need re-evaluation. Clinician - Supplemental, Miscellaneous Communication: It is important to note MBSS objective studies are snapshots in time and Patient function might vary with factors such as time of day or concomitant medical conditions. For this reason, the final treatment plan for this patient should rest with their medical care team. Additional recommendations should be considered with the totality of the Patient in mind. Thank for the opportunity to participate in the care of this patient. If you have any questions about the content of this report, please contact the [facility] at [facility]. Education: Education regarding findings from today's study and plans for therapy were provided to Patient and family/caregiver through Verbal Instruction, Written Instruction. Understanding was expressed by the Patient and family/caregiver. Maturity Checker Clinician/Clinical Fellow: No Supervisory Statement: N/A Speech Language Pathologist: Lissette Garcia M.A., CCC-TACK DRILLER
== END 2024-04-16 14:25 | disposition home or self-care (01) ==
LOC: HO.XRAY 14:24
PROVIDERS: Visit Provider Internal Medicine
DX: R13.10 Dysphagia, unspecified (principal)
CPT/HCPCS: 74230; 92611

== ENCOUNTER → 2024-04-16 14:27 | Outpatient (BNV) | payer MEDICARE, MEDICAID, SELFPAY | PROVIDERS: Visit Provider Physician Assistant Surgical | DX: R13.10 Dysphagia, unspecified (principal) | CPT/HCPCS: 74230 ==

== ENCOUNTER 2024-04-29 12:21 | Outpatient (REF) | payer MEDICARE, MEDICAID, SELFPAY ==
[2024-04-29 13:26] LABS: MANUAL DIFF FLAG NO
[2024-04-29 13:30] LABS: Basophils Percent Auto 0.2 % (0-2); Eosinophils Percent Auto 0.5 % (0-4); Hematocrit 36.5 % (42.0-52.0); Hemoglobin 11.4 g/dl (14.0-18.0); Imm Gran Abs Auto 0.03 X10*3/uL (0.00-0.03); Imm Gran Pct Auto 0.5 % (0.0-0.4); Lymphocytes Absolute Auto 1.8 X10*3/uL (1.2-4.9); Mean Corpuscular HGB Conc 31.2 g/dl (31.0-36.0); Mean Corpuscular Hemoglobin 28.2 pg (27.0-33.0); Mean Corpuscular Volume 90.3 fL (80.0-98.0); Mean Platelet Volume 11.6 fL (9.4-12.4); Monocytes Absolute Auto 0.7 X10*3/uL (0.1-1.2); Monocytes Percent Auto 11.4 % (2-11); Neutrophils Absolute Auto 3.2 x10*3/uL (2.0-8.3); Neutrophils Percent Auto 56.4 % (45-73); Platelet Count 190 X10*3/uL (160-400); Red Blood Count 4.04 X10*6/uL (4.60-5.80); Red Cell Distribution Width 13.4 % (11.0-16.0); White Blood Count 5.7 X10*3/uL (4.8-10.8)
== END 2024-04-29 12:22 | disposition home or self-care (01) ==
LOC: HO.HMGCLR 12:21
PROVIDERS: PCP Internal Medicine; Visit Provider Psychiatry & Neurology Psychiatry
DX: Z79.899 Other long term (current) drug therapy (principal)
CPT/HCPCS: 36415; 85025

== ENCOUNTER 2024-05-27 12:07 | Outpatient (REF) | payer MEDICARE, MEDICAID, SELFPAY ==
[2024-05-27 13:11] LABS: MANUAL DIFF FLAG NO
[2024-05-27 13:23] LABS: Basophils Percent Auto 0.2 % (0-2); Eosinophils Percent Auto 0.2 % (0-4); Hematocrit 37.2 % (42.0-52.0); Hemoglobin 11.8 g/dl (14.0-18.0); Imm Gran Abs Auto 0.03 X10*3/uL (0.00-0.03); Imm Gran Pct Auto 0.5 % (0.0-0.4); Lymphocytes Absolute Auto 1.8 X10*3/uL (1.2-4.9); Lymphocytes Percent Auto 30.6 % (20-40); Mean Corpuscular HGB Conc 31.7 g/dl (31.0-36.0); Mean Corpuscular Hemoglobin 28.6 pg (27.0-33.0); Mean Corpuscular Volume 90.1 fL (80.0-98.0); Mean Platelet Volume 12.1 fL (9.4-12.4); Monocytes Absolute Auto 0.6 X10*3/uL (0.1-1.2); Monocytes Percent Auto 9.6 % (2-11); Neutrophils Absolute Auto 3.5 x10*3/uL (2.0-8.3); Neutrophils Percent Auto 58.9 % (45-73); Platelet Count 173 X10*3/uL (160-400); Red Blood Count 4.13 X10*6/uL (4.60-5.80); Red Cell Distribution Width 13.4 % (11.0-16.0); White Blood Count 5.9 X10*3/uL (4.8-10.8)
== END 2024-05-27 12:08 | disposition home or self-care (01) ==
LOC: HO.HMGCLR 12:07
PROVIDERS: PCP Internal Medicine; Visit Provider Psychiatry & Neurology Psychiatry
DX: Z79.899 Other long term (current) drug therapy (principal)
CPT/HCPCS: 36415; 85025

== ENCOUNTER 2024-06-17 08:09 | Emergency (ER) | payer MEDICARE, MEDICAID, SELFPAY ==
--- NOTE | ~2024-06-17 | XR_ITS ---
EXAMINATION: XR KNEE, RIGHT CLINICAL INFORMATION: Fall, knee pain COMPARISON: None available. TECHNIQUE: Four views of the right knee. FINDINGS: No fracture or joint effusion. Alignment is anatomic. Joint spaces are mildly narrowed with osteophyte formation. There is an intramedullary sclerotic, lobulated lesion in the distal femur. No cortical erosion. No abnormal soft tissue calcification. XR/XR knee RT 4V IMPRESSION: 1. No acute fracture or dislocation. 2. Mild degenerative change in the right knee. 3. Sclerotic, lobulated lesion in the distal femur. Differential considerations would include a bone infarct, enchondroma versus other etiologies. Electronically signed by: Jose David Ortiz MD 06/17/2024 10:04 AM EDT
[2024-06-17 08:17] VITALS: BP 160/82; BP 174/76; PULSE 82; RESP 16; TEMP 36.8; O2SAT 92; O2SAT 94; BMI 30.5
[2024-06-17 08:21] VITALS: BP 174/76; PULSE 82; RESP 16; TEMP 36.8; O2SAT 92
--- NOTE | 2024-06-17 08:45 | ED.LOWEXIN ---
HPI - Extremity Injury (Lower) General Chief Complaint: Extremity Injury, Lower Stated Complaint: FALL UPSTAIRS,KNEE PAIN,FROM [facility] PER EMS Time Seen by Provider: 06/17/24 08:39 Source: patient Mode of arrival: EMS History of Present Illness ED Provider: Adryan Giron HPI Narrative: 74 yo M with a PMH of essential hypertension, HDL, T2DM, COPD, orthostatic hypotension, Alzheimer's dementia, exertional dyspnea, anemia, schizophrenia, depression, anxiety presents from a half-way to the ED s/p dizziness and fall going up stairs c/o right knee pain and abrasion. Patient states that he felt this new onset of room spinning this morning prior to him going up the staircase. Patient endorses compliance with medications, no new medications, medication changes. Patient denies the use of a blood thinner and does not check sugars regularly. Denies hitting head, LOC, CP, SOB, palpitations, AMLENDAREZ, tinnitus, blurry vision, vision changes, N/V, abdominal pain. Denies alcohol or substance use. MD complaint: knee injury and leg injury Onset (ago): hour(s) Type of Injury: blunt Place: other Severity: moderate Severity scale (1-10): 10 Context: fall Other symptoms: none Related Data Home Medications ?Medication ?Instructions ?Recorded ?Confirmed betamethasone dipropionate 0.05 % topical 01/10/21 04/15/24 topical ointment ketoconazole 2 % shampoo 1 appl topical DAILY 08/26/22 06/17/24 donepezil 10 mg tablet 10 mg PO DAILY 11/29/22 06/17/24 clozapine 100 mg tablet 300 mg PO BEDTIME 12/27/22 06/17/24 clonazepam 0.5 mg tablet 0.5 mg PO DAILY Anxiety 02/28/23 06/17/24 venlafaxine 150 mg 150 mg PO DAILY 02/28/23 06/17/24 capsule,extended release 24 hr carbamide peroxide 6.5 % ear drops 1 drp otic (ears) DAILY 03/18/24 06/17/24 (Ear Drops (carbamide peroxide)) fluticasone furoate 200 1 inh PO DAILY 06/17/24 06/17/24 mcg-vilanterol 25 mcg/dose inhalation powder (Breo Ellipta) sucralfate 1 gram tablet 1 g PO TIDAC 06/17/24 06/17/24 Previous Rx's ?Medication ?Instructions ?Recorded 4-PRONGED CANE #1 ea 04/08/21 blood sugar diagnostic #100 ea 12/29/21 blood-glucose meter #1 ea 12/29/21 adult pull ups #100 ea 12/04/22 CHUX sheets #60 ea 03/07/23 molnupiravir 200 mg capsule (EUA) 800 mg (4 x 200 mg) PO Q12H 5 days 07/31/23 #40 caps DISPOSABLE GLOVES (large) #100 ea 09/24/23 aspirin 81 mg tablet,delayed 81 mg PO DAILY 90 days #90 tabs 10/16/23 release albuterol sulfate 90 mcg/actuation 2 puff inhalation Q4-6H PRN 12/13/23 aerosol inhaler shortness of breath or wheezing 30 days #8.5 grams lisinopril 2.5 mg tablet 2.5 mg PO DAILY #90 tabs 12/18/23 rifaximin 550 mg tablet (Xifaxan) 550 mg PO BID #60 tabs 03/05/24 FreeStyle Lite Strips (blood sugar #100 ea 03/13/24 diagnostic) blood sugar diagnostic (Prodigy No #50 ea 03/13/24 Coding strips) lancets 28 gauge (Prodigy Lancets) #100 ea 03/13/24 memantine 10 mg tablet 10 mg PO BID 90 days #180 tabs 03/20/24 acetaminophen 500 mg tablet 500 mg PO TID PRN fever or pain 30 03/31/24 (Tylenol Extra Strength) days #90 tabs zinc oxide 40 % topical ointment 1 appl topical BID-QID PRN skin 03/31/24 (Diaper Rash) irritation/diaper rash #397 grams simvastatin 40 mg tablet 40 mg PO BEDTIME #90 tabs 04/28/24 wheat dextrin 3 gram/3.5 gram oral 3 g PO BID #28 ea 05/02/24 powder packet (Benefiber Clear Sugar Free(dextrin)) cholecalciferol (vitamin D3) 25 25 mcg PO DAILY #90 tabs 05/08/24 mcg (1,000 unit) tablet ferrous fumarate 325 mg (106 mg 325 mg PO DAILY #30 tabs 05/09/24 iron) tablet metformin 500 mg tablet 500 mg PO BID #60 tabs 05/09/24 gemfibrozil 600 mg tablet 600 mg PO BID #60 tabs 06/09/24 Allergies Allergy/AdvReac Type Severity Reaction Status Date / Time No Known Allergies Allergy Verified 06/17/24 08:19 [No Known Allergies*] Review of Systems Review of Systems: Yes all other systems are reviewed and are negative [facility] Past Medical History Medical History Essential hypertension Alzheimer's dementia without behavioral disturbance Schizophrenia Hypertension Hyperlipidemia Type 2 diabetes mellitus without complication Dysphagia COPD (chronic obstructive pulmonary disease) Hypoxia Nicotine dependence, cigarettes, uncomplicated Hearing impairment Gait instability Weakness Overweight (BMI 25.0-29.9) Depression Anxiety Vitamin D deficiency Seborrheic dermatitis of scalp Surgical History History of colonoscopy History of appendectomy Family History Family History Father Cancer Mother No problems noted. Brother Substance abuse Other Alcohol abuse Social History Social History Household Members: None Housing: Assisted Living Facility Housing Other:: [facility] Do you presently have visiting nurse or other home services: No Alcohol intake: never Patient Tobacco Use Status: Former Tobacco user Tobacco use type: Cigarette Years Smoked: (onset 14yo, 1-2ppd x 59yrs, 50pyh - quit 11/2023) Smoked in Last 30 Days: No e-Cigarette/Vaping Use: Never Used Second Hand Smoke Exposure: Yes Use of substances other than those prescribed or required for medical reasons: No Advance Directives: No Advance Directives Information Provided: Yes Do you have a plan to hurt others: No Plan service: No Current occupational status: disabled and other Cognitive needs: Yes (walker) Hearing needs: Yes Vision needs: Yes Physical Exam Vital Signs: Vital Signs: Last Vital Signs Temp 98.2 F 06/17/24 08:21 Pulse 82 06/17/24 08:21 Resp 16 06/17/24 08:21 BP 148/76 H 06/17/24 10:04 Pulse Ox 92 06/17/24 08:21 O2 Del Method Room Air 06/17/24 08:21 BMI result Body Mass Index 30.5 Appearance: Alert. Oriented X3. No acute distress. Head: normocephalic, atraumatic. Eyes: Pupils equal, round and reactive to light. ENT: No obvious external abnormalities Neck: Normal inspection. Neck supple. CVS: Normal heart rate and rhythm. Pulses normal. Respiratory: No respiratory distress. Abdomen: Obvious external abnormalities. Skin: Skin warm and dry. Normal skin color. Normal skin turgor. No rashes. Extremities: Right knee- small abrasion to the inferior aspect of the knee, mild swelling, pain and tenderness elicited upon palpation to affected area, pain and limited active ROM, pain with passive ROM no laxity with varus and valgus. No lower extremity edema. Neuro/psych: Oriented X 3. Grossly normal, nonfocal. Normal speech and cognition. Medications Administered Discontinued Medications Generic Name Dose Route Start Last Admin Trade Name Freq PRN Reason Stop Dose Admin Sodium Chloride 1,000 mls @ 999 mls/hr 06/17/24 12:15 06/17/24 12:37 Ns IVCONT 06/17/24 13:15 999 mls/hr .Q1H1M [place] Administration Lisinopril 2.5 mg 06/17/24 09:39 06/17/24 10:04 Lisinopril 2.5 Mg Tablet PO 06/17/24 09:40 2.5 mg ONCE ONE Administration Protocol Medical Decision Making Medical Decision Making [facility] Narrative: 74 yo M with a PMH of essential hypertension, HDL, T2DM, COPD, orthostatic hypotension, Alzheimer's dementia, exertional dyspnea, anemia, schizophrenia, depression, anxiety presents from a half-way to the ED s/p dizziness and fall going up stairs c/o right knee pain and abrasion. On exam, patient is lying comfortably in bed, nontoxic appearing skin intact, on the right knee there is a small abrasion to the inferior aspect of the knee, bleeding well controlled, mild swelling, pain and tenderness elicited upon palpation to affected area, pain and limited active ROM, pain with passive ROM no laxity with varus and valgus, no lower extremity edema. Blood pressure is elevated at 174/76, other vitals stable with a HR of 82, afebrile at 98.2 F, saturating well at 95% on room air with concern for orthostatic hypotension causing knee fracture, dislocation, patellar tendon rupture, ACL, MCL, meniscal tear, tibial plateau fracture, unlikely cellulitis, osteomyelitis as there is no erythema or warmth. Plan: XR knee, labs, orthostatics, UA, EKG, re-evaluation X-ray of the knee showed no acute fracture dislocation with mild degenerative change. There was a scoliotic, lobulated lesion noted in the distal femur, orthopedics consulted, patient to follow-up with PCP for outpatient MRI and further evaluation. Albert wrap applied. Positive orthostatic vital signs with a lying measurement of BP 156/86 and HR of 76, in a sitting measurement of BP 130/60 in a HR of 82. Plan for 1 L NS and repeat orthostatic VS. Used topical EKG without any acute abnormalities. Labs without any acute abnormalities. patient feeling better after IVF. no longer dizzy with sitting and position changes. he would like to go home. steady gait. stable for d/c back to half-way. Differential Diagnosis Differential Diagnoses: The differential diagnosis associated with the presentation includes As above. Admission/Observation Consideration of admission/observation: Escalation of care including admission/observation considered Lab Data MDM Lab Attestation statement: I reviewed the patient's lab results. stable anemia, stable BUN/Cr 06/17/24 09:22 06/17/24 09:22 Labs: Lab Results 06/17/24 Range/Units 09:22 WBC 6.5 (4.8-10.8) X10*3/uL RBC 3.94 L (4.60-5.80) X10*6/uL Hgb 11.3 L (14.0-18.0) g/dl Hct 35.7 L (42.0-52.0) % MCV 90.6 (80.0-98.0) fL MCH 28.7 (27.0-33.0) pg MCHC 31.7 (31.0-36.0) g/dl RDW 13.6 (11.0-16.0) % Plt Count 176 (160-400) X10*3/uL MPV 11.4 (9.4-12.4) fL Immature Gran % (Auto) 0.5 H (0.0-0.4) % Neut % (Auto) 64.9 (45-73) % Lymph % (Auto) 24.8 (20-40) % Angelina % (Auto) 9.4 (2-11) % Eos % (Auto) 0.2 (0-4) % Baso % (Auto) 0.2 (0-2) % Lymph # (Auto) 1.6 (1.2-4.9) X10*3/uL Angelina # (Auto) 0.6 (0.1-1.2) X10*3/uL Eos # (Auto) 0.0 (0.0-0.4) X10*3/uL Baso # (Auto) 0.0 (0.0-0.2) X10*3/uL Abs Immat Gran (auto) 0.03 (0.00-0.03) X10*3/uL Absolute Neuts (auto) 4.2 (2.0-8.3) x10*3/uL Absolute Nucleated RBC 0.000 (0.0-0.012) X10*3/uL Nucleated RBC % (auto) 0.0 (0.0-0.2) /100WBC Sodium 143 (135-145) mmol/L Potassium 4.6 (3.3-5.1) mmol/L Chloride 107 (96-108) mmol/L Carbon Dioxide 24 (22-29) mmol/L Anion Gap 17 (12-20) BUN 18 H (9-16) mg/dL Creatinine 0.97 (0.5-1.4) mg/dL Estim Creat Clear Calc 74.2 Estimated GFR > 60 Random Glucose 186 H (60-115) mg/dL Calcium 9.7 (8.4-10.2) mg/dL Magnesium 1.9 (1.6-2.6) mg/dL Total Bilirubin 0.3 (0.0-1.0) mg/dL Direct Bilirubin 0.2 (0.0-0.5) mg/dL AST 60 H (5-37) U/L ALT 78 H (0-40) U/L Alkaline Phosphatase 109 (39-117) U/L Total Protein 7.3 (6.5-8.0) g/dL Albumin 4.3 (3.5-5.0) g/dL Independent Interpretation I performed an independent interpretation of an: Plain X-Ray Interpretation: xr with femur lesion, no acute fx Radiology Impression Discussion of test interpretation with radiology: I have reviewed the radiologist's reading. Independent Historian Clinical information obtained from an independent historian. History obtained from or confirmed by: EMS External Record Review External record reviewed: Outpatient record, Prior outpatient labs and Prior outpatient radiology Prescription Management I considered prescription management with: Pain Medication Chronic Conditions Patient?s care impacted by: Other (dementia, orthostatic hypotension) Social Determinants Patient?s care significantly limited by Social Determinants of Health including: Other Social Determinant of Health Critical Care Time Critical Care Time Critical Care Time: No Discharge Plan Discharge Clinical Impression: Orthostatic dizziness Contusion of knee, right Qualifiers: Encounter type: initial encounter Qualified Code(s): S80.01XA - Contusion of right knee, initial encounter Patient Disposition: Home, Self-Care Instructions: Knee Pain (ED), Dizziness (ED) Additional Instructions: Your knee x-ray today showed some mild degenerative changes in the right knee, no fractures. There was a lesion in the right femur which is the long thigh bone on the right leg. This needs to be evaluated as an outpatient MRI. You should see your doctor for this. When changing positions, such as going from lying to sitting and sitting to standing, make sure to do so slowly to allow your body to equilibrate and get use to the position changes, prevent dizziness. Make sure staying hydrated drinking plenty of water. If you develop new or worsening symptoms call 911 or come back to the ER for further evaluation. XR/XR knee RT 4V IMPRESSION: 1. No acute fracture or dislocation. 2. Mild degenerative change in the right knee. 3. Sclerotic, lobulated lesion in the distal femur. Differential considerations would include a bone infarct, enchondroma versus other etiologies. Prescriptions: No Action (DME) blood sugar diagnostic Strip See Rx Instructions .Route Qty: 100 3RF Rx Instructions: To test once a day (DME) blood-glucose meter Misc See Rx Instructions .Route Qty: 1 0RF Rx Instructions: To test blood sugar daily aspirin 81 mg tablet,delayed release (DR/EC) 81 mg PO DAILY 90 Days Qty: 90 3RF lisinopril 2.5 mg tablet 2.5 mg PO DAILY Qty: 90 0RF (DME) Prodigy No Coding Strip See Rx Instructions .Route Qty: 50 2RF Rx Instructions: As directed once per day (DME) FreeStyle Lite Strips Strip See Rx Instructions .Route Qty: 100 5RF Rx Instructions: As directed- to test blood sugar once a day (DME) lancets [Prodigy Lancets] 28 gauge misc See Rx Instructions .Route Qty: 100 3RF Rx Instructions: To test once a day memantine 10 mg tablet 10 mg PO BID 90 Days Qty: 180 1RF acetaminophen [Tylenol Extra Strength] 500 mg tablet 500 mg PO TID PRN (Reason: fever or pain) 30 Days Qty: 90 3RF Rx Instructions: Take only as needed for increased pain zinc oxide [Diaper Rash] 40 % ointment 1 appl topical BID-QID PRN (Reason: skin irritation/diaper rash) Qty: 397 3RF simvastatin 40 mg tablet 40 mg PO BEDTIME Qty: 90 0RF Benefiber Clear SF (dextrin) 3 gram/3.5 gram powder in packet 3 g PO BID Qty: 28 12RF Rx Instructions: mix into at least 4 oz water or juice before administering cholecalciferol (vitamin D3) 25 mcg (1,000 unit) tablet 25 mcg PO DAILY Qty: 90 0RF ferrous fumarate 325 mg (106 mg iron) tablet 325 mg PO DAILY Qty: 30 0RF metformin 500 mg tablet 500 mg PO BID Qty: 60 0RF gemfibrozil 600 mg tablet 600 mg PO BID Qty: 60 2RF ketoconazole 2 % shampoo 1 appl topical DAILY donepezil 10 mg tablet 10 mg PO DAILY clozapine 100 mg tablet 300 mg PO BEDTIME clonazepam 0.5 mg tablet 0.5 mg PO DAILY molnupiravir 200 mg capsule 800 mg PO Q12H 5 Days Qty: 40 0RF sucralfate 1 gram tablet 1 g PO TIDAC fluticasone furoate-vilanterol [Breo Ellipta] 200-25 mcg/dose blister with device 1 inh PO DAILY (DME) 4-PRONGED CANE See Rx Instructions .Route .MEDSUPPLY Qty: 1 0RF Rx Instructions: As directed (DME) CHUX sheets See Rx Instructions .Route .MEDSUPPLY Qty: 60 12RF Rx Instructions: As directed Ear Drops (carbamide peroxide) 6.5 % drops 1 drp otic (ears) DAILY (DME) adult pull ups XL See Rx Instructions .Route .MEDSUPPLY Qty: 100 12RF Rx Instructions: As directed (DME) DISPOSABLE GLOVES (large) large See Rx Instructions .Route .MEDSUPPLY Qty: 100 12RF Rx Instructions: Use as directed betamethasone dipropionate 0.05 % ointment topical venlafaxine 150 mg capsule,extended release 24hr 150 mg PO DAILY albuterol sulfate 90 mcg/actuation HFA aerosol inhaler 2 puff inhalation Q4-6H PRN (Reason: shortness of breath or wheezing) 30 Days Qty: 8.5 3RF Xifaxan 550 mg tablet 550 mg PO BID Qty: 60 6RF Referrals: Alex Salazar MD [Primary Care Provider] - Print Language: Upper Sorbian
--- NOTE | 2024-06-17 08:55 | PC.NURSE ---
Pt comes to ED from [facility] [place] s/p fall up the stairs. Pt A&Ox3, VSS, afebrile. Pt c/o R knee pain 04/12. R knee presents with abrasion with dried blood noted. No ecchymosis, no swelling present. No apparent visible deformity. Pt reports he typically uses a cane for ambulation but was not using it at time of fall.
--- NOTE | 2024-06-17 08:59 | ECG_ITS ---
Test Reason : dizziness Blood Pressure : / mmHG Vent. Rate : 078 BPM Atrial Rate : 078 BPM P-R Int : 232 ms QRS Dur : 136 ms QT Int : 420 ms P-R-T Axes : -06 -58 111 degrees QTc Int : 478 ms Sinus rhythm with 1st degree A-V block Left axis deviation Left bundle branch block Abnormal ECG When compared with ECG of 27-JAN-2024 14:42, No significant changes seen Referred By: Di Giron Electronically Signed By:ARCHANA VERDUGO
[2024-06-17 09:28] LABS: MANUAL DIFF FLAG NO
[2024-06-17 09:29] LABS: Basophils Percent Auto 0.2 % (0-2); Eosinophils Percent Auto 0.2 % (0-4); Hematocrit 35.7 % (42.0-52.0); Hemoglobin 11.3 g/dl (14.0-18.0); Imm Gran Abs Auto 0.03 X10*3/uL (0.00-0.03); Imm Gran Pct Auto 0.5 % (0.0-0.4); Lymphocytes Absolute Auto 1.6 X10*3/uL (1.2-4.9); Lymphocytes Percent Auto 24.8 % (20-40); Mean Corpuscular HGB Conc 31.7 g/dl (31.0-36.0); Mean Corpuscular Hemoglobin 28.7 pg (27.0-33.0); Mean Corpuscular Volume 90.6 fL (80.0-98.0); Mean Platelet Volume 11.4 fL (9.4-12.4); Monocytes Absolute Auto 0.6 X10*3/uL (0.1-1.2); Monocytes Percent Auto 9.4 % (2-11); Neutrophils Absolute Auto 4.2 x10*3/uL (2.0-8.3); Neutrophils Percent Auto 64.9 % (45-73); Platelet Count 176 X10*3/uL (160-400); Red Blood Count 3.94 X10*6/uL (4.60-5.80); Red Cell Distribution Width 13.6 % (11.0-16.0); White Blood Count 6.5 X10*3/uL (4.8-10.8)
[2024-06-17 10:04] VITALS: BP 148/76
[2024-06-17] MEDS: lisinopriL 2.5 MG TABLET PO (10:04)
[2024-06-17 10:11] LABS: Alanine Aminotransferase 78 U/L (0-40); Albumin Level 4.3 g/dL (3.5-5.0); Alkaline Phosphatase 109 U/L (39-117); Anion Gap 17 (12-20); Aspartate Amino Transferase 60 U/L (5-37); Bilirubin Direct 0.2 mg/dL (0.0-0.5); Bilirubin Total 0.3 mg/dL (0.0-1.0); Blood Urea Nitrogen 18 mg/dL (9-16); Calcium 9.7 mg/dL (8.4-10.2); Carbon Dioxide 24 mmol/L (22-29); Chloride 107 mmol/L (96-108); Creatinine Clr Calc Pharmacy 74.2; Estimated Glomerular Filt Rate > 60; Glucose Random 186 mg/dL (60-115); Magnesium 1.9 mg/dL (1.6-2.6); Potassium 4.6 mmol/L (3.3-5.1); Sodium 143 mmol/L (135-145); Total Protein 7.3 g/dL (6.5-8.0)
--- NOTE | 2024-06-17 10:40 | PC.NURSE ---
Call received from Pts [employer] customer contact sales associate Fortunato. Fortunato calls to inquire about Pts current status, advised awaiting xray results. Upon d/c, Siddhartha reports we can call [phone], ask for Fortunato or Jacqui to coordinate.
[2024-06-17] MEDS: 0.9 % Sodium Chloride 1,000 ML 999 ML IVCONT (12:37)
--- NOTE | 2024-06-17 14:42 | PHA.MEDREC ---
Pharmacy Consult ? Medication Reconciliation Pharmacy has completed the medication reconciliation. Pt did not know his home meds, utilized med list faxed up from [facility] to verify med list. I left unconfirmed the meds that weren't on the med list as it seems pt is being discharged soon.
[2024-06-17 14:45] VITALS: BP 182/82; PULSE 74; RESP 18; O2SAT 92
[2024-06-17 14:46] VITALS: BP 182/82; PULSE 74; RESP 18; TEMP 36.8; O2SAT 92
== END 2024-06-17 15:19 | disposition home or self-care (01) ==
PROVIDERS: Physician Assistant; Emergency Provider Emergency Medicine Emergency Medical Services; PCP Internal Medicine
DX: S80.01XA Contusion of right knee, initial encounter (principal); R42 Dizziness and giddiness; I95.1 Orthostatic hypotension; M25.561 Pain in right knee; I44.0 Atrioventricular block, first degree; I44.7 Left bundle-branch block, unspecified; R11.2 Nausea with vomiting, unspecified; W10.8XXA Fall (on) (from) other stairs and steps, initial encounter; Y93.89 Activity, other specified; Y92.89 Other specified places as the place of occurrence of the external cause; Y99.8 Other external cause status; Z79.899 Other long term (current) drug therapy
CPT/HCPCS: 36415; 73564; 80048; 80076; 83735; 85025; 93005; 96361; 96374; 96375; 99284; 99285

== ENCOUNTER → 2024-06-17 08:59 | Outpatient (BNV) | payer MEDICARE, MEDICAID, SELFPAY | PROVIDERS: Emergency Provider Emergency Medicine Emergency Medical Services; PCP Internal Medicine; Visit Provider Internal Medicine | DX: R42 Dizziness and giddiness (principal); I44.7 Left bundle-branch block, unspecified; R94.31 Abnormal electrocardiogram [ECG] [EKG] | CPT/HCPCS: 93010 ==

== ENCOUNTER 2024-06-19 12:18 | Outpatient (REF) | payer MEDICARE, MEDICAID, SELFPAY ==
[2024-06-19 16:31] LABS: MANUAL DIFF FLAG NO
[2024-06-19 16:34] LABS: Basophils Percent Auto 0.2 % (0-2); Eosinophils Percent Auto 0.2 % (0-4); Hematocrit 37.1 % (42.0-52.0); Hemoglobin 11.7 g/dl (14.0-18.0); Imm Gran Abs Auto 0.05 X10*3/uL (0.00-0.03); Imm Gran Pct Auto 0.9 % (0.0-0.4); Lymphocytes Absolute Auto 1.7 X10*3/uL (1.2-4.9); Lymphocytes Percent Auto 32.5 % (20-40); Mean Corpuscular HGB Conc 31.5 g/dl (31.0-36.0); Mean Corpuscular Hemoglobin 28.7 pg (27.0-33.0); Mean Corpuscular Volume 91.2 fL (80.0-98.0); Mean Platelet Volume 12.4 fL (9.4-12.4); Monocytes Absolute Auto 0.6 X10*3/uL (0.1-1.2); Monocytes Percent Auto 11.2 % (2-11); Neutrophils Absolute Auto 2.9 x10*3/uL (2.0-8.3); Platelet Count 185 X10*3/uL (160-400); Red Blood Count 4.07 X10*6/uL (4.60-5.80); Red Cell Distribution Width 13.6 % (11.0-16.0); White Blood Count 5.4 X10*3/uL (4.8-10.8)
== END 2024-06-19 12:19 | disposition home or self-care (01) ==
LOC: HO.HMGCLR 12:18
PROVIDERS: PCP Internal Medicine; Visit Provider Psychiatry & Neurology Psychiatry
DX: Z79.899 Other long term (current) drug therapy (principal)
CPT/HCPCS: 36415; 85025

== ENCOUNTER 2024-06-29 10:19 | Emergency (ER) | payer MEDICARE, MEDICAID, SELFPAY ==
--- NOTE | ~2024-06-29 | XR_ITS ---
EXAMINATION: XR CHEST CLINICAL INFORMATION: Cough and fever. COMPARISON: Chest x-ray June 30, 2024 TECHNIQUE: Frontal view of the chest was obtained. 11:17 PM FINDINGS: Lungs are clear. No pulmonary vascular congestion. There is no pleural effusion. The heart size is normal. The cardiac and mediastinal contours are normal. There are calcifications of the thoracic aorta. There are multilevel degenerative changes of dorsal spine. XR/XR chest 1V IMPRESSION: No acute abnormality of chest. Electronically signed by: Obey Rolon MD 07/02/2024 11:52 PM EDT RP
--- NOTE | ~2024-06-29 | CT_ITS ---
EXAMINATION: CT CHEST, ABDOMEN AND PELVIS WITH CONTRAST CLINICAL INFORMATION: Cough, shortness of breath, abdominal pain. Status post fall.. COMPARISON: Chest CT of 02/01/2024 TECHNIQUE: Multidetector volumetric imaging was performed from the thoracic inlet through the pubic symphysis following the administration of: Oral contrast: No Intravenous contrast: 85 mL Omnipaque 350 No contrast reaction reported Sagittal and coronal reformatted images were obtained on the technologist's workstation. This CT examination was performed using dose optimization techniques as appropriate, variously including the following: *Automated exposure control *Adjustment of mA and/or kV according to patient size (this includes techniques or standardized protocols for targeted exams where dose is matched to indication/reason for exam; i.e. extremities or head) *Use of iterative reconstruction technique Total exam dose-length product 1130 mGy-cm. FINDINGS: CHEST: LUNG: Multiple respiratory motion artifacts are present limiting the evaluation for the lung parenchyma. Mild changes of centrilobular emphysema, predominantly in the upper lobes. Streaky subsegmental atelectasis is noted at the lung bases, left greater than right. Within the limits of study no discrete pulmonary nodule is appreciated. PLEURA: No pleural effusion or pneumothorax. MEDIASTINUM: Cardiomegaly. No evidence of pericardial effusion. No evidence of mediastinal hematoma or other fluid collection. No evidence of mediastinal or hilar adenopathy. Trachea and central bronchi are well-aerated. VASCULAR: No thoracic aortic aneurysm or dissection. Calcific atherosclerosis of the aorta. Overall appearance of the aorta is similar to that seen on the previous CT scan of 08/26/2022 with scattered focal areas of soft atherosclerotic plaques. Central pulmonary arteries are normal in caliber. Moderate to extensive coronary calcifications. CHEST WALL/AXILLA: Bilateral small gynecomastia is again noted similar to that seen on the previous CT scan of 08/26/2022. No evidence of axillary adenopathy. There is no evidence of from findings suggestive of significant chest wall soft tissue injury or soft tissue hematoma. ABDOMEN/PELVIS: LIVER, GALLBLADDER, AND BILIARY TREE: There is marked diffuse low-attenuation of the hepatic parenchyma consistent with steatosis. There is probably mild hypertrophy of the left hepatic lobe. No definite liver contour nodularity is seen. No evidence of from focal hepatic lesion, within the limits of noncontrast study. The gallbladder is surgically absent. No evidence of biliary ductal dilatation. No radiopaque filling defect is noted in the common bile duct. PANCREAS: Normal; no mass or surrounding fluid. SPLEEN: Normal size. No focal lesion. ADRENAL GLANDS: Normal; no mass. KIDNEYS AND URETERS: The right kidney is normal in size, shape and attenuation.. There is mild atrophy of the left kidney which is small in size compared to right kidney. Multiple bilateral low-attenuation renal lesions are noted with the largest exophytic lesion from the lower pole of the left kidney measuring 3.3 cm. The lesions greater than 1 cm in size represent cysts by CT Hounsfield units criteria and subcentimeter lesions are too small to characterize accurately however statistically likely represent cysts. No further imaging follow-up of from bilateral renal cysts is warranted. Within the limits of from the contrast enhanced study there is no evidence of radiopaque urinary tract calculi, hydroureteronephrosis or significant perinephric stranding. Mild bilateral perinephric stranding is likely within physiologic limits. Minimal hyperdensities in the bilateral intrarenal collecting systems felt to represent excreted contrast. GASTROINTESTINAL TRACT: The stomach is largely decompressed and therefore not optimally evaluated however no significant gastric abnormality is noted. No evidence of abnormal small bowel dilatation. The rectosigmoid colon is mildly distended with fecal material. No evidence of from thickening of the wall of the rectosigmoid colon or perinephric fibrofatty stranding. Remainder of the colon is some normal in caliber without evidence of colonic wall thickening or pericolonic fat stranding. An appendix is not clearly identified however there are no inflammatory changes in the expected location of the appendix. PERITONEAL CAVITY: No evidence of free intraperitoneal air or fluid. DIAPHRAGMS: No evidence of diaphragmatic rupture. ABDOMINAL WALL: No significant abdominal wall hernia is noted. There is no evidence of findings suggestive of significant soft tissue injury or hematoma in the abdominal and pelvic wall. LYMPHOVASCULAR STRUCTURES: No evidence of pathologically enlarged lymph nodes. Aortoiliac vessels are normal in caliber without evidence of focal aneurysmal dilatation. Moderate to extensive calcific atherosclerosis of the aortoiliac vessels. IVC is intact. No evidence of active contrast extravasation. BLADDER: The bladder is significantly distended, recommend decompression. No bladder wall thickening, obvious soft tissue mass or radiopaque calculi are seen. PELVIC VISCERA: Seminal vesicles are unremarkable. The prostate measures 4.8 cm in transverse dimension. OSSEOUS STRUCTURES: No acute osseous abnormality is noted in the chest, abdomen and pelvis. Vertebral alignment in the thoracal lumbar spine is maintained. No acute compression fracture in the thoracal lumbar spine. Changes of diffuse skeletal hyperostosis in the thoracic spine. The inferior pubic rami are not completely imaged. CT/CT abdomen pelvis w IV con IMPRESSION: 1. No acute traumatic injury in the chest, abdomen and pelvis. 2. Mild changes of centrilobular emphysema. Streaky subsegmental atelectasis at the lung bases, left greater than right. Aeration of the lung parenchyma is limited due to presence of multiple respiratory motion artifacts. 3. Moderate to extensive coronary calcifications. 4. Marked diffuse hepatic steatosis. 5. Significantly distended urinary bladder, recommend decompression. 6. No acute osseous abnormality in the chest, abdomen and pelvis. Note that bilateral inferior pubic rami are not completely imaged. 7. Rectosigmoid colon is mildly distended with fecal bolus. Electronically signed by: Amy Palma MD 06/29/2024 01:46 PM EDT
--- NOTE | ~2024-06-29 | CT_ITS ---
EXAMINATION: CT HEAD WITHOUT CONTRAST CT CERVICAL SPINE WITHOUT CONTRAST CLINICAL INFORMATION: Status post fall. Pain. COMPARISON: CT head and cervical spine of 01/27/2024 TECHNIQUE: Contiguous axial images are obtained from the skull base to the vertex without intravenous contrast administration. Multidetector volumetric CT imaging of the cervical spine is acquired without intravenous contrast administration. Postprocessing is performed at a dedicated workstation. Multiplanar reformatted images are submitted. This CT scan was performed using dose optimization techniques as appropriate to a performed exam including the following: *Automated exposure control *Adjustment of mA and/or kV according to patient size (this includes techniques or standardized protocols for targeted exams were dose is matched to indication/reason for exam; i.e. extremities or head) *Use of iterative reconstruction technique. DLP: 1130 mGy-cm (CT head and CT cervical spine). FINDINGS: CT head: There is no evidence of acute intracranial hemorrhage, midline shift or mass effect. Blair to white matter differentiation is well preserved. No evidence of acute territorial edematous infarction. No abnormal extra-axial fluid collection is noted. Moderate cerebral and mild cerebellar volume loss with proportionate dilatation of the ventricles and cortical sulci. Bilateral periventricular white matter moderate patchy low attenuation changes are noted, likely of chronic microangiopathy. No evidence of acute fracture of the osseous calvarium. No evidence of significant calvarial soft tissue swelling or hematoma. Calcific atherosclerosis of the internal carotid and vertebral arteries. Paranasal sinuses are clear. The mastoid air cells and middle ear cavities are well-aerated. CT cervical spine: There is straightening of the cervical spine which is likely related to muscle spasm or positioning of the patient. The vertebral body heights and alignment are maintained. Atlantoaxial and contact with alignments are maintained. Posterior elements are intact and in normal alignment. Prominent large anterolateral osteophytes are noted at multiple levels. Mild to moderate degree bilateral facet arthropathy is noted at multiple levels. Moderate to severe bilateral neural foraminal stenosis is noted in the mid to lower cervical spine from C4 to T1. Stable mild central canal stenosis is noted without evidence of tight stenosis. No evidence of prevertebral soft tissue swelling. Airway is patent. No suspicious lytic or blastic osseous lesions are seen. CT/CT cervical spine wo IV con IMPRESSION: 1. No evidence of acute intracranial abnormality. Specifically, there is no evidence of acute intracranial hemorrhage or acute fracture of the osseous calvarium. Moderate white matter changes of chronic microangiopathy. 2. No evidence of acute fracture or traumatic subluxation in the cervical spine. Cervical spondylosis. Electronically signed by: Amy Palma MD 06/29/2024 01:15 PM EDT RP
--- NOTE | ~2024-06-29 | XR_ITS ---
EXAMINATION: XR CHEST CLINICAL INFORMATION: Hypoxia. COMPARISON: 07/02/2024, 06/22/2024. CT lung screening 02/01/2024. TECHNIQUE: AP portable view of the chest was obtained. FINDINGS: Patient is mildly left rotated. Stable scarring in the left lower lobe distribution is present. Underlying emphysema suspected. Lungs otherwise clear. No pneumothorax, consolidation, or effusion. The heart is prominent and may be mildly enlarged versus magnification from AP technique. There is extensive calcification and atheromatous change of the aorta. There is normal contour. Mildly prominent vasculature in the hilar regions, may suggest pulmonary venous hypertension. These findings are all unchanged. There are degenerative changes in both shoulder joints and throughout the spine. No discrete soft tissue abnormalities. XR/XR chest 1V IMPRESSION: Stable chronic findings without definite active disease. No change from prior. Electronically signed by: Louis Greenberg MD 07/04/2024 03:16 PM EDT
--- NOTE | ~2024-06-29 | XR_ITS ---
EXAMINATION: XR CHEST CLINICAL INFORMATION: Shortness of breath. Concern for aspiration. COMPARISON: Chest x-ray November 24, 2023 TECHNIQUE: Frontal portable view of the chest was obtained. 7:31 PM FINDINGS: Lungs are clear. No pulmonary vascular congestion. There is no pleural effusion. The heart size is normal. The cardiac and mediastinal contours are normal. There are calcifications of the thoracic aorta. There are multilevel degenerative changes of dorsal spine. XR/XR chest 1V IMPRESSION: No acute abnormality of chest. Electronically signed by: Obey Rolon MD 06/30/2024 08:59 PM EDT
--- NOTE | ~2024-06-29 | CT_ITS ---
EXAMINATION: CT HEAD WITHOUT CONTRAST CT CERVICAL SPINE WITHOUT CONTRAST CLINICAL INFORMATION: Trauma. COMPARISON: Most recent CT head and cervical spine dated 06/29/2024. TECHNIQUE: Contiguous axial imaging was performed from the skull base to vertex without intravenous administration of contrast. Contiguous axial CT images of the cervical spine were obtained without contrast. Sagittal and coronal reformats were provided and reviewed. This CT examination was performed using dose optimization techniques as appropriate, variously including the following: *Automated exposure control. *Adjustment of mA and/or kV according to patient size (this includes techniques or standardized protocols for targeted exams where dose is matched to indication/reason for exam; i.e. extremities or head). *Use of iterative reconstruction technique. DLP: 1287 mGy-cm FINDINGS: HEAD: There is no evidence of acute intracranial hemorrhage or territorial infarction. No abnormal mass effect or midline shift is seen. Hhrx-fk-domgd matter differentiation is well preserved. No extra-axial fluid collections are identified. Mild prominence of the ventricles and sulci, consistent with diffuse atrophy. Hypoattenuation of the periventricular white matter, consistent with chronic microvascular ischemic disease. The osseous structures and soft tissues are normal. The mastoid air cells and visualized portions of the paranasal sinuses are well aerated. CERVICAL SPINE: Straightening of the normal cervical lordosis which may be positional or related to muscular spasm. No acute fracture or subluxation. No loss of vertebral body height. Multilevel loss of intervertebral disc height with endplate osteophytes, unchanged. Multilevel bilateral facet arthropathy, most severe at the right C2-C3 facet, unchanged. No lytic or blastic osseous lesion. Unremarkable prevertebral soft tissues. No abnormal soft tissue mass or fluid collection. Thyroid within normal limits. Visualized lung apices are clear. Multilevel bilateral neural foraminal stenosis, unchanged. CT/CT cervical spine wo IV con IMPRESSION: HEAD: No acute intracranial hemorrhage or mass effect. Mild diffuse atrophy and chronic microvascular ischemic disease, unchanged. CERVICAL SPINE: No acute fracture or subluxation. Straightening of the normal cervical lordosis which may be positional or related to muscular spasm. Multilevel degenerative disc disease and bilateral facet arthropathy with multilevel bilateral neural foraminal stenosis, unchanged. Electronically signed by: Gabriel Edwards MD 06/30/2024 09:47 PM EDT
--- NOTE | 2024-06-29 10:24 | ED_ITS ---
HPI - General Adult General Chief complaint: Fall Stated complaint: R HIP PAIN FALL FROM TOILET Time Seen by Provider: 06/29/24 10:24 Source: patient and EMS Mode of arrival: EMS Limitations: no limitations History of Present Illness ED Provider: Nica Kearney PA-C HPI narrative: 74-year-old male with a PMH of HTN, TIIDM, orthostatic hypotension, COPD on 2L O2 via NC at home, and hyperlipidemia presented to the ED with R hip pain after falling off of the toilet this morning after attempting to get up. He stated that he passed a bowel movement and when he went to get up, became dizzy and fell. He was found down by his nursing staff who called EMS. + head strike, no LOC. He has not attempted to bare weight since the fall. Patient ambulates with a cane at baseline. He states that his last fall was 3 months ago. Denies ALMENDAREZ, vision changes, N/V, SOB or chest pain. Relieving factors: none Exacerbating factors: none Associated symptoms: denies other symptoms Treatments prior to arrival: none Related Data Home Medications ?Medication ?Instructions ?Recorded ?Confirmed betamethasone dipropionate 0.05 % topical 01/10/21 04/15/24 topical ointment ketoconazole 2 % shampoo 1 appl topical DAILY 08/26/22 06/17/24 donepezil 10 mg tablet 10 mg PO DAILY 11/29/22 06/17/24 clozapine 100 mg tablet 300 mg PO BEDTIME 12/27/22 06/17/24 clonazepam 0.5 mg tablet 0.5 mg PO DAILY Anxiety 02/28/23 06/17/24 venlafaxine 150 mg 150 mg PO DAILY 02/28/23 06/17/24 capsule,extended release 24 hr carbamide peroxide 6.5 % ear drops 1 drp otic (ears) DAILY 03/18/24 06/17/24 (Ear Drops (carbamide peroxide)) fluticasone furoate 200 1 inh PO DAILY 06/17/24 06/17/24 mcg-vilanterol 25 mcg/dose inhalation powder (Breo Ellipta) sucralfate 1 gram tablet 1 g PO TIDAC 06/17/24 06/17/24 Previous Rx's ?Medication ?Instructions ?Recorded 4-PRONGED CANE #1 ea 04/08/21 blood sugar diagnostic #100 ea 12/29/21 blood-glucose meter #1 ea 12/29/21 adult pull ups #100 ea 12/04/22 CHUX sheets #60 ea 03/07/23 molnupiravir 200 mg capsule (EUA) 800 mg (4 x 200 mg) PO Q12H 5 days 07/31/23 #40 caps DISPOSABLE GLOVES (large) #100 ea 09/24/23 aspirin 81 mg tablet,delayed 81 mg PO DAILY 90 days #90 tabs 10/16/23 release albuterol sulfate 90 mcg/actuation 2 puff inhalation Q4-6H PRN 12/13/23 aerosol inhaler shortness of breath or wheezing 30 days #8.5 grams lisinopril 2.5 mg tablet 2.5 mg PO DAILY #90 tabs 12/18/23 rifaximin 550 mg tablet (Xifaxan) 550 mg PO BID #60 tabs 03/05/24 FreeStyle Lite Strips (blood sugar #100 ea 03/13/24 diagnostic) blood sugar diagnostic (Prodigy No #50 ea 03/13/24 Coding strips) lancets 28 gauge (Prodigy Lancets) #100 ea 03/13/24 memantine 10 mg tablet 10 mg PO BID 90 days #180 tabs 03/20/24 acetaminophen 500 mg tablet 500 mg PO TID PRN fever or pain 30 03/31/24 (Tylenol Extra Strength) days #90 tabs zinc oxide 40 % topical ointment 1 appl topical BID-QID PRN skin 03/31/24 (Diaper Rash) irritation/diaper rash #397 grams simvastatin 40 mg tablet 40 mg PO BEDTIME #90 tabs 04/28/24 wheat dextrin 3 gram/3.5 gram oral 3 g PO BID #28 ea 05/02/24 powder packet (Benefiber Clear Sugar Free(dextrin)) cholecalciferol (vitamin D3) 25 25 mcg PO DAILY #90 tabs 05/08/24 mcg (1,000 unit) tablet gemfibrozil 600 mg tablet 600 mg PO BID #60 tabs 06/09/24 metformin 500 mg tablet 500 mg PO BID #60 tabs 06/21/24 ferrous fumarate 325 mg (106 mg 325 mg PO DAILY #30 tabs 06/24/24 iron) tablet Allergies Allergy/AdvReac Type Severity Reaction Status Date / Time No Known Allergies Allergy Verified 06/29/24 10:31 [No Known Allergies*] Review of Systems 2 Constitutional: Constitutional: Reports no additional constitutional complaints, Denies chills, Denies fever(s) and Denies night sweats Eyes: Eyes: Reports no additional eye complaints, Denies blurry vision, Denies change in vision, Denies diplopia, Denies eye discharge, Denies loss of vision and Denies eye pain ENT: Denies dizziness Cardiovascular: Cardiovascular: Reports no additional cardiovascular complaints, Denies chest pain, Denies lightheadedness, Denies Loss of Consciousness and Denies dyspnea Respiratory: Respiratory: Reports no additional respiratory complaints and Denies dyspnea Gastrointestinal: Gastrointestinal: Reports no additional gastrointestinal complaints, Reports abdominal pain, Denies melena, Denies hematochezia, Denies change in bowel habits and Denies change in stool character Genitourinary: Genitourinary: Reports no additional male genitourinary complaints, Denies hematuria, Denies oliguria, Denies difficulty urinating, Denies dysuria, Denies urinary frequency, Denies urinary hesitancy, Denies urinary incontinence and Denies urinary urgency Musculoskeletal: Musculoskeletal: Reports no additional musculoskeletal complaints, Reports arthralgias (R hip pain ), Denies numbness and Denies tingling Neurologic: Denies dizziness, Denies loss of vision, Denies numbness and Denies tingling Psychiatric: Psychiatric: Reports no additional psychiatric complaints Endocrine: Endocrine: Reports no additional endocrine complaints Hematologic/Lymphatic: Hematologic/Lymphatic: Reports no additional hematologic/lymphatic complaints Allergic/Immunologic: Allergic/Immunologic: Reports no additional allergic/immunologic complaints [facility] Past Medical History Attestation statement: The following information was validated with the patient. Source: old records reviewed and nursing notes reviewed Medical History Essential hypertension Alzheimer's dementia without behavioral disturbance Schizophrenia Hypertension Hyperlipidemia Type 2 diabetes mellitus without complication Dysphagia COPD (chronic obstructive pulmonary disease) Hypoxia Nicotine dependence, cigarettes, uncomplicated Hearing impairment Gait instability Weakness Overweight (BMI 25.0-29.9) Depression Anxiety Vitamin D deficiency Seborrheic dermatitis of scalp Surgical History History of colonoscopy History of appendectomy Family History Family History Father Cancer Mother No problems noted. Brother Substance abuse Other Alcohol abuse Social History Social History Household Members: None Housing: Assisted Living Facility Housing Other:: Prison Do you presently have visiting nurse or other home services: No Alcohol intake: never Patient Tobacco Use Status: Former Tobacco user Tobacco use type: Cigarette Years Smoked: (onset 14yo, 1-2ppd x 59yrs, 50pyh - quit 11/2023) Smoked in Last 30 Days: No e-Cigarette/Vaping Use: Never Used Second Hand Smoke Exposure: Yes Use of substances other than those prescribed or required for medical reasons: No Advance Directives: Yes Advance Directives Information Provided: Yes Advance Directives on File: No Do you have a plan to hurt others: No Plan service: No Current occupational status: disabled and other Cognitive needs: Yes (walker) Hearing needs: Yes Vision needs: Yes Physical Exam ED Vital Signs: Vital Signs - 24 hr 06/29/24 10:26 06/29/24 14:34 Temperature 97.9 F 98.1 F Pulse Rate 96 81 Respiratory Rate 20 18 Blood Pressure 156/77 H 177/84 H Pulse Oximetry 93 93 Oxygen Delivery Method Room Air Room Air BMI result Body Mass Index 31.2 Const General: cooperative, no acute distress, alert and awake Nutritional Appearance: well nourished Orientation/consciousness: patient oriented x3 Limitations: no limitations HENMT Head: Yes normal to inspection and Yes atraumatic Ears: hearing grossly normal bilaterally and external ears normal General nose exam: Normal external nose present, no nasal discharge noted and no epistaxis Face and sinus: Yes normal facial exam, No abrasion and No laceration Mouth: Normal oral and palatal mucosa present, no drooling and no muffled voice Eyes General: appearance normal, both eyes and all related structures Periorbital: periorbital findings normal Eyelids: Yes eyelids normal Conjunctivae: conjunctivae normal Pupils: Equal, round and reactive pupils present EOM: EOMs intact bilaterally Neck Neck: Yes normal visual inspection, Yes full ROM and Yes no lymphadenopathy Chest Chest palpation & inspection: normal inspection of the chest Resp Effort & Inspection: normal respiratory effort and able to speak in complete sentences Cardio Rate: regular rate Rhythm: regular rhythm Heart sounds: no gallops, no murmurs and no rubs GI Inspection: Yes normal to inspection Palpation (GI): Soft to palpation, not firm, nontender, no guarding and not rigid Neuro General: patient oriented x3 and moves all extremities Cranial nerves: Yes Equal, round and reactive pupils present Cognition (Neuro): normal cognition Extrem General: Yes normal to inspection, Yes full ROM and Yes capillary refill normal Right lower extremity: hip/thigh Details: normal ROM (Pain with passive and active ROM); no tenderness and no swelling; no edema Psych Appearance: grossly normal Mental Status: mental status grossly normal Affect: normal affect Attitude: cooperative Thought process: Normal thought process present Thought content: Normal thought content present Insight: Good insight present (Psych) Medications Administered Discontinued Medications Generic Name Dose Route Start Last Admin Trade Name Matilde PRN Reason Stop Dose Admin Iohexol 85 ml 06/29/24 11:57 06/29/24 11:58 Iohexol 350 Mg/Ml 100 Ml Infus..Btl IV 06/29/24 11:58 85 ml ONCE ONE Administration Lidocaine HCl 10 ml 06/29/24 13:53 06/29/24 14:11 Lidocaine Hcl 2 % Urojet 10 Ml Jel.Pf.Valentín TOPICAL 06/29/24 13:54 Not Given ONCE ONE Medical Decision Making Medical Decision Making [facility] Narrative: Patient is a 74 year old assigned male at with a history of depression, anxiety, COPD, DM, HTN, HLD, schizophrenia, and alzheimer's presenting to the emergency department today with abdominal pain and right hip pain after a fall. Patient's physical exam was unremarkable. Patient's blood work was unremarkable. Patient's urine showed no acute process. Patient's EKG was unremarkable. Patient's chest, head and c-spine CTs showed no acute process. Patient's abdomen / pelvis CT showed evidence of large stool burden and significantly distended urinary bladder. Patient was given a urinal and stated he could not urinate after multiple attempts. Patient had a hammond catheter placed which got 2 liters of urine out. I suspect the patient's urinary retention is secondary to a large stool burden in his colon / constipation. I explained my physical exam findings as well as all test results to the patient. I answered all questions asked by the patient. Patient was given an enema as well to assist with his constipation. Patient's hammond catheter will remain and he will follow up with a urologist. I stressed the importance of the patient taking his medication as directed (either prescribed or as the over the counter packaging recommends). I stressed the importance of the patient following up with his primary care provider and a urologist. I stressed the importance of the patient returning to the emergency department immediately if his symptoms were to worsen or if he were to develop any dizziness, shortness of breath, difficulty breathing, chest pain, blurry vision, loss of vision, nausea, vomiting, abdominal pain, fever, chills, back pain, or any other complaints. Patient verbalized agreement and understanding with this treatment plan and discharge. Differential Diagnosis Differential Diagnoses: The differential diagnosis associated with the presentation includes Constipation Abdominal pain Fall Urinary retention UTI Admission/Observation Consideration of admission/observation: Escalation of care including admission/observation considered Patient would have been admitted to the hospital had his work up had any findings where hospital admission was appropriate and his clinical presentation warranted hospital admission. Lab Data [facility] Lab Attestation statement: I reviewed the patient's lab results. My interpretation of these results are in the [facility] Rationale portion of this note. 06/29/24 10:54 06/29/24 10:54 Labs: Lab Results 06/29/24 06/29/24 06/29/24 Range/Units 10:44 10:54 14:05 WBC 5.9 (4.8-10.8) X10*3/uL RBC 4.13 L (4.60-5.80) X10*6/uL Hgb 11.9 L (14.0-18.0) g/dl Hct 37.5 L (42.0-52.0) % MCV 90.8 (80.0-98.0) fL MCH 28.8 (27.0-33.0) pg MCHC 31.7 (31.0-36.0) g/dl RDW 14.2 (11.0-16.0) % Plt Count 184 (160-400) X10*3/uL MPV 11.8 (9.4-12.4) fL Immature Gran % (Auto) 1.0 H (0.0-0.4) % Neut % (Auto) 74.0 H (45-73) % Lymph % (Auto) 17.4 L (20-40) % [place] % (Auto) 7.4 (2-11) % Eos % (Auto) 0.0 (0-4) % Baso % (Auto) 0.2 (0-2) % Lymph # (Auto) 1.0 L (1.2-4.9) X10*3/uL [place] # (Auto) 0.4 (0.1-1.2) X10*3/uL Eos # (Auto) 0.0 (0.0-0.4) X10*3/uL Baso # (Auto) 0.0 (0.0-0.2) X10*3/uL Abs Immat Gran (auto) 0.06 H (0.00-0.03) X10*3/uL Absolute Neuts (auto) 4.4 (2.0-8.3) x10*3/uL Absolute Nucleated RBC 0.000 (0.0-0.012) X10*3/uL Nucleated RBC % (auto) 0.0 (0.0-0.2) /100WBC PT 12.5 H (10.9-12.4) SEC INR 1.1 (0.9-1.1) APTT 43.7 H (26.0-36.8) SEC Sodium 140 (135-145) mmol/L Potassium 4.7 (3.3-5.1) mmol/L Chloride 106 (96-108) mmol/L Carbon Dioxide 23 (22-29) mmol/L Anion Gap 16 (12-20) BUN 15 (9-16) mg/dL Creatinine 0.93 (0.5-1.4) mg/dL Estim Creat Clear Calc 78.3 Estimated GFR > 60 Random Glucose 204 H (60-115) mg/dL Calcium 10.0 (8.4-10.2) mg/dL Magnesium 1.8 (1.6-2.6) mg/dL Total Bilirubin 0.4 (0.0-1.0) mg/dL AST 159 H (5-37) U/L ALT 126 H (0-40) U/L Alkaline Phosphatase 126 H (39-117) U/L Troponin I High Sens 6.7 (<3.5-35.0) ng/L Total Protein 7.6 (6.5-8.0) g/dL Albumin 4.4 (3.5-5.0) g/dL Urine Color Yellow Urine Appearance Clear Urine pH 6.0 (5.0-9.0) Ur Specific [place] 1.015 (1.005-1.025) Urine Protein 30 (1+) H (Neg-Trace) mg/dL Urine Glucose (UA) Negative (Negative) mg/dL Urine Ketones Negative (Negative) mg/dL Urine Blood Negative (Negative) Urine Nitrite Negative (Negative) Ur Leukocyte Esterase Negative (Negative) Urine RBC 0-2 (0-2) /HPF Urine WBC 0-5 (0-5) /HPF Ur Squamous Epith Cells 0-2 (0-2) /HPF Urine Bacteria None Seen (None Seen) Hyaline Casts 0-2 (0-2) /LPF Influenza Type A (PCR) NEGATIVE (Negative) Influenza Type B (PCR) NEGATIVE (Negative) RSV RNA Qual (PCR) NEGATIVE (Negative) SARS-CoV-2 RNA (RT-PCR) NEGATIVE (Negative) Independent Interpretation I performed an independent interpretation of an: EKG and CT Scan Interpretation: My interpretation is in agreement with the radiologist's impression of these imaging studies. L EXAMINATION: CT HEAD WITHOUT CONTRAST CT CERVICAL SPINE WITHOUT CONTRAST CLINICAL INFORMATION: Status post fall. Pain. COMPARISON: CT head and cervical spine of 01/27/2024 TECHNIQUE: Contiguous axial images are obtained from the skull base to the vertex without intravenous contrast administration. Multidetector volumetric CT imaging of the cervical spine is acquired without intravenous contrast administration. Postprocessing is performed at a dedicated workstation. Multiplanar reformatted images are submitted. This CT scan was performed using dose optimization techniques as appropriate to a performed exam including the following: *Automated exposure control *Adjustment of mA and/or kV according to patient size (this includes techniques or standardized protocols for targeted exams were dose is matched to indication/reason for exam; i.e. extremities or head) *Use of iterative reconstruction technique. DLP: 1130 mGy-cm (CT head and CT cervical spine). FINDINGS: CT head: There is no evidence of acute intracranial hemorrhage, midline shift or mass effect. [place] to white matter differentiation is well preserved. No evidence of acute territorial edematous infarction. No abnormal extra-axial fluid collection is noted. Moderate cerebral and mild cerebellar volume loss with proportionate dilatation of the ventricles and cortical sulci. Bilateral periventricular white matter moderate patchy low attenuation changes are noted, likely of chronic microangiopathy. No evidence of acute fracture of the osseous calvarium. No evidence of significant calvarial soft tissue swelling or hematoma. Calcific atherosclerosis of the internal carotid and vertebral arteries. Paranasal sinuses are clear. The mastoid air cells and middle ear cavities are well-aerated. CT cervical spine: There is straightening of the cervical spine which is likely related to muscle spasm or positioning of the patient. The vertebral body heights and alignment are maintained. Atlantoaxial and contact with alignments are maintained. Posterior elements are intact and in normal alignment. Prominent large anterolateral osteophytes are noted at multiple levels. Mild to moderate degree bilateral facet arthropathy is noted at multiple levels. Moderate to severe bilateral neural foraminal stenosis is noted in the mid to lower cervical spine from C4 to T1. Stable mild central canal stenosis is noted without evidence of tight stenosis. No evidence of prevertebral soft tissue swelling. Airway is patent. No suspicious lytic or blastic osseous lesions are seen. CT/CT cervical spine wo IV con IMPRESSION: 1. No evidence of acute intracranial abnormality. Specifically, there is no evidence of acute intracranial hemorrhage or acute fracture of the osseous calvarium. Moderate white matter changes of chronic microangiopathy. 2. No evidence of acute fracture or traumatic subluxation in the cervical spine. Cervical spondylosis. Electronically signed by: Amy Palma MD 06/29/2024 01:15 PM EDT Dictated By: Amy Palma MD Signed By: Electronically signed by Amy Palma MD 06/29/24 1315 EXAMINATION: CT CHEST, ABDOMEN AND PELVIS WITH CONTRAST CLINICAL INFORMATION: Cough, shortness of breath, abdominal pain. Status post fall.. COMPARISON: Chest CT of 02/01/2024 TECHNIQUE: Multidetector volumetric imaging was performed from the thoracic inlet through the pubic symphysis following the administration of: Oral contrast: No Intravenous contrast: 85 mL Omnipaque 350. No contrast reaction reported. Sagittal and coronal reformatted images were obtained on the technologist's workstation. This CT examination was performed using dose optimization techniques as appropriate, variously including the following: *Automated exposure control *Adjustment of mA and/or kV according to patient size (this includes techniques or standardized protocols for targeted exams where dose is matched to indication/reason for exam; i.e. extremities or head) *Use of iterative reconstruction technique Total exam dose-length product 1130 mGy-cm. FINDINGS: CHEST: LUNG: Multiple respiratory motion artifacts are present limiting the evaluation for the lung parenchyma. Mild changes of centrilobular emphysema, predominantly in the upper lobes. Streaky subsegmental atelectasis is noted at the lung bases, left greater than right. Within the limits of study no discrete pulmonary nodule is appreciated. PLEURA: No pleural effusion or pneumothorax. MEDIASTINUM: Cardiomegaly. No evidence of pericardial effusion. No evidence of mediastinal hematoma or other fluid collection. No evidence of mediastinal or hilar adenopathy. Trachea and central bronchi are well-aerated. VASCULAR: No thoracic aortic aneurysm or dissection. Calcific atherosclerosis of the aorta. Overall appearance of the aorta is similar to that seen on the previous CT scan of 08/26/2022 with scattered focal areas of soft atherosclerotic plaques. Central pulmonary arteries are normal in caliber. Moderate to extensive coronary calcifications. CHEST WALL/AXILLA: Bilateral small gynecomastia is again noted similar to that seen on the previous CT scan of 08/26/2022. No evidence of axillary adenopathy. There is no evidence of from findings suggestive of significant chest wall soft tissue injury or soft tissue hematoma. ABDOMEN/PELVIS: LIVER, GALLBLADDER, AND BILIARY TREE: There is marked diffuse low-attenuation of the hepatic parenchyma consistent with steatosis. There is probably mild hypertrophy of the left hepatic lobe. No definite liver contour nodularity is seen. No evidence of from focal hepatic lesion, within the limits of noncontrast study. The gallbladder is surgically absent. No evidence of biliary ductal dilatation. No radiopaque filling defect is noted in the common bile duct. PANCREAS: Normal; no mass or surrounding fluid. SPLEEN: Normal size. No focal lesion. ADRENAL GLANDS: Normal; no mass. KIDNEYS AND URETERS: The right kidney is normal in size, shape and attenuation. There is mild atrophy of the left kidney which is small in size compared to right kidney. Multiple bilateral low-attenuation renal lesions are noted with the largest exophytic lesion from the lower pole of the left kidney measuring 3.3 cm. The lesions greater than 1 cm in size represent cysts by CT Hounsfield units criteria and subcentimeter lesions are too small to characterize accurately however statistically likely represent cysts. No further imaging follow-up of from bilateral renal cysts is warranted. Within the limits of from the contrast enhanced study there is no evidence of radiopaque urinary tract calculi, hydroureteronephrosis or significant perinephric stranding. Mild bilateral perinephric stranding is likely within physiologic limits. Minimal hyperdensities in the bilateral intrarenal collecting systems felt to represent excreted contrast. GASTROINTESTINAL TRACT: The stomach is largely decompressed and therefore not optimally evaluated however no significant gastric abnormality is noted. No evidence of abnormal small bowel dilatation. The rectosigmoid colon is mildly distended with fecal material. No evidence of from thickening of the wall of the rectosigmoid colon or perinephric fibrofatty stranding. Remainder of the colon is some normal in caliber without evidence of colonic wall thickening or pericolonic fat stranding. An appendix is not clearly identified however there are no inflammatory changes in the expected location of the appendix. PERITONEAL CAVITY: No evidence of free intraperitoneal air or fluid. DIAPHRAGMS: No evidence of diaphragmatic rupture. ABDOMINAL WALL: No significant abdominal wall hernia is noted. There is no evidence of findings suggestive of significant soft tissue injury or hematoma in the abdominal and pelvic wall. LYMPHOVASCULAR STRUCTURES: No evidence of pathologically enlarged lymph nodes. Aortoiliac vessels are normal in caliber without evidence of focal aneurysmal dilatation. Moderate to extensive calcific atherosclerosis of the aortoiliac vessels. IVC is intact. No evidence of active contrast extravasation. BLADDER: The bladder is significantly distended, recommend decompression. No bladder wall thickening, obvious soft tissue mass or radiopaque calculi are seen. PELVIC VISCERA: Seminal vesicles are unremarkable. The prostate measures 4.8 cm in transverse dimension. OSSEOUS STRUCTURES: No acute osseous abnormality is noted in the chest, abdomen and pelvis. Vertebral alignment in the thoracal lumbar spine is maintained. No acute compression fracture in the thoracal lumbar spine. Changes of diffuse skeletal hyperostosis in the thoracic spine. The inferior pubic rami are not completely imaged. CT/CT abdomen pelvis w IV con IMPRESSION: 1. No acute traumatic injury in the chest, abdomen and pelvis. 2. Mild changes of centrilobular emphysema. Streaky subsegmental atelectasis at the lung bases, left greater than right. Aeration of the lung parenchyma is limited due to presence of multiple respiratory motion artifacts. 3. Moderate to extensive coronary calcifications. 4. Marked diffuse hepatic steatosis. 5. Significantly distended urinary bladder, recommend decompression. 6. No acute osseous abnormality in the chest, abdomen and pelvis. Note that bilateral inferior pubic rami are not completely imaged. 7. Rectosigmoid colon is mildly distended with fecal bolus. Electronically signed by: Amy Palma MD 06/29/2024 01:46 PM EDT RP Dictated By: Amy Palma MD Signed By: Electronically signed by Amy Palma MD 06/29/24 1346 Vent. Rate: 094 BPM Atrial Rate: 094 BPM P-R Int: 224 ms QRS Dur: 144 ms QT Int: 408 ms P-R-T Axes: 000 -60 102 degrees QTc Int: 510 ms Sinus rhythm with 1st degree A-V block Left axis deviation Left bundle branch block Abnormal ECG When compared with ECG of 17-JUN-2024 09:22, No significant change was found DD/ 1032 Radiology Impression Discussion of test interpretation with radiology: I have reviewed the radiologist's reading. Independent Historian Clinical information obtained from an independent historian. History obtained from or confirmed by: EMS (EMS provided additional history and confirmed the history provided by the patient and SNF staff.) Critical Care Time Critical Care Time Critical Care Time: Yes Total Critical Care Time: 57 Attestation: I spent 57 minutes of Critical Care Time with this patient. This does not include time spent on separately reported billable procedures. Discharge Plan Discharge Clinical Impression: Fall, Acute urinary retention, Constipation Patient Disposition: Xfer SNF Instructions: Constipation (DC), Urinary Retention in Men (ED), Hammond Catheter Placement and Care (ED), Fall Prevention for Older Adults (ED) Additional Instructions: Your scans showed a large amount of stool in your rectum as well as a very full bladder. We placed a hammond catheter in you to help drain your bladder. I believe your inability to urinate is secondary to your inability to have a BM. You were given medication to help with this. The hammond catheter should remain until you are evaluated by the urologist team. Follow up with your primary care provider and a urologist. Return to the emergency department immediately if your symptoms worsen or if you develop any dizziness, shortness of breath, difficulty breathing, chest pain, blurry vision, loss of vision, nausea, vomiting, abdominal pain, fever, chills, back pain, or any other complaints. Prescriptions: No Action (DME) blood sugar diagnostic Strip See Rx Instructions .Route Qty: 100 3RF Rx Instructions: To test once a day (DME) blood-glucose meter Misc See Rx Instructions .Route Qty: 1 0RF Rx Instructions: To test blood sugar daily aspirin 81 mg tablet,delayed release (DR/EC) 81 mg PO DAILY 90 Days Qty: 90 3RF lisinopril 2.5 mg tablet 2.5 mg PO DAILY Qty: 90 0RF (DME) Prodigy No Coding Strip See Rx Instructions .Route Qty: 50 2RF Rx Instructions: As directed once per day (DME) FreeStyle Lite Strips Strip See Rx Instructions .Route Qty: 100 5RF Rx Instructions: As directed- to test blood sugar once a day (DME) lancets [Prodigy Lancets] 28 gauge misc See Rx Instructions .Route Qty: 100 3RF Rx Instructions: To test once a day memantine 10 mg tablet 10 mg PO BID 90 Days Qty: 180 1RF acetaminophen [Tylenol Extra Strength] 500 mg tablet 500 mg PO TID PRN (Reason: fever or pain) 30 Days Qty: 90 3RF Rx Instructions: Take only as needed for increased pain zinc oxide [Diaper Rash] 40 % ointment 1 appl topical BID-QID PRN (Reason: skin irritation/diaper rash) Qty: 397 3RF simvastatin 40 mg tablet 40 mg PO BEDTIME Qty: 90 0RF Benefiber Clear SF (dextrin) 3 gram/3.5 gram powder in packet 3 g PO BID Qty: 28 12RF Rx Instructions: mix into at least 4 oz water or juice before administering cholecalciferol (vitamin D3) 25 mcg (1,000 unit) tablet 25 mcg PO DAILY Qty: 90 0RF gemfibrozil 600 mg tablet 600 mg PO BID Qty: 60 2RF metformin 500 mg tablet 500 mg PO BID Qty: 60 0RF ferrous fumarate 325 mg (106 mg iron) tablet 325 mg PO DAILY Qty: 30 0RF ketoconazole 2 % shampoo 1 appl topical DAILY donepezil 10 mg tablet 10 mg PO DAILY clozapine 100 mg tablet 300 mg PO BEDTIME clonazepam 0.5 mg tablet 0.5 mg PO DAILY molnupiravir 200 mg capsule 800 mg PO Q12H 5 Days Qty: 40 0RF sucralfate 1 gram tablet 1 g PO TIDAC fluticasone furoate-vilanterol [Breo Ellipta] 200-25 mcg/dose blister with device 1 inh PO DAILY (DME) 4-PRONGED CANE See Rx Instructions .Route .MEDSUPPLY Qty: 1 0RF Rx Instructions: As directed (DME) CHUX sheets See Rx Instructions .Route .MEDSUPPLY Qty: 60 12RF Rx Instructions: As directed Ear Drops (carbamide peroxide) 6.5 % drops 1 drp otic (ears) DAILY (DME) adult pull ups XL See Rx Instructions .Route .MEDSUPPLY Qty: 100 12RF Rx Instructions: As directed (DME) DISPOSABLE GLOVES (large) large See Rx Instructions .Route .MEDSUPPLY Qty: 100 12RF Rx Instructions: Use as directed betamethasone dipropionate 0.05 % ointment topical venlafaxine 150 mg capsule,extended release 24hr 150 mg PO DAILY albuterol sulfate 90 mcg/actuation HFA aerosol inhaler 2 puff inhalation Q4-6H PRN (Reason: shortness of breath or wheezing) 30 Days Qty: 8.5 3RF Xifaxan 550 mg tablet 550 mg PO BID Qty: 60 6RF Referrals: [facility] [Provider Group] (Call to establish and follow up with a urologist.) Alex Salazar MD [Primary Care Provider] - Print Language: Slovenian
[2024-06-29 10:26] VITALS: BP 156/77; BP 160/60; PULSE 102; PULSE 96; RESP 20; TEMP 36.6; O2SAT 93; O2SAT 95; BMI 31.2
--- NOTE | 2024-06-29 10:34 | ECG_ITS ---
Test Reason : DIZZINESS Blood Pressure : / mmHG Vent. Rate : 094 BPM Atrial Rate : 094 BPM P-R Int : 224 ms QRS Dur : 144 ms QT Int : 408 ms P-R-T Axes : 000 -60 102 degrees QTc Int : 510 ms Sinus rhythm with 1st degree A-V block Left axis deviation Left bundle branch block Abnormal ECG When compared with ECG of 17-JUN-2024 09:22, No significant change was found Referred By: Nica Kearney Electronically Signed By:ARCHANA VERDUGO
[2024-06-29 10:59] LABS: MANUAL DIFF FLAG NO
[2024-06-29 11:01] LABS: Basophils Percent Auto 0.2 % (0-2); Hematocrit 37.5 % (42.0-52.0); Hemoglobin 11.9 g/dl (14.0-18.0); Imm Gran Abs Auto 0.06 X10*3/uL (0.00-0.03); Lymphocytes Percent Auto 17.4 % (20-40); Mean Corpuscular HGB Conc 31.7 g/dl (31.0-36.0); Mean Corpuscular Hemoglobin 28.8 pg (27.0-33.0); Mean Corpuscular Volume 90.8 fL (80.0-98.0); Mean Platelet Volume 11.8 fL (9.4-12.4); Monocytes Absolute Auto 0.4 X10*3/uL (0.1-1.2); Monocytes Percent Auto 7.4 % (2-11); Neutrophils Absolute Auto 4.4 x10*3/uL (2.0-8.3); Platelet Count 184 X10*3/uL (160-400); Red Blood Count 4.13 X10*6/uL (4.60-5.80); Red Cell Distribution Width 14.2 % (11.0-16.0); White Blood Count 5.9 X10*3/uL (4.8-10.8)
[2024-06-29 11:07] LABS: INTERNATIONAL NORM RATIO 1.1 (0.9-1.1); Prothrombin Time 12.5 SEC (10.9-12.4)
[2024-06-29 11:10] LABS: Partial Thromboplastin Time 43.7 SEC (26.0-36.8)
[2024-06-29 11:20] LABS: Alanine Aminotransferase 126 U/L (0-40); Albumin Level 4.4 g/dL (3.5-5.0); Alkaline Phosphatase 126 U/L (39-117); Anion Gap 16 (12-20); Aspartate Amino Transferase 159 U/L (5-37); Bilirubin Total 0.4 mg/dL (0.0-1.0); Blood Urea Nitrogen 15 mg/dL (9-16); Carbon Dioxide 23 mmol/L (22-29); Chloride 106 mmol/L (96-108); Creatinine Clr Calc Pharmacy 78.3; Estimated Glomerular Filt Rate > 60; Glucose Random 204 mg/dL (60-115); Magnesium 1.8 mg/dL (1.6-2.6); Potassium 4.7 mmol/L (3.3-5.1); Sodium 140 mmol/L (135-145); Total Protein 7.6 g/dL (6.5-8.0)
[2024-06-29 11:27] LABS: Troponin-I High Sensitivity 6.7 ng/L (<3.5-35.0)
[2024-06-29 11:45] LABS: Influenza A PCR NEGATIVE (Negative); Influenza B PCR NEGATIVE (Negative); Resp Syncy Virus RNA Qual PCR NEGATIVE (Negative); SARS COV2 PCR INHOUSE NEGATIVE (Negative)
[2024-06-29] MEDS: iohexoL 350 MG/ML 100 ML INFUS..BTL 85 ML IV (11:58)
--- NOTE | 2024-06-29 14:11 | PC.NURSE ---
hammond cath inserted per order, patient drained 2000mL from bladder, endorsing some relief from pain, soap suds enema administered, patient placed on bedpan, patient states he is still unable to have a bowel movement, administered Enema again, patinet educated to hold in and attempt to have a bowel movement in a few minutes. placed on bedpan and call verdin within reach
[2024-06-29 14:21] LABS: Appearance Urine Clear; Color Urine Yellow; Glucose Urine UA Negative (Negative); Leukocyte Esterase Urine Negative (Negative); Nitrite Urine Negative (Negative); Specific Gravity - Urine 1.015 (1.005-1.025); UMIC TRIGGER UACC YES; Urine Blood Negative (Negative); Urine Ketones Negative (Negative); Urine Protein 30 (1+) mg/dL (Neg-Trace)
[2024-06-29 14:26] LABS: Bacteria Urine None Seen (None Seen); Hyaline Casts Urine 0-2 /LPF (0-2); RBC Urine 0-2 /HPF (0-2); Squamous Epithelial Cell Urine 0-2 /HPF (0-2); WBC Urine 0-5 /HPF (0-5)
[2024-06-29 14:34] VITALS: BP 177/84; PULSE 81; RESP 18; TEMP 36.7; O2SAT 93
--- NOTE | 2024-06-29 14:55 | MHC.EDTECH ---
pt unable to have a bowel movement, bed callahan was removed from under pt, RN aware
--- NOTE | 2024-06-29 15:42 | PC.NURSE ---
ASSISTED TO COMMODE. WAS VERY CAPABLE WITH ONE ASSIST AND USE OF WALKER.
--- NOTE | 2024-06-29 15:54 | MHC.EDTECH ---
pt produced large bowel movement with use of bedside commode, pt tolerated well, is back in bed awaiting discharge. RN aware
--- NOTE | 2024-06-29 15:55 | PC.NURSE ---
patient with large bowel movement into commode, endorsing relief of abdominal pain, hammond catheter remains in place and draining well
--- NOTE | 2024-06-29 17:20 | PC.NURSE ---
patient facility called for update on patient, facility refusing to take patient back due to hammond catheter placement.. attempted to educate that patient needs hammond catheter due to retaining 2L of urine in his bladder and hammond is to remain in place until followup with urology. facility states that it goes against their policy and it is too complex for them to take back and patient will not be accepted back into his living facility because no one here knows how to empty the hammond, the last time we had a patient with a hammond we gave them an infection, if he has a hammond then he needs to go to a rehab educated that patient does not need rehab placement due to hammond catheter. facility adamantly refusing to take patient back, manager human resources spoke with medical charge entry specialist Darci. ambulance cancelled, patient to become case management
[2024-06-29 18:09] VITALS: BP 154/80; PULSE 81; RESP 18; TEMP 36.6; O2SAT 93
--- NOTE | 2024-06-29 19:19 | PC.NURSE ---
Report from Rosario Metcalf, assume care of pt at this
--- NOTE | 2024-06-29 19:20 | PC.NURSE ---
Report from Rosario Bruce Rn, assume care of pt at this time, pt moved to Overflow 2
--- NOTE | 2024-06-29 19:48 | MHC.EDTECH ---
This tech assumed care of patient at 1900,pt moved from the main ED to overflow,rounded and introduced self to patient,patient placed in hospital bed,repositioned to comfort,call verdin in reach
[2024-06-29 21:21] VITALS: BP 176/89; PULSE 77; RESP 18; TEMP 36.7; O2SAT 94
--- NOTE | 2024-06-29 21:22 | MHC.EDTECH ---
Rounds/vitals completed,BP is elevated RN made aware,patient is resting quietly,call verdin in reach
[2024-06-29] MEDS: cloZAPine 100 MG TABLET 300 MG PO (21:42)
[2024-06-29] MEDS: Memantine HCl 10 MG TABLET PO (21:42)
[2024-06-29] MEDS: gemfibroziL 600 MG TABLET PO (21:42)
[2024-06-29] MEDS: rifAXIMin 550 MG TABLET PO (21:43)
--- NOTE | 2024-06-30 00:02 | PC.NURSE ---
resting quietly, with eyes closed, resp with ease, cont plan of care
--- NOTE | 2024-06-30 03:45 | PC.NURSE ---
resting quietly in bed, with eyes closed, resp with ease, no s/s of acute distress, will cont plan of care
--- NOTE | 2024-06-30 05:28 | PC.NURSE ---
pt pulled IV out, cannula intact, no active bleeding,
[2024-06-30 05:49] VITALS: BP 151/72; PULSE 84; RESP 18; TEMP 37.3; O2SAT 92
[2024-06-30] MEDS: Sucralfate 1 GM TABLET PO ×3 (07:43→16:40)
[2024-06-30] MEDS: metFORMIN HCl 500 MG TABLET PO ×2 (07:43→16:40)
--- NOTE | 2024-06-30 08:16 | PC.NURSE ---
Pt provided breakfast and sat into upright position. Pt denied needing help with eating. During breakfast, pt having episodes of coughing, noted to be eating fast and large pieces. Pt told to slow down and assisted with cutting food. Pt continued to have some coughing episodes, denied any SOB or swallowing issues. Due to concerns with eating, provider alerted that speech eval may be needed. Order placed by provider. Awaiting speech before providing more food and rest of morning meds.
--- NOTE | 2024-06-30 08:23 | MHC.EDTECH ---
Patient got cleaned up exchange architect new amberly and sheet and blanket was given , rest comfortably in the bed with the call verdin within reach
--- NOTE | 2024-06-30 09:20 | PC.NURSE ---
Speech Pathologist at bedside this morning: Recs per [facility] NDD1 with [place] thickened liquids, meds in pur?e, 1:1 supervision, aspiration precautions: upright position, slow pacing, pause if pt coughing. Consider MBSS if status doesn?t improve in a day.
[2024-06-30] MEDS: Memantine HCl 10 MG TABLET PO ×2 (09:29→22:07)
[2024-06-30 09:30] VITALS: BP 146/65; PULSE 97; RESP 20; TEMP 37.1; O2SAT 91
[2024-06-30] MEDS: Aspirin Enteric Coated 81 MG TABLET.DR PO (09:31)
[2024-06-30] MEDS: Venlafaxine HCl ER 150 MG CAP.ER.24H PO (09:31)
[2024-06-30] MEDS: Cholecalciferol (Vitamin D3) 25 MCG TABLET PO (09:31)
[2024-06-30] MEDS: Ferrous Sulfate 324 MG TABLET.DR PO (09:31)
[2024-06-30] MEDS: rifAXIMin 550 MG TABLET PO ×2 (09:32→22:07)
[2024-06-30] MEDS: clonazePAM 0.5 MG TABLET PO (09:32)
[2024-06-30] MEDS: Donepezil HCl 10 MG TABLET PO (09:52)
[2024-06-30 09:55] VITALS: O2SAT 96
--- NOTE | 2024-06-30 10:01 | PC.NURSE ---
Vital sign check noted pt to be 90-92% on RA, pt placed on 2L O2 via NC, no O2 upon my arrival today and no mention of O2 in previous vitals from ER stay. Pt has COPD, per report is supposed to be on 2L at baseline. Pt quickly improved to >94%. Meds given per speech rec, with white, one at a time, I cut and crushed meds as able. Pt did well with meds in applesauce when followed with sip of nectar thick liquid. Only not able to tolerate one pill. Pt remains having intermittent cough, no signs of resp distress. Provider alerted of all of this and does bedside eval. No changes in orders other than to keep pt on O2 2L NC. Speech mentioned during exam, pt had weakness of the tongue to the right side. Upon my assessment, pt neg for unilateral weakness in arms and legs, no arm drift. Pt is noted to have right side lean. Provider again, aware of all of this.
--- NOTE | 2024-06-30 11:22 | PHA.MEDREC ---
Addendum entered by Kerry Christopher [facility] 06/30/24 13:55: reviewed Addendum entered by Jackson Camacho 06/30/24 13:22: Called [facility] in [place] to get last time patient got Clozapine 300mg tab and they state they have no record of him getting that recently with them or that he has set an appointment to see them. Original Note: Pharmacy Consult ? Medication Reconciliation Pharmacy reviewed med rec done by nursing. Went and got the list from patient chart and confirmed list matched medications on list.
--- NOTE | 2024-06-30 11:46 | PC.NURSE ---
Asked for special shampoo from pharmacy this morning, med unavailable at this time
--- NOTE | 2024-06-30 11:57 | PC.NURSE ---
Pt noted to do much better with altered diet during lunch, pt was supervised, reminded to eat slowly. Did not have any episodes of coughing during eating.
--- NOTE | 2024-06-30 12:09 | MHC.SL.SWA ---
Speech Pathologist Impression: Risk of Aspiration Risk of Aspiration Due to: Medically Fragile Dysphasia Diet Status: Patient is a 74 year old male with history of Alzheimer?s dementia, COPD, and schizophrenia, emphysema, CXR nonacute. Pt has hx of dysphagia, last MBSS MIXING PICKER TENDER recc NDD2 with thins, no straws. Pt trialed with thins, nectar thickened liquids (NTL) and purees only d/t missing dentition and weakness of oromotor coordination. Pt presents with moderate dysphagia characterized by poor oromotor control of bolus, delayed transit of material from anterior to posterior tongue positioning, reduced laryngeal elevation upon trigger of pharyngeal swallow and difficulty clearing material from pharynx upon completion of swallow. Pt with +cough s/p sipping thins by cup. Pt tolerated NTL sips and tsps of puree without overt s/s of airway compromise. RN consulted. Pt desats intermittently, considered at elevated risk for aspiration d/t overall weakness and hx of dysphagia. Liquid Consistency and Strategies for Safe Swallow: Liquid Intake Recommendation: Wallis Thick Liquid Intake Strategies: Small Sips No Straws Double Swallow Solid Food Consistency: Dietary Recommendations: Pureed (NDD1) Additional Modifications to Solid Foods: Moisten with sauces and gravies Oral Medication Intake: Whole with Puree Please contact the pharmacy regarding appropriate crushable or liquid drug formulations that are available whenever modified delivery is recommended. Compensatory Strategies and Precautions to be Taken for Safe Swallow: Sitting Upright (90 deg) Double Swallow No Straw Liquids from Cup Small Bites and Sips Alternate Liquids/Solids Rate of Ingestion Change Oral Check Supervision While Eating and Drinking for Safe Swallow: Total Assistance (1:1) Foods to Avoid: Hard, tough to chew solids Swallowing Recommended Treatments: Compens. Strategy Educat. Recommendation for Speech: Further Testing Needed Speech Therapy through [facility] Speech Therapy through Rehab Facility Comment: Recc meds crushed in puree, in puree, or with sips of NTL, depending on pt discretion when he verbalizes PO medication method he prefers. Frequency/Duration: Date Range for Service Req: Timeline to reassess: Director Imaging Clinican/Clinical Fellow: No Supervisory Statement: I have reviewed and agree with the student/clinical fellow's documentation: N/A Speech Language Pathologist: Priscilla Banegas M.S., CCC-MIXING PICKER TENDER
[2024-06-30 14:20] VITALS: BP 139/73; PULSE 93; RESP 16; TEMP 37.3; O2SAT 96
--- NOTE | 2024-06-30 14:38 | MHC.CM.ED ---
Received case management consult overnight. Patient came to the ER after a fall. Work up indicated urinary retention and required hammond. [facility] did not feel he could safely return home due to hammond. Patient resides in a [facility] senior living. Physical therapy eval completed. Short term rehab is recommended. Paperwork from [facility] indicated patient has a guardian. Spoke with Princess CHD RN, via telephone at [phone]. Princess stated senior living was trying to get patient into LTC. [facility] was on-site at their facility last week to assess patient. It was determined that patient never had a guardianship or Tank's order filed and they would not be able to accept patient. Paris De Paz, YOBANI Director made aware and contacted Weather Algorithm Scientist Sikes. Weather Algorithm Scientist Sikes spoke with the truck cleaner for [facility]. Per [facility], there is no guardianship pending for this patient. They also have no intentions of applying for a guardianship because they feel patient is his own person. Will meet with patient to attempt to complete HCP. Continue to monitor for d/c needs.
--- NOTE | 2024-06-30 19:04 | PC.NURSE ---
Pt noted to have increase in cough from earlier, appears sweaty. Temp rechecked and is afebrile, unable to check rectal temp at this time due to pt being on bed callahan at this time trying to have BM. Lung sounds noted to sound rhonci upper bilat. Sats remains >94% on baseline 2L O2 NC. Provider alerted of pts change in condition.
[2024-06-30 19:07] VITALS: TEMP 37.1
[2024-06-30 19:49] VITALS: BP 175/75; PULSE 95; RESP 16; TEMP 36.3; O2SAT 97
--- NOTE | 2024-06-30 19:50 | MHC.EDTECH ---
This pct assumed care of Patient at 1910 ,was told in report that Patient was on the bedpan ,having a bowel movement ,And that Patient will ring call verdin when he was finish ,myself and rn heard a bang ,We went to check on Patient ,And Patient was laying on floor,Bed alarm was not on and curtain was closed ,Vitals taken grab jack man aware and came along with Security ,Patient was assisted up from floor into bed ,Care given ,Patient was moved Closer to nurses station ,Telle sitter camera given and bed alarm on .
[2024-06-30] MEDS: Atorvastatin Calcium 20 MG TABLET PO (22:07)
[2024-06-30] MEDS: cloZAPine 100 MG TABLET 300 MG PO (22:07)
[2024-06-30] MEDS: gemfibroziL 600 MG TABLET PO (22:07)
--- NOTE | 2024-06-30 22:21 | PC.NURSE ---
Assumed care of patient at 1900. Report given and told that patient was on the bed callahan and would ring call verdin as soon as finished, curtain was closed. At approximately 1920 a bang was heard. This RN and PCT went to check on patient , finding pt laying on floor/ unwitnessed fall . Care given, vital signs obtained. Provider , charge nurse, and nursing coal yard supervisor notified. Provider and charge nurse, and security at bedside. Patient denies pain, vss, neuro signs intact. Provider ordered CT Scan stat. Safety measures in place, patient moved to near nursing station now able to be visibly seen at all times. Tele sitter camera in place, bed alarm on , call verdin within reach.
--- NOTE | 2024-07-01 | PC.NURSE ---
This commercial real estate underwriter assumed care of this Pt at 2300. Pt appears to be sleeping, equal, non-labored respirations. F/C in place, draining dark denise color urine. Plan of care on going.
[2024-07-01 06:00] VITALS: BP 187/80; PULSE 92; RESP 18; TEMP 36.3; O2SAT 96
[2024-07-01 07:49] VITALS: PULSE 92; RESP 18; O2SAT 96
[2024-07-01 08:13] VITALS: BP 178/77; PULSE 93; RESP 16; TEMP 37.3; O2SAT 94
[2024-07-01] MEDS: Aspirin Enteric Coated 81 MG TABLET.DR PO (08:17)
[2024-07-01] MEDS: Venlafaxine HCl ER 150 MG CAP.ER.24H PO (08:17)
[2024-07-01] MEDS: Ferrous Sulfate 324 MG TABLET.DR PO (08:18)
[2024-07-01] MEDS: Memantine HCl 10 MG TABLET PO ×2 (08:18→21:11)
[2024-07-01] MEDS: clonazePAM 0.5 MG TABLET PO (08:18)
[2024-07-01] MEDS: Cholecalciferol (Vitamin D3) 25 MCG TABLET PO (08:18)
[2024-07-01] MEDS: metFORMIN HCl 500 MG TABLET PO ×2 (08:18→16:54)
[2024-07-01] MEDS: Sucralfate 1 GM TABLET PO ×3 (08:18→16:54)
--- NOTE | 2024-07-01 08:51 | MHC.CM.ED ---
Patient remains in ER overflow. HCP completed, signed and witnessed. Original given to patient. Copy placed in chart. PT rec STR. Will broadcast referral within 25 miles. Waiting for return telephone call from HCP, Joe. Sánchez, CHD Nurse made aware via telephone at [phone]. Continue to monitor for d/c needs.
--- NOTE | 2024-07-01 10:25 | PC.NURSE ---
assumed care of patient at 0700, patient rests quietly in bed, respirations equal and unlabored, patient is on baseline 2l NC. patient medicated with morning meds with apple sauce, patient needs meds to be crushed, found to be pocketing meds in cheeks due to dysphasia. patient has hammond cath in place, draining dark yellow urine. patient medicated per NOV
[2024-07-01] MEDS: rifAXIMin 550 MG TABLET PO ×2 (10:53→21:11)
[2024-07-01] MEDS: gemfibroziL 600 MG TABLET PO ×2 (10:53→21:11)
[2024-07-01] MEDS: Donepezil HCl 10 MG TABLET PO (11:30)
[2024-07-01 13:40] VITALS: BP 168/77; PULSE 90; RESP 20; TEMP 37.7; O2SAT 96
[2024-07-01 21:04] VITALS: BP 192/86; PULSE 92; RESP 20; TEMP 37.7; O2SAT 96
[2024-07-01] MEDS: cloZAPine 100 MG TABLET 300 MG PO (21:11)
[2024-07-01] MEDS: Atorvastatin Calcium 20 MG TABLET PO (21:11)
[2024-07-02 05:23] VITALS: BP 165/80; PULSE 100; RESP 18; TEMP 36.5; O2SAT 93
[2024-07-02] MEDS: metFORMIN HCl 500 MG TABLET PO ×2 (07:49→17:52)
[2024-07-02] MEDS: Sucralfate 1 GM TABLET PO ×3 (07:49→17:51)
[2024-07-02 08:02] VITALS: PULSE 97; RESP 18; O2SAT 95
[2024-07-02] MEDS: Fluticasone/Vilanterol 200/25 BLST.W.DEV 1 PUFF INHALE (08:02)
--- NOTE | 2024-07-02 09:06 | MHC.CM.ED ---
Patient remains in ER overflow. No behaviors noted overnight. Telesitter is currently in place but will be d/c'd now. Mary KINGSLEY states patient has not been trying to get out of bed. Continue to monitor for d/c needs.
[2024-07-02] MEDS: Venlafaxine HCl ER 150 MG CAP.ER.24H PO (09:19)
[2024-07-02] MEDS: clonazePAM 0.5 MG TABLET PO (09:19)
[2024-07-02] MEDS: Cholecalciferol (Vitamin D3) 25 MCG TABLET PO (09:19)
[2024-07-02] MEDS: Ferrous Sulfate 324 MG TABLET.DR PO (09:19)
[2024-07-02] MEDS: Aspirin Enteric Coated 81 MG TABLET.DR PO (09:19)
[2024-07-02] MEDS: gemfibroziL 600 MG TABLET PO ×2 (09:19→21:10)
[2024-07-02] MEDS: Memantine HCl 10 MG TABLET PO ×2 (09:19→21:11)
[2024-07-02] MEDS: Donepezil HCl 10 MG TABLET PO (09:19)
[2024-07-02] MEDS: rifAXIMin 550 MG TABLET PO ×2 (09:19→21:09)
--- NOTE | 2024-07-02 09:51 | PC.NURSE ---
Pt fed himself all of breakfast. very flat affect. awaiting dispo.
--- NOTE | 2024-07-02 12:53 | MHC.CM.ED ---
Patient remains in ER overflow. Per Leonora at [facility], if patient remains telesitter free overnight, they will be able to accept patient. MDS will be completed, sent to [facility] and [facility]. Will submit for [facility] PASRR Level 2. Continue to monitor for d/c needs.
[2024-07-02 14:07] VITALS: BP 167/74; PULSE 95; RESP 18; TEMP 37.4; O2SAT 95
[2024-07-02] MEDS: Acetaminophen 325 MG TABLET 650 MG PO (21:08)
[2024-07-02] MEDS: cloZAPine 100 MG TABLET 300 MG PO (21:10)
[2024-07-02] MEDS: Atorvastatin Calcium 20 MG TABLET PO (21:10)
[2024-07-02 21:19] VITALS: BP 188/84; PULSE 92; RESP 20; TEMP 37.9; O2SAT 93
--- NOTE | 2024-07-02 21:23 | PC.NURSE ---
MD Tafoya made aware that the patient sounds that he has chest congestion and is coughing frequently. Temp 100.3, tylenol has been given.
--- NOTE | 2024-07-02 23:05 | PC.NURSE ---
Spoke with MD Beyer about pts coughing and fever. agreed to repeat chest x-ray
[2024-07-03] VITALS (8 sets, daily range): BP systolic 113–176; BP diastolic 41–81; PULSE 84–98; RESP 14–27; TEMP 36.6–37.3; O2SAT 87–94
--- NOTE | 2024-07-03 00:08 | PC.NURSE ---
pt asleep at this time
--- NOTE | 2024-07-03 06:05 | MHC.EDTECH ---
300 ml dark urine empty from hammond catheter .
[2024-07-03 06:11] LABS: Glucose, Whole Blood 226 mg/dL (60-115)
--- NOTE | 2024-07-03 06:48 | PC.NURSE ---
MD Beyer notified that this pt had become less responsive than earlier in the night. While getting vitals I sternal rubbed the pt and he moaned and opened his eyes quickly but had no other engagement. MD Beyer agreeing to repeat labs, urine and sars swab
[2024-07-03 06:51] LABS: MANUAL DIFF FLAG NO
[2024-07-03 07:04] LABS: Appearance Urine Clear; Color Urine Yellow; Glucose Urine UA Negative (Negative); Leukocyte Esterase Urine Negative (Negative); Nitrite Urine Negative (Negative); PH 5.5 (5.0-9.0); Specific Gravity - Urine >= 1.030 (1.005-1.025); UMIC TRIGGER UACC YES; Urine Blood Moderate (2+) (Negative); Urine Ketones Negative (Negative); Urine Protein 300 (3+) mg/dL (Neg-Trace)
[2024-07-03 07:07] LABS: Basophils Percent Auto 0.1 % (0-2); Eosinophils Percent Auto 0.4 % (0-4); Hematocrit 36.2 % (42.0-52.0); Hemoglobin 11.7 g/dl (14.0-18.0); Imm Gran Abs Auto 0.04 X10*3/uL (0.00-0.03); Imm Gran Pct Auto 0.6 % (0.0-0.4); Lymphocytes Absolute Auto 1.7 X10*3/uL (1.2-4.9); Lymphocytes Percent Auto 25.1 % (20-40); Mean Corpuscular HGB Conc 32.3 g/dl (31.0-36.0); Mean Corpuscular Hemoglobin 29.1 pg (27.0-33.0); Mean Platelet Volume 11.5 fL (9.4-12.4); Monocytes Absolute Auto 0.8 X10*3/uL (0.1-1.2); Monocytes Percent Auto 10.8 % (2-11); Neutrophils Absolute Auto 4.4 x10*3/uL (2.0-8.3); Platelet Count 198 X10*3/uL (160-400); Red Blood Count 4.02 X10*6/uL (4.60-5.80); Red Cell Distribution Width 13.9 % (11.0-16.0); White Blood Count 6.9 X10*3/uL (4.8-10.8)
[2024-07-03 07:10] LABS: Bacteria Urine None Seen (None Seen); Hyaline Casts Urine 0-2 /LPF (0-2); RBC Urine >20 /HPF (0-2); Squamous Epithelial Cell Urine 0-2 /HPF (0-2); WBC Urine 0-5 /HPF (0-5)
[2024-07-03 07:11] LABS: Anion Gap 17 (12-20); Blood Urea Nitrogen 22 mg/dL (9-16); Calcium 10.2 mg/dL (8.4-10.2); Carbon Dioxide 28 mmol/L (22-29); Chloride 102 mmol/L (96-108); Creatinine Clr Calc Pharmacy 83.7; Estimated Glomerular Filt Rate > 60; Glucose Random 234 mg/dL (60-115); Potassium 4.4 mmol/L (3.3-5.1); Sodium 143 mmol/L (135-145)
[2024-07-03 08:02] LABS: Influenza A PCR NEGATIVE (Negative); Influenza B PCR NEGATIVE (Negative); Resp Syncy Virus RNA Qual PCR NEGATIVE (Negative); SARS COV2 PCR INHOUSE NEGATIVE (Negative)
--- NOTE | 2024-07-03 08:18 | MHC.CM.ED ---
Addendum entered by Elsa Clark 07/03/24 11:57: Received notification that patient will not be admitted. Clinical updates sent to [facility]. Original Note: Patient remains in ER overflow. Patient now has fever and low O2 sats. Per Nica PRUETT, patient will be admitted. [facility] made aware and asked to follow. Continue to monitor for d/c needs.
[2024-07-03] MEDS: cefTRIAXone sodium 1 GM VIAL IVPUSH (08:36)
--- NOTE | 2024-07-03 08:53 | PC.NURSE ---
Per report from night Rn pt became less responsive overnight. Upon assessment pt lethargic, moans to sternal rub. Diaphoretic and audible wheezes noted. O2 sats 87% on 3L, increased to 4L and sats 91%. Rectal temp 99.2. SEBLE Yousif notified. windows server architect Lucy over to start IV, dose of ceftriaxone given. Pt moved to main ED for closer monitoring. Report given to Rosario. Pt transported by Akbar.
--- NOTE | 2024-07-03 08:54 | PC.NURSE ---
patient transported to ED13 from overflow for decreased responsiveness and increased oxygen demand. patient placed on air sampling and monitoring, maintaining O2 sat of 95% on 3L nasal cannula still minimally responsive for this rn, per Nica PRUETT OK to hold off on am PO medications.
--- NOTE | 2024-07-03 12:25 | MHC.SLORD ---
Speech Language Pathology Order Status: Attempted to see patient at midday meal. Patient lethargic/limited responsiveness, now in Bed 13/ED. Diet recommended by PRODUCTION PLANNER SCHEDULER on 06/30/24 is Puree with NT liquids, per RN had been tolerating. PRODUCTION PLANNER SCHEDULER will continue to follow.
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
--- NOTE | 2024-07-03 16:53 | PC.NURSE ---
patient resting on stretcher, offering no complaints, VSS, patient continues to cough when provided with drinks, to hold off on PO medications, speech reeval placed
--- NOTE | 2024-07-03 17:35 | MHC.EDTECH ---
Put Patent on bed callahan and took him off empty his hammond out put was 500
--- NOTE | 2024-07-03 21:00 | MHC.EDTECH ---
This tech took over care of patient at 1900,rounded and introduced self to pt,vitals taken,pt repositioned to comfort,call verdin in reach bed alarm on for safety
[2024-07-04 04:00] VITALS: BP 164/76; PULSE 87; RESP 21; TEMP 36.7; O2SAT 90
[2024-07-04 06:19] VITALS: BP 150/72; PULSE 87; RESP 19; TEMP 36.7; O2SAT 95
--- NOTE | 2024-07-04 06:21 | MHC.EDTECH ---
Hourly rounds and vitals completed,emptied 500MLS of tea color urine from hammond, maggie-care given,patient was repositioned to comfort,call verdin in reach bed alarm on for safety
--- NOTE | 2024-07-04 07:26 | PC.NURSE ---
patient resting quietly in room with even and unlabored respirations. plan for NPO until speech therapy eval
[2024-07-04 08:18] VITALS: PULSE 87; RESP 19; O2SAT 93
[2024-07-04] MEDS: Fluticasone/Vilanterol 200/25 BLST.W.DEV 1 PUFF INHALE (08:18)
[2024-07-04 08:42] LABS: Glucose, Whole Blood 197 mg/dL (60-115)
--- NOTE | 2024-07-04 10:02 | PC.NURSE ---
seen by speech recommending ground food w/ nectar thick liquid
--- NOTE | 2024-07-04 10:34 | MHC.CM.ED ---
Patient remains in ER. D/C to [facility] changed to Sunday 07/08 at 9am. Patient's HCP, Hiren ARTIS booked. Continue to monitor for d/c needs.
[2024-07-04 14:45] VITALS: BP 146/71; PULSE 82; RESP 20; TEMP 36.8; O2SAT 96
[2024-07-04] MEDS: metFORMIN HCl 500 MG TABLET PO (17:05)
[2024-07-04] MEDS: Sucralfate 1 GM TABLET PO (17:05)
[2024-07-04 19:09] VITALS: BP 145/72; PULSE 82; RESP 18; TEMP 36.8
--- NOTE | 2024-07-04 19:23 | MHC.EDTECH ---
Patient bed pad changed and repositioned
--- NOTE | 2024-07-04 19:44 | MHC.SLORD ---
Speech Language Pathology Order Status: Patient was seen this a.m. for repeat-bedside swallow evaluation. Patient was made NPO early this a.m. after patient was observed to cough after drinking thin liquids. Patient is edentulous, says his dentures were left at home. Otherwise, oral mech exam was overall unremarkable. Patient tolerated sips of nectar thickened juice via teaspoon and controlled cup with no overt s/s of aspiration. Patient tolerated pureed solids with timely oral phase and adequate clearance. Mildly prolonged mastication noted on bites of doris cracker dipped in puree. Patient was able to clear oral residuals with liquid wash of nectar thick liquid. Across trials, note mildly delayed swallow trigger and incomplete laryngeal elevation. Immediate cough observed after patient took one teaspoon sip of thin liquid. Recommend CONTINUE on GROUND/MECH ALTERED (NDD2) solids and NECTAR THICK liquids via cup or teaspoon (avoid straws). Patient will need 1:1 assistance feeding. Aspiration precautions recommended: upright 90 degree position while eating/drinking, small bites/sips, slow pacing, alternate bites/sips, ensure oral cavity is clear before presenting next bite, avoid the use of straws. SCIENTIFIC WRITER will continue to follow.
[2024-07-04 22:00] VITALS: BP 153/70; PULSE 79; RESP 16; TEMP 36.2; O2SAT 97
[2024-07-04] MEDS: cloZAPine 100 MG TABLET 300 MG PO (22:32)
[2024-07-04] MEDS: Atorvastatin Calcium 20 MG TABLET PO (22:33)
[2024-07-04] MEDS: Memantine HCl 10 MG TABLET PO (22:33)
[2024-07-04] MEDS: rifAXIMin 550 MG TABLET PO (22:33)
[2024-07-04] MEDS: gemfibroziL 600 MG TABLET PO (22:34)
--- NOTE | 2024-07-04 22:50 | PC.NURSE ---
Patient arrived from main ED. A&Ox3, VSS. Patient denies pain, hs meds administered. Resting at present time. Safety precautions initiated, bed alarm on , call verdin within reach.
--- NOTE | 2024-07-04 23:13 | PC.NURSE ---
Patient arrived from main ED.Alert to person only. Patient attempting to remove O2, safety precautions initiated. Tele sitter camera at bedside. Bed alarm on , call verdin within reach.
[2024-07-05 04:14] VITALS: BP 131/58; PULSE 93; RESP 16; TEMP 36.3; O2SAT 93
[2024-07-05 08:09] VITALS: BP 143/69; PULSE 100; RESP 15; TEMP 36.1; O2SAT 94
[2024-07-05] MEDS: Memantine HCl 10 MG TABLET PO ×2 (10:20→20:38)
[2024-07-05] MEDS: gemfibroziL 600 MG TABLET PO ×2 (10:20→20:37)
[2024-07-05] MEDS: Sucralfate 1 GM TABLET PO ×3 (10:21→17:13)
[2024-07-05] MEDS: rifAXIMin 550 MG TABLET PO ×2 (10:21→20:37)
[2024-07-05] MEDS: metFORMIN HCl 500 MG TABLET PO ×2 (10:21→17:14)
[2024-07-05] MEDS: Donepezil HCl 10 MG TABLET PO (10:22)
[2024-07-05] MEDS: Aspirin Enteric Coated 81 MG TABLET.DR PO (10:22)
[2024-07-05] MEDS: Ferrous Sulfate 324 MG TABLET.DR PO (10:22)
[2024-07-05] MEDS: Cholecalciferol (Vitamin D3) 25 MCG TABLET PO (10:22)
[2024-07-05] MEDS: Ketoconazole 2 % Shampoo 120 ML BTL 1 APPL TOPICAL (10:22)
[2024-07-05] MEDS: Venlafaxine HCl ER 150 MG CAP.ER.24H PO (10:22)
[2024-07-05 14:12] VITALS: BP 168/82; PULSE 92; RESP 15; TEMP 36.6; O2SAT 97
--- NOTE | 2024-07-05 18:03 | PC.NURSE ---
Transferred from overflow unit, patient alert and oriented. turned and repositioned , sitting up in bed eating dinner at this time. hammond cath draining clear yellow urine
[2024-07-05 19:57] VITALS: BP 160/77; PULSE 88; RESP 20; TEMP 36.8; O2SAT 97
--- NOTE | 2024-07-05 19:57 | MHC.EDTECH ---
Pt found to be slouched down in bed attempting to use urinal. Pt reminded he has a hammond catheter. Pt repositioned in bed and RN moved to ED14 for TV since he is CM. Vital signs done and call verdin within reach.
[2024-07-05] MEDS: cloZAPine 100 MG TABLET 300 MG PO (20:37)
[2024-07-05] MEDS: Atorvastatin Calcium 20 MG TABLET PO (20:38)
[2024-07-05 21:11] LABS: Glucose, Whole Blood 223 mg/dL (60-115)
[2024-07-06 06:02] VITALS: BP 169/74; PULSE 92; RESP 16; TEMP 36.8; O2SAT 95
--- NOTE | 2024-07-06 06:04 | PC.NURSE ---
Pt had night meds crushed in apple sauce while in upright position. Swallowed with ease, no coughing. Pt slept through the night comfortably.
[2024-07-06 08:00] VITALS: PULSE 88; RESP 18; O2SAT 94
[2024-07-06] MEDS: Fluticasone/Vilanterol 200/25 BLST.W.DEV 1 PUFF INHALE (08:00)
[2024-07-06] MEDS: Aspirin Enteric Coated 81 MG TABLET.DR PO (08:48)
[2024-07-06] MEDS: Venlafaxine HCl ER 150 MG CAP.ER.24H PO (08:48)
[2024-07-06] MEDS: gemfibroziL 600 MG TABLET PO ×2 (08:48→21:00)
[2024-07-06] MEDS: Donepezil HCl 10 MG TABLET PO (08:48)
[2024-07-06] MEDS: Cholecalciferol (Vitamin D3) 25 MCG TABLET PO (08:48)
[2024-07-06] MEDS: metFORMIN HCl 500 MG TABLET PO ×2 (08:48→16:57)
[2024-07-06] MEDS: rifAXIMin 550 MG TABLET PO ×2 (08:48→21:00)
[2024-07-06] MEDS: Sucralfate 1 GM TABLET PO ×3 (08:48→16:56)
[2024-07-06] MEDS: Memantine HCl 10 MG TABLET PO ×2 (08:48→21:00)
[2024-07-06] MEDS: Ketoconazole 2 % Shampoo 120 ML BTL 1 APPL TOPICAL (08:49)
[2024-07-06] MEDS: Ferrous Sulfate 324 MG TABLET.DR PO (09:00)
[2024-07-06 09:33] LABS: Neutrophils Absolute Auto 4.6 x10*3/uL (2.0-8.3); WBCANC 6.9 X10*3/uL
[2024-07-06 09:48] LABS: Creatinine Clr Calc Pharmacy 73.5; Estimated Glomerular Filt Rate > 60
[2024-07-06 11:09] LABS: Glucose, Whole Blood 212 mg/dL (60-115)
[2024-07-06 12:13] VITALS: BP 158/86; PULSE 89; RESP 14; TEMP 35.8; O2SAT 98
--- NOTE | 2024-07-06 12:25 | MHC.CM.ED ---
Pt remains boarding in ED OF awaiting transfer to [facility] on Sunday, 07/08 at 9 am via [place]. Pt in agreement with plan. CM to follow
[2024-07-06 14:08] VITALS: BP 174/82; PULSE 87; RESP 14; TEMP 36.2; O2SAT 97
[2024-07-06 16:48] LABS: Glucose, Whole Blood 167 mg/dL (60-115)
[2024-07-06 20:39] LABS: Glucose, Whole Blood 214 mg/dL (60-115)
[2024-07-06 20:40] VITALS: BP 166/71; PULSE 83; RESP 16; TEMP 36.8; O2SAT 95
[2024-07-06] MEDS: Atorvastatin Calcium 20 MG TABLET PO (21:00)
[2024-07-06] MEDS: cloZAPine 100 MG TABLET 300 MG PO (21:00)
--- NOTE | 2024-07-06 21:01 | MHC.EDTECH ---
1999 rounding done: Vital signs taken, POC done (214) and SANCHO Kruger aware. Mitchell bag emptied by RN and t/w and RN gave Pt a bed bath. Pt given clean gown and new blankets. Repositioned in bed, given some water and drank without incident. TV turned on for Pt. Call verdin within reach.
--- NOTE | 2024-07-06 21:36 | PC.NURSE ---
Patient given bed bath/complete linen change, FC emptied for 1200 ccs denise clear foul smelling urine. Allevyn placed on coccyx for protection, coccyx area reddened but blanchable.
--- NOTE | 2024-07-06 23:24 | PC.NURSE ---
rt received from Subha Mariano RN, assume care of pt at this time
--- NOTE | 2024-07-07 00:12 | PC.NURSE ---
resting quietly, with eyes closed, resp with ease, no s/s of acute distress, will cont plan of care
[2024-07-07 06:00] VITALS: BP 181/83; PULSE 93; RESP 16; TEMP 37.3; O2SAT 94
--- NOTE | 2024-07-07 07:09 | PC.NURSE ---
report to Karla KINGSLEY
[2024-07-07 07:53] LABS: Glucose, Whole Blood 210 mg/dL (60-115)
[2024-07-07 08:14] VITALS: PULSE 93; RESP 16; O2SAT 96
[2024-07-07] MEDS: Fluticasone/Vilanterol 200/25 BLST.W.DEV 1 PUFF INHALE (08:14)
[2024-07-07] MEDS: rifAXIMin 550 MG TABLET PO ×2 (10:11→21:14)
[2024-07-07] MEDS: Sucralfate 1 GM TABLET PO ×3 (10:11→16:57)
[2024-07-07] MEDS: gemfibroziL 600 MG TABLET PO ×2 (10:11→21:14)
[2024-07-07] MEDS: Aspirin Enteric Coated 81 MG TABLET.DR PO (10:12)
[2024-07-07] MEDS: Cholecalciferol (Vitamin D3) 25 MCG TABLET PO (10:12)
[2024-07-07] MEDS: Ferrous Sulfate 324 MG TABLET.DR PO (10:12)
--- NOTE | 2024-07-07 10:12 | MHC.CM.ED ---
Patient remains in ER overflow. Admission paperwork sent to [facility]. Anticipate patient will d/c to [facility] tomorrow 07/08 at 10am. Continue to monitor for d/c needs.
[2024-07-07] MEDS: metFORMIN HCl 500 MG TABLET PO ×2 (10:13→16:57)
[2024-07-07] MEDS: Memantine HCl 10 MG TABLET PO ×2 (10:13→21:14)
[2024-07-07] MEDS: Venlafaxine HCl ER 150 MG CAP.ER.24H PO (10:13)
[2024-07-07] MEDS: Donepezil HCl 10 MG TABLET PO (10:13)
[2024-07-07] MEDS: Ketoconazole 2 % Shampoo 120 ML BTL 1 APPL TOPICAL (10:15)
--- NOTE | 2024-07-07 10:47 | PC.NURSE ---
pt alert and oriented to self. pleasant and cooperative. Lungs with mild exp wheeze. sats 93% on 2L n/c , he denies complaint of sob, brown or pain. Pt took meds whole with gingerale. pink foam on buttocks. Mitchell patent and draining. plan of care progressing.....
[2024-07-07 12:07] VITALS: TEMP 37.1
--- NOTE | 2024-07-07 12:12 | PC.NURSE ---
speech swallow evaluation completed. see notes from speech pathologist for further details. pt continues to self feed at this time w/o any difficulties. pt sitting upright to promote patent airway. pt seemingly diaphoretic/warm to the touch when repositioning - rectal temp obtained displaying 98.7. pt then again turned/repositioned to comfort. medication administered per provider order - pt swallows pills whole w/ pudding w/o difficulty. pt remains on 2L via NC (baseline). no sob/wob noted. respirations even/unlabored. bed alarm turned on/safety camera in place for precautions. plan of care ongoing. call verdin placed within reach.
--- NOTE | 2024-07-07 12:18 | MHC.SLORD ---
Speech Language Pathology Order Status: Pt seen for dysphagia treatment, RN consulted, no concerns with pt PO intake reported. Pt alert, conversant, repositioned into upright position. Pt tolerated consecutive sips of NTL by straw without difficulty, eliciting one congested cough after intake. Cough considered unrelated to swallow mechanism as congested cough has been occurring at baseline. Pt tolerated tsps of puree and ground solids with good oral phase control, adequate labial containment and efficient transit from anterior to posterior mouth, timely trigger of pharyngeal swallow. No overt s/s of aspiration with NDD2 diet and NTL. Pt able to feed himself as UE strength has returned. Pt in agreement with [facility] diet, noting it is easier for him to chew ground consistency. Pt d/c to facility planned for tomorrow. Rec CAST SHELL GRINDER continue to follow at SNF.
[2024-07-07 14:00] VITALS: BP 139/65; PULSE 88; RESP 16; TEMP 36.7; O2SAT 94
--- NOTE | 2024-07-07 14:20 | PC.NURSE ---
pt reports having to have a BM. bed callahan utilized - pt unable to have BM/requesting to ambulate to the restroom. 2:1 assist needed to ambulate pt to restroom. unsteady/shaky gait noted. pt able to have BM in restroom. pt assisted back into bed. turned/repositioned to comfort. pt remains on 2L via NC. no sob/wob noted post ambulation. respirations even/unlabored. bed alarm/camera in place for safety precautions. plan of care ongoing. call verdin placed within reach.
[2024-07-07 17:28] VITALS: BP 142/63; PULSE 62; RESP 16; TEMP 37.1; O2SAT 96
--- NOTE | 2024-07-07 18:36 | PC.NURSE ---
POC obtained displaying 208mg/dL.
[2024-07-07 18:37] LABS: Glucose, Whole Blood 208 mg/dL (60-115)
--- NOTE | 2024-07-07 19:18 | PC.NURSE ---
pt continues to rest in no apparent distress at this time. pt has no complaints. remains on 2L via NC. no sob/wob noted. respirations even/unlabored. 200ml of dark yellow urine emptied from hammond catheter/documented in I&O section on worklist. bed alarm/camera in place for safety precautions. per CM, pt is scheduled to be transported to [facility] tomorrow @ 1000. plan of care ongoing. call verdin placed within reach.
[2024-07-07] MEDS: cloZAPine 100 MG TABLET 300 MG PO (21:13)
[2024-07-07] MEDS: Atorvastatin Calcium 20 MG TABLET PO (21:14)
--- NOTE | 2024-07-07 21:32 | PC.NURSE ---
pt medicated per provider order. pills crushed/swallowed w/ pudding. pt tolerated medication administration well w/o any complications. no difficulties in swallowing noted. pt seemingly warm to the touch when being repositioned - rectal temp obtained - pt remains afebrile. other vital signs stable and up to date. pt remains on 2L via NC. no sob/wob noted. respirations remain even/unlabored. camera/bed alarm on for safety precautions. call verdin placed within reach.
[2024-07-07 21:35] VITALS: BP 137/62; PULSE 76; RESP 16; TEMP 37.3; O2SAT 96
--- NOTE | 2024-07-08 05:04 | PC.NURSE ---
Patient sleeping most of the night, even unlabored respirations. High fall risk precautions in place, telesitter in place.
[2024-07-08 05:24] VITALS: BP 156/66; PULSE 80; RESP 18; TEMP 36.6; O2SAT 94
[2024-07-08] MEDS: Ferrous Sulfate 324 MG TABLET.DR PO (08:08)
[2024-07-08] MEDS: metFORMIN HCl 500 MG TABLET PO (08:08)
[2024-07-08] MEDS: Aspirin Enteric Coated 81 MG TABLET.DR PO (08:08)
[2024-07-08] MEDS: Cholecalciferol (Vitamin D3) 25 MCG TABLET PO (08:08)
[2024-07-08] MEDS: gemfibroziL 600 MG TABLET PO (08:08)
[2024-07-08] MEDS: Donepezil HCl 10 MG TABLET PO (08:08)
[2024-07-08] MEDS: Sucralfate 1 GM TABLET PO (08:08)
[2024-07-08] MEDS: Memantine HCl 10 MG TABLET PO (08:09)
[2024-07-08] MEDS: Venlafaxine HCl ER 150 MG CAP.ER.24H PO (08:09)
[2024-07-08] MEDS: Ketoconazole 2 % Shampoo 120 ML BTL 1 APPL TOPICAL (08:09)
[2024-07-08] MEDS: rifAXIMin 550 MG TABLET PO (08:09)
[2024-07-08 08:14] LABS: Glucose, Whole Blood 202 mg/dL (60-115)
--- NOTE | 2024-07-08 09:25 | PC.NURSE ---
Report given to [facility] RN
[2024-07-08 11:30] VITALS: BP 163/75; PULSE 80; RESP 14; TEMP 36.7; O2SAT 96
--- NOTE | 2024-07-08 11:38 | PC.NURSE ---
Report given to EMS, patient transferred to [facility]
[2024-07-08 11:50] VITALS: BP 163/75; PULSE 80; RESP 18; TEMP 36.6; O2SAT 98
== END 2024-07-08 11:50 | disposition skilled nursing facility (03) ==
PROVIDERS: Emergency Medicine; Physician Assistant Medical; Emergency Provider Emergency Medicine; PCP Internal Medicine
DX: S79.911A Unspecified injury of right hip, initial encounter (principal); R51.9 Headache, unspecified; M54.2 Cervicalgia; R05.9 Cough, unspecified; R06.02 Shortness of breath; R10.2 Pelvic and perineal pain; R26.2 Difficulty in walking, not elsewhere classified; I44.7 Left bundle-branch block, unspecified; I44.0 Atrioventricular block, first degree; M25.551 Pain in right hip; G30.9 Alzheimer's disease, unspecified; K59.00 Constipation, unspecified; R33.9 Retention of urine, unspecified; R50.9 Fever, unspecified; F02.80 Dementia in other diseases classified elsewhere, unspecified severity, without behavioral disturbance, psychotic disturbance, mood disturbance, and anxiety; W18.11XA Fall from or off toilet without subsequent striking against object, initial encounter; Y93.89 Activity, other specified; Y92.89 Other specified places as the place of occurrence of the external cause; Y99.8 Other external cause status; I10 Essential (primary) hypertension; E11.9 Type 2 diabetes mellitus without complications; J44.9 Chronic obstructive pulmonary disease, unspecified; Z99.81 Dependence on supplemental oxygen; Z87.891 Personal history of nicotine dependence; Z03.818 Encounter for observation for suspected exposure to other biological agents ruled out; Z79.899 Other long term (current) drug therapy; Z79.84 Long term (current) use of oral hypoglycemic drugs
CPT/HCPCS: 0241U; 36415; 70450; 71045; 71260; 72125; 74177; 80048; 80053; 81001; 81003; 82565; 82947; 83735; 84484; 85025; 85048; 85610; 85730; 93005; 94640; 96374; 97162; 99285; J0696; Q9967

== ENCOUNTER → 2024-06-29 10:34 | Outpatient (BNV) | payer MEDICARE, MEDICAID, SELFPAY | PROVIDERS: Emergency Provider Emergency Medicine; PCP Internal Medicine; Visit Provider Internal Medicine | DX: R42 Dizziness and giddiness (principal); I44.0 Atrioventricular block, first degree; R94.31 Abnormal electrocardiogram [ECG] [EKG] | CPT/HCPCS: 93010 ==

== ENCOUNTER → 2024-07-04 11:42 | Outpatient (BNV) | payer MEDICARE, MEDICAID, SELFPAY | PROVIDERS: Emergency Provider Emergency Medicine; PCP Internal Medicine; Visit Provider Radiology Diagnostic Radiology | DX: R09.02 Hypoxemia (principal) | CPT/HCPCS: 71045 ==

== ENCOUNTER 2024-10-08 04:07 | Emergency (ER) | payer MEDICARE, MEDICAID, SELFPAY ==
--- NOTE | 2024-10-08 | ECG_ITS ---
Test Reason : FALL Blood Pressure : */* mmHG Vent. Rate : 81 BPM Atrial Rate : 81 BPM P-R Int : 242 ms QRS Dur : 154 ms QT Int : 430 ms P-R-T Axes : -25 -58 100 degrees QTcB Int : 499 ms Sinus rhythm with 1st degree A-V block Left axis deviation Left bundle branch block Abnormal ECG When compared with ECG of 29-Jun-2024 10:32, No significant change was found Referred By: Generic ED Physician Electronically Signed By: Claus Arias
--- NOTE | ~2024-10-08 | CT_ITS ---
CLINICAL HISTORY: fall, [facility] CT head without contrast Comparison: CT/SR - CT HEAD/BRAIN WO IV CON - 06/30/24 20:[address]/SR - CT HEAD/BRAIN WO IV CON - 06/29/24 11:48 EDT Findings: No intra-axial mass, midline shift, hydrocephalus, or acute hemorrhage. [id number] global atrophy with periventricular and subcortical white matter hypodensity suggesting chronic microangiopathy. The visualized paranasal sinuses and mastoid air cells are normal. The orbits are unremarkable. There is no acute fracture. IMPRESSION: 1. No evidence of acute intracranial hemorrhage or skull fractures. 2. Moderate global atrophy and white matter changes suggesting chronic microangiopathy. This document has been electronically signed by: Love Fraire MD on 10/08/2024 05:56:19
--- NOTE | ~2024-10-08 | CT_ITS ---
CLINICAL HISTORY: fall, poor historian CT cervical spine without contrast Comparison: CT/SR - CT CERVICAL SPINE WO IV CON - 06/30/24 20:39 EDT Findings: Normal vertebral body alignment. Multilevel disc height loss. Upper cervical facet hypertrophy, right greater than left. Large anterior osteophytes. No acute fractures or dislocations. Visualized intracranial contents are unremarkable. No cervical fluid collections or masses. Lung apices demonstrate no acute process. IMPRESSION: Degenerative changes without evidence of acute fracture or malalignment. This document has been electronically signed by: Love Fraire MD on 10/08/2024 05:49:34
[2024-10-08 04:20] VITALS: BP 116/84; PULSE 82; O2SAT 98
[2024-10-08 04:24] VITALS: BP 128/59; PULSE 81; RESP 20; TEMP 36.8; O2SAT 99; BMI 33.4
[2024-10-08 05:02] LABS: Basophils Percent Auto 0.2 % (0-2); Eosinophils Absolute Auto 0.3 X10*3/uL (0.0-0.4); Eosinophils Percent Auto 2.8 % (0-4); Hematocrit 31.8 % (42.0-52.0); Hemoglobin 10.2 g/dl (14.0-18.0); Imm Gran Abs Auto 0.05 X10*3/uL (0.00-0.03); Imm Gran Pct Auto 0.5 % (0.0-0.4); Lymphocytes Absolute Auto 2.3 X10*3/uL (1.2-4.9); Lymphocytes Percent Auto 23.7 % (20-40); MANUAL DIFF FLAG NO; Mean Corpuscular HGB Conc 32.1 g/dl (31.0-36.0); Mean Corpuscular Hemoglobin 27.8 pg (27.0-33.0); Mean Corpuscular Volume 86.6 fL (80.0-98.0); Mean Platelet Volume 10.8 fL (9.4-12.4); Monocytes Absolute Auto 0.8 X10*3/uL (0.1-1.2); Monocytes Percent Auto 8.8 % (2-11); Neutrophils Absolute Auto 6.1 x10*3/uL (2.0-8.3); Platelet Count 295 X10*3/uL (160-400); Red Blood Count 3.67 X10*6/uL (4.60-5.80); Red Cell Distribution Width 14.1 % (11.0-16.0); White Blood Count 9.5 X10*3/uL (4.8-10.8)
[2024-10-08 05:19] LABS: Anion Gap 14 (12-20); Blood Urea Nitrogen 16 mg/dL (9-16); Calcium 9.6 mg/dL (8.4-10.2); Carbon Dioxide 26 mmol/L (22-29); Chloride 104 mmol/L (96-108); Creatinine Clr Calc Pharmacy 75.6; Estimated Glomerular Filt Rate > 60; Glucose Random 139 mg/dL (60-115); Potassium 4.2 mmol/L (3.3-5.1); Sodium 140 mmol/L (135-145)
[2024-10-08 06:12] VITALS: BP 134/65; PULSE 80; RESP 20; TEMP 36.6; O2SAT 98
[2024-10-08 06:25] LABS: Appearance Urine Clear; Color Urine Yellow; Glucose Urine UA Negative (Negative); Leukocyte Esterase Urine Large (3+) (Negative); Nitrite Urine Positive (Negative); PH 5.5 (5.0-9.0); Specific Gravity - Urine <= 1.005 (1.005-1.025); UMIC TRIGGER UACC YES; Urine Blood Trace (Negative); Urine Ketones Negative (Negative); Urine Protein Negative (Neg-Trace)
--- NOTE | 2024-10-08 06:33 | ED_ITS ---
HPI - Fall General Chief Complaint: Fall Stated Complaint: fall Time Seen by Provider: 10/08/24 06:30 Source: EMS Mode of arrival: EMS Limitations: other History of Present Illness ED Provider: Dr. Katy Silva HPI Narrative: Patient comes to the emergency room via ambulance from a [place] [facility] facility. According to the staff members, patient fell getting out of bed trying to get to the bathroom. Patient has history of ALS and dementia. Patient is awake, alert follows commands but can not give any significant history. Related Data Home Medications ?Medication ?Instructions ?Recorded ?Confirmed ketoconazole 2 % shampoo 1 appl topical DAILY 08/26/22 06/29/24 donepezil 10 mg tablet 10 mg PO BEDTIME 11/29/22 06/29/24 clozapine 100 mg tablet 300 mg PO BEDTIME 12/27/22 06/29/24 clonazepam 0.5 mg tablet 0.5 mg PO DAILY Anxiety 02/28/23 06/29/24 venlafaxine 150 mg 150 mg PO DAILY 02/28/23 06/29/24 capsule,extended release 24 hr carbamide peroxide 6.5 % ear drops 5 drp otic (ears) DAILY PRN 03/18/24 06/29/24 (Ear Drops (carbamide peroxide)) affected ear sucralfate 1 gram tablet 1 g PO TIDAC 06/17/24 06/29/24 betamethasone dipropionate 0.05 % 1 appl topical DAILY PRN Rash 06/29/24 06/29/24 topical cream zinc oxide 40 % topical ointment 1 appl topical DAILY PRN skin 06/29/24 06/29/24 (Diaper Rash) irritation/diaper rash Previous Rx's ?Medication ?Instructions ?Recorded 4-PRONGED CANE #1 ea 04/08/21 blood sugar diagnostic #100 ea 12/29/21 blood-glucose meter #1 ea 12/29/21 adult pull ups #100 ea 12/04/22 CHUX sheets #60 ea 03/07/23 DISPOSABLE GLOVES (large) #100 ea 09/24/23 aspirin 81 mg tablet,delayed 81 mg PO DAILY 90 days #90 tabs 10/16/23 release albuterol sulfate 90 mcg/actuation 2 puff inhalation Q4-6H PRN 12/13/23 aerosol inhaler shortness of breath or wheezing 30 days #8.5 grams rifaximin 550 mg tablet (Xifaxan) 550 mg PO BID #60 tabs 03/05/24 FreeStyle Lite Strips (blood sugar #100 ea 03/13/24 diagnostic) blood sugar diagnostic (Prodigy No #50 ea 03/13/24 Coding strips) lancets 28 gauge (Prodigy Lancets) #100 ea 03/13/24 memantine 10 mg tablet 10 mg PO BID 90 days #180 tabs 03/20/24 acetaminophen 500 mg tablet 500 mg PO TID PRN fever or pain 30 03/31/24 (Tylenol Extra Strength) days #90 tabs simvastatin 40 mg tablet 40 mg PO BEDTIME #90 tabs 04/28/24 wheat dextrin 3 gram/3.5 gram oral 3 g PO BID #28 ea 05/02/24 powder packet (Benefiber Clear Sugar Free(dextrin)) cholecalciferol (vitamin D3) 25 25 mcg PO DAILY #90 tabs 05/08/24 mcg (1,000 unit) tablet gemfibrozil 600 mg tablet 600 mg PO BID #60 tabs 06/09/24 metformin 500 mg tablet 500 mg PO BID #60 tabs 06/21/24 ferrous fumarate 325 mg (106 mg 325 mg PO DAILY #30 tabs 06/24/24 iron) tablet fluticasone furoate 200 1 inh PO DAILY #60 ea 07/08/24 mcg-vilanterol 25 mcg/dose inhalation powder (Breo Ellipta) cefuroxime axetil 250 mg tablet 250 mg PO BID #13 tabs 10/08/24 Allergies Allergy/AdvReac Type Severity Reaction Status Date / Time No Known Allergies Allergy Verified 10/08/24 04:28 [No Known Allergies*] Review of Systems 2 Review of Systems: Yes Other [facility] Past Medical History Medical History Essential hypertension Alzheimer's dementia without behavioral disturbance Schizophrenia Hypertension Hyperlipidemia Type 2 diabetes mellitus without complication Dysphagia COPD (chronic obstructive pulmonary disease) Hypoxia Nicotine dependence, cigarettes, uncomplicated Hearing impairment Gait instability Weakness Overweight (BMI 25.0-29.9) Depression Anxiety Vitamin D deficiency Seborrheic dermatitis of scalp Surgical History History of colonoscopy History of appendectomy Family History Family History Father Cancer Mother No problems noted. Brother Substance abuse Other Alcohol abuse Social History Social History Household Members: None Housing: Assisted Living Facility Housing Other:: [facility] Do you presently have visiting nurse or other home services: No Alcohol intake: never Patient Tobacco Use Status: Former Tobacco user Tobacco use type: Cigarette Years Smoked: (onset 14yo, 1-2ppd x 59yrs, 50pyh - quit 11/2023) e-Cigarette/Vaping Use: Never Used Second Hand Smoke Exposure: Yes Advance Directives: No Advance Directives Information Provided: Yes Do you have a plan to hurt others: No Plan service: No Current occupational status: disabled and other Cognitive needs: Yes (walker) Hearing needs: Yes Vision needs: Yes Physical Exam 2 Vital Signs: Vital Signs: Last Vital Signs Temp 97.8 F 10/08/24 06:12 Pulse 80 10/08/24 06:12 Resp 20 10/08/24 06:12 BP 134/65 10/08/24 06:12 Pulse Ox 98 10/08/24 06:12 O2 Del Method Room Air 10/08/24 06:12 Oxygen Flow Rate 3 10/08/24 04:24 BMI result Body Mass Index 33.4 Const: Other: Appearance: Alert. Looks tired, able to follow commands Eyes: Pupils equal, round and reactive to light. ENT: Pharynx normal. Neck: Normal inspection. Neck supple. No lymph nodes noted. No crepitus CVS: Normal heart rate and rhythm. Pulses normal. Normal S1 and S2 Respiratory: No respiratory distress. Breath sounds normal. No Wheezing. No rales Abdomen: Soft and nontender. No rigidity. No distention. : Mitchell catheter in place Skin: Skin warm and dry. Normal skin color. Normal skin turgor. Extremities: No lower extremity edema. No Lacerations. No Rash Neuro: Oriented X 3. No motor deficit. No sensory deficit. Moving all extremities. No slurred speech. CN 2 through 12 grossly intact Psych: calm, cooperative, normal affect Medical Decision Making Medical Decision Making MDM Narrative: My interpretation of labs: No significant abnormality in patient's hematology and chemistry, urinalysis positive for UTI. Patient was given p.o. cefuroxime CT scans of the head and neck do not show any acute abnormality. Patient denies any pain anywhere Patient ready to be discharged to the facility Patient's vitals are stable, no fever, no episodes of hypotension. Sepsis is not suspected Differential Diagnosis Differential Diagnoses: The differential diagnosis associated with the presentation includes (Mechanical fall, UTI) Lab Data MDM Lab Attestation statement: I reviewed the patient's lab results. 10/08/24 04:58 10/08/24 04:58 Labs: Lab Results 10/08/24 10/08/24 Range/Units 04:58 06:11 WBC 9.5 (4.8-10.8) X10*3/uL RBC 3.67 L (4.60-5.80) X10*6/uL Hgb 10.2 L (14.0-18.0) g/dl Hct 31.8 L (42.0-52.0) % MCV 86.6 (80.0-98.0) fL MCH 27.8 (27.0-33.0) pg MCHC 32.1 (31.0-36.0) g/dl RDW 14.1 (11.0-16.0) % Plt Count 295 D (160-400) X10*3/uL MPV 10.8 (9.4-12.4) fL Immature Gran % (Auto) 0.5 H (0.0-0.4) % Neut % (Auto) 64.0 (45-73) % Lymph % (Auto) 23.7 (20-40) % [place] % (Auto) 8.8 (2-11) % Eos % (Auto) 2.8 (0-4) % Baso % (Auto) 0.2 (0-2) % Lymph # (Auto) 2.3 (1.2-4.9) X10*3/uL [place] # (Auto) 0.8 (0.1-1.2) X10*3/uL Eos # (Auto) 0.3 (0.0-0.4) X10*3/uL Baso # (Auto) 0.0 (0.0-0.2) X10*3/uL Abs Immat Gran (auto) 0.05 H (0.00-0.03) X10*3/uL Absolute Neuts (auto) 6.1 (2.0-8.3) x10*3/uL Absolute Nucleated RBC 0.000 (0.0-0.012) X10*3/uL Nucleated RBC % (auto) 0.0 (0.0-0.2) /100WBC Sodium 140 (135-145) mmol/L Potassium 4.2 (3.3-5.1) mmol/L Chloride 104 (96-108) mmol/L Carbon Dioxide 26 (22-29) mmol/L Anion Gap 14 (12-20) BUN 16 (9-16) mg/dL Creatinine 0.75 (0.5-1.4) mg/dL Estim Creat Clear Calc 75.6 Estimated GFR > 60 Random Glucose 139 H (60-115) mg/dL Calcium 9.6 (8.4-10.2) mg/dL Urine Color Yellow Urine Appearance Clear Urine pH 5.5 (5.0-9.0) Ur Specific [place] <= 1.005 (1.005-1.025) Urine Protein Negative (Neg-Trace) mg/dL Urine Glucose (UA) Negative (Negative) mg/dL Urine Ketones Negative (Negative) mg/dL Urine Blood Trace H (Negative) Urine Nitrite Positive H (Negative) Ur Leukocyte Esterase Large (3+) H (Negative) Independent Interpretation I performed an independent interpretation of an: CT Scan Radiology Impression Discussion of test interpretation with radiology: I have reviewed the radiologist's reading. Radiologist Impression: No intra-axial mass, midline shift, hydrocephalus, or acute hemorrhage. [id number] global atrophy with periventricular and subcortical white matter hypodensity suggesting chronic microangiopathy. The visualized paranasal sinuses and mastoid air cells are normal. The orbits are unremarkable. There is no acute fracture. Normal vertebral body alignment. Multilevel disc height loss. Upper cervical facet hypertrophy, right greater than left. Large anterior osteophytes. No acute fractures or dislocations. Visualized intracranial contents are unremarkable. No cervical fluid collections or masses. Lung apices demonstrate no acute process. Discharge Plan Discharge Clinical Impression: Fall, Acute UTI Patient Disposition: Home, Self-Care Instructions: Urinary Tract Infection in Men (ED), Fall Prevention for Older Adults (ED) Additional Instructions: Please follow-up with your primary care physician tomorrow. If you have any worsening or new symptoms, please return to the emergency room or call 911 Prescriptions: New cefuroxime axetil 250 mg tablet 250 mg PO BID Qty: 13 0RF No Action (DME) blood sugar diagnostic Strip See Rx Instructions .Route Qty: 100 3RF Rx Instructions: To test once a day (DME) blood-glucose meter Misc See Rx Instructions .Route Qty: 1 0RF Rx Instructions: To test blood sugar daily aspirin 81 mg tablet,delayed release (DR/EC) 81 mg PO DAILY 90 Days Qty: 90 3RF (DME) Prodigy No Coding Strip See Rx Instructions .Route Qty: 50 2RF Rx Instructions: As directed once per day (DME) FreeStyle Lite Strips Strip See Rx Instructions .Route Qty: 100 5RF Rx Instructions: As directed- to test blood sugar once a day (DME) lancets [Prodigy Lancets] 28 gauge misc See Rx Instructions .Route Qty: 100 3RF Rx Instructions: To test once a day memantine 10 mg tablet 10 mg PO BID 90 Days Qty: 180 1RF acetaminophen [Tylenol Extra Strength] 500 mg tablet 500 mg PO TID PRN (Reason: fever or pain) 30 Days Qty: 90 3RF Rx Instructions: Take only as needed for increased pain simvastatin 40 mg tablet 40 mg PO BEDTIME Qty: 90 0RF Benefiber Clear SF (dextrin) 3 gram/3.5 gram powder in packet 3 g PO BID Qty: 28 12RF Rx Instructions: mix into at least 4 oz water or juice before administering cholecalciferol (vitamin D3) 25 mcg (1,000 unit) tablet 25 mcg PO DAILY Qty: 90 0RF gemfibrozil 600 mg tablet 600 mg PO BID Qty: 60 2RF metformin 500 mg tablet 500 mg PO BID Qty: 60 0RF ferrous fumarate 325 mg (106 mg iron) tablet 325 mg PO DAILY Qty: 30 0RF fluticasone furoate-vilanterol [Breo Ellipta] 200-25 mcg/dose blister with device 1 inh PO DAILY Qty: 60 0RF ketoconazole 2 % shampoo 1 appl topical DAILY donepezil 10 mg tablet 10 mg PO BEDTIME clozapine 100 mg tablet 300 mg PO BEDTIME clonazepam 0.5 mg tablet 0.5 mg PO DAILY sucralfate 1 gram tablet 1 g PO TIDAC betamethasone dipropionate 0.05 % Cream 1 appl TOPICAL DAILY PRN (Reason: Rash) zinc oxide [Diaper Rash] 40 % ointment 1 appl topical DAILY PRN (Reason: skin irritation/diaper rash) (DME) 4-PRONGED CANE See Rx Instructions .Route .MEDSUPPLY Qty: 1 0RF Rx Instructions: As directed (DME) CHUX sheets See Rx Instructions .Route .MEDSUPPLY Qty: 60 12RF Rx Instructions: As directed Ear Drops (carbamide peroxide) 6.5 % drops 5 drp otic (ears) DAILY PRN (Reason: affected ear) (DME) adult pull ups XL See Rx Instructions .Route .MEDSUPPLY Qty: 100 12RF Rx Instructions: As directed (DME) DISPOSABLE GLOVES (large) large See Rx Instructions .Route .MEDSUPPLY Qty: 100 12RF Rx Instructions: Use as directed venlafaxine 150 mg capsule,extended release 24hr 150 mg PO DAILY albuterol sulfate 90 mcg/actuation HFA aerosol inhaler 2 puff inhalation Q4-6H PRN (Reason: shortness of breath or wheezing) 30 Days Qty: 8.5 3RF Xifaxan 550 mg tablet 550 mg PO BID Qty: 60 6RF Print Language: Japanese
[2024-10-08 06:36] LABS: Bacteria Urine 4+ (None Seen); RBC Urine 0-2 /HPF (0-2); Squamous Epithelial Cell Urine 0-2 /HPF (0-2); UACC Culture Trigger YES; WBC Urine 21-50 /HPF (0-5)
--- NOTE | 2024-10-08 06:39 | PC.NURSE ---
c collar removed by dr. jean, pt has a uti.
[2024-10-08] MEDS: cefuroxime axetiL 250 MG TABLET PO (07:27)
[2024-10-08 07:30] VITALS: BP 101/62; PULSE 81; RESP 16; TEMP 36.9; O2SAT 96
[2024-10-08 07:38] VITALS: BP 101/62; PULSE 81; RESP 18; TEMP 36.9; O2SAT 96
--- NOTE | 2024-10-08 09:01 | PHA.MEDREC ---
Pharmacy Consult ? Medication Reconciliation Pharmacy has completed the medication reconciliation.med rec complete using list provided by [facility] [place] dated 10/08/24. Was unable to obtain last dose of clozapine (called [facility] 3 times at [phone] and was repeatedly disconnected) at the time of this note.
== END 2024-10-08 07:36 ==
PROVIDERS: Emergency Provider Emergency Medicine
DX: R51.9 Headache, unspecified (principal); G12.21 Amyotrophic lateral sclerosis; F03.90 Unspecified dementia, unspecified severity, without behavioral disturbance, psychotic disturbance, mood disturbance, and anxiety; I10 Essential (primary) hypertension; J44.9 Chronic obstructive pulmonary disease, unspecified; E11.9 Type 2 diabetes mellitus without complications; Z79.899 Other long term (current) drug therapy
CPT/HCPCS: 36415; 70450; 72125; 80048; 81001; 85025; 87086; 87088; 87186; 93005; 99284

== ENCOUNTER → 2024-10-08 04:29 | Outpatient (BNV) | payer MEDICARE, MEDICAID, SELFPAY | PROVIDERS: Emergency Provider Emergency Medicine; Visit Provider Internal Medicine Cardiovascular Disease | DX: I44.0 Atrioventricular block, first degree (principal); I44.7 Left bundle-branch block, unspecified | CPT/HCPCS: 93010 ==

== ENCOUNTER → 2024-10-08 04:53 | Outpatient (BNV) | payer MEDICARE, MEDICAID, SELFPAY | PROVIDERS: Visit Provider Radiology Diagnostic Radiology | DX: S09.90XA Unspecified injury of head, initial encounter (principal); W06.XXXA Fall from bed, initial encounter; S19.9XXA Unspecified injury of neck, initial encounter | CPT/HCPCS: 70450; 72125 ==